=== PATIENT | male | born 1940 | race Caucasian/White ===

== ENCOUNTER 2018-02-21 15:05 | Inpatient (IN) | payer MEDICARE ==
[~2018-02-21] VITALS: Ht 167.6 cm; Wt 81.6 kg
--- NOTE | ~2018-02-21 | HP ---
PATIENT: DANIEL ADAME MEDICAL RECORD: [id number] ACCOUNT: [id number] LOCATION:[facility] : 40 ADMISSION DATE: 02/21/18 PCP: AGGIE PANIAGUA MD HISTORY AND PHYSICAL EXAMINATION HISTORY: Mr. Adame is a 77-year-old white male that is brought in by EMS, found in his home sitting in his own feces and urine. Apparently, he has been there since Thursday. He is confused. He is very hard of hearing. He is not wearing his hearing aids. Workup in the Emergency Room is significant for small PE, bowel obstruction, and an incarcerated umbilical hernia. 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 Ramos, who has been treating him for some heart issues. He has been noncompliant with medications. He is supposed to be on Coreg, which he got filled in January. He has been on spironolactone in the past, but has not filled for several months nor has he filled his Entresto in several months. No other meds listed. He is in atrial fib here in the Emergency Room, but he has been on no anticoagulation. He is going to be admitted for further evaluation. PAST MEDICAL HISTORY: Uncertain. He is unable to give much history himself. PAST SURGICAL HISTORY: Previous surgeries are unknown. ALLERGIES: Unknown. HOME MEDICATIONS: Coreg 6.25 b.i.d. Other meds; he has not been compliant with spironolactone and Entresto. FAMILY HISTORY: Unknown. SOCIAL HISTORY: According to his co-worker, he does not smoke and does not drink. He is . REVIEW OF SYSTEMS: Significant for some abdominal pain. PHYSICAL EXAMINATION: GENERAL: Very hard of hearing. He is awake. He seems somewhat confused. HEART: Irregularly irregular with rapid rate. LUNGS: Diminished breath sounds. ABDOMEN: Soft. He has got incarcerated umbilical hernia, which appears chronic. EXTREMITIES: Lower extremities reveal some stasis dermatitis with some swelling which is greater in the left leg than the right. NEUROLOGIC: Incomplete. IMPRESSIONS: 1. Bowel obstruction. 2. Pulmonary embolism on CTA. 3. Apparent cardiac history. PLAN: Admit. Surgical consultation. Dig. See orders for rest of plan. TRANSINT:[id number] Voice Confirmation ID: [id number] DOCUMENT ID: [id number] HISTORY AND PHYSICAL [id number] DANIEL ADAME MATTHEW DO at 2034 CC: [id number] DICTATION DATE: 02/21/18 185 SOCIAL MEDIA DIRECTOR: 02/21/18 193 ADM IN [address] [id number]
--- NOTE | ~2018-02-21 | EC ---
PATIENT:DANIEL ADAME DATE OF SERVICE: 02/21/18 SEX: M MEDICAL RECORD: [id number] DATE OF : 40 LOCATION:[facility] AGE OF PATIENT: 77 ADMISSION DATE: 02/21/18 REFERRING PHYSICIAN: INTERPRETING PHYSICIAN: MIKI BOLES MD ECHOCARDIOGRAM REPORT ECHO CHARGES 4 ECHO COMPLETE Date: 02/22/18 CLINICAL DIAGNOSIS: A-FIB ECHOCARDIOGRAPHIC MEASUREMENTS (adult normal given) AC root (d.<3.7cm) 3.3 cm LV Septum d (<1.2 cm> 1.4 cm Valve Excursion 1.4 cm LV Septum (systole) 1.7 cm Left Atria (s.<4.0cm> 4.5 cm LVPW d(<1.2cm) 1.3 cm RV (d.<2.3cm) 3.1 cm LVPW (sytole) 1.9 cm LV diastole(<5.6CM) 5.0 cm MV E-F(>70mm/sec) cm LV systole 3.4 cm LVOT Diameter 2.0 cm MV exc.(>10mm) cm Est.ejection fraction (50-75%) % DOPPLER: LVIT cm/sec A cm/sec E 83.0 cm/sec LA cm/sec RVSP 24.3 mmHg LVOT 120 cm/sec AOP1/2T m/s Asc. Ao 140 cm/sec RVOT 65.0 cm/sec RA cm/sec PA 77.0 cm/sec AV Gradient Peak 7.8 mmHg AV Mean 3.9 mmHg AV Area 2.7 cm MV Gradient Peak 3.8 mmHg MV Mean 1.5 mmHg MV Area cm COMMENTS: Air Plant Engineer: Dima [employer] District Traffic Chief: 1 Dr. Boles TAPE# PACS Pericardial Effusion N DATE OF SERVICE: 02/22/2018 FINDINGS: 1. Left ventricular chamber size is within normal limits. Left ventricular systolic function is mild to moderately depressed. Overall ejection fraction 35%. There is global hypokinesis throughout all segments with no discrete wall motion abnormalities present. 2. Left atrium is enlarged at 4.5 cm. Right atrium and right ventricular chamber sizes are as well moderately dilated. 3. Valvular structures have normal structure and motion. ECHOCARDIOGRAM REPORT [id number] DANIEL ADAME 4. Doppler interrogation reveals mild mitral regurgitation. No other valvular insufficiency or stenosis. Pulmonary systolic pressure is estimated at 24 mmHg. 5. No evidence of pericardial effusion or left ventricular thrombus. TRANSINT:[id number] Voice Confirmation ID: [id number] DOCUMENT ID: [id number] MIKI BOLES MD at 1823 CC: [id number] DICTATION DATE: 02/22/18 1249 SOCIAL SCIENCE PROFESSOR: 02/22/[address] [facility] [address] [place] [address]
--- NOTE | ~2018-02-21 | OP ---
PATIENT NAME: DANIEL ADAME MEDICAL RECORD: [id number] :40 LOCATION:[facility] ADMISSION DATE:02/21/18 SURGEON: AVIS CANALES MD DATE OF OPERATION: 02/24/2018 SURGEON: Avis Canales MD (JJ) PREOPERATIVE DIAGNOSES: 1. Bowel obstruction. 2. Abdominal aortic aneurysm. 3. Pulmonary embolism. POSTOPERATIVE DIAGNOSES: 1. Bowel obstruction. 2. Abdominal aortic aneurysm. 3. Pulmonary embolism. PROCEDURES PERFORMED: Exploratory laparotomy, small bowel resection, abdominal washout, and lysis of adhesions. ANESTHESIA: General. COMPLICATIONS: None. SPECIMEN: Small bowel resection. Case was contaminated. OPERATIVE COURSE: After consent was obtained, the patient was taken to the operating room and placed in the supine position on the operating table. Next, general anesthesia was given via endotracheal intubation after time-out was performed to confirm correct patient and procedure. The abdomen was prepped and draped in typical sterile fashion. Ioban dressing was placed. Lower midline abdominal incision was made with #10 blade scalpel just above the umbilicus to the pubic tubercle with a #10 blade scalpel. Dissection was continued to the level of the external oblique fascia using electrocautery. The fascia was incised with electrocautery. The peritoneum was incised using Metzenbaum scissors. At this time, the remaining portion of the incision was opened under direct vision using electrocautery. An Rakesh retractor was placed. One liter of purulent peritoneal fluid was encountered. The peritoneal fluid was suctioned and sent for Gram stain culture and sensitivity. The abdominal cavity was copiously irrigated and suctioned. The small bowel was extracorporealized and placed into the right upper quadrant. There was a single site of knuckled small bowel in the mid jejunum with immediate decompressed distal small bowel. An enterotomy was made and the proximal small bowel was decompressed using retrograde intraluminal suction. At this time, a segment of bowel, approximately 5 cm, was bypassed. A second enterotomy was made. A ixdy-ak-pdnx anastomosis was made with a linear AARON stapler with 75-mm green load staple. The common enterotomy was then closed using a second firing of the stapler and the remaining portion of mesentery was taken with a third firing of the stapler. The small bowel segment and mesentery were sent for permanent pathology. The lumen was grossly patent. The staple line was imbricated using 3-0 silk suture. The abdominal cavity was then irrigated with 3 liters of warm normal saline. An NG tube was placed and confirmed in position within the stomach with manual palpation. The abdominal cavity was grossly inspected. The small bowel was run OPERATIVE REPORT [id number] WELLS,DANIEL from the ligament of Treitz to the terminal ileum. There were no other defects noted. There was adequate passage of intraluminal fluid through the anastomosis. At this time, the fascia was reapproximated using #1 looped PDS. Skin was closed with brian. At the end of the case, all needle and instrument counts were correct. No complications occurred. The patient was extubated and transferred to the PACU in stable condition. TRANSINT:[id number] Voice Confirmation ID: [id number] DOCUMENT ID: [id number] AVIS CANALES MD at 1814 CC: [id number] DICTATION DATE: 02/24/18 1515 ENTRY LEVEL PROJECT COORDINATOR: 02/24/18 1535 ADM IN [facility] [address] [id number]
[2018-02-21 15:47] LABS: BASOPHILS 0 % (0-2); EOSINOPHILS 0.6 % (0-7); HEMATOCRIT 50.2 % (42.0-54.0); HEMOGLOBIN 17.2 g/dL (13.5-17.5); IMMATURE GRANULOCYTES 0.2 % (0-5); LYMPHOCYTES 15.6 % (15-50); MCH 30.8 pg (26.0-34.0); MCHC 34.3 g/dL (31.0-37.0); MEAN PLATELET VOLUME 11.7 fL (7.4-10.4); MONOCYTES 16.6 % (2-11); PLATELET COUNT 169 10x3/uL (130-400); RBC 5.58 10x6/uL (4.20-6.10); RDW 13.9 % (11.5-14.5); WBC 5.3 10x3/uL (4.8-10.8)
[2018-02-21 15:56] LABS: INR 1.23 (0.85-1.17); PROTIME 15.1 SECONDS (11.6-15.0)
[2018-02-21 15:58] LABS: D-DIMER-QUANTITATIVE 3.32 ug/mLFEU (0.20-0.54)
[2018-02-21 16:08] LABS: ALBUMIN 3.1 g/dL (3.4-5.0); ALKALINE PHOSPHATASE 100 U/L (46-116); ALT (SGPT) 13 U/L (10-68); BILIRUBIN - TOTAL 1.66 mg/dL (0.2-1.3); CALC OSMOLALITY 302 mosm/kg (275-300); CALCIUM 8.8 mg/dL (8.5-10.1); CARBON DIOXIDE 25.1 mmol/L (21.0-32.0); CHLORIDE - SERUM 104 mmol/L (98-107); CREATININE - SERUM 1.4 mg/dL (0.6-1.3); GLUCOSE 194 mg/dL (74-106); POTASSIUM - SERUM 3.6 mmol/L (3.5-5.1); SODIUM 143 mmol/L (136-145); UREA NITROGEN 49 mg/dL (7-18); eGFR NON AFRICAN AMERICAN 52 mL/min (90-120)
[2018-02-21 16:21] LABS: C-REACTIVE PROTEIN 2.6 mg/dL (0.0-0.9); CKMB 3.1 U/L (0.0-3.6); CREATINE KINASE 39 UL (21-232); PRO BNP 1636 pg/mL (0-450); THYROID STIMULATING HORMONE 0.63 uIU/mL (0.36-3.74)
[2018-02-21 16:25] LABS: TROPONIN-I 0.113 ng/mL (0.000-0.060)
[2018-02-21 16:49] LABS: UDS - AMPHET NEGATIVE QUAL (NEGATIVE); UDS - BARB NEGATIVE QUAL (NEGATIVE); UDS - BENZO NEGATIVE QUAL (NEGATIVE); UDS - COCAINE NEGATIVE QUAL (NEGATIVE); UDS - OPIATE NEGATIVE QUAL (NEGATIVE); UDS - PCP NEGATIVE QUAL (NEGATIVE); UDS - THC NEGATIVE QUAL (NEGATIVE)
[2018-02-21 16:55] LABS: APPEARANCE CLEAR (CLEAR); BILIRUBIN 1+ (NEGATIVE); COLOR DK YELLOW (YELLOW); GLUCOSE NEGATIVE (NEGATIVE); KETONE MODERATE mg/dL (NEGATIVE); NITRITE NEGATIVE (NEGATIVE); PROTEIN 1+ mg/dL (NEGATIVE); SPECIFIC GRAVITY 1.025 (1.005-1.020)
[2018-02-21 16:58] LABS: BACTERIA FEW /hpf (NONE SEEN); EPITHELIAL CELLS 0-5 /hpf (0-5); WHITE CELLS - URINE 0-5 /hpf (0-5)
[2018-02-21 20:00] LABS: HEMATOCRIT 44.3 % (42.0-54.0); MCH 30.3 pg (26.0-34.0); MCHC 33.9 g/dL (31.0-37.0); MCV 89.5 fL (80.0-100.0); MEAN PLATELET VOLUME 11.7 fL (7.4-10.4); RBC 4.95 10x6/uL (4.20-6.10); RDW 13.8 % (11.5-14.5); WBC 4.8 10x3/uL (4.8-10.8)
[2018-02-21 20:14] LABS: APTT 26.3 SECONDS (22.8-39.4); INR 1.25 (0.85-1.17); PROTIME 15.2 SECONDS (11.6-15.0)
[2018-02-21 21:58] VITALS: BP 133/73; BMI 29.2
[2018-02-21] MEDS ORDERED: COREG6.25 MG PO (23:21)
[2018-02-22 04:00] VITALS: BP 129/71
[2018-02-22 04:12] LABS: HEMOGLOBIN 14.8 g/dL (13.5-17.5); MCH 30.3 pg (26.0-34.0); MCHC 33.6 g/dL (31.0-37.0); MCV 90.2 fL (80.0-100.0); MEAN PLATELET VOLUME 11.9 fL (7.4-10.4); RBC 4.88 10x6/uL (4.20-6.10); RDW 13.9 % (11.5-14.5)
[2018-02-22 04:17] LABS: WBC 3.2 10x3/uL (4.8-10.8)
[2018-02-22 08:05] VITALS: BP 88/58
[2018-02-22 08:32] LABS: ANION GAP 7.6 mmol/L (8-16); BILIRUBIN - TOTAL 0.9 mg/dL (0.2-1.3); CREATININE - SERUM 1.1 mg/dL (0.6-1.3); POTASSIUM - SERUM 3.6 mmol/L (3.5-5.1); PROTEIN - SERUM 5.6 g/dL (6.4-8.2)
[2018-02-22 08:33] LABS: ALBUMIN 2.3 g/dL (3.4-5.0)
[2018-02-22 12:01] VITALS: BP 134/73
[2018-02-22 12:36] VITALS: BMI 29.2
[2018-02-22 13:02] VITALS: Ht 167.6 cm; Wt 81.6 kg
[2018-02-22 15:42] VITALS: BP 152/80
[2018-02-22 21:04] VITALS: BP 152/80
[2018-02-23 01:28] LABS: HEMATOCRIT 42.3 % (42.0-54.0); HEMOGLOBIN 14.2 g/dL (13.5-17.5); MCH 30.3 pg (26.0-34.0); MCHC 33.6 g/dL (31.0-37.0); MCV 90.4 fL (80.0-100.0); MEAN PLATELET VOLUME 11.2 fL (7.4-10.4); RBC 4.68 10x6/uL (4.20-6.10); RDW 13.9 % (11.5-14.5); WBC 3.7 10x3/uL (4.8-10.8)
[2018-02-23 04:25] VITALS: BP 148/86
[2018-02-23 05:59] LABS: BASOPHILS 0 % (0-2); EOSINOPHILS 1.6 % (0-7); HEMATOCRIT 42.1 % (42.0-54.0); HEMOGLOBIN 13.7 g/dL (13.5-17.5); IMMATURE GRANULOCYTES 0.5 % (0-5); LYMPHOCYTES 16.4 % (15-50); MCH 29.5 pg (26.0-34.0); MCHC 32.5 g/dL (31.0-37.0); MCV 90.5 fL (80.0-100.0); MEAN PLATELET VOLUME 11.4 fL (7.4-10.4); MONOCYTES 14.1 % (2-11); NEUTROPHILS 67.4 % (40-80); PLATELET COUNT 132 10x3/uL (130-400); RBC 4.65 10x6/uL (4.20-6.10); RDW 13.9 % (11.5-14.5); WBC 3.8 10x3/uL (4.8-10.8)
[2018-02-23 06:24] LABS: CALC OSMOLALITY 298 mosm/kg (275-300); CALCIUM 8.1 mg/dL (8.5-10.1); CARBON DIOXIDE 29.2 mmol/L (21.0-32.0); CHLORIDE - SERUM 111 mmol/L (98-107); GLUCOSE 221 mg/dL (74-106); MAGNESIUM - SERUM 1.9 mg/dL (1.8-2.4); POTASSIUM - SERUM 3.9 mmol/L (3.5-5.1); SODIUM 145 mmol/L (136-145); eGFR NON AFRICAN AMERICAN 77 mL/min (90-120)
[2018-02-23 06:26] LABS: UREA NITROGEN 20 mg/dL (7-18)
[2018-02-23 08:08] VITALS: BP 161/93
[2018-02-23 11:45] VITALS: BP 147/85
[2018-02-23 16:18] VITALS: BP 162/140
[2018-02-23 19:27] VITALS: BP 146/81
[2018-02-24 04:00] VITALS: BP 179/102
[2018-02-24 05:18] LABS: BASOPHILS 0.2 % (0-2); EOSINOPHILS 1.6 % (0-7); HEMATOCRIT 40.4 % (42.0-54.0); HEMOGLOBIN 13.5 g/dL (13.5-17.5); IMMATURE GRANULOCYTES 0.7 % (0-5); LYMPHOCYTES 18.5 % (15-50); MCH 30.1 pg (26.0-34.0); MCHC 33.4 g/dL (31.0-37.0); MEAN PLATELET VOLUME 11.4 fL (7.4-10.4); MONOCYTES 12.2 % (2-11); NEUTROPHILS 66.8 % (40-80); PLATELET COUNT 139 10x3/uL (130-400); RBC 4.49 10x6/uL (4.20-6.10); RDW 13.7 % (11.5-14.5); WBC 4.5 10x3/uL (4.8-10.8)
[2018-02-24 05:34] LABS: CALC OSMOLALITY 293 mosm/kg (275-300); CALCIUM 8.2 mg/dL (8.5-10.1); CARBON DIOXIDE 28.3 mmol/L (21.0-32.0); CHLORIDE - SERUM 109 mmol/L (98-107); GLUCOSE 194 mg/dL (74-106); MAGNESIUM - SERUM 1.8 mg/dL (1.8-2.4); POTASSIUM - SERUM 3.4 mmol/L (3.5-5.1); SODIUM 145 mmol/L (136-145); eGFR NON AFRICAN AMERICAN 77 mL/min (90-120)
[2018-02-24 05:37] LABS: PHOSPHOROUS 2.6 mg/dL (2.5-4.9); UREA NITROGEN 13 mg/dL (7-18)
[2018-02-24 08:51] VITALS: BP 171/91
[2018-02-24 12:45] VITALS: BP 172/84; BP 98/66
[2018-02-24 16:40] VITALS: BP 132/892
[2018-02-24 20:00] VITALS: BP 142/70
[2018-02-25 04:00] VITALS: BP 155/70
[2018-02-25 05:34] LABS: BASOPHILS 0.1 % (0-2); EOSINOPHILS 0 % (0-7); HEMATOCRIT 45.8 % (42.0-54.0); HEMOGLOBIN 15.7 g/dL (13.5-17.5); IMMATURE GRANULOCYTES 0.3 % (0-5); LYMPHOCYTES 6.3 % (15-50); MCH 30.5 pg (26.0-34.0); MCHC 34.3 g/dL (31.0-37.0); MCV 89.1 fL (80.0-100.0); MEAN PLATELET VOLUME 11.6 fL (7.4-10.4); MONOCYTES 5.6 % (2-11); NEUTROPHILS 87.7 % (40-80); PLATELET COUNT 150 10x3/uL (130-400); RBC 5.14 10x6/uL (4.20-6.10); RDW 13.9 % (11.5-14.5)
[2018-02-25 05:47] LABS: WBC 8.9 10x3/uL (4.8-10.8)
[2018-02-25 06:12] LABS: ANION GAP 13.2 mmol/L (8-16); CALCIUM 7.7 mg/dL (8.5-10.1); CARBON DIOXIDE 26.5 mmol/L (21.0-32.0); CREATININE - SERUM 1.2 mg/dL (0.6-1.3); MAGNESIUM - SERUM 1.7 mg/dL (1.8-2.4); POTASSIUM - SERUM 3.7 mmol/L (3.5-5.1)
[2018-02-25 06:13] LABS: PHOSPHOROUS 3.5 mg/dL (2.5-4.9)
[2018-02-25 10:55] VITALS: BP 190/115
[2018-02-25 13:31] VITALS: BP 178/98
[2018-02-25 16:48] VITALS: BP 142/69
[2018-02-25 20:00] VITALS: BP 155/83
[2018-02-26 04:00] VITALS: BP 131/83
[2018-02-26 05:07] LABS: BASOPHILS 0.1 % (0-2); EOSINOPHILS 0.3 % (0-7); HEMATOCRIT 41.9 % (42.0-54.0); HEMOGLOBIN 14.4 g/dL (13.5-17.5); IMMATURE GRANULOCYTES 0.6 % (0-5); LYMPHOCYTES 5.5 % (15-50); MCH 30.5 pg (26.0-34.0); MCHC 34.4 g/dL (31.0-37.0); MCV 88.8 fL (80.0-100.0); MEAN PLATELET VOLUME 11.4 fL (7.4-10.4); MONOCYTES 6.6 % (2-11); NEUTROPHILS 86.9 % (40-80); PLATELET COUNT 148 10x3/uL (130-400); RBC 4.72 10x6/uL (4.20-6.10); RDW 13.9 % (11.5-14.5); WBC 10.5 10x3/uL (4.8-10.8)
[2018-02-26 05:57] LABS: ANION GAP 8.4 mmol/L (8-16); CALCIUM 8.2 mg/dL (8.5-10.1); CARBON DIOXIDE 31.5 mmol/L (21.0-32.0); CREATININE - SERUM 1.1 mg/dL (0.6-1.3); MAGNESIUM - SERUM 1.8 mg/dL (1.8-2.4); PHOSPHOROUS 2.7 mg/dL (2.5-4.9)
[2018-02-26 06:20] LABS: POTASSIUM - SERUM 2.9 mmol/L (3.5-5.1)
[2018-02-26 08:48] VITALS: BP 156/91
[2018-02-26 12:46] VITALS: BP 164/94
[2018-02-26 16:49] VITALS: BP 140/65
[2018-02-26 23:06] VITALS: BP 111/84
[2018-02-27 04:54] VITALS: BP 180/92
[2018-02-27 08:44] LABS: CALCIUM 8.7 mg/dL (8.5-10.1); CARBON DIOXIDE 29.5 mmol/L (21.0-32.0); CREATININE - SERUM 1.1 mg/dL (0.6-1.3); MAGNESIUM - SERUM 2.1 mg/dL (1.8-2.4); PHOSPHOROUS 2.7 mg/dL (2.5-4.9); POTASSIUM - SERUM 4.5 mmol/L (3.5-5.1)
[2018-02-27 09:11] VITALS: BP 131/85
[2018-02-27 15:35] VITALS: BP 179/93
[2018-02-27 20:30] VITALS: BP 124/73
[2018-02-28 00:30] VITALS: BP 172/91
[2018-02-28 05:41] LABS: BASOPHILS 0.1 % (0-2); EOSINOPHILS 2.1 % (0-7); HEMATOCRIT 40.4 % (42.0-54.0); HEMOGLOBIN 13.4 g/dL (13.5-17.5); IMMATURE GRANULOCYTES 0.8 % (0-5); LYMPHOCYTES 6.2 % (15-50); MCH 29.6 pg (26.0-34.0); MCHC 33.2 g/dL (31.0-37.0); MCV 89.4 fL (80.0-100.0); MEAN PLATELET VOLUME 11.5 fL (7.4-10.4); MONOCYTES 7.2 % (2-11); NEUTROPHILS 83.6 % (40-80); PLATELET COUNT 175 10x3/uL (130-400); RBC 4.52 10x6/uL (4.20-6.10); RDW 14.4 % (11.5-14.5); WBC 8.9 10x3/uL (4.8-10.8)
[2018-02-28 06:13] VITALS: BP 184/102
[2018-02-28 06:20] LABS: CALC OSMOLALITY 292 mosm/kg (275-300); CALCIUM 8.3 mg/dL (8.5-10.1); CARBON DIOXIDE 28.4 mmol/L (21.0-32.0); CHLORIDE - SERUM 108 mmol/L (98-107); GLUCOSE 206 mg/dL (74-106); PHOSPHOROUS 2.6 mg/dL (2.5-4.9); SODIUM 143 mmol/L (136-145); UREA NITROGEN 18 mg/dL (7-18); eGFR NON AFRICAN AMERICAN 77 mL/min (90-120)
[2018-02-28 08:48] VITALS: BP 147/82
[2018-02-28 15:26] VITALS: BP 162/97
[2018-02-28 16:00] VITALS: BP 155/86
[2018-03-01 05:51] LABS: CALC OSMOLALITY 292 mosm/kg (275-300); CALCIUM 8.1 mg/dL (8.5-10.1); CARBON DIOXIDE 29.4 mmol/L (21.0-32.0); CHLORIDE - SERUM 107 mmol/L (98-107); CREATININE - SERUM 0.9 mg/dL (0.6-1.3); GLUCOSE 197 mg/dL (74-106); MAGNESIUM - SERUM 1.9 mg/dL (1.8-2.4); POTASSIUM - SERUM 3.7 mmol/L (3.5-5.1); SODIUM 144 mmol/L (136-145); UREA NITROGEN 16 mg/dL (7-18); eGFR NON AFRICAN AMERICAN 87 mL/min (90-120)
[2018-03-01 08:17] VITALS: BP 96/72
[2018-03-01 09:13] LABS: BASOPHILS 0.1 % (0-2); EOSINOPHILS 2.1 % (0-7); HEMATOCRIT 40.1 % (42.0-54.0); HEMOGLOBIN 13.2 g/dL (13.5-17.5); IMMATURE GRANULOCYTES 0.5 % (0-5); LYMPHOCYTES 7.9 % (15-50); MCH 29.9 pg (26.0-34.0); MCHC 32.9 g/dL (31.0-37.0); MCV 90.7 fL (80.0-100.0); MEAN PLATELET VOLUME 11.9 fL (7.4-10.4); NEUTROPHILS 82.4 % (40-80); RBC 4.42 10x6/uL (4.20-6.10); RDW 14.6 % (11.5-14.5); WBC 9.2 10x3/uL (4.8-10.8)
[2018-03-01 09:14] LABS: PLATELET COUNT 213 10x3/uL (130-400)
[2018-03-01 13:33] VITALS: BP 161/99
[2018-03-01 16:37] VITALS: BP 128/92
[2018-03-01 20:00] VITALS: BP 131/89
[2018-03-02 04:00] VITALS: BP 174/107
[2018-03-02 05:19] LABS: BASOPHILS 0.1 % (0-2); HEMATOCRIT 39.5 % (42.0-54.0); HEMOGLOBIN 13.1 g/dL (13.5-17.5); IMMATURE GRANULOCYTES 0.5 % (0-5); LYMPHOCYTES 6.8 % (15-50); MCHC 33.2 g/dL (31.0-37.0); MCV 90.4 fL (80.0-100.0); MEAN PLATELET VOLUME 11.3 fL (7.4-10.4); MONOCYTES 4.6 % (2-11); PLATELET COUNT 221 10x3/uL (130-400); RBC 4.37 10x6/uL (4.20-6.10); RDW 14.3 % (11.5-14.5)
[2018-03-02 05:36] LABS: ALBUMIN 2.1 g/dL (3.4-5.0); ALKALINE PHOSPHATASE 117 U/L (46-116); ALT (SGPT) 51 U/L (10-68); BILIRUBIN - TOTAL 0.69 mg/dL (0.2-1.3); CALC OSMOLALITY 288 mosm/kg (275-300); CALCIUM 8.3 mg/dL (8.5-10.1); CARBON DIOXIDE 29.5 mmol/L (21.0-32.0); CHLORIDE - SERUM 107 mmol/L (98-107); GLUCOSE 173 mg/dL (74-106); POTASSIUM - SERUM 3.7 mmol/L (3.5-5.1); PROTEIN - SERUM 5.6 g/dL (6.4-8.2); SODIUM 142 mmol/L (136-145); UREA NITROGEN 17 mg/dL (7-18); eGFR NON AFRICAN AMERICAN 77 mL/min (90-120)
[2018-03-02 08:28] VITALS: BP 188/100
[2018-03-02 11:30] VITALS: BP 127/80
[2018-03-02] MEDS ORDERED: ZOSYN 3.3753.375 G1 IV (11:32)
[2018-03-02] MEDS ORDERED: ELIQUIS5 MG PO (11:32)
[2018-03-02] MEDS ORDERED: HYDRALAZINE20 MG/ML IV (11:32)
[2018-03-02] MEDS ORDERED: PROTONIX VL + NS SYR IV (11:32)
[2018-03-02] MEDS ORDERED: MIRALAX17 GM PO (11:32)
[2018-03-02] MEDS ORDERED: FLORAJEN3 CAPS460 MG PO (11:32)
[2018-03-02] MEDS ORDERED: HUMULIN R100 U/ML SC (11:33)
[2018-03-02] MEDS ORDERED: CALMOSEPTINE OI71 GM TOPICAL (11:33)
== END 2018-03-02 16:03 | DRG 329 ==
LOC: D.ER 15:05 → D.EDHOLD 18:03 → D.MS 18:03 → D.EDHOLD 18:25 → D.ER 18:25 → D.MS 18:25 → D.EDHOLD 19:48 → D.MS 02-26 21:15
PROVIDERS: Emergency Medicine; Family Medicine; Internal Medicine Nephrology; Surgery
PROC: 0D9670Z Drainage of Stomach with Drainage Device, Via Natural or Artificial Opening (ICD-10-PCS; principal; 2018-02-21)
PROC: 0DB80ZZ Excision of Small Intestine, Open Approach (ICD-10-PCS; 2018-02-24 13:15)
DX: K42.0 Umbilical hernia with obstruction, without gangrene (principal); I26.99 Other pulmonary embolism without acute cor pulmonale; J18.9 Pneumonia, unspecified organism; I50.23 Acute on chronic systolic (congestive) heart failure; E43 Unspecified severe protein-calorie malnutrition; G93.41 Metabolic encephalopathy; J98.11 Atelectasis; E86.0 Dehydration; I48.91 Unspecified atrial fibrillation; H91.90 Unspecified hearing loss, unspecified ear; I71.4 Abdominal aortic aneurysm, without rupture; I11.0 Hypertensive heart disease with heart failure; I34.0 Nonrheumatic mitral (valve) insufficiency; Z68.29 Body mass index [BMI] 29.0-29.9, adult; I87.2 Venous insufficiency (chronic) (peripheral); Z91.19 Patient's noncompliance with other medical treatment and regimen

== ENCOUNTER 2018-03-02 16:46 | Inpatient (IN) | payer MEDICARE ==
[~2018-03-02] VITALS: Ht 167.6 cm; Wt 82.3 kg
--- NOTE | ~2018-03-02 | RHP ---
PATIENT: DANIEL ADAME MEDICAL RECORD: [id number] ACCOUNT: [id number] LOCATION:[id number] : 40 ADMISSION DATE: 03/02/18 REHABILITATION HISTORY AND PHYSICAL EXAMINATION POST ADMISSION PHYSICIAN EXAMINATION POST-ADMISSION PHYSICAL EXAMINATION AND HISTORY AND PHYSICAL DATE OF ADMISSION: 03/02/2018 ADMITTING DIAGNOSIS: Acute encephalopathy. HISTORY OF PRESENT ILLNESS: The patient is admitted to the inpatient rehab with a nontraumatic brain injury, acute encephalopathy. He is a 77-year-old gentleman, who was brought in via EMS on 02/21 after being found at home, sitting on his own feces and urine in his recliner. He was confused. Workup in the Emergency Room was significant for a small PE in the right upper lobe, bowel obstruction, abdominal aortic aneurysm, and incarcerated umbilical hernia. He was also in atrial fib. In the ER, was noted with no anticoagulation therapy. He has got a cardiac history including atrial fib, systolic congestive heart failure with an EF of 35%, mild mitral regurg. He has got hypertension. He underwent a small bowel resection on 02/24. He has been seen by the cardiovascular surgeon for AAA, but workup further after his acute illness resolved. He has been followed by pulmonary. He is currently on 4 liters of O2 with telemetry. He is bridged with Lovenox every 12 hours, that was recently discontinued until he could be therapeutic on Eliquis for anticoagulant therapy. Currently, he is incontinent of bowel and bladder at this time. He is receiving IV antibiotic therapy. He has been discontinued off his albumin, his TPN and lipids. He needs monitoring for close p.o. intake. He is debilitated, impaired mobility, confusion, self-care deficit. These are all barriers to him going home. He has been living alone, was independent with ADLs, moderately independent with his mobility with a single-point cane and was still working. He is currently set up for max assist with ADLs, moderate to max to total assist with his mobility. His daughter plans for him to discharge home with her to [place] after his acute inpatient stay. Comorbidities in this patient include bowel obstruction, pulmonary embolus, status post small bowel resection, right upper lobe pulmonary embolus, [id number] congestive heart failure, rule out pneumonia, on IV antibiotics at this time, peripheral arterial disease, umbilical hernia, nutritional problems, hypertension, atrial fib, lower extremity stasis, dementia, acute mental status changes, hyperglycemia, dehydration, and status post exploratory laparotomy. PAST MEDICAL HISTORY: Significant for atrial fib, systolic congestive heart failure, AAA, hypertension. PAST SURGICAL HISTORY: None other than above. ALLERGIES: No known drug allergies. CURRENT MEDICATIONS: Include Protonix 40 mg daily. He is on Floranex 160 mg daily, Coreg 6.25 mg b.i.d. with meals, polyethylene glycol 17 grams in 8 ounces of water daily. He is on Zosyn 3.375 g every 6 hours. He is on Calmoseptine. He is on a low-resistant sliding scale. Apresoline 20 mg every 4 hours for elevated blood pressures and Eliquis 5 mg b.i.d. HISTORY AND PHYSICAL [id number] DANIEL ADAME HABITS: No alcohol or tobacco use. FAMILY HISTORY: Noncontributory. SOCIAL HISTORY: The patient once again is going to be returning back to [place] actually hopefully with his daughter. REVIEW OF SYSTEMS: GENERAL: Does complain of weakness and fatigue. HEENT: Denies cold, cough, or congestion. CARDIOVASCULAR: Denies chest pain. PHYSICAL EXAMINATION: VITAL SIGNS: Stable, afebrile. GENERAL: Elderly gentleman, in no acute distress upon exam. HEENT: Normocephalic and atraumatic. Mucosa moist. NECK: Supple at this time. LUNGS: Clear, although he does have decreased breath sounds. CARDIOVASCULAR: Irregular rate and rhythm. ABDOMEN: Benign. EXTREMITIES: No clubbing, cyanosis, or edema. NEUROLOGIC: He is slow to mentate. LABORATORY DATA: His white count is 7.9, H&H of 13 and 39, and platelet count was noted to be 229. His sodium is 141, potassium 3.9, BUN and creatinine of 20 and 1.0, and blood sugar is noted to be 166. ASSESSMENT: This is a 77-year-old gentleman, who presents secondary to acute metabolic encephalopathy. The patient has potential to make improvement. We will institute the following multidisciplinary therapies including, but not limited to physical, occupational, and other services that cannot be offered at a lower level of care such as a nursing home facility. PLAN: 1. Admit to [facility] for intensive inpatient therapy to include the following disciplines: A. Physical therapy to improve gait, all transfer skills and bed mobility to a modified independent level. B. Occupational therapy to improve activities of daily living to a modified independent level. C. Case management to assist with discharge planning and placement options. D. Nutrition to assist with nutritional needs. E. Rehabilitation nursing to assist in monitoring the patient's underlying medical conditions and to assist with any type of bowel or bladder management. 2. The patient's current medications and medical care will be continued. 3. The patient will be placed on standard fall precautions. 4. The patient's estimated length of stay is approximately 7-10 days. 5. We will discuss this patient during care team staff meeting this week. I will follow up blood work again on Thursday and hopefully discuss with his daughter during the meantime. TRANSINT:[id number] Voice Confirmation ID: [id number] DOCUMENT ID: [id number] ADELSO notes whether there has been none or any medical/functional HISTORY AND PHYSICAL [id number] DANIEL ADAME change since admission: - No change since prescreen. ADELSO attests patient continues to be appropriate for IRF: - Continues to be appropriate. CASI DAY MD at 1244 CC: [id number] DICTATION DATE: 03/03/18 0909 MEDICAL STAFF DIRECTOR: 03/03/18 1131 DIS IN 03/03/[id number] [place] [address]
[~2018-03-02 16:46] MED LIST: CALMOSEPTINE OI71 GM TOPICAL; COREG6.25 MG PO; ELIQUIS5 MG PO; FLORAJEN3 CAPS460 MG PO; HUMULIN R100 U/ML SC; HYDRALAZINE20 MG/ML IV; MIRALAX17 GM PO; PROTONIX VL + NS SYR IV; ZOSYN 3.3753.375 G1 IV
[2018-03-02 19:00] VITALS: BP 120/59
[2018-03-03 02:18] VITALS: BP 120/59; Ht 167.6 cm; Wt 82.3 kg
[2018-03-03 06:40] LABS: BASOPHILS 0.1 % (0-2); EOSINOPHILS 0.4 % (0-7); HEMATOCRIT 38.9 % (42.0-54.0); HEMOGLOBIN 12.9 g/dL (13.5-17.5); IMMATURE GRANULOCYTES 0.5 % (0-5); LYMPHOCYTES 4.4 % (15-50); MCH 29.9 pg (26.0-34.0); MCHC 33.2 g/dL (31.0-37.0); MCV 90.3 fL (80.0-100.0); MEAN PLATELET VOLUME 11.3 fL (7.4-10.4); MONOCYTES 3.8 % (2-11); NEUTROPHILS 90.8 % (40-80); PLATELET COUNT 229 10x3/uL (130-400); RBC 4.31 10x6/uL (4.20-6.10); RDW 14.4 % (11.5-14.5); WBC 7.9 10x3/uL (4.8-10.8)
[2018-03-03 06:55] LABS: CALC OSMOLALITY 287 mosm/kg (275-300); CALCIUM 8.1 mg/dL (8.5-10.1); CARBON DIOXIDE 27.9 mmol/L (21.0-32.0); CHLORIDE - SERUM 107 mmol/L (98-107); GLUCOSE 166 mg/dL (74-106); POTASSIUM - SERUM 3.9 mmol/L (3.5-5.1); SODIUM 141 mmol/L (136-145); UREA NITROGEN 20 mg/dL (7-18); eGFR NON AFRICAN AMERICAN 77 mL/min (90-120)
[2018-03-03 08:00] VITALS: BP 175/90
[2018-03-03 11:30] VITALS: BP 141/74
== END 2018-03-03 11:10 | disposition short-term general hospital (02) | DRG 70 ==
LOC: D.REHAB 16:46
PROVIDERS: Emergency Medicine
DX: G93.40 Encephalopathy, unspecified (principal); I50.23 Acute on chronic systolic (congestive) heart failure; I48.91 Unspecified atrial fibrillation; I11.0 Hypertensive heart disease with heart failure; I34.0 Nonrheumatic mitral (valve) insufficiency; I71.4 Abdominal aortic aneurysm, without rupture

== ENCOUNTER 2018-03-03 11:00 | Inpatient (IN) | payer MEDICARE ==
[2018-03-03] VITALS (13 sets, daily range): BP systolic 129–179; BP diastolic 75–127
[~2018-03-03] VITALS: Ht 167.6 cm; Wt 91.2 kg
--- NOTE | ~2018-03-03 | MORECARE ---
CASE MANAGEMENT DISCHARGE SUMMARY PATIENT: DANIEL ADAME UNIT: [id number] ADM DATE: 03/03/18 AGE: 78 : 40 SEX: M ROOM/BED: D.2104 AUTHOR: SAMULE,DOC PHYSICIAN: REFERRING PHYSICIAN: AGGIE PANIAGUA MD DATE OF SERVICE: 03/24/18 Discharge Plan Patient Name: DANIEL ADAME Facility: [facility]:[place] : 1940 Planned Disposition: Long Term Facility Anticipated Discharge Date: 03/24/18 Discharge Date: Expected LOS: 21 Initial Reviewer: [id number] Initial Review Date: 03/03/2018 Generated: 03/24/18 5:32 pm Comments DCP- Discharge Planning Updated by [id number]: Alli Khan on 03/24/18 3:[address] Patient Name: DANIEL ADAME Encounter No: [id number] : 1940 Primary Insurance: HUMANA CHOICE PPO MCR ADVANT Anticipated DC Date: 03-24-2018 Planned Disposition: Long Term Facility External Planned Provider: [facility] MEDIC[facility] REHAB B[facility] DCP follow-up note: CM RECEIVED CALL FROM SHAYLA AT THE [facility], THEY WILL ACCEPT PT TODAY FOR REHAB, ARE CALLING PT'S DAUGHTER TO COMPLETE ADMISSION PAPERWORK NOW. BEDSIDE NURSE NOTFIED. CM FA[facility]ED UPDATE TO [facility] VIA ADRIANO, . FOR DISCHARGE, FAX DISCHARGE INFORMATION TO THE [facility], , NURSE REPORT TO BE CALLED TO THE [facility] AT [phone]. PT TO TRANSPORT VIA AMBULANCE. Alli Khan, CASE MANAGEMENT Appended by Alli Khan on 03/24/2018 14:53 CDT: CM RECEIVED CALL FROM JOHANNA AT [facility] [place] WHO REPORTS THEY CANNOT MEET PT'S NEEDS AND WILL NOT ACCEPT PT. JOHANNA HAS NOTIFIED PT'S DAUGHTER OF THIS TODAY AND INFORMED HER THAT EVEN IF MEDICARE WAS CHANGED TO STANDARD MEDICARE, IT WOULD NOT TAKE AFFECT UNTIL THE OF WHATEVER MONTH AFTER PT ARRIVES IN [place]. CM RECEIVED MESSAGE FROM PT'S DAUGHTER, JAIRO, WHO IS STILL IN AGREEMENT WITH DISCHARGE TO THE [facility] FOR REHAB AND WOULD LIKE CM TO FAX REFERRAL TO ANOTHER CARE HOME IN [place] TO CONTINUE SEEKING REHAB PLACEMENT CLOSER TO HER HOME; FAX [phone]. CM FAXED REFERRAL REQUESTED. ALLI KHAN, CASE MANAGEMENT Appended by Alli Khan on 03/24/2018 16:23 CDT: CM RECEIVED DISCHARGE ORDER, FAXED DISCHARGE INFORMATION TO THE [facility], , PT'S DAUGHTER ARRIVES AT HOSPITAL, HAS SIGNED ADMISSION PAPERS FOR REHAB AT THE [facility]. MANAGER MEDICAL AFFAIRS NURSE NOTIFIED. NURSE REPORT TO BE CALLED TO THE [facility] AT [phone]. PT TO TRANSPORT VIA AMBULANCE. SRI QUEEN DCP- Discharge Planning Updated by [id number]: Alli Khan on 03/24/18 11:[address] Patient Name: DANIEL ADAME Encounter No: [id number] : 1940 Primary Insurance: HUMANA CHOICE PPO MCR ADVANT Anticipated DC Date: 03-09-2018 Planned Disposition: Long Term Facility External Planned Provider: [facility], MEDICARE REHAB BED DCP follow-up note: CM RECEIVED CALL FROM PT'S DAUGHTER, JAIRO IBARRA [phone], WHO INFORMED CM THAT SHE HAS TO MAIL A COPY OF HER POWER OF AGRICULTURE CONSULTANT TO MEDICARE THEY WILL NOT ACCEPT EMAIL OR FAX, PT IS NOT ABLE TO ANSWER QUESTIONS FOR HIMSELF TO CHANGE MEDICARE COVERAGES AT THIS TIME. JAIRO REPORTS THIS PROCESS MAY TAKE OVER ONE WEEK. JAIRO NOW WANTS TO PLACE PT AT THE [facility] TO BEGIN REHAB THROUGH HIS MANAGED MEDICARE APPROVED AND SHE WILL WORK ON CHANGING TO STANDARD MEDICARE AND SECURING REHAB PLACEMENT IN [place] AT [facility]. JAIRO IS HER IN [place] AND IS AVAILABLE TO SIGN ADMISSION PAPERWORK TODAY AT THE [facility]. CM NOTIFIED SABA BRUNER. CM CALLED THE [facility], , NOTIFIED SHAYLA OF THE PLAN, SHAYLA REPORTS THEY WILL ACCEPT PT TODAY FOR REHAB, SHAYLA TO CALL CM SHORTLY WITH WHICH BUILDING PT WILL BE COMING TO. CM WAITING ON DISCHARGE ORDERS AND BUILDING ASSIGNMENT FOR THE [facility] ([facility]) FOR REHAB SERVICES APPROVED BY PT'S INSURANCE. SRI Queen DCP- Discharge Planning Updated by [id number]: Alli Khan on 03/24/18 10:[address] Patient Name: DANIEL ADAME Encounter No: [id number] : 1940 Primary Insurance: HUMANA CHOICE PPO MCR ADVANT Anticipated DC Date: 03-09-2018 Planned Disposition: Long Term Facility External Planned Provider: [facility] [place], MEDICARE REHAB BED DCP follow-up note: CM RECEIVED CALL FROM FOZIA OF THE [facility], , WHO ADVISED THAT PT'S MANAGED MEDICARE INSURANCE HAS AUTHORIZED REHAB SERVICES AT THE [facility] FOR 7 DAYS. CM CALLED AND SPOKE TO PT'S DAUGHTER, JAIRO IBARRA [phone], NOTIFIED OF ABOVE. JAIRO DOES NOT WANT PT PLACED AT THE [facility] IN [place]; JAIRO NOW REPORTS SHE HAS CONTACTED MEDICARE TO CHANGE PT FROM MANAGED MEDICARE POLICY TO STANDARD MEDICARE; JAIRO HAS CALLED JOHANNA AT [facility] AND WANTS PT DISCHARGE TO [facility], JAIRO AND AGUSTO IBARRA PLAN TO TRACKMOBILE OPERATOR PT TOMORROW FOR TRANSPORT TO [place] AND WILL PLACE PT AT [facility] FOR REHAB. ALISE CALLED [facility], , SPOKE TO JOHANNA. JOHANNA HAS TALKED TO PT'S DAUGHTER REGARDING REHAB, THEY DON'T KNOW HOW LONG IT WILL TAKE PT TO BE CHANGED FROM MANAGED MEDICARE TO TRADITIONAL MEDICARE AND WILL NOT ACCEPT PT UNTIL THAT TIME AND ALSO NEED TO REVIEW PAPERWORK TO ENSURE THAT THERE IS "SOMETHING" THEY CAN PROVIDE CUSTODIAL FOR AT THIS TIME. ALISE FAXED REFERRAL UPDATE TO [facility] AT [phone]. F[address]ILTY ADDRESS IS [address] [place] [address]. [id number]. PT'S DAUGHTER NOW DOES NOT WANT HOSPICE, STILL REFUSES PEG TUBE; WANTS PT ADMITTED TO REHAB AT [facility] [place]; SHE REFUSED PLACEMENT AT THE [facility] THAT INSURANCE HAS AUTHORIZED. CM WAITING ADMISSION DETERMINATION FROM [facility] IN [place]. CM WAITING PT'S DAUGHTER TO CHANGE PT BACK TO TRADITIONAL MEDICARE. DAUGHTER PLANS TO TRANSPORT PT TO [place] FOR REHAB AT [facility] 03-25-18. Alli Khan, CASE MANAGEMENT DCP- Discharge Planning Updated by [id number]: Alli Khan on 03/24/18 8:[address] Patient Name: DANIEL ADAME Encounter No: [id number] : 1940 Primary Insurance: HUMANA CHOICE PPO MCR ADVANT Anticipated DC Date: 03-09-2018 Planned Disposition: Long Term Facility External Planned Provider: [facility], LONG TERM CARE MEDICAID BED DCP follow-up note: CM SPOKE TO CEM OF [facility]; SHE HAS TALKED TO JAIRO IBARRA, INFORMED HER THAT PT IS NOT MEETING CRITERIA FOR INPATIENT HOSPICE, THEY HAVE OFFERED RESPITE HOSPICE CARE AT [facility] FOR 5 DAYS; JAIRO DID NOT ACCEPT. CM CALLED AND SPOKE TO SHAYLA AT THE [facility], THEY HAVE CONTACTED PT'S INSURANCE TO INQUIRE ABOUT REHAB SERVICES INSTEAD OF HOSPICE, INSURANCE DOES NOT WANT TO PAY FOR REHAB SERVICES PT IS NOT EATING OR DRINKING, PT / FAMILY DOES NOT WANT PEG TUBE AND HOSICE IS INDICATED IN CHART. SHAYLA DOES NOT THINK THAT FINANCIAL WILL BE WORKED OUT IN 5 DAYS, BUT RECOMMENDED THAT FAMILY ACCEPTED DIEKS[facility] OFFER OF RESPITE CARE AT [facility] AND TRY TO WORK SOMETHING OUT WITH HOSPICE. CM MET WITH JAIRO IBARRA IN ROOM. JAIRO REPORTS SHE WAS TIRED AND CONFUSED LAST NIGHT. CM EXPLAINED HOSPICE RESPITE OFFER FROM [facility] FOR 5 DAYS AT [facility]. JAIRO ASKED ABOUT REHAB FOR PT AT THE [facility]. CM INFORMED JAIRO THAT INSURANCE WILL NOT PAY FOR REHAB SERVICES AT THIS TIME. JAIRO WAS AWARE THAT THE CARE HOME SHE WANTED IN [facility] WILL NOT ACCEPT PT. JAIRO WANTS TO DISCUSS OPTIONS WITH HER SPOUSE AND IS CONSIDERING TAKING PT HOME. PT WAS DRINKING THICKENED WATER FOR NURSE THIS MORNING BUT REFUSED FURTHER INTAKE WHEN OFFERED BY DAUGHTER. JAIRO REPORTS SHE NEEDS TO CHECK ON GETTING PT ON "STANDARD MEDICARE" INSTEAD OF REPLACEMENT POLICY AND IS THINKING SHE WILL HAVE HER SPOUSE COME TO [place] AND THEY MAY TAKE PT TO HER HOME IN [place] TOMORROW. IMPORTANT MESSAGE FROM MEDICARE PROVIDED AND DISCUSSED. CM CONTINUES TO WAIT FAMILY DECISION REGARDING HOSPICE, DAUGHTER NOW REPORTING PLAN TO TAKE PT TO HER HOME IN [place] 03-25-18. Alli Khan, CASE MANAGEMENT DCP- Discharge Planning Updated by [id number]: Alli Khan on 03/23/18 2:[address] Patient Name: DANIEL ADAME Encounter No: [id number] : 1940 Primary Insurance: HUMANA CHOICE PPO MCR ADVANT Anticipated DC Date: 03-09-2018 Planned Disposition: Long Term Facility External Planned Provider: [facility], CAPACITY ANALYST CARE MEDICAID BED DCP follow-up note: CM RECEIVED CALL FROM SHAYLA OF [facility], PT WILL NOT QUALIFY FOR CAPACITY ANALYST CARE MEDICAID DUE TO TRANSFER OF PROPERTY; THEY MAY BE ABLE TO TAKE TO TRY REHAB AND WILL CHECK ON SKILLED DAYS AND MAY ALSO TAKE ON PRIVATE PAY BASIS AND WILL DISCUSS THIS WITH DAUGHTER. PT'S DAUGHTER HAS INDICATED TO THE [facility] SHE FEELS PT ONLY HAS TWO OR THREE DAYS LEFT AND ASKED IF PT WILL QUALIFY FOR INPATIENT HOSPICE. CM ADVISED SHAYLA THAT CM DID NOT SEE ANY IMMEDIATE CRITERIA FOR INPATIENT HOSPICE QUALIFICATION AND WILL ASK FOR INPATIENT SCREENING FROM [facility]. CM CALLED [facility], , LEFT MESSAGE WITH ANSWERING SERVICE REQUESTING INPATIENT HOSPICE EVALUATION AT DAUGHTER'S REQUEST. CM NOTIFIED THAT [facility] NURSE WILL CONTACT CM SHORTLY. CM WAITING INPATIENT HOSPICE EVALUATION FROM [facility]. [facility] WILL TAKE PT FOR REHAB OR ON PRIVATE PAY FDC CARE BASIS AND WILL DISCUSS THIS WITH PT'S DAUGHTER. Alli Khan, CASE MANAGEMENT Appended by Alli Khan on 03/23/2018 12:58 CDT: CM RECEIVED CALL FROM [facility], SHE IS IN ROUTE TO HOSPITAL TO EVALUATE PT FOR INPATIENT HOSPICE. CM WAITING INPATIENT HOSPICE EVALUATION FROM [facility]. [facility] WILL TAKE PT FOR REHAB OR ON PRIVATE PAY CAPACITY ANALYST CARE BASIS AND WILL DISCUSS THIS WITH PT'S DAUGHTER. Alli Khan, CASE MANAGEMENT Appended by Alli Khan on 03/23/2018 13:52 CDT: CM SPOKE TO [facility], PT DOES NOT MEET CRITERIA FOR INPATIENT HOSPICE, SHE HAS CALLED AND LEFT MESSAGE FOR PT'S DAUGHTER CAROL. PRIEST REPORTS OPTIONS REMAIN FOR PRIVATE PAY FOR CARE HOME OR FOR FAMILY MEMBER TO TAKE PT HOME FOR HOSPICE CARE. CM CALLED PT'S DAUGHTER, JAIRO IBARRA, , LEFT DETAILED MESSAGE REGARDING ABOVE INFORMATION, REQUESTING CALL BACK SOON POSSIBLE TO DISCUSS DISCHARGE PLANNING OPTIONS. CM WAITING ON JAIRO IBARRA, DAUGHTER, TO CALL CM TO DISCUSS OPTIONS OF PRIVATE PAY FOR CARE HOME VS FAMILY TAKING PT HOME FOR HOSPICE. ALLI KHAN, CASE MANAGEMENT Appended by Alli Khan on 03/23/2018 14:23 CDT: AT DAUGHTERS REQUEST TO CALL JAIR AND NOTIFY COURT OF PT'S INABILITY TO GET TO COURT HEARING THIS WEEK, CM CONTACTED PT'S What's in My Handbag, DARIEL SENECA [email or web address], , SPOKE TO MARIE WHO INFORMED CM THAT PT HAS COURT HEARING ON 03-25-[address] IN [facility] COURT ON 03-25-18 ON CHARGE OF TERRORISTIC THREATENING. CM CALLED DISTRICT COURT, , NOTIFIED HENNA WHO ASKED FOR LETTER TO BE FAXED TO THE COURT AT [phone]. CM OBTAIN[address] DR AVILA SIGNATURE ON LETTER TO INFORM COURT OF PT'S LOCATION AND CONDITION. CM FAXED TO [facility] COURT AT [phone], EMAILED TO [place] JENNY AT . CM WAITING ON AJIRO IBARRA, DAUGHTER, TO CALL CM TO DISCUSS OPTIONS OF PRIVATE PAY FOR CARE HOME VS FAMILY TAKING PT HOME FOR HOSPICE. ALLI KHAN, CASE MANAGEMENT Appended by Alli Khan on 03/23/2018 15:08 CDT: CM RECEIVED CALL FROM SHAYLA OF THE [facility] WHO REPORTS THEY ARE STILL GATHERING FINANCIAL INFORMATION WITH ASSISTANCE OF FAMILY IN HOPES OF ASSISTING WITH PLACEMENT. CM WAITING ON JAIRO IBARRA, DAUGHTER, TO CALL CM TO DISCUSS OPTIONS OF PRIVATE PAY FOR CARE HOME VS FAMILY TAKING PT HOME FOR HOSPICE. ALLI KHAN CASE MANAGEMENT DCP- Discharge Planning Updated by [id number]: Alli Khan on 03/23/18 6:[address] Patient Name: DANIEL ADAME Encounter No: [id number] : 1940 Primary Insurance: HUMANA CHOICE PPO MCR ADVANT Anticipated DC Date: 03-09-2018 Planned Disposition: Long Term Facility External Planned Provider: [facility], FDC CARE MEDICAID BED DCP follow-up note: ZELALEM OF [facility] HOSPICE HAS MET WITH PT'S DAUGHTER AND EVALUATED PT, THEY WILL ACCEPT FOR HOSPICE AND WILL ENROLL PT AFTER HIS ARRIVAL AT THE CARE HOME. [facility]. NOTIFY [facility] HOSPICE WHEN CARE HOME PLACEMENT IS SECURED, , FAXE DISCHARGE INFORMATION TO [facility] AT [phone]. Alli Khan CASE MANAGEMENT DCP- Discharge Planning Updated by [id number]: Alli Khan on 03/22/18 3:[address] Patient Name: DANIEL ADAME Encounter No: [id number] : 1940 Primary Insurance: [employer] PPO MCR ADVANT Anticipated DC Date: 03-09-2018 Planned Disposition: Long Term Facility External Planned Provider: [facility], FDC CARE MEDICAID BED DCP follow-up note: CM RECEIVED CALL FROM JOHANNA OF [facility], PT IS NOT IN THEIR INSURANCE NETWORK AND THEY ARE NOT GOING TO BE ABLE TO HELP WITH FDC CARE FOR THIS PATIENT. CM RECEIVED CALL FROM JAIRO IBARRA, , WHO REPORTS THAT SHE HAS POWER OF AGRICULTURE CONSULTANT AND WILL BRING A COPY TO PLACE ON CHART, SHE HAD PREVIOUSLY PROVIDED IT TO MED [facility]G [facility]UISE GUIDE BUT WILL BE HAPPY TO GIVE ANOTHER COPY REQUESTED. JAIRO INFORMED OF DECLINATION BY [facility]. JAIRO REPORTS THAT SHE HAS TALKED TO FAMILY AND THEY DECIDED TO LEAVE PT IN [place], JAIRO WOULD LIKE CM TO PLACE PT IN A GOOD CARE HOME WITH NO PREFERNCE, CHOICE COMPLETED, AND NO PREFERENCE FOR HOSPICE COMPANY. CM NOTIFIED ADRIANO, , OF REFERRAL FOR CAPACITY ANALYST CARE TO THE [facility]. CM FAXED REFERRAL TO THE [facility] VIA [employer] AT [phone]. CM CALLED [facility], , SPOKE TO [facility] AND PROVIDED HOSPICE REFERRAL INFORMATION, THEY DO CONTRACT WITH THE [facility]. CM FAXED REFERRAL TO [facility] AT [phone]. CM WAITING ADMISSION DETERMINATION FROM [facility] AND [facility] FOR FDC CARE. Alli Khan, CASE MANAGEMENT DCP- Discharge Planning Updated by [id number]: Alli Khan on 03/19/18 2:[address] Patient Name: DANIEL ADAME Encounter No: [id number] : 1940 Primary Insurance: HUMANA CHOICE PPO MCR ADVANT Anticipated DC Date: 03-09-2018 Planned Disposition: Long Term Facility External Planned Provider: [facility] MEDICARE SKILLED BED DCP follow-up note: CM SPOKE TO PT'S DAUGHTER, JAIRO IBARRA ALONG WITH DR. LOVETT AND ALANA BAUMAN. DISUSSED WAS PT'S CONDITION, CUSTODIAL REHAB VS HOSPICE CARE. PT'S DAUGHTER IS STILL WANTING PT IN [place] AND ASKED FOR PT TO BE [facility]ERRED TO [facility] [place], [place]. JAIRO HAS DISCUSSED PLACEMENT WITH JOHANNA AT FACILITY. TRANSPORTATION DISCUSSED; JAIRO DECIDED SHE WOULD LIKE CM TO OBTAIN TRANSPORT ESTIMATE FROM [facility] IF PLACEMENT CAN BE SECURED AT FACILITY. CHOICE SIGNED FOR [facility], IMPORTANT MESSAGE FROM MEDICARE PROVIDED AND EXPLAINED. CM CALLED [facility], , JOHANNA WAS NOT IN. CM SPOKE TO AILEEN WHO REPORTED THAT JOHANNA WOULD BE BACK IN THURSDAY AND WILL REVIEW REFERRAL THEN. CM FAXED REFERRAL TO [facility] AT [phone]. FACILTY ADDRESS IS [address] [place] [address]. [id number]. CM WAITING ADMISSION DETERMINATION FROM [facility] IN [place]. Alli Khan, CASE MANAGEMENT DCP- Discharge Planning Updated by [id number]: Alli Khan on 03/17/18 2:[address] Patient Name: DANIEL ADAME Encounter No: [id number] : 1940 Primary Insurance: HUMANA CHOICE PPO MCR ADVANT Anticipated DC Date: 03-09-2018 Planned Disposition: Long Term Facility External Planned Provider: TO BE DETERMINED DCP follow-up note: CM REVIEWED CHART, DR. BEARDEN'S NOTE INDICATES NEED TO SPEAK TO FAMILY REGARDING COMFORT CARE OR HOSPICE CARE FOR PT. CM RECEIVED CALL FROM DAUGHTER, JAIRO IBARRA, , WHO REQUESTED UPDATE. CM DISCUSSED DR. BEARDEN'S OPTION REGARDING HOSPICE OR COMFORT CARE. JAIRO REPORTS NO INTEREST AT THIS TIME FOR COMFORT CARE OR HOSPICE. JAIRO IS CONSIDERING PICKING UP PT IN CAR AND TAKING PT BACK TO [place] WHERE THEY LIVE, IT IS AN [address] ALISE EXPLAINED PT IS VERY WEAK AND WOULD NOT BE ABLE TO GET OUT OF THE CAR DURING PROLONGED TRANSPORTATION. JAIRO ONLY WANTED ASSURANCES THAT PT WOULD NOT DURING THE RIDE TO [place]. CM INFORMED JAIRO THAT CM COULD NOT PROVIDE THAT ASSURANCE, RECOMMENDED CUSTODIAL REHAB FOR PT. JAIRO REPORTS SHE WILL BE IN [place] AND AT THE HOSPITAL TOMORROW, 03-18-18 AT ABOUT 8:30 IN THE MORNING. SHE WOULD LIKE TO MEET WITH ALL DOCTORS IN THE MORNING IN A "BIG MEETING". ALISE EXPLAINED THAT THIS WOULD NOT BE POSSIBLE, OFFERED TO ASK DR. LOVETT, PRIMARY DOCTOR, TO MEET WITH HER IN THE MORNING, JAIRO ACCEPTED. JAIRO IBARRA, DAUGHTER, , WILL MEET WITH DR. LOVETT AND CM IN THE [facility], 03-18-18, TO DISCUSS PT'S CARE, PROGNOSIS AND DISCHARGE PLAN. Alli Khan CASE MANAGEMENT DCP- Discharge Planning Updated by [id number]: Alli Khan on 03/11/18 7:[address] Patient Name: DANIEL ADAME Encounter No: [id number] : 1940 Primary Insurance: HUMANA CHOICE PPO MCR ADVANT Anticipated DC Date: 03-09-2018 Planned Disposition: Inpatient Rehab Facility External Planned Provider: [facility] DCP follow-up note: CM INFORMED PT THAT INSURANCE STILL HAS NOT PROVIDED AUTHORIZATION OR DENIAL FOR REHAB. PT STILL WILLING FOR REHAB AT [place]. IMPORTANT MESSAGE FROM MEDICARE PROVIDED AND EXPLAINED. CM WAITING FOR INSURANCE AUTHORIZATION OR DENIAL FOR INPATIENT REHAB SERVICES AT [place]. Alli Khan CASE MANAGEMENT DCP- Discharge Planning Updated by [id number]: Alli Khan on 03/08/18 3:[address] Patient Name: DANIEL ADAME Encounter No: [id number] : 1940 Primary Insurance: HUMANA CHOICE PPO MCR ADVANT Anticipated DC Date: 03-09-2018 Planned Disposition: Inpatient Rehab Facility External Planned Provider: [facility] INPATIENT REHAB DCP follow-up note: * Is the patient Alert and Oriented? Yes 0 * How many steps to enter\\exit or inside your home? 4-5 0 * PCP DR. VELÁZQUEZ 0 * Pharmacy [facility] 0 * Preadmission Environment Acute Inpatient Rehab 0 * Facility Name [facility] INPATIENT REHAB 0 * ADLs Partial Dependent 0 * Partial ADLs (Assistance needed) Ambulation Bathing Medication Management Toileting Transfers 0 * Equipment None 0 * Other Equipment NO MEDICAL EQUIPMENT PROVIDER PREFERENCE 0 * List name and contact numbers for known caregivers / representatives who currently or will assist patient after discharge: JAIRO IBARRA, DAUGHTER, 0 * Verbal permission to speak to the caregivers and representatives has been obtained from the patient. Yes 0 * Community resources currently utilized None 0 * Please name any agencies selected above. NONE 0 * Additional services required to return to the preadmission environment? No 0 * Can the patient safely return to the preadmission environment? Yes 0 * Has this patient been hospitalized within the prior 30 days at any hospital? Yes 0 CM RECEIVED ORDER FOR INPATIENT REHAB PRESCREENING. CM SPOKE TO PT IN ROOM WHO IS VERY HARD OF HEARING. PT REPORTS HIS DAUGHTER, JAIRO, IS HERE AND FOR CM TO SPEAK TO HER REGARDING DISCHARGE PLAN. PT IS AGREEABLE TO INPATIENT REHAB AND STATES HE WAS LIVING AT HOME ALONE PRIOR TO HOSPITALIZATION. IMPORTANT MESSAGE FROM MEDICARE PROVIDED AND EXPLAINED. CM CALLED AND SPOKE TO JAIRO IBARRA, DAUGHTER, ; JAIRO REPORTS LIVING IN [place] AND IT IS A [address] TO GET PT THERE WHEN THEY LEAVE [place]. JAIRO WAS HOPING THAT PT WOULD BE STONG ENOUGH FOR THE RIDE AT DISCHARGE FROM HOSPITAL. CM REVIEWED THERAPY EVALUATION AND NOTES WITH JAIRO. JAIRO WOULD LIKE TO TRY TO GET PT BACK INTO INPATIENT REHAB AT [place] STATING HE WAS ONLY IN THERE FOR ONE NIGHT BEFORE HAVING TO BE READMITTED; SHE HOPES FOR PT TO BE STONG ENOUGH FOR HER TO TRANSPORT PT TO [place] AT DISCHARGE AND SHE HAS A CARE HOME IN MIND THAT WILL ACCEPT PT AT DISCHARGE IF NEEDED. CM WAITING FOR INPATIENT REHAB PRESCREENING AND INSURANCE AUTHORIZATION OR DENIAL FOR INPATIENT REHAB SERVICES. Alli Khan, CASE MANAGEMENT DCP- Discharge Planning Updated by [id number]: Jerica Tejeda on 03/07/18 7:[address] PATIENT WITH VARYING DEGREES OF ORIENTATION. HE IS ALSO HARD OF HEARING. WAS TRANSFERED TO ICU AFTER ONE DAY IN [facility]. MD PLAN IS FOR POSSIBLE TRANSFER TO ACUTE REHAB THURSDAY. PATIENT WILL NEED TO BE EVALUATED AND LIKELY WILL REQUIRE A NEW PRECERT HE HAS HU[employer]NA CHOICE PPO MEDICARE ADVANTAGE AN INSURER. \\NO PHYSICAL THERAPY NOTES AT THIS TIME. WILL NEED PT/OT EVAL FOR PRECERT. REPORTEDLY LIVED ALONE PRIOR TO ADMISSION. HAD DAUGHTER,JAIRO IBARRA. CONTACT PHONE NUMBER CELL [phone] HOME [phone]. PATIENT ALSO HAS SONS :SERENA POMPA- [phone] AND MARJORIE SLAUGHTER- [phone]. CM WILL NEED TO MEET WITH PATIENT'S FAMILY REGARDING DISCHARGE PLAN. DCPIA - Discharge Planning Initial Assessment Updated by [id number]: Alli Khan on 03/08/18 4:26 pm * Is the patient Alert and Oriented? Yes * How many steps to enter\\exit or inside your home? 4-5 * PCP DR. VELÁZQUEZ * Pharmacy [facility] * Preadmission Environment Acute Inpatient Rehab * Facility Name [facility] INPATIENT REHAB * ADLs Partial Dependent * Partial ADLs (Assistance needed) Ambulation Bathing Medication Management Toileting Transfers * Equipment None * Other Equipment NO MEDICAL EQUIPMENT PROVIDER PREFERENCE * List name and contact numbers for known caregivers / representatives who currently or will assist patient after discharge: JAIRO IBARRA, DAUGHTER, * Verbal permission to speak to the caregivers and representatives has been obtained from the patient. Yes * Community resources currently utilized None * Please name any agencies selected above. NONE * Additional services required to return to the preadmission environment? No * Can the patient safely return to the preadmission environment? Yes * Has this patient been hospitalized within the prior 30 days at any hospital? Yes Coverage Notice Reviewer: ROSMERY Khan Notice Issued Date-Time: 03/08/2018 16:05 Notice Type: IM Discharge Notice Notice Delivered To: Patient Relationship to Patient: Laboratory Scientist Name: Delivery Method: HAND - Hand Delivered Sho Days: Prior Verbal Notification: Recipient Understood Notice: Yes Recipient Signature: Yes Med Rec Note Co-signed by Attending: Coverage Notice Comment: Reviewer: ROSMERY Khan Notice Issued Date-Time: 03/11/2018 8:10 Notice Type: IM Discharge Notice Notice Delivered To: Patient Relationship to Patient: Laboratory Scientist Name: Delivery Method: HAND - Hand Delivered Sho Days: Prior Verbal Notification: Recipient Understood Notice: Yes Recipient Signature: Yes Med Rec Note Co-signed by Attending: Coverage Notice Comment: Reviewer: ROSMERY Khan Notice Issued Date-Time: 03/19/2018 14:50 Notice Type: Patient Choice Letter Notice Delivered To: Family Member Relationship to Patient: Daughter Laboratory Scientist Name: JAIRO [facility] Delivery Method: HAND - Hand Delivered Sho Days: Prior Verbal Notification: Recipient Understood Notice: Yes Recipient Signature: Yes Med Rec Note Co-signed by Attending: Coverage Notice Comment: Reviewer: ROSMERY Khan Notice Issued Date-Time: 03/19/2018 14:50 Notice Type: IM Discharge Notice Notice Delivered To: Family Member Relationship to Patient: Daughter Laboratory Scientist Name: JAIRO IBARRA Delivery Method: HAND - Hand Delivered Sho Days: Prior Verbal Notification: Recipient Understood Notice: Yes Recipient Signature: Yes Med Rec Note Co-signed by Attending: Coverage Notice Comment: Reviewer: ROSMERY Khan Notice Issued Date-Time: 03/22/2018 11:00 Notice Type: Patient Choice Letter Notice Delivered To: Family Member Relationship to Patient: Daughter Laboratory Scientist Name: JAIRO IBARRA Delivery Method: PHONE - Phone Sho Days: Prior Verbal Notification: Recipient Understood Notice: Yes Recipient Signature: Yes Med Rec Note Co-signed by Attending: Coverage Notice Comment: [facility] WITH HOSPICE CARE. Reviewer: [id number] - Alli Khan Notice Issued Date-Time: 03/24/2018 8:40 Notice Type: IM Discharge Notice Notice Delivered To: Family Member Relationship to Patient: Daughter Laboratory Scientist Name: JAIRO IBARRA Delivery Method: HAND - Hand Delivered Sho Days: Prior Verbal Notification: Recipient Understood Notice: Yes Recipient Signature: Yes Med Rec Note Co-signed by Attending: Coverage Notice Comment: Last DP export: 03/24/18 1:55 Patient Name: DANIEL ADAME Page [phone] at 1632 All edits/amendments must be made on the electronic document DICTATION DATE: 03/24/18 163 PATHOLOGY TEACHER: RUBÉN 03/24/18 1631 RPT#: [id number] DC DATE: STATUS: ADM IN [facility] [address] [place] [address] END OF REPORT
--- NOTE | ~2018-03-03 | MORECARE ---
CASE MANAGEMENT DISCHARGE SUMMARY PATIENT: DANIEL ADAME UNIT: [id number] ADM DATE: 03/03/18 AGE: 78 : 40 SEX: M ROOM/BED: D.2104 AUTHOR: SAMUEL,DOC PHYSICIAN: REFERRING PHYSICIAN: AGGIE PANIAGUA MD DATE OF SERVICE: 03/24/18 Discharge Plan Patient Name: DANIEL ADAME Facility: [facility]:[place] : 1940 Planned Disposition: Senior Living Facility Anticipated Discharge Date: 03/09/18 Discharge Date: Expected LOS: 6 Initial Reviewer: [id number] Initial Review Date: 03/03/2018 Generated: 03/24/18 12:39 pm Comments DCP- Discharge Planning Updated by [id number]: Alli Albarran on 03/24/18 10:[address] Patient Name: DANIEL ADAME Encounter No: [id number] : 1940 Primary Insurance: HUMANA CHOICE PPO MCR ADVANT Anticipated DC Date: 03-09-2018 Planned Disposition: Senior Living Facility External Planned Provider: [facility] IN [place], MEDICARE REHAB BED DCP follow-up note: CM RECEIVED CALL FROM FOZIA OF [facility], , WHO ADVISED THAT PT'S MANAGED MEDICARE INSURANCE HAS AUTHORIZED REHAB SERVICES AT [facility] FOR 7 DAYS. ALISE CALLED AND SPOKE TO PT'S DAUGHTER, JAIRO IBARRA [phone], NOTIFIED OF ABOVE. JAIRO DOES NOT WANT PT PLACED AT [facility] IN [place]; JAIRO NOW REPORTS SHE HAS CONTACTED MEDICARE TO CHANGE PT FROM MANAGED MEDICARE POLICY TO STANDARD MEDICARE; JAIRO HAS CALLED JOHANNA AT [facility] AND WANTS PT DISCHARGE TO [facility], JAIRO AND AGUSTO IBARRA PLAN TO AUTOMOBILE OR TRUCK RENTAL DISPATCHER PT TOMORROW FOR TRANSPORT TO [place] AND WILL PLACE PT AT [facility] FOR REHAB. ALISE CALLED [facility], , SPOKE TO JOHANNA. JOHANNA HAS TALKED TO PT'S DAUGHTER REGARDING REHAB, THEY DON'T KNOW HOW LONG IT WILL TAKE PT TO BE CHANGED FROM MANAGED MEDICARE TO TRADITIONAL MEDICARE AND WILL NOT ACCEPT PT UNTIL THAT TIME AND ALSO NEED TO REVIEW PAPERWORK TO ENSURE THAT THERE IS "SOMETHING" THEY CAN PROVIDE NURSING HOME FOR AT THIS TIME. CM FAXED REFERRAL UPDATE TO [facility] AT [phone]. [place]ILTY AD[address]ESS IS [address] [place] [address]. PT'S DAUGHTER NOW DOES NOT WANT HOSPICE, STILL REFUSES PEG TUBE; WANTS PT ADMITTED TO REHAB AT [facility] IN [place]; SHE REFUSED PLACEMENT AT [facility] THAT INSURANCE HAS AUTHORIZED. CM WAITING ADMISSION DETERMINATION FROM [facility] NURSING HOME FACILITY IN [place], [place]. CM WAITING PT'S DAUGHTER TO CHANGE PT BACK TO TRADITIONAL MEDICARE. DAUGHTER PLANS TO TRANSPORT PT TO [place] FOR REHAB AT [facility] 03-25-18. Alli Albarran, CASE MANAGEMENT DCP- Discharge Planning Updated by [id number]: Alli Albarran on 03/24/18 8:[address] Patient Name: DANIEL ADAME Encounter No: [id number] : 1940 Primary Insurance: HUMANA CHOICE PPO MCR ADVANT Anticipated DC Date: 03-09-2018 Planned Disposition: Senior Living Facility External Planned Provider: [facility] TERM CARE MEDICAID BED DCP follow-up note: CM SPOKE TO CEM OF [facility]; SHE HAS TALKED TO JAIRO IBARRA, INFORMED HER THAT PT IS NOT MEETING CRITERIA FOR INPATIENT HOSPICE, THEY HAVE OFFERED RESPITE HOSPICE CARE AT [facility] FOR 5 DAYS; JAIRO DID NOT ACCEPT. CM CALLED AND SPOKE TO SHAYLA AT [facility], THEY HAVE CONTACTED PT'S INSURANCE TO INQUIRE ABOUT REHAB SERVICES INSTEAD OF HOSPICE, INSURANCE DOES NOT WANT TO PAY FOR REHAB SERVICES PT IS NOT EATING OR DRINKING, PT / FAMILY DOES NOT WANT PEG TUBE AND HOSICE IS INDICATED IN CHART. SHAYAL DOES NOT THINK THAT FINANCIAL WILL BE WORKED OUT IN 5 DAYS, BUT RECOMMENDED THAT FAMILY ACCEPTED [facility] OFFER OF RESPITE CARE AT [facility] AND TRY TO WORK SOMETHING OUT WITH HOSPICE. CM MET WITH JAIRO IBARRA IN ROOM. JAIRO REPORTS SHE WAS TIRED AND CONFUSED LAST NIGHT. ALISE EXPLAINED HOSP[facility] 5 [facility] AT [facility]. JAIRO ASKED ABOUT REHAB FOR PT AT [facility]. CM INFORMED JAIRO THAT INSURANCE WILL NOT PAY FOR REHAB SERVICES AT THIS TIME. JAIRO WAS AWARE THAT THE RETIREMENT SHE WANTED IN [facility] WILL NOT ACCEPT PT. JAIRO WANTS TO DISCUSS OPTIONS WITH HER SPOUSE AND IS CONSIDERING TAKING PT HOME. PT WAS DRINKING THICKENED WATER FOR NURSE THIS MORNING BUT REFUSED FURTHER INTAKE WHEN OFFERED BY DAUGHTER. JAIRO REPORTS SHE NEEDS TO CHECK ON GETTING PT ON "STANDARD MEDICARE" INSTEAD OF REPLACEMENT POLICY AND IS THINKING SHE WILL HAVE HER SPOUSE COME TO [place] AND THEY MAY TAKE PT TO HER HOME IN [place] TOMORROW. IMPORTANT MESSAGE FROM MEDICARE PROVIDED AND DISCUSSED. CM CONTINUES TO WAIT FAMILY DECISION REGARDING HOSPICE, DAUGHTER NOW REPORTING PLAN TO TAKE PT TO HER HOME IN [place] 03-25-18. SRI Clemons MANAGEMENT DCP- Discharge Planning Updated by [id number]: Alli Albarran on 03/23/18 2:[address] Patient Name: DANIEL ADAME Encounter No: [id number] : 1940 Primary Insurance: HUMANA CHOICE PPO MCR ADVANT Anticipated DC Date: 03-09-2018 Planned Disposition: Senior Living Facility External Planned Provider: [facility], SHELTER CARE MEDICAID BED DCP follow-up note: CM RECEIVED CALL FROM SHAYLA OF [facility], PT WILL NOT QUALIFY FOR WELLNESS NURSE CARE MEDICAID DUE TO TRANSFER OF PROPERTY; THEY MAY BE ABLE TO TAKE TO TRY REHAB AND WILL CHECK ON SKILLED DAYS AND MAY ALSO TAKE ON PRIVATE PAY BASIS AND WILL DISCUSS THIS WITH DAUGHTER. PT'S DAUGHTER HAS INDICATED TO [facility] SHE FEELS PT ONLY HAS TWO OR THREE DAYS LEFT AND ASKED IF PT WILL QUALIFY FOR INPATIENT HOSPICE. CM ADVISED SHAYLA THAT CM DID NOT SEE ANY IMMEDIATE CRITERIA FOR INPATIENT HOSPICE QUALIFICATION AND WILL ASK FOR INPATIENT SCREENING FROM [facility]. CM CALLED [facility], , LEFT MESSAGE WITH ANSWERING SERVICE REQUESTING INPATIENT HOSPICE EVALUATION AT DAUGHTER'S REQUEST. ALISE NOTIFIED THAT [facility] NURSE WILL CONTACT CM SHORTLY. CM WAITING INPATIENT HOSPICE EVALUATION FROM [facility]. THE [facility] WILL TAKE PT FOR REHAB OR ON PRIVATE PAY WELLNESS NURSE CARE BASIS AND WILL DISCUSS THIS WITH PT'S DAUGHTER. Alli Albarran, CASE MANAGEMENT Appended by Alli Albarran on 03/23/2018 12:58 CDT: CM RECEIVED CALL FROM CEM OF [facility], SHE IS IN ROUTE TO HOSPITAL TO EVALUATE PT FOR INPATIENT HOSPICE. CM WAITING INPATIENT HOSPICE EVALUATION FROM [facility]. THE [facility] WILL TAKE PT FOR REHAB OR ON PRIVATE PAY WELLNESS NURSE CARE BASIS AND WILL DISCUSS THIS WITH PT'S DAUGHTER. Alli Albarran, CASE MANAGEMENT Appended by Alli Albarran on 03/23/2018 13:52 CDT: ALISE SPOKE TO CEM OF [facility], PT DOES NOT MEET CRITERIA FOR INPATIENT HOSPICE, SHE HAS CALLED AND LEFT MESSAGE FOR PT'S DAUGHTER CAROL. PRIEST REPORTS OPTIONS REMAIN FOR PRIVATE PAY FOR RETIREMENT OR FOR FAMILY MEMBER TO TAKE PT HOME FOR HOSPICE CARE. CM CALLED PT'S DAUGHTER, JAIRO IBARRA, , LEFT DETAILED MESSAGE REGARDING ABOVE INFORMATION, REQUESTING CALL BACK SOON POSSIBLE TO DISCUSS DISCHARGE PLANNING OPTIONS. CM WAITING ON JAIRO IBARRA, DAUGHTER, TO CALL CM TO DISCUSS OPTIONS OF PRIVATE PAY FOR RETIREMENT VS FAMILY TAKING PT HOME FOR HOSPICE. ALLI ALBARRAN CASE MANAGEMENT Appended by Alli Albarran on 03/23/2018 14:23 CDT: AT DAUGHTERS REQUEST TO CALL JAIR AND NOTIFY COURT OF PT'S INABILITY TO GET TO COURT HEARING THIS WEEK, CM CONTACTED PT'S [employer], [employer], , SPOKE TO MARIE WHO INFORMED CM THAT PT HAS COURT HEARING ON 03-25-18 IN [facility] COURT ON 03-25-18 ON CHARGE OF TERRORISTIC THREATENING. CM CALLED DISTRICT COURT, , NOTIFIED HENNA WHO ASKED FOR LETTER TO BE FAXED TO THE COURT AT [phone]. CM OBTAIN[address] DR AVILA SIGNATURE ON LETTER TO INFORM COURT OF PT'S LOCATION AND CONDITION. CM FAXED TO [facility] COURT AT [phone], E[facility]ED TO [facility] AT [email or web address]. CM WAITING ON JAIRO IBARRA, DAUGHTER, TO CALL CM TO DISCUSS OPTIONS OF PRIVATE PAY FOR RETIREMENT VS FAMILY TAKING PT HOME FOR HOSPICE. ALLI ALBARRAN, CASE MANAGEMENT Appended by Alli Albarran on 03/23/2018 15:08 CDT: CM RECEIVED CALL FROM SHAYLA OF [facility] WHO REPORTS THEY ARE STILL GATHERING FINANCIAL INFORMATION WITH ASSISTANCE OF FAMILY IN HOPES OF ASSISTING WITH PLACEMENT. CM WAITING ON JAIRO IBARRA, DAUGHTER, TO CALL CM TO DISCUSS OPTIONS OF PRIVATE PAY FOR RETIREMENT VS FAMILY TAKING PT HOME FOR HOSPICE. ALLI ALBARRAN CASE MANAGEMENT DCP- Discharge Planning Updated by [id number]: Alli Albarran on 03/23/18 6:[address] Patient Name: DANIEL ADAME Encounter No: [id number] : 1940 Primary Insurance: HUMANA CHOICE PPO MCR ADVANT Anticipated DC Date: 03-09-2018 Planned Disposition: Senior Living Facility External Planned Provider: [facility] TERM CARE MEDICAID BED DCP follow-up note: ZELALEM OF [facility] HAS MET WITH PT'S DAUGHTER AND EVALUATED PT, THEY WILL ACCEPT FOR HOSPICE AND WILL ENROLL PT AFTER HIS ARRIVAL AT THE RETIREMENT. CM [facility]. NOTIFY [facility] WHEN RETIREMENT PLACEMENT IS SECURED, , FAXE DISCHARGE INFORMATION TO [facility] AT [phone]. Alli Albarran, CASE MANAGEMENT DCP- Discharge Planning Updated by [id number]: Alli Albarran on 03/22/18 3:[address] Patient Name: DANIEL ADAME Encounter No: [id number] : 1940 Primary Insurance: HUMANA CHOICE PPO MCR ADVANT Anticipated DC Date: 03-09-2018 Planned Disposition: Senior Living Facility External Planned Provider: [facility] TERM CARE MEDICAID BED DCP follow-up note: CM RECEIVED CALL FROM JOHANNA OF [facility], PT IS NOT IN THEIR INSURANCE NETWORK AND THEY ARE NOT GOING TO BE ABLE TO HELP WITH WELLNESS NURSE CARE FOR THIS PATIENT. CM RECEIVED CALL FROM JAIRO IBARRA, , WHO REPORTS THAT SHE HAS POWER OF PROCUREMENT ENGINEER AND WILL BRING A COPY TO PLACE ON CHART, SHE HAD PREVIOUSLY PROVIDED IT TO [facility] PUBLIC HEALTH DOCTOR BUT WILL BE HAPPY TO GIVE ANOTHER COPY REQUESTED. JAIRO INFORMED OF DECLINATION BY [facility]. JAIRO REPORTS THAT SHE HAS TALKED TO FAMILY AND THEY DECIDED TO LEAVE PT IN [place], JAIRO WOULD LIKE TO PLACE PT IN A GOOD RETIREMENT WITH NO PREFERNCE, CHOICE COMPLETED, AND NO PREFERENCE FOR HOSPICE COMPANY. ALISE NOTIFIED ADRIANO, , OF REFERRAL FOR WELLNESS NURSE CARE TO [facility]. CM FAXED REFERRAL TO [facility] VIA ADRIANO AT [phone]. CM CALLED [facility], , SPOKE TO ZELALEM AND PROVIDED HOSPICE REFERRAL INFORMATION, THEY DO CONTRACT WITH [facility]. CM FAXED REFERRAL TO [facility] AT [phone]. CM WAITING ADMISSION DETERMINATION FROM [facility] AND [facility] WELLNESS NURSE CARE. Alli Albarran CASE MANAGEMENT DCP- Discharge Planning Updated by [id number]: Alli Albarran on 03/19/18 2:[address] Patient Name: DANIEL ADAME Encounter No: [id number] : 1940 Primary Insurance: HUMANA CHOICE PPO MCR ADVANT Anticipated DC Date: 03-09-2018 Planned Disposition: Senior Living Facility External Planned Provider: [facility] MEDICARE SKILLED BED DCP follow-up note: CM SPOKE TO PT'S DAUGHTER, JAIRO IBARRA ALONG WITH DR. LOVETT AND ALANA BAUMAN. DISUSSED WAS PT'S CONDITION, NURSING HOME REHAB VS HOSPICE CARE. PT'S DAUGHTER IS STILL WANTING PT IN [place] AND ASKED FOR PT TO BE REFERRED TO [facility] IN [place], [place]. JAIRO HAS DISCUSSED PLACEMENT WITH JOHANNA AT FACILITY. TRANSPORTATION DISCUSSED; JAIRO DECIDED SHE WOULD LIKE CM TO OBTAIN TRANSPORT ESTIMATE FROM [employer] IF PLACEMENT CAN BE SECURED AT FACILITY. CHOICE SIGNED FOR [facility], IMPORTANT MESSAGE FROM MEDICARE PROVIDED AND EXPLAINED. CM CALLED [facility], , JOHANNA WAS NOT IN. CM SPOKE TO AILEEN WHO REPORTED THAT JOHANNA WOULD BE BACK IN THURSDAY AND WILL REVIEW REFERRAL THEN. CM FAXED REFERRAL TO [facility] AT [phone]. FACILTY ADDRESS IS [address] [place] [address]. [id number]. CM WAITING ADMISSION DETERMINATION FROM [facility] IN [place], [place]. SRI Clemons DCP- Discharge Planning Updated by [id number]: Alli Albarran on 03/17/18 2:[address] Patient Name: DANIEL ADAME Encounter No: [id number] : 1940 Primary Insurance: HUMANA CHOICE PPO MCR ADVANT Anticipated DC Date: 03-09-2018 Planned Disposition: Senior Living Facility External Planned Provider: TO BE DETERMINED DCP follow-up note: CM REVIEWED CHART, DR. BEARDEN'S NOTE INDICATES NEED TO SPEAK TO FAMILY REGARDING COMFORT CARE OR HOSPICE CARE FOR PT. CM RECEIVED CALL FROM DAUGHTER, JAIRO IBARRA, , WHO REQUESTED UPDATE. CM DISCUSSED DR. BEARDEN'S OPTION REGARDING HOSPICE OR COMFORT CARE. JAIRO REPORTS NO INTEREST AT THIS TIME FOR COMFORT CARE OR HOSPICE. JAIRO IS CONSIDERING PICKING UP PT IN CAR AND TAKING PT BACK TO [place] WHERE THEY LIVE, IT IS AN [address] CM EXPLAINED PT IS VERY WEAK AND WOULD NOT BE ABLE TO GET OUT OF THE CAR DURING PROLONGED TRANSPORTATION. JAIRO ONLY WANTED ASSURANCES THAT PT WOULD NOT DURING THE RIDE TO [place]. CM INFORMED JAIRO THAT CM COULD NOT PROVIDE THAT ASSURANCE, RECOMMENDED NURSING HOME REHAB FOR PT. JAIRO REPORTS SHE WILL BE IN [place] AND AT THE HOSPITAL TOMORROW, 03-18-18 AT ABOUT 8:30 IN THE MORNING. SHE WOULD LIKE TO MEET WITH ALL DOCTORS IN THE MORNING IN A "BIG MEETING". CM EXPLAINED THAT THIS WOULD NOT BE POSSIBLE, OFFERED TO ASK DR. LOVETT, PRIMARY DOCTOR, TO MEET WITH HER IN THE MORNING, JAIRO ACCEPTED. JAIRO IBARRA, DAUGHTER, , WILL MEET WITH DR. LOVETT AND CM IN THE [facility], 03-18-18, TO DISCUSS PT'S CARE, PROGNOSIS AND DISCHARGE PLAN. Alli Albarran, CASE MANAGEMENT DCP- Discharge Planning Updated by [id number]: Alli Albarran on 03/11/18 7:[address] Patient Name: DANIEL ADAME Encounter No: [id number] : 1940 Primary Insurance: HUMANA CHOICE PPO MCR ADVANT Anticipated DC Date: 03-09-2018 Planned Disposition: Inpatient Rehab Facility External Planned Provider: [facility] DCP follow-up note: CM INFORMED PT THAT INSURANCE STILL HAS NOT PROVIDED AUTHORIZATION OR DENIAL FOR REHAB. PT STILL WILLING FOR REHAB AT [facility]. IMPORTANT MESSAGE FROM MEDICARE PROVIDED AND EXPLAINED. CM WAITING FOR INSURANCE AUTHORIZATION OR DENIAL FOR INPATIENT REHAB SERVICES AT [facility]. Alil Albarran, CASE MANAGEMENT DCP- Discharge Planning Updated by [id number]: Alli Albarran on 03/08/18 3:[address] Patient Name: DANIEL ADAME Encounter No: [id number] : 1940 Primary Insurance: HUMANA CHOICE PPO MCR ADVANT Anticipated DC Date: 03-09-2018 Planned Disposition: Inpatient Rehab Facility External Planned Provider: [facility]IENT [facility]AB DCP follow-up note: * Is the patient Alert and Oriented? Yes 0 * How many steps to enter\\exit or inside your home? 4-5 0 * PCP DR. VELÁZQUEZ 0 * [facility] * Preadmission Environment Acute Inpatient Rehab 0 * Facility Name [facility] IN[facility]IENT [facility] 0 * ADLs Partial Dependent 0 * Partial ADLs (Assistance needed) Ambulation Bathing Medication Management Toileting Transfers 0 * Equipment None 0 * Other Equipment NO MEDICAL EQUIPMENT PROVIDER PREFERENCE 0 * List name and contact numbers for known caregivers / representatives who currently or will assist patient after discharge: JAIRO IBARRA, DAUGHTER, 0 * Verbal permission to speak to the caregivers and representatives has been obtained from the patient. Yes 0 * Community resources currently utilized None 0 * Please name any agencies selected above. NONE 0 * Additional services required to return to the preadmission environment? No 0 * Can the patient safely return to the preadmission environment? Yes 0 * Has this patient been hospitalized within the prior 30 days at any hospital? Yes 0 CM RECEIVED ORDER FOR INPATIENT REHAB PRESCREENING. CM SPOKE TO PT IN ROOM WHO IS VERY HARD OF HEARING. PT REPORTS HIS DAUGHTER, JAIRO, IS HERE AND FOR CM TO SPEAK TO HER REGARDING DISCHARGE PLAN. PT IS AGREEABLE TO INPATIENT REHAB AND STATES HE WAS LIVING AT HOME ALONE PRIOR TO HOSPITALIZATION. IMPORTANT MESSAGE FROM MEDICARE PROVIDED AND EXPLAINED. CM CALLED AND SPOKE TO JAIRO IBARRA, DAUGHTER, ; JAIRO REPORTS LIVING IN [place] AND IT IS A [address] TO GET PT THERE WHEN THEY LEAVE [place]. JAIRO WAS HOPING THAT PT WOULD BE STONG ENOUGH FOR THE RIDE AT DISCHARGE FROM HOSPITAL. CM REVIEWED THERAPY EVALUATION AND NOTES WITH JAIRO. JAIRO WOULD LIKE TO TRY TO GET PT BACK INTO INPATIENT REHAB AT [facility] STATING HE WAS ONLY IN THERE FOR ONE NIGHT BEFORE HAVING TO BE READMITTED; SHE HOPES FOR PT TO BE STONG ENOUGH FOR HER TO TRANSPORT PT TO [place] AT DISCHARGE AND SHE HAS A RETIREMENT IN MIND THAT WILL ACCEPT PT AT DISCHARGE IF NEEDED. CM WAITING FOR INPATIENT REHAB PRESCREENING AND INSURANCE AUTHORIZATION OR DENIAL FOR INPATIENT REHAB SERVICES. Alli Albarran, CASE MANAGEMENT DCP- Discharge Planning Updated by [id number]: Jerica Tejeda on 03/07/18 7:[address] PATIENT WITH VARYING DEGREES OF ORIENTATION. HE IS ALSO HARD OF HEARING. WAS TRANSFERED TO ICU AFTER ONE DAY IN [facility]. PLAN IS FOR POSSIBLE TRANSFER TO ACUTE REHAB THURSDAY. PATIENT WILL NEED TO BE EVALUATED AND LIKELY WILL REQUIRE A NEW PRECERT HE HAS HUMANA CHOICE PPO MEDICARE ADVANTAGE AN INSURER. \\NO PHYSICAL THERAPY NOTES AT THIS TIME. WILL NEED PT/OT EVAL FOR PRECERT. REPORTEDLY LIVED ALONE PRIOR TO ADMISSION. HAD DAUGHTER,JAIRO IBARRA. CONTACT PHONE NUMBER CELL [phone] HOME [phone]. PATIENT ALSO HAS SONS :SERENA POMPA- [phone] AND MARJORIE SLAUGHTER- [phone]. CM WILL NEED TO MEET WITH PATIENT'S FAMILY REGARDING DISCHARGE PLAN. DCPIA - Discharge Planning Initial Assessment Updated by ROSMERY: Alli Albarran on 03/08/18 4:26 pm * Is the patient Alert and Oriented? Yes * How many steps to enter\\exit or inside your home? 4-5 * PCP DR. VELÁZQUEZ * [facility] * Preadmission Environment Acute Inpatient Rehab * Facility Name [facility] * ADLs Partial Dependent * Partial ADLs (Assistance needed) Ambulation Bathing Medication Management Toileting Transfers * Equipment None * Other Equipment NO MEDICAL EQUIPMENT PROVIDER PREFERENCE * List name and contact numbers for known caregivers / representatives who currently or will assist patient after discharge: JAIRO IBARRA, DAUGHTER, * Verbal permission to speak to the caregivers and representatives has been obtained from the patient. Yes * Community resources currently utilized None * Please name any agencies selected above. NONE * Additional services required to return to the preadmission environment? No * Can the patient safely return to the preadmission environment? Yes * Has this patient been hospitalized within the prior 30 days at any hospital? Yes Coverage Notice Reviewer: [id number] Marty Albarran Notice Issued Date-Time: 03/08/2018 16:05 Notice Type: IM Discharge Notice Notice Delivered To: Patient Relationship to Patient: Oncology Admin Name: Delivery Method: HAND - Hand Delivered Sho Days: Prior Verbal Notification: Recipient Understood Notice: Yes Recipient Signature: Yes Med Rec Note Co-signed by Attending: Coverage Notice Comment: Reviewer: ROSMERY Albarran Notice Issued Date-Time: 03/11/2018 8:10 Notice Type: IM Discharge Notice Notice Delivered To: Patient Relationship to Patient: Oncology Admin Name: Delivery Method: HAND - Hand Delivered Sho Days: Prior Verbal Notification: Recipient Understood Notice: Yes Recipient Signature: Yes Med Rec Note Co-signed by Attending: Coverage Notice Comment: Reviewer: ROSMERY Albarran Notice Issued Date-Time: 03/19/2018 14:50 Notice Type: Patient Choice Letter Notice Delivered To: Family Member Relationship to Patient: Daughter Oncology Admin Name: JAIRO IBARRA Delivery Method: HAND - Hand Delivered Sho Days: Prior Verbal Notification: Recipient Understood Notice: Yes Recipient Signature: Yes Med Rec Note Co-signed by Attending: Coverage Notice Comment: Reviewer: ROSMERY Albarran Notice Issued Date-Time: 03/19/2018 14:50 Notice Type: IM Discharge Notice Notice Delivered To: Family Member Relationship to Patient: Daughter Oncology Admin Name: JAIRO IBARRA Delivery Method: HAND - Hand Delivered Sho Days: Prior Verbal Notification: Recipient Understood Notice: Yes Recipient Signature: Yes Med Rec Note Co-signed by Attending: Coverage Notice Comment: Reviewer: ROSMERY Albarran Notice Issued Date-Time: 03/22/2018 11:00 Notice Type: Patient Choice Letter Notice Delivered To: Family Member Relationship to Patient: Daughter Oncology Admin Name: JAIRO IBARRA Delivery Method: PHONE - Phone Sho Days: Prior Verbal Notification: Recipient Understood Notice: Yes Recipient Signature: Yes Med Rec Note Co-signed by Attending: Coverage Notice Comment: ANY [facility] WITH HOSPICE CARE. Reviewer: ROSMERY Albarran Notice Issued Date-Time: 03/24/2018 8:40 Notice Type: IM Discharge Notice Notice Delivered To: Family Member Relationship to Patient: Daughter Oncology Admin Name: JAIRO IBARRA Delivery Method: HAND - Hand Delivered Sho Days: Prior Verbal Notification: Recipient Understood Notice: Yes Recipient Signature: Yes Med Rec Note Co-signed by Attending: Coverage Notice Comment: Last DP export: 03/24/18 8:55 Patient Name: DANIEL ADAME Page 16417 at 1139 All edits/amendments must be made on the electronic document DICTATION DATE: 03/24/18 1139 METEOROLOGICAL EQUIPMENT REPAIRER: RUBÉN 03/24/18 1139 RPT#: [id number] DC DATE: STATUS: ADM IN [facility] [address] [place] [address] END OF REPORT
--- NOTE | ~2018-03-03 | MORECARE ---
CASE MANAGEMENT DISCHARGE SUMMARY PATIENT: DANIEL ADAME UNIT: [id number] ADM DATE: 03/03/18 AGE: 78 : 40 SEX: M ROOM/BED: D.2104 AUTHOR: SAMUEL,DOC PHYSICIAN: REFERRING PHYSICIAN: AGGIE PANIAGUA MD DATE OF SERVICE: 03/22/18 Discharge Plan Patient Name: DANIEL ADAME Facility: [facility]:[place] : 1940 Planned Disposition: Long-Term Facility Anticipated Discharge Date: 03/09/18 Discharge Date: Expected LOS: 6 Initial Reviewer: [id number] Initial Review Date: 03/03/2018 Generated: 03/22/18 5:19 pm Comments DCP- Discharge Planning Updated by [id number]: Camron Khan on 03/22/18 3:[address] Patient Name: DANIEL ADAME Encounter No: [id number] : 1940 Primary Insurance: [employer] CHOICE PPO MCR ADVANT Anticipated DC Date: 03-09-2018 Planned Disposition: Long-Term Facility External Planned Provider: [facility], DURABILITY TECHNICIAN CARE MEDICAID BED DCP follow-up note: ALISE RECEIVED CALL FROM JOHANNA OF [facility], PT IS NOT IN THEIR INSURANCE NETWORK AND THEY ARE NOT GOING TO BE ABLE TO HELP WITH DURABILITY TECHNICIAN CARE FOR THIS PATIENT. ALISE RECEIVED CALL FROM JAIRO IBARRA, , WHO REPORTS THAT SHE HAS POWER OF DIRECTOR OF COMMUNITY LIFE AND WILL BRING A COPY TO PLACE ON CHART, SHE HAD PREVIOUSLY PROVIDED IT TO MED SURG HEART COORDINATOR BUT WILL BE HAPPY TO GIVE ANOTHER COPY REQUESTED. JAIRO INFORMED OF DECLINATION BY [facility]. JAIRO REPORTS THAT SHE HAS TALKED TO FAMILY AND THEY DECIDED TO LEAVE PT IN [place], JAIRO WOULD LIKE TO PLACE PT IN A GOOD RETIREMENT WITH NO PREFERNCE, CHOICE COMPLETED, AND NO PREFERENCE FOR HOSPICE COMPANY. ALISE NOTIFIED ADRIANO, , OF REFERRAL FOR SKILLED NURSING CARE TO [facility]. CM FAXED REFERRAL TO [facility] VIA ADRIANO AT [phone]. CM CALLED [facility], , SPOKE TO [facility] AND PROVIDED HOSPICE REFERRAL INFORMATION, THEY DO CONTRACT WITH [facility]. CM FAXED REFERRAL TO [facility] AT [phone]. CM WAITING ADMISSION DETERMINATION FROM [facility] AND [facility] SKILLED NURSING CARE. Camron Khan CASE MANAGEMENT DCP- Discharge Planning Updated by [id number]: Camron Khan on 03/19/18 2:[address] Patient Name: DANIEL ADAME Encounter No: [id number] : 1940 Primary Insurance: HUMANA CHOICE PPO [facility] ADVANT Anticipated DC Date: 03-09-2018 Planned Disposition: Long-Term Facility External Planned Provider: [facility] DCP follow-up note: CM SPOKE TO PT'S DAUGHTER, JAIRO IBARRA ALONG WITH DR. LOVETT AND ALANA BAUMAN. DISUSSED WAS PT'S CONDITION, [facility] REHAB VS HOSPICE CARE. PT'S DAUGHTER IS STILL WANTING PT IN [place] AND ASKED FOR PT TO BE REFERRED TO [facility] IN [place], [place]. JAIRO HAS DISCUSSED PLACEMENT WITH JOHANNA AT FACILITY. TRANSPORTATION DISCUSSED; JAIRO DECIDED SHE WOULD LIKE CM TO OBTAIN TRANSPORT ESTIMATE FROM [facility] IF PLACEMENT CAN BE SECURED AT FACILITY. CHOICE SIGNED FOR [facility], IMPORTANT MESSAGE FROM MEDICARE PROVIDED AND EXPLAINED. CM CALLED [facility], , JOHANNA WAS NOT IN. CM SPOKE TO AILEEN WHO REPORTED THAT JOHANNA WOULD BE BACK IN THURSDAY AND WILL REVIEW REFERRAL THEN. CM FAXED REFERRAL TO [facility] AT [phone]. FACILTY ADDRESS IS [address] [place] [address]. [id number]. CM WAITING ADMISSION DETERMINATION FROM [facility] IN [place], [place]. SRI Clemons MANAGEMENT DCP- Discharge Planning Updated by [id number]: Camron Khan on 03/17/18 2:[address] Patient Name: DANIEL ADAME Encounter No: [id number] : 1940 Primary Insurance: [employer] CHOICE PPO MCR ADVANT Anticipated DC Date: 03-09-2018 Planned Disposition: Long-Term Facility External Planned Provider: TO BE DETERMINED DCP follow-up note: CM REVIEWED CHART, DR. BEARDEN'S NOTE INDICATES NEED TO SPEAK TO FAMILY REGARDING COMFORT CARE OR HOSPICE CARE FOR PT. CM RECEIVED CALL FROM DAUGHTER, JAIRO IBARRA, , WHO REQUESTED UPDATE. CM DISCUSSED DR. BEARDEN'S OPTION REGARDING HOSPICE OR COMFORT CARE. JAIRO REPORTS NO INTEREST AT THIS TIME FOR COMFORT CARE OR HOSPICE. JAIRO IS CONSIDERING PICKING UP PT IN CAR AND TAKING PT BACK TO [place] WHERE THEY LIVE, IT IS AN [address] CM EXPLAINED PT IS VERY WEAK AND WOULD NOT BE ABLE TO GET OUT OF THE CAR DURING PROLONGED TRANSPORTATION. JAIRO ONLY WANTED ASSURANCES THAT PT WOULD NOT DURING THE RIDE TO [place]. CM INFORMED JAIRO THAT CM COULD NOT PROVIDE THAT ASSURANCE, RECOMMENDED [facility] RE[facility]AB FOR PT. JAIRO REPORTS SHE WILL BE IN [place] AND AT THE [facility] TOMORROW, 03-18-18 AT ABOUT 8:30 IN THE MORNING. SHE WOULD LIKE TO MEET WITH ALL DOCTORS IN THE MORNING IN A "BIG MEETING". CM EXPLAINED THAT THIS WOULD NOT BE POSSIBLE, OFFERED TO ASK DR. LOVETT, PRIMARY DOCTOR, TO MEET WITH HER IN THE MORNING, JAIRO ACCEPTED. JAIRO IBARRA, DAUGHTER, , WILL MEET WITH DR. LOVETT AND CM IN THE [facility], 03-18-18, TO DISCUSS PT'S CARE, PROGNOSIS AND DISCHARGE PLAN. Camron Khan, CASE MANAGEMENT DCP- Discharge Planning Updated by [id number]: Camron Khan on 03/11/18 7:[address] Patient Name: DANIEL ADAME Encounter No: [id number] : 1940 Primary Insurance: HUMANA CHOICE PPO MCR ADVANT Anticipated DC Date: 03-09-2018 Planned Disposition: Inpatient Rehab Facility External Planned Provider: [facility] DCP follow-up note: CM INFORMED PT THAT INSURANCE STILL HAS NOT PROVIDED AUTHORIZATION OR DENIAL FOR REHAB. PT STILL WILLING FOR REHAB AT [place]. IMPORTANT MESSAGE FROM MEDICARE PROVIDED AND EXPLAINED. CM WAITING FOR INSURANCE AUTHORIZATION OR DENIAL FOR INPATIENT REHAB SERVICES AT [place]. Camron Khan CASE MANAGEMENT DCP- Discharge Planning Updated by [id number]: Camron Khan on 03/08/18 3:[address] Patient Name: DANIEL ADAME Encounter No: [id number] : 1940 Primary Insurance: HUMANA CHOICE PPO MCR ADVANT Anticipated DC Date: 03-09-2018 Planned Disposition: Inpatient Rehab Facility External Planned Provider: [facility] DCP follow-up note: * Is the patient Alert and Oriented? Yes 0 * How many steps to enter\\exit or inside your home? 4-5 0 * PCP DR. VELÁZQUEZ 0 * Pharmacy [facility] 0 * Preadmission Environment Acute Inpatient Rehab 0 * Facility Name [facility] IN[facility]IENT [facility] 0 * ADLs Partial Dependent 0 * Partial ADLs (Assistance needed) Ambulation Bathing Medication Management Toileting Transfers 0 * Equipment None 0 * Other Equipment NO MEDICAL EQUIPMENT PROVIDER PREFERENCE 0 * List name and contact numbers for known caregivers / representatives who currently or will assist patient after discharge: JAIRO IBARRA, DAUGHTER, 0 * Verbal permission to speak to the caregivers and representatives has been obtained from the patient. Yes 0 * Community resources currently utilized None 0 * Please name any agencies selected above. NONE 0 * Additional services required to return to the preadmission environment? No 0 * Can the patient safely return to the preadmission environment? Yes 0 * Has this patient been hospitalized within the prior 30 days at any hospital? Yes 0 CM RECEIVED ORDER FOR INPATIENT REHAB PRESCREENING. CM SPOKE TO PT IN ROOM WHO IS VERY HARD OF HEARING. PT REPORTS HIS DAUGHTER, JAIRO, IS HERE AND FOR CM TO SPEAK TO HER REGARDING DISCHARGE PLAN. PT IS AGREEABLE TO INPATIENT REHAB AND STATES HE WAS LIVING AT HOME ALONE PRIOR TO HOSPITALIZATION. IMPORTANT MESSAGE FROM MEDICARE PROVIDED AND EXPLAINED. CM CALLED AND SPOKE TO JAIRO IBARRA, DAUGHTER, ; JAIRO REPORTS LIVING IN [place] AND IT IS A [address] TO GET PT THERE WHEN THEY LEAVE [place]. JAIRO WAS HOPING THAT PT WOULD BE STONG ENOUGH FOR THE RIDE AT DISCHARGE FROM HOSPITAL. CM REVIEWED THERAPY EVALUATION AND NOTES WITH JAIRO. JAIRO WOULD LIKE TO TRY TO GET PT BACK INTO INPATIENT REHAB AT [place] STATING HE WAS ONLY IN THERE FOR ONE NIGHT BEFORE HAVING TO BE READMITTED; SHE HOPES FOR PT TO BE STONG ENOUGH FOR HER TO TRANSPORT PT TO [place] AT DISCHARGE AND SHE HAS A RETIREMENT IN MIND THAT WILL ACCEPT PT AT DISCHARGE IF NEEDED. CM WAITING FOR INPATIENT REHAB PRESCREENING AND INSURANCE AUTHORIZATION OR DENIAL FOR INPATIENT REHAB SERVICES. Camron Khan, CASE MANAGEMENT DCP- Discharge Planning Updated by [id number]: Jerica Tejeda on 03/07/18 7:[address] PATIENT WITH VARYING DEGREES OF ORIENTATION. HE IS ALSO HARD OF HEARING. WAS TRANSFERED TO ICU AFTER ONE DAY IN [facility]. MD PLAN IS FOR POSSIBLE TRANSFER TO ACUTE REHAB THURSDAY. PATIENT WILL NEED TO BE EVALUATED AND LIKELY WILL REQUIRE A NEW PRECERT HE HAS HU[employer]NA CHOICE PPO MEDICARE ADVANTAGE AN INSURER. \\NO PHYSICAL THERAPY NOTES AT THIS TIME. WILL NEED PT/OT EVAL FOR PRECERT. REPORTEDLY LIVED ALONE PRIOR TO ADMISSION. HAD DAUGHTER,JAIRO IBARRA. CONTACT PHONE NUMBER CELL [phone] HOME [phone]. PATIENT ALSO HAS SONS :SERENA POMPA- [phone] AND MARJORIE SLAUGHTER- [phone]. CM WILL NEED TO MEET WITH PATIENT'S FAMILY REGARDING DISCHARGE PLAN. DCPIA - Discharge Planning Initial Assessment Updated by ROSMERY: Camron Khan on 03/08/18 4:26 pm * Is the patient Alert and Oriented? Yes * How many steps to enter\\exit or inside your home? 4-5 * PCP DR. VELÁZQUEZ * Pharmacy [facility] * Preadmission Environment Acute Inpatient Rehab * Facility Name [facility] IN[facility]IENT RE[facility]AB * ADLs Partial Dependent * Partial ADLs (Assistance needed) Ambulation Bathing Medication Management Toileting Transfers * Equipment None * Other Equipment NO MEDICAL EQUIPMENT PROVIDER PREFERENCE * List name and contact numbers for known caregivers / representatives who currently or will assist patient after discharge: JAIRO IBARRA, DAUGHTER, * Verbal permission to speak to the caregivers and representatives has been obtained from the patient. Yes * Community resources currently utilized None * Please name any agencies selected above. NONE * Additional services required to return to the preadmission environment? No * Can the patient safely return to the preadmission environment? Yes * Has this patient been hospitalized within the prior 30 days at any hospital? Yes Coverage Notice Reviewer: [id number] Khan Notice Issued Date-Time: 03/08/2018 16:05 Notice Type: IM Discharge Notice Notice Delivered To: Patient Relationship to Patient: Weapons Mechanic Name: Delivery Method: HAND - Hand Delivered Sho Days: Prior Verbal Notification: Recipient Understood Notice: Yes Recipient Signature: Yes Med Rec Note Co-signed by Attending: Coverage Notice Comment: Reviewer: ROSMERY Khan Notice Issued Date-Time: 03/11/2018 8:10 Notice Type: IM Discharge Notice Notice Delivered To: Patient Relationship to Patient: Weapons Mechanic Name: Delivery Method: HAND - Hand Delivered Sho Days: Prior Verbal Notification: Recipient Understood Notice: Yes Recipient Signature: Yes Med Rec Note Co-signed by Attending: Coverage Notice Comment: Reviewer: ROSMERY Khan Notice Issued Date-Time: 03/19/2018 14:50 Notice Type: Patient Choice Letter Notice Delivered To: Family Member Relationship to Patient: Daughter Weapons Mechanic Name: JAIRO IBARRA Delivery Method: HAND - Hand Delivered Sho Days: Prior Verbal Notification: Recipient Understood Notice: Yes Recipient Signature: Yes Med Rec Note Co-signed by Attending: Coverage Notice Comment: Reviewer: ROSMERY Khan Notice Issued Date-Time: 03/19/2018 14:50 Notice Type: IM Discharge Notice Notice Delivered To: Family Member Relationship to Patient: Daughter Weapons Mechanic Name: JAIRO IBARRA Delivery Method: HAND - Hand Delivered Sho Days: Prior Verbal Notification: Recipient Understood Notice: Yes Recipient Signature: Yes Med Rec Note Co-signed by Attending: Coverage Notice Comment: Reviewer: ROSMERY Khan Notice Issued Date-Time: 03/22/2018 11:00 Notice Type: Patient Choice Letter Notice Delivered To: Family Member Relationship to Patient: Daughter Weapons Mechanic Name: JAIRO IBARRA Delivery Method: PHONE - Phone Sho Days: Prior Verbal Notification: Recipient Understood Notice: Yes Recipient Signature: Yes Med Rec Note Co-signed by Attending: Coverage Notice Comment: ANY [facility] WITH HOSPICE CARE. Last DP export: 03/22/18 3:09 Patient Name: DANIEL ADAME Page [id number] at 1619 All edits/amendments must be made on the electronic document DICTATION DATE: 03/22/181618 VALET SERVICE ATTENDANT: RUBÉN 03/22/181618 RPT#: [id number] DC DATE: STATUS: ADM IN [facility] [address] [place] [address] END OF REPORT
--- NOTE | ~2018-03-03 | MORECARE ---
CASE MANAGEMENT DISCHARGE SUMMARY PATIENT: DANIEL ADAME UNIT: [id number] ADM DATE: 03/03/18 AGE: 78 : 40 SEX: M ROOM/BED: D.2104 AUTHOR: SAMUEL,DOC PHYSICIAN: REFERRING PHYSICIAN: AGGIE PANIAGUA MD DATE OF SERVICE: 03/19/18 Discharge Plan Patient Name: DANIEL ADAME Facility: [facility]:[place] : 1940 Planned Disposition: Snf Facility Anticipated Discharge Date: 03/09/18 Discharge Date: Expected LOS: 6 Initial Reviewer: [id number] Initial Review Date: 03/03/2018 Generated: 03/19/18 4:58 pm Comments DCP- Discharge Planning Updated by [id number]: Camron Khan on 03/19/18 2:[address] Patient Name: DANIEL ADAME Encounter No: [id number] : 1940 Primary Insurance: [employer] PPO MCR ADVANT Anticipated DC Date: 03-09-2018 Planned Disposition: Snf Facility External Planned Provider: [facility] SKILLED BED DCP follow-up note: ALISE SPOKE TO PT'S DAUGHTER, JAIRO IBARRA ALONG WITH DR. LOVETT AND ALANA BAUMAN. DISUSSED WAS PT'S CONDITION, DETENTION REHAB VS HOSPICE CARE. PT'S DAUGHTER IS STILL WANTING PT IN [place] AND ASKED FOR PT TO BE REFERRED TO [facility] IN [place], [place]. JAIRO HAS DISCUSSED PLACEMENT WITH JOHANNA AT FACILITY. TRANSPORTATION DISCUSSED; JAIRO DECIDED SHE WOULD LIKE CM TO OBTAIN TRANSPORT ESTIMATE FROM [facility] IF PLACEMENT CAN BE SECURED AT FACILITY. CHOICE SIGNED FOR [facility], IMPORTANT MESSAGE FROM MEDICARE PROVIDED AND EXPLAINED. CM CALLED [facility], , JOHANNA WAS NOT IN. ALISE SPOKE TO AILEEN WHO REPORTED THAT JOHANNA WOULD BE BACK IN THURSDAY AND WILL REVIEW REFERRAL THEN. CM FAXED REFERRAL TO [facility] AT [phone]. FACILTY ADDRESS IS [address] [place] [address]. [address]. CM WAITING ADMISSION DETERMINATION FROM [facility] IN [place]. Camron Khan, CASE MANAGEMENT DCP- Discharge Planning Updated by [id number]: Camron Khan on 03/17/18 2:[address] Patient Name: DANIEL ADAME Encounter No: [id number] : 1940 Primary Insurance: [employer] CHOICE PPO MCR ADVANT Anticipated DC Date: 03-09-2018 Planned Disposition: Snf Facility External Planned Provider: TO BE DETERMINED DCP follow-up note: CM REVIEWED CHART, DR. BEARDEN'S NOTE INDICATES NEED TO SPEAK TO FAMILY REGARDING COMFORT CARE OR HOSPICE CARE FOR PT. CM RECEIVED CALL FROM DAUGHTER, JAIRO IBARRA, , WHO REQUESTED UPDATE. CM DISCUSSED DR. BEARDEN'S OPTION REGARDING HOSPICE OR COMFORT CARE. JAIRO REPORTS NO INTEREST AT THIS TIME FOR COMFORT CARE OR HOSPICE. JAIRO IS CONSIDERING PICKING UP PT IN CAR AND TAKING PT BACK TO [place] WHERE THEY LIVE, IT IS AN [address] CM EXPLAINED PT IS VERY WEAK AND WOULD NOT BE ABLE TO GET OUT OF THE CAR DURING PROLONGED TRANSPORTATION. JAIRO ONLY WANTED ASSURANCES THAT PT WOULD NOT DURING THE RIDE TO [place]. CM INFORMED JAIRO THAT CM COULD NOT PROVIDE THAT ASSURANCE, RECOMMENDED DETENTION REHAB FOR PT. JAIRO REPORTS SHE WILL BE IN [place] AND AT THE [facility] TOMORROW, 03-18-18 AT ABOUT 8:30 IN THE MORNING. SHE WOULD LIKE TO MEET WITH ALL DOCTORS IN THE MORNING IN A "BIG MEETING". CM EXPLAINED THAT THIS WOULD NOT BE POSSIBLE, OFFERED TO ASK DR. LOVETT, PRIMARY DOCTOR, TO MEET WITH HER IN THE MORNING, JAIRO ACCEPTED. JAIRO IBARRA, DAUGHTER, , WILL MEET WITH DR. LOVETT AND CM IN THE [facility], 03-18-18, TO DISCUSS PT'S CARE, PROGNOSIS AND DISCHARGE PLAN. Camron Khan, CASE MANAGEMENT DCP- Discharge Planning Updated by [id number]: Camron Khan on 03/11/18 7:[address] Patient Name: DANIEL ADAME Encounter No: [id number] : 1940 Primary Insurance: [employer] CHOICE PPO MCR ADVANT Anticipated DC Date: 03-09-2018 Planned Disposition: Inpatient Rehab Facility External Planned Provider: [facility] DCP follow-up note: CM INFORMED PT THAT INSURANCE STILL HAS NOT PROVIDED AUTHORIZATION OR DENIAL FOR REHAB. PT STILL WILLING FOR REHAB AT [facility]. IMPORTANT MESSAGE FROM MEDICARE PROVIDED AND EXPLAINED. CM WAITING FOR INSURANCE AUTHORIZATION OR DENIAL FOR INPATIENT REHAB SERVICES AT [facility]. Camron Khan, CASE MANAGEMENT DCP- Discharge Planning Updated by [id number]: Camron Khan on 03/08/18 3:[address] Patient Name: DANIEL ADAME Encounter No: [id number] : 1940 Primary Insurance: HUMANA CHOICE PPO MCR ADVANT Anticipated DC Date: 03-09-2018 Planned Disposition: Inpatient Rehab Facility External Planned Provider: [facility] INPATIENT REHAB DCP follow-up note: * Is the patient Alert and Oriented? Yes 0 * How many steps to enter\\exit or inside your home? 4-5 0 * PCP DR. VELÁZQUEZ 0 * Pharmacy [facility] 0 * Preadmission Environment Acute Inpatient Rehab 0 * Facility Name [facility] INPATIENT REHAB 0 * ADLs Partial Dependent 0 * Partial ADLs (Assistance needed) Ambulation Bathing Medication Management Toileting Transfers 0 * Equipment None 0 * Other Equipment NO MEDICAL EQUIPMENT PROVIDER PREFERENCE 0 * List name and contact numbers for known caregivers / representatives who currently or will assist patient after discharge: JAIRO IBARRA, DAUGHTER, 0 * Verbal permission to speak to the caregivers and representatives has been obtained from the patient. Yes 0 * Community resources currently utilized None 0 * Please name any agencies selected above. NONE 0 * Additional services required to return to the preadmission environment? No 0 * Can the patient safely return to the preadmission environment? Yes 0 * Has this patient been hospitalized within the prior 30 days at any hospital? Yes 0 CM RECEIVED ORDER FOR INPATIENT REHAB PRESCREENING. CM SPOKE TO PT IN ROOM WHO IS VERY HARD OF HEARING. PT REPORTS HIS DAUGHTER, JAIRO, IS HERE AND FOR CM TO SPEAK TO HER REGARDING DISCHARGE PLAN. PT IS AGREEABLE TO INPATIENT REHAB AND STATES HE WAS LIVING AT HOME ALONE PRIOR TO HOSPITALIZATION. IMPORTANT MESSAGE FROM MEDICARE PROVIDED AND EXPLAINED. CM CALLED AND SPOKE TO JAIRO IBARRA, DAUGHTER, ; JAIRO REPORTS LIVING IN [place] AND IT IS A [address] TO GET PT [address] WHEN THEY LEAVE [employer]. JAIRO WAS HOPING THAT PT WOULD BE STONG ENOUGH FOR THE RIDE AT DISCHARGE FROM HOSPITAL. CM REVIEWED THERAPY EVALUATION AND NOTES WITH JAIRO. JAIRO WOULD LIKE TO TRY TO GET PT BACK INTO INPATIENT REHAB AT [facility] STATING HE WAS ONLY IN THERE FOR ONE NIGHT BEFORE HAVING TO BE READMITTED; SHE HOPES FOR PT TO BE STONG ENOUGH FOR HER TO TRANSPORT PT TO [place] AT DISCHARGE AND SHE HAS A FDC IN MIND THAT WILL ACCEPT PT AT DISCHARGE IF NEEDED. CM WAITING FOR INPATIENT REHAB PRESCREENING AND INSURANCE AUTHORIZATION OR DENIAL FOR INPATIENT REHAB SERVICES. Camron Khan, CASE MANAGEMENT DCP- Discharge Planning Updated by [id number]: Jerica Tejeda on 03/07/18 7:[address] PATIENT WITH VARYING DEGREES OF ORIENTATION. HE IS ALSO HARD OF HEARING. WAS TRANSFERED TO ICU AFTER ONE DAY IN [facility]. MD PLAN IS FOR POSSIBLE TRANSFER TO ACUTE REHAB THURSDAY. PATIENT WILL NEED TO BE EVALUATED AND LIKELY WILL REQUIRE A NEW PRECERT HE HAS [employer] CHOICE PPO MEDICARE ADVANTAGE AN INSURER. \\NO PHYSICAL THERAPY NOTES AT THIS TIME. WILL NEED PT/OT EVAL FOR PRECERT. REPORTEDLY LIVED ALONE PRIOR TO ADMISSION. HAD DAUGHTER,JAIRO IBARRA. CONTACT PHONE NUMBER CELL [phone] HOME [phone]. PATIENT ALSO HAS SONS :SERENA POMPA- [phone] AND MARJORIE SLAUGHTER- [phone]. CM WILL NEED TO MEET WITH PATIENT'S FAMILY REGARDING DISCHARGE PLAN. DCPIA - Discharge Planning Initial Assessment Updated by [id number]: Camron Khan on 03/08/18 4:26 pm * Is the patient Alert and Oriented? Yes * How many steps to enter\\exit or inside your home? 4-5 * PCP DR. VELÁZQUEZ * Pharmacy [facility] * Preadmission Environment Acute Inpatient Rehab * Facility Name [facility] INPATIENT REHAB * ADLs Partial Dependent * Partial ADLs (Assistance needed) Ambulation Bathing Medication Management Toileting Transfers * Equipment None * Other Equipment NO MEDICAL EQUIPMENT PROVIDER PREFERENCE * List name and contact numbers for known caregivers / representatives who currently or will assist patient after discharge: JAIRO IBARRA, DAUGHTER, * Verbal permission to speak to the caregivers and representatives has been obtained from the patient. Yes * Community resources currently utilized None * Please name any agencies selected above. NONE * Additional services required to return to the preadmission environment? No * Can the patient safely return to the preadmission environment? Yes * Has this patient been hospitalized within the prior 30 days at any hospital? Yes External Providers External Provider: OTHER-OTHER Next Contact Date: 03/22/2018 Service Request Date: Service Type: Resolution: Reviewer: Comments: Coverage Notice Reviewer: ROSMERY Khan Notice Issued Date-Time: 03/08/2018 16:05 Notice Type: IM Discharge Notice Notice Delivered To: Patient Relationship to Patient: Dye Machine Tender Name: Delivery Method: HAND - Hand Delivered Sho Days: Prior Verbal Notification: Recipient Understood Notice: Yes Recipient Signature: Yes Med Rec Note Co-signed by Attending: Coverage Notice Comment: Reviewer: ROSMERY Khan Notice Issued Date-Time: 03/11/2018 8:10 Notice Type: IM Discharge Notice Notice Delivered To: Patient Relationship to Patient: Dye Machine Tender Name: Delivery Method: HAND - Hand Delivered Sho Days: Prior Verbal Notification: Recipient Understood Notice: Yes Recipient Signature: Yes Med Rec Note Co-signed by Attending: Coverage Notice Comment: Reviewer: ROSMERY Khan Notice Issued Date-Time: 03/19/2018 14:50 Notice Type: Patient Choice Letter Notice Delivered To: Family Member Relationship to Patient: Daughter Dye Machine Tender Name: JAIRO IBARRA Delivery Method: HAND - Hand Delivered Sho Days: Prior Verbal Notification: Recipient Understood Notice: Yes Recipient Signature: Yes Med Rec Note Co-signed by Attending: Coverage Notice Comment: Reviewer: ROSMERY Khan Notice Issued Date-Time: 03/19/2018 14:50 Notice Type: IM Discharge Notice Notice Delivered To: Family Member Relationship to Patient: Daughter Dye Machine Tender Name: JAIRO IBARRA Delivery Method: HAND - Hand Delivered Sho Days: Prior Verbal Notification: Recipient Understood Notice: Yes Recipient Signature: Yes Med Rec Note Co-signed by Attending: Coverage Notice Comment: Last DP export: 03/19/18 2:48 Patient Name: DANIEL ADAME Page [id number] at 1558 All edits/amendments must be made on the electronic document DICTATION DATE: 03/19/181557 FREIGHT TEAM ASSOCIATE: RUBÉN 03/19/181557 RPT#: [id number] DC DATE: STATUS: ADM IN [facility] [address] [place] [address] END OF REPORT
--- NOTE | ~2018-03-03 | MORECARE ---
CASE MANAGEMENT DISCHARGE SUMMARY PATIENT: DANIEL ADAME UNIT: [id number] ADM DATE: 03/03/18 AGE: 78 : 40 SEX: M ROOM/BED: D.2104 AUTHOR: SAMUEL,DOC PHYSICIAN: REFERRING PHYSICIAN: AGGIE PANIAGUA MD DATE OF SERVICE: 03/23/18 Discharge Plan Patient Name: DANIEL ADAME Facility: [facility]:[place] : 1940 Planned Disposition: Nursing Home Facility Anticipated Discharge Date: 03/09/18 Discharge Date: Expected LOS: 6 Initial Reviewer: [id number] Initial Review Date: 03/03/2018 Generated: 03/23/18 1:32 pm Comments DCP- Discharge Planning Updated by [id number]: Camron Khan on 03/23/18 11:[address] Patient Name: DANIEL ADAME Encounter No: [id number] : 1940 Primary Insurance: [employer] CHOICE PPO MCR ADVANT Anticipated DC Date: 03-09-2018 Planned Disposition: Nursing Home Facility External Planned Provider: [facility], JAIL CARE MEDICAID BED DCP follow-up note: CM RECEIVED CALL FROM SHAYLA OF [facility], PT WILL NOT QUALIFY FOR HUMAN RESOURCES GENERALIST CARE MEDICAID DUE TO TRANSFER OF PROPERTY; THEY MAY BE ABLE TO TAKE TO TRY REHAB AND WILL CHECK ON SKILLED DAYS AND MAY ALSO TAKE ON PRIVATE PAY BASIS AND WILL DISCUSS THIS WITH DAUGHTER. PT'S DAUGHTER HAS INDICATED TO [facility] SHE FEELS PT ONLY HAS TWO OR THREE DAYS LEFT AND ASKED IF PT WILL QUALIFY FOR INPATIENT HOSPICE. CM ADVISED SHAYLA THAT CM DID NOT SEE ANY IMMEDIATE CRITERIA FOR INPATIENT HOSPICE QUALIFICATION AND WILL ASK FOR INPATIENT SCREENING FROM [facility]. CM CALLED [facility], , LEFT MESSAGE WITH ANSWERING SERVICE REQUESTING INPATIENT HOSPICE EVALUATION AT DAUGHTER'S REQUEST. CM NOTIFIED THAT [facility] NURSE WILL CONTACT CM SHORTLY. CM WAITING INPATIENT HOSPICE EVALUATION FROM [facility]. [facility] WILL TAKE PT FOR REHAB OR ON PRIVATE PAY JAIL CARE BASIS AND WILL DISCUSS THIS WITH PT'S DAUGHTER. Camron Khan, CASE MANAGEMENT DCP- Discharge Planning Updated by [id number]: Camron Khan on 03/23/18 6:[address] Patient Name: DANIEL ADAME Encounter No: [id number] : 1940 Primary Insurance: [employer] CHOICE PPO MCR ADVANT Anticipated DC Date: 03-09-2018 Planned Disposition: Nursing Home Facility External Planned Provider: [facility] TERM CARE MEDICAID BED DCP follow-up note: ZELALEM OF [facility] HAS MET WITH PT'S DAUGHTER AND EVALUATED PT, THEY WILL ACCEPT FOR HOSPICE AND WILL ENROLL PT AFTER HIS ARRIVAL AT THE SENIOR CARE. CM [facility]. NOTIFY [facility] WHEN SENIOR CARE PLACEMENT IS SECURED, , FAXE DISCHARGE INFORMATION TO [facility] AT [phone]. Camron Khan, CASE MANAGEMENT DCP- Discharge Planning Updated by [id number]: Camron Khan on 03/22/18 3:[address] Patient Name: DANIEL ADAME Encounter No: [id number] : 1940 Primary Insurance: [employer] CHOICE PPO MCR ADVANT Anticipated DC Date: 03-09-2018 Planned Disposition: Nursing Home Facility External Planned Provider: [facility] TERM CARE MEDICAID BED DCP follow-up note: CM RECEIVED CALL FROM JOHANNA OF [facility], PT IS NOT IN THEIR INSURANCE NETWORK AND THEY ARE NOT GOING TO BE ABLE TO HELP WITH JAIL CARE FOR THIS PATIENT. CM RECEIVED CALL FROM JAIRO IBARRA, , WHO REPORTS THAT SHE HAS POWER OF DOCTOR OF MEDICINE AND WILL BRING A COPY TO PLACE ON CHART, SHE HAD PREVIOUSLY PROVIDED IT TO [facility] [employer] BUT WILL BE HAPPY TO GIVE ANOTHER COPY REQUESTED. JAIRO INFORMED OF DECLINATION BY [facility]. JAIRO REPORTS THAT SHE HAS TALKED TO FAMILY AND THEY DECIDED TO LEAVE PT IN [place], JAIRO WOULD LIKE TO PLACE PT IN A GOOD SENIOR CARE WITH NO PREFERNCE, CHOICE COMPLETED, AND NO PREFERENCE FOR HOSPICE COMPANY. ALISE NOTIFIED ADRIANO, , OF REFERRAL FOR JAIL CARE TO [facility]. CM FAXED REFERRAL TO [facility] VIA ADRIANO AT [phone]. CM CALLED [facility], , SPOKE TO ZELALEM AND PROVIDED HOSPICE REFERRAL INFORMATION, THEY DO CONTRACT WITH [facility]. CM FAXED REFERRAL TO [facility] AT [phone]. CM WAITING ADMISSION DETERMINATION FROM [facility] AND [facility] JAIL CARE. SRI Clemons MANAGEMENT DCP- Discharge Planning Updated by [id number]: Camron Khan on 03/19/18 2:[address] Patient Name: DANIEL ADAME Encounter No: [id number] : 1940 Primary Insurance: [employer]NA CHOICE PPO MCR ADVANT Anticipated DC Date: 03-09-2018 Planned Disposition: Nursing Home Facility External Planned Provider: [facility] SKILLED BED DCP follow-up note: CM SPOKE TO PT'S DAUGHTER, JAIRO IBARRA ALONG WITH DR. LOVETT AND ALANA BAUMAN. DISUSSED WAS PT'S CONDITION, ALF REHAB VS HOSPICE CARE. PT'S DAUGHTER IS STILL WANTING PT IN [place] AND ASKED FOR PT TO BE REFERRED TO [facility] IN [place], [place]. JAIRO HAS DISCUSSED PLACEMENT WITH JOHANNA AT FACILITY. TRANSPORTATION DISCUSSED; JAIRO DECIDED SHE WOULD LIKE CM TO OBTAIN TRANSPORT ESTIMATE FROM [employer] [employer] IF PLACEMENT CAN BE SECURED AT FACILITY. CHOICE SIGNED FOR [facility], IMPORTANT MESSAGE FROM MEDICARE PROVIDED AND EXPLAINED. CM CALLED [facility], , JOHANNA WAS NOT IN. CM SPOKE TO AILEEN WHO REPORTED THAT JOHANNA WOULD BE BACK IN THURSDAY AND WILL REVIEW REFERRAL THEN. CM FAXED REFERRAL TO [facility] AT [phone]. F[address]ILTY ADDRESS IS [address] [place] [address]. [phone]. CM WAITING ADMISSION DETERMINATION FROM [facility] IN [place], [place]. SRI Clemons DCP- Discharge Planning Updated by [id number]: Camron Khan on 03/17/18 2:[address] Patient Name: DANIEL ADAME Encounter No: [id number] : 1940 Primary Insurance: [employer] CHOICE PPO MCR ADVANT Anticipated DC Date: 03-09-2018 Planned Disposition: Nursing Home Facility External Planned Provider: TO BE DETERMINED DCP follow-up note: CM REVIEWED CHART, DR. BEARDEN'S NOTE INDICATES NEED TO SPEAK TO FAMILY REGARDING COMFORT CARE OR HOSPICE CARE FOR PT. CM RECEIVED CALL FROM DAUGHTER, JAIRO IBARRA, , WHO REQUESTED UPDATE. CM DISCUSSED DR. BEARDEN'S OPTION REGARDING HOSPICE OR COMFORT CARE. JAIRO REPORTS NO INTEREST AT THIS TIME FOR COMFORT CARE OR HOSPICE. JAIRO IS CONSIDERING PICKING UP PT IN CAR AND TAKING PT BACK TO [place] WHERE THEY LIVE, IT IS AN [address] CM EXPLAINED PT IS VERY WEAK AND WOULD NOT BE ABLE TO GET OUT OF THE CAR DURING PROLONGED TRANSPORTATION. JAIRO ONLY WANTED ASSURANCES THAT PT WOULD NOT DURING THE RIDE TO [place]. CM INFORMED JAIRO THAT CM COULD NOT PROVIDE THAT ASSURANCE, RECOMMENDED ALF REHAB FOR PT. JAIRO REPORTS SHE WILL BE IN [place] AND AT THE [facility] TOMORROW, 03-18-18 AT ABOUT 8:30 IN THE MORNING. SHE WOULD LIKE TO MEET WITH ALL DOCTORS IN THE MORNING IN A "BIG MEETING". CM EXPLAINED THAT THIS WOULD NOT BE POSSIBLE, OFFERED TO ASK DR. LOVETT, PRIMARY DOCTOR, TO MEET WITH HER IN THE MORNING, JAIRO ACCEPTED. JAIRO IBARRA, DAUGHTER, , WILL MEET WITH DR. LOVETT AND CM IN THE [facility], 03-18-18, TO DISCUSS PT'S CARE, PROGNOSIS AND DISCHARGE PLAN. Camron Khan, CASE MANAGEMENT DCP- Discharge Planning Updated by [id number]: Camron Khan on 03/11/18 7:[address] Patient Name: DANIEL ADAME Encounter No: [id number] : 1940 Primary Insurance: [employer] CHOICE PPO MCR ADVANT Anticipated DC Date: 03-09-2018 Planned Disposition: Inpatient Rehab Facility External Planned Provider: [facility] DCP follow-up note: CM INFORMED PT THAT INSURANCE STILL HAS NOT PROVIDED AUTHORIZATION OR DENIAL FOR REHAB. PT STILL WILLING FOR REHAB AT [facility]. IMPORTANT MESSAGE FROM MEDICARE PROVIDED AND EXPLAINED. CM WAITING FOR INSURANCE AUTHORIZATION OR DENIAL FOR INPATIENT REHAB SERVICES AT [facility]. Camron Khan CASE MANAGEMENT DCP- Discharge Planning Updated by [id number]: Camron Khan on 03/08/18 3:[address] Patient Name: DANIEL ADAME Encounter No: [id number] : 1940 Primary Insurance: [employer] CHOICE PPO MCR ADVANT Anticipated DC Date: 03-09-2018 Planned Disposition: Inpatient Rehab Facility External Planned Provider: [facility] DCP follow-up note: * Is the patient Alert and Oriented? Yes 0 * How many steps to enter\\exit or inside your home? 4-5 0 * PCP DR. VELÁZQUEZ 0 * Pharmacy [facility] 0 * Preadmission Environment Acute Inpatient Rehab 0 * Facility Name [facility] INPATIENT REHAB 0 * ADLs Partial Dependent 0 * Partial ADLs (Assistance needed) Ambulation Bathing Medication Management Toileting Transfers 0 * Equipment None 0 * Other Equipment NO MEDICAL EQUIPMENT PROVIDER PREFERENCE 0 * List name and contact numbers for known caregivers / representatives who currently or will assist patient after discharge: JAIRO IBARRA, DAUGHTER, 0 * Verbal permission to speak to the caregivers and representatives has been obtained from the patient. Yes 0 * Community resources currently utilized None 0 * Please name any agencies selected above. NONE 0 * Additional services required to return to the preadmission environment? No 0 * Can the patient safely return to the preadmission environment? Yes 0 * Has this patient been hospitalized within the prior 30 days at any hospital? Yes 0 CM RECEIVED ORDER FOR INPATIENT REHAB PRESCREENING. CM SPOKE TO PT IN ROOM WHO IS VERY HARD OF HEARING. PT REPORTS HIS DAUGHTER, JAIRO, IS HERE AND FOR CM TO SPEAK TO HER REGARDING DISCHARGE PLAN. PT IS AGREEABLE TO INPATIENT REHAB AND STATES HE WAS LIVING AT HOME ALONE PRIOR TO HOSPITALIZATION. IMPORTANT MESSAGE FROM MEDICARE PROVIDED AND EXPLAINED. CM CALLED AND SPOKE TO JAIRO IBARRA, DAUGHTER, ; JAIRO REPORTS LIVING IN [place] AND IT IS A [address] TO GET PT THERE WHEN THEY LEAVE [place]. JAIRO WAS HOPING THAT PT WOULD BE STONG ENOUGH FOR THE RIDE AT DISCHARGE FROM HOSPITAL. CM REVIEWED THERAPY EVALUATION AND NOTES WITH JAIRO. JAIRO WOULD LIKE TO TRY TO GET PT BACK INTO INPATIENT REHAB AT [facility] STATING HE WAS ONLY IN THERE FOR ONE NIGHT BEFORE HAVING TO BE READMITTED; SHE HOPES FOR PT TO BE STONG ENOUGH FOR HER TO TRANSPORT PT TO [place] AT DISCHARGE AND SHE HAS A SENIOR CARE IN MIND THAT WILL ACCEPT PT AT DISCHARGE IF NEEDED. CM WAITING FOR INPATIENT REHAB PRESCREENING AND INSURANCE AUTHORIZATION OR DENIAL FOR INPATIENT REHAB SERVICES. Camron Khan, CASE MANAGEMENT DCP- Discharge Planning Updated by [id number]: Jerica Tejeda on 03/07/18 7:[address] PATIENT WITH VARYING DEGREES OF ORIENTATION. HE IS ALSO HARD OF HEARING. WAS TRANSFERED TO ICU AFTER ONE DAY IN [facility]UTE [facility]. PLAN IS FOR POSSIBLE TRANSFER TO ACUTE REHAB THURSDAY. PATIENT WILL NEED TO BE EVALUATED AND LIKELY WILL REQUIRE A NEW PRECERT HE HAS [employer] CHOICE PPO MEDICARE ADVANTAGE AN INSURER. \\NO PHYSICAL THERAPY NOTES AT THIS TIME. WILL NEED PT/OT EVAL FOR PRECERT. REPORTEDLY LIVED ALONE PRIOR TO ADMISSION. HAD DAUGHTER,JAIRO IBARRA. CONTACT PHONE NUMBER CELL [phone] HOME [phone]. PATIENT ALSO HAS SONS :SERENA POMPA- [phone] AND MARJORIE SLAUGHTER- [phone]. CM WILL NEED TO MEET WITH PATIENT'S FAMILY REGARDING DISCHARGE PLAN. DCPIA - Discharge Planning Initial Assessment Updated by ROSMERY: Camron Khan on 03/08/18 4:26 pm * Is the patient Alert and Oriented? Yes * How many steps to enter\\exit or inside your home? 4-5 * PCP DR. VELÁZQUEZ * Pharmacy [facility] * Preadmission Environment Acute Inpatient Rehab * Facility Name [facility] INPATIENT REHAB * ADLs Partial Dependent * Partial ADLs (Assistance needed) Ambulation Bathing Medication Management Toileting Transfers * Equipment None * Other Equipment NO MEDICAL EQUIPMENT PROVIDER PREFERENCE * List name and contact numbers for known caregivers / representatives who currently or will assist patient after discharge: JAIRO IBARRA, DAUGHTER, * Verbal permission to speak to the caregivers and representatives has been obtained from the patient. Yes * Community resources currently utilized None * Please name any agencies selected above. NONE * Additional services required to return to the preadmission environment? No * Can the patient safely return to the preadmission environment? Yes * Has this patient been hospitalized within the prior 30 days at any hospital? Yes Coverage Notice Reviewer: [id number] Marty Khan Notice Issued Date-Time: 03/08/2018 16:05 Notice Type: IM Discharge Notice Notice Delivered To: Patient Relationship to Patient: Stretching Press Operator Name: Delivery Method: HAND - Hand Delivered Sho Days: Prior Verbal Notification: Recipient Understood Notice: Yes Recipient Signature: Yes Med Rec Note Co-signed by Attending: Coverage Notice Comment: Reviewer: ROSMERY Khan Notice Issued Date-Time: 03/11/2018 8:10 Notice Type: IM Discharge Notice Notice Delivered To: Patient Relationship to Patient: Stretching Press Operator Name: Delivery Method: HAND - Hand Delivered Sho Days: Prior Verbal Notification: Recipient Understood Notice: Yes Recipient Signature: Yes Med Rec Note Co-signed by Attending: Coverage Notice Comment: Reviewer: ROSMERY Khan Notice Issued Date-Time: 03/19/2018 14:50 Notice Type: Patient Choice Letter Notice Delivered To: Family Member Relationship to Patient: Daughter Stretching Press Operator Name: JAIRO IBARRA Delivery Method: HAND - Hand Delivered Sho Days: Prior Verbal Notification: Recipient Understood Notice: Yes Recipient Signature: Yes Med Rec Note Co-signed by Attending: Coverage Notice Comment: Reviewer: ROSMERY Khan Notice Issued Date-Time: 03/19/2018 14:50 Notice Type: IM Discharge Notice Notice Delivered To: Family Member Relationship to Patient: Daughter Stretching Press Operator Name: JAIRO IBARRA Delivery Method: HAND - Hand Delivered Sho Days: Prior Verbal Notification: Recipient Understood Notice: Yes Recipient Signature: Yes Med Rec Note Co-signed by Attending: Coverage Notice Comment: Reviewer: ROSMERY Khan Notice Issued Date-Time: 03/22/2018 11:00 Notice Type: Patient Choice Letter Notice Delivered To: Family Member Relationship to Patient: Daughter Stretching Press Operator Name: JAIRO IBARRA Delivery Method: PHONE - Phone Sho Days: Prior Verbal Notification: Recipient Understood Notice: Yes Recipient Signature: Yes Med Rec Note Co-signed by Attending: Coverage Notice Comment: ANY [facility] WITH HOSPICE CARE. Last DP export: 03/23/18 6:59 Patient Name: DANIEL ADAME Page [id number] at 1232 All edits/amendments must be made on the electronic document DICTATION DATE: 03/23/18 1231 WORKERS' COMPENSATION MEDIATOR: RUBÉN 03/23/18 1231 RPT#: [id number] DC DATE: STATUS: ADM IN [facility] [address] [place] [address] END OF REPORT
--- NOTE | ~2018-03-03 | MORECARE ---
CASE MANAGEMENT DISCHARGE SUMMARY PATIENT: DANIEL ADAME UNIT: [id number] ADM DATE: 03/03/18 AGE: 78 : 40 SEX: M ROOM/BED: D.2101 AUTHOR: SAMUEL,DOC PHYSICIAN: REFERRING PHYSICIAN: AGGIE PANIAGUA MD DATE OF SERVICE: 03/24/18 Discharge Plan Patient Name: DANIEL ADAME Facility: [facility]:[place] : 1940 Planned Disposition: Senior Care Facility Anticipated Discharge Date: 03/09/18 Discharge Date: Expected LOS: 6 Initial Reviewer: [id number] Initial Review Date: 03/03/2018 Generated: 03/24/18 10:55 am Comments DCP- Discharge Planning Updated by [id number]: Alli Albarran on 03/24/18 8:[address] Patient Name: DANIEL ADAME Encounter No: [id number] : 1940 Primary Insurance: HUMANA CHOICE PPO MCR ADVANT Anticipated DC Date: 03-09-2018 Planned Disposition: Senior Care Facility External Planned Provider: [facility], LONG TERM CARE MEDICAID BED DCP follow-up note: ALISE SPOKE TO CEM OF [facility]; SHE HAS TALKED TO JAIRO IBARRA, INFORMED HER THAT PT IS NOT MEETING CRITERIA FOR INPATIENT HOSPICE, THEY HAVE OFFERED RESPITE HOSPICE CARE AT [facility] FOR 5 DAYS; JAIRO DID NOT ACCEPT. ALISE CALLED AND SPOKE TO [facility], THEY HAVE CONTACTED PT'S INSURANCE TO INQUIRE ABOUT REHAB SERVICES INSTEAD OF HOSPICE, INSURANCE DOES NOT WANT TO PAY FOR REHAB SERVICES PT IS NOT EATING OR DRINKING, PT / FAMILY DOES NOT WANT PEG TUBE AND HOSICE IS INDICATED IN CHART. SHAYLA DOES NOT THINK THAT FINANCIAL WILL BE WORKED OUT IN 5 DAYS, BUT RECOMMENDED THAT FAMILY ACCEPTED DIEKSENS OFFER OF RESPITE CARE AT [facility] AND TRY TO WORK SOMETHING OUT WITH HOSPICE. ALISE MET WITH JAIRO IBARRA IN ROOM. JAIRO REPORTS SHE WAS TIRED AND CONFUSED LAST NIGHT. ALISE EXPLAINED HOSPICE RESPITE OFFER FROM [facility] FOR 5 DAYS AT [facility]. JAIRO ASKED ABOUT REHAB FOR PT AT THE [facility]. ALISE INFORMED JAIRO THAT INSURANCE WILL NOT PAY FOR REHAB SERVICES AT THIS TIME. JAIRO WAS AWARE THAT THE SKILLED NURSING SHE WANTED IN [facility] WILL NOT ACCEPT PT. JAIRO WANTS TO DISCUSS OPTIONS WITH HER SPOUSE AND IS CONSIDERING TAKING PT HOME. PT WAS DRINKING THICKENED WATER FOR NURSE THIS MORNING BUT REFUSED FURTHER INTAKE WHEN OFFERED BY DAUGHTER. JAIRO REPORTS SHE NEEDS TO CHECK ON GETTING PT ON "STANDARD MEDICARE" INSTEAD OF REPLACEMENT POLICY AND IS THINKING SHE WILL HAVE HER SPOUSE COME TO [place] AND THEY MAY TAKE PT TO HER HOME IN [place] TOMORROW. IMPORTANT MESSAGE FROM MEDICARE PROVIDED AND DISCUSSED. CM CONTINUES TO WAIT FAMILY DECISION REGARDING HOSPICE, DAUGHTER NOW REPORTING PLAN TO TAKE PT TO HER HOME IN [place] 03-25-18. Alli Albarran, CASE MANAGEMENT DCP- Discharge Planning Updated by [id number]: Alli Albarran on 03/23/18 2:[address] Patient Name: DANIEL ADAME Encounter No: [id number] : 1940 Primary Insurance: HUMANA CHOICE PPO MCR ADVANT Anticipated DC Date: 03-09-2018 Planned Disposition: Senior Care Facility External Planned Provider: [facility], SNF CARE MEDICAID BED DCP follow-up note: CM RECEIVED CALL FROM SHAYLA OF THE [facility], PT WILL NOT QUALIFY FOR OVEN TENDER CARE MEDICAID DUE TO TRANSFER OF PROPERTY; THEY MAY BE ABLE TO TAKE TO [facility] AND WILL CHECK ON SKILLED DAYS AND MAY ALSO TAKE ON PRIVATE PAY BASIS AND WILL DISCUSS THIS WITH DAUGHTER. PT'S DAUGHTER HAS INDICATED TO THE [facility] SHE FEELS PT ONLY HAS TWO OR THREE DAYS LEFT AND ASKED IF PT WILL QUALIFY FOR INPATIENT HOSPICE. CM ADVISED SHAYLA THAT CM DID NOT SEE ANY IMMEDIATE CRITERIA FOR INPATIENT HOSPICE QUALIFICATION AND WILL ASK FOR INPATIENT SCREENING FROM [facility]. CM CALLED [facility], , LEFT MESSAGE WITH ANSWERING SERVICE REQUESTING INPATIENT HOSPICE EVALUATION AT DAUGHTER'S REQUEST. CM NOTIFIED THAT [facility] NURSE WILL CONTACT CM SHORTLY. CM WAITING INPATIENT HOSPICE EVALUATION FROM [facility]. THE [facility] WILL TAKE PT FOR REHAB OR ON PRIVATE PAY SNF CARE BASIS AND WILL DISCUSS THIS WITH PT'S DAUGHTER. Alli Albarran, CASE MANAGEMENT Appended by Alli Albarran on 03/23/2018 12:58 CDT: CM RECEIVED CALL FROM CEM OF [facility], SHE IS IN ROUTE TO HOSPITAL TO EVALUATE PT FOR INPATIENT HOSPICE. CM WAITING INPATIENT HOSPICE EVALUATION FROM [facility]. THE [facility] WILL TAKE PT FOR REHAB OR ON PRIVATE PAY OVEN TENDER CARE BASIS AND WILL DISCUSS THIS WITH PT'S DAUGHTER. Alli Albarran CASE MANAGEMENT Appended by Alli Albarran on 03/23/2018 13:52 CDT: ALISE SPOKE TO CEM OF [facility], PT DOES NOT MEET CRITERIA FOR INPATIENT HOSPICE, SHE HAS CALLED AND LEFT MESSAGE FOR PT'S DAUGHTER JAIRO. CEM REPORTS OPTIONS REMAIN FOR PRIVATE PAY FOR SKILLED NURSING OR FOR FAMILY MEMBER TO TAKE PT HOME FOR HOSPICE CARE. CM CALLED PT'S DAUGHTER, JAIRO IBARRA, , LEFT DETAILED MESSAGE REGARDING ABOVE INFORMATION, REQUESTING CALL BACK SOON POSSIBLE TO DISCUSS DISCHARGE PLANNING OPTIONS. CM WAITING ON JAIRO IBARRA, DAUGHTER, TO CALL CM TO DISCUSS OPTIONS OF PRIVATE PAY FOR SKILLED NURSING VS FAMILY TAKING PT HOME FOR HOSPICE. ALLI ALBARRAN CASE MANAGEMENT Appended by Alli Albarran on 03/23/2018 14:23 CDT: AT DAUGHTERS REQUEST TO CALL JAIR AND NOTIFY COURT OF PT'S INABILITY TO GET TO COURT HEARING THIS WEEK, CM CONTACTED PT'S [employer], [place], , SPOKE TO MARIE WHO INFORMED CM THAT PT HAS COURT HEARING ON 03-25-18 IN [facility] DISTRICT COURT ON 03-25-18 ON CHARGE OF TERRORISTIC THREATENING. CM CALLED DISTRICT COURT, , NOTIFIED HENNA WHO ASKED FOR LETTER TO BE FAXED TO THE COURT AT [phone]. ALISE OBTAINED DR AVILA SIGNATURE ON LETTER TO INFORM COURT OF PT'S LOCATION AND CONDITION. ALISE FAXED TO [facility] COURT AT [phone], EMAILED TO [place] JENNY AT [email or web address]. CM WAITING ON JAIRO IBARRA, DAUGHTER, TO CALL CM TO DISCUSS OPTIONS OF PRIVATE PAY FOR SKILLED NURSING VS FAMILY TAKING PT HOME FOR HOSPICE. ALLI ALBARRAN CASE MANAGEMENT Appended by Alli Albarran on 03/23/2018 15:08 CDT: CM RECEIVED CALL FROM SHAYLA OF [facility] WHO REPORTS THEY ARE STILL GATHERING FINANCIAL INFORMATION WITH ASSISTANCE OF FAMILY IN HOPES OF ASSISTING WITH PLACEMENT. CM WAITING ON JAIRO IBARRA, DAUGHTER, TO CALL CM TO DISCUSS OPTIONS OF PRIVATE PAY FOR SKILLED NURSING VS FAMILY TAKING PT HOME FOR HOSPICE. SRI QUEEN MANAGEMENT DCP- Discharge Planning Updated by [id number]: Alli Albarran on 03/23/18 6:[address] Patient Name: DANIEL ADAME Encounter No: [id number] : 1940 Primary Insurance: HUMANA CHOICE PPO MCR ADVANT Anticipated DC Date: 03-09-2018 Planned Disposition: Senior Care Facility External Planned Provider: [facility] SNF CARE MEDICAID BED DCP follow-up note: ZELALEM OF [facility] HAS MET WITH PT'S DAUGHTER AND EVALUATED PT, THEY WILL ACCEPT FOR HOSPICE AND WILL ENROLL PT AFTER HIS ARRIVAL AT THE SKILLED NURSING. CM [facility]. NOTIFY [facility] WHEN SKILLED NURSING PLACEMENT IS SECURED, , FAXE DISCHARGE INFORMATION TO [facility] AT [phone]. Alli Albarran, CASE MANAGEMENT DCP- Discharge Planning Updated by [id number]: Alli Albarran on 03/22/18 3:[address] Patient Name: DANIEL ADAME Encounter No: [id number] : 1940 Primary Insurance: HUMANA CHOICE PPO MCR ADVANT Anticipated DC Date: 03-09-2018 Planned Disposition: Senior Care Facility External Planned Provider: [facility] TERM CARE MEDICAID BED DCP follow-up note: CM RECEIVED CALL FROM JOHANNA OF [facility], PT IS NOT IN THEIR INSURANCE NETWORK AND THEY ARE NOT GOING TO BE ABLE TO HELP WITH OVEN TENDER CARE FOR THIS PATIENT. CM RECEIVED CALL FROM JAIRO IBARRA, , WHO REPORTS THAT SHE HAS POWER OF WELDER PLASTIC AND WILL BRING A COPY TO PLACE ON CHART, SHE HAD PREVIOUSLY PROVIDED IT TO MED SURG HEAD LOFT WORKER BUT WILL BE HAPPY TO GIVE ANOTHER COPY REQUESTED. JAIRO INFORMED OF DECLINATION BY HERTELMaira PONCE DE LEON. JAIRO REPORTS THAT SHE HAS TALKED TO FAMILY AND THEY DECIDED TO LEAVE PT IN [place], JAIRO WOULD LIKE TO PLACE PT IN A GOOD SKILLED NURSING WITH NO PREFERNCE, CHOICE COMPLETED, AND NO PREFERENCE FOR HOSPICE COMPANY. ALISE NOTIFIED ADRIANO, , OF REFERRAL FOR OVEN TENDER CARE TO THE [facility]. CM FAXED REFERRAL TO THE [facility] VIA ADRIANO AT [phone]. CM CALLED [facility], , SPOKE TO ZELALEM AND PROVIDED HOSPICE REFERRAL INFORMATION, THEY DO CONTRACT WITH THE [facility]. CM FAXED REFERRAL TO [facility] AT [phone]. CM WAITING ADMISSION DETERMINATION FROM [facility] AND [facility] FOR OVEN TENDER CARE. Alli Albarran CASE MANAGEMENT DCP- Discharge Planning Updated by [id number]: Alli Albarran on 03/19/18 2:[address] Patient Name: DANIEL ADAME Encounter No: [id number] : 1940 Primary Insurance: HUMANA CHOICE PPO [facility] ADVANT Anticipated DC Date: 03-09-2018 Planned Disposition: Senior Care Facility External Planned Provider: [facility], MEDICARE SKILLED BED DCP follow-up note: CM SPOKE TO PT'S DAUGHTER, JAIRO IBARRA ALONG WITH DR. LOVETT AND ALANA BAUMAN. DISUSSED WAS PT'S CONDITION, [facility] VS HOSPICE CARE. PT'S DAUGHTER IS STILL WANTING PT IN [place] AND ASKED FOR PT TO BE REFERRED TO [facility] IN [place], [place]. JAIRO HAS DISCUSSED PLACEMENT WITH JOHANNA AT FACILITY. TRANSPORTATION DISCUSSED; JAIRO DECIDED SHE WOULD LIKE CM TO OBTAIN TRANSPORT ESTIMATE FROM [facility] IF PLACEMENT CAN BE SECURED AT FACILITY. CHOICE SIGNED FOR [facility], IMPORTANT MESSAGE FROM MEDICARE PROVIDED AND EXPLAINED. CM CALLED [facility], , JOHANNA WAS NOT IN. CM SPOKE TO AILEEN WHO REPORTED THAT JOHANNA WOULD BE BACK IN THURSDAY AND WILL REVIEW REFERRAL THEN. CM FAXED REFERRAL TO [facility] AT [phone]. FACILTY ADDRESS IS [address] [place] [address]. [id number]. CM WAITING ADMISSION DETERMINATION FROM [facility] [place]. Alli Albarran CASE MANAGEMENT DCP- Discharge Planning Updated by [id number]: Alli Albarran on 03/17/18 2:[address] Patient Name: DANIEL ADAME Encounter No: [id number] : 1940 Primary Insurance: HUMANA CHOICE PPO MCR ADVANT Anticipated DC Date: 03-09-2018 Planned Disposition: Senior Care Facility External Planned Provider: TO BE DETERMINED DCP follow-up note: CM REVIEWED CHART, DR. BEARDEN'S NOTE INDICATES NEED TO SPEAK TO FAMILY REGARDING COMFORT CARE OR HOSPICE CARE FOR PT. CM RECEIVED CALL FROM DAUGHTER, JAIRO IBARRA, , WHO REQUESTED UPDATE. CM DISCUSSED DR. BEARDEN'S OPTION REGARDING HOSPICE OR COMFORT CARE. JAIRO REPORTS NO INTEREST AT THIS TIME FOR COMFORT CARE OR HOSPICE. JAIRO IS CONSIDERING PICKING UP PT IN CAR AND TAKING PT BACK TO [place] WHERE THEY LIVE, IT IS AN [address] CM EXPLAINED PT IS VERY WEAK AND WOULD NOT BE ABLE TO GET OUT OF THE CAR DURING PROLONGED TRANSPORTATION. JAIRO ONLY WANTED ASSURANCES THAT PT WOULD NOT DURING THE RIDE TO [place]. CM INFORMED JAIRO THAT CM COULD NOT PROVIDE THAT ASSURANCE, RECOMMENDED [facility] FOR PT. JAIRO REPORTS SHE WILL BE IN [place] AND AT THE [facility] TOMORROW, 03-18-18 AT ABOUT 8:30 IN THE MORNING. SHE WOULD LIKE TO MEET WITH ALL DOCTORS IN THE MORNING IN A "BIG MEETING". CM EXPLAINED THAT THIS WOULD NOT BE POSSIBLE, OFFERED TO ASK DR. LOVETT, PRIMARY DOCTOR, TO MEET WITH HER IN THE MORNING, JAIRO ACCEPTED. JAIRO IBARRA, DAUGHTER, , WILL MEET WITH DR. LOVETT AND CM IN THE [facility], 03-18-18, TO DISCUSS PT'S CARE, PROGNOSIS AND DISCHARGE PLAN. Alli Albarran, CASE MANAGEMENT DCP- Discharge Planning Updated by [id number]: Alli Albarran on 03/11/18 7:[address] Patient Name: DANIEL ADAME Encounter No: [id number] : 1940 Primary Insurance: HUMANA CHOICE PPO MCR ADVANT Anticipated DC Date: 03-09-2018 Planned Disposition: Inpatient Rehab Facility External Planned Provider: [facility] DCP follow-up note: CM INFORMED PT THAT INSURANCE STILL HAS NOT PROVIDED AUTHORIZATION OR DENIAL FOR REHAB. PT STILL WILLING FOR REHAB AT [facility]. IMPORTANT MESSAGE FROM MEDICARE PROVIDED AND EXPLAINED. CM WAITING FOR INSURANCE AUTHORIZATION OR DENIAL FOR INPATIENT REHAB SERVICES AT [facility]. Alli Albarran, CASE MANAGEMENT DCP- Discharge Planning Updated by [id number]: Alli Albarran on 03/08/18 3:[address] Patient Name: DANIEL ADAME Encounter No: [id number] : 1940 Primary Insurance: HUMANA CHOICE PPO MCR ADVANT Anticipated DC Date: 03-09-2018 Planned Disposition: Inpatient Rehab Facility External Planned Provider: [facility] INPATIENT REHAB DCP follow-up note: * Is the patient Alert and Oriented? Yes 0 * How many steps to enter\\exit or inside your home? 4-5 0 * PCP DR. VELÁZQUEZ 0 * Pharmacy [facility] 0 * Preadmission Environment Acute Inpatient Rehab 0 * Facility Name [facility] INPATIENT REHAB 0 * ADLs Partial Dependent 0 * Partial ADLs (Assistance needed) Ambulation Bathing Medication Management Toileting Transfers 0 * Equipment None 0 * Other Equipment NO MEDICAL EQUIPMENT PROVIDER PREFERENCE 0 * List name and contact numbers for known caregivers / representatives who currently or will assist patient after discharge: JAIRO IBARRA, DAUGHTER, 0 * Verbal permission to speak to the caregivers and representatives has been obtained from the patient. Yes 0 * Community resources currently utilized None 0 * Please name any agencies selected above. NONE 0 * Additional services required to return to the preadmission environment? No 0 * Can the patient safely return to the preadmission environment? Yes 0 * Has this patient been hospitalized within the prior 30 days at any hospital? Yes 0 CM RECEIVED ORDER FOR INPATIENT REHAB PRESCREENING. CM SPOKE TO PT IN ROOM WHO IS VERY HARD OF HEARING. PT REPORTS HIS DAUGHTER, JAIRO, IS HERE AND FOR CM TO SPEAK TO HER REGARDING DISCHARGE PLAN. PT IS AGREEABLE TO INPATIENT REHAB AND STATES HE WAS LIVING AT HOME ALONE PRIOR TO HOSPITALIZATION. IMPORTANT MESSAGE FROM MEDICARE PROVIDED AND EXPLAINED. CM CALLED AND SPOKE TO JAIRO IBARRA, DAUGHTER, ; JAIRO REPORTS LIVING IN [place] AND IT IS A [address] TO GET PT THERE WHEN THEY LEAVE [place]. JAIRO WAS HOPING THAT PT WOULD BE STONG ENOUGH FOR THE RIDE AT DISCHARGE FROM HOSPITAL. CM REVIEWED THERAPY EVALUATION AND NOTES WITH JAIRO. JAIRO WOULD LIKE TO TRY TO GET PT BACK INTO INPATIENT REHAB AT [facility] STATING HE WAS ONLY IN THERE FOR ONE NIGHT BEFORE HAVING TO BE READMITTED; SHE HOPES FOR PT TO BE STONG ENOUGH FOR HER TO TRANSPORT PT TO [place] AT DISCHARGE AND SHE HAS A SKILLED NURSING IN [place] THAT WILL ACCEPT PT AT DISCHARGE IF NEEDED. CM WAITING FOR INPATIENT REHAB PRESCREENING AND INSURANCE AUTHORIZATION OR DENIAL FOR INPATIENT REHAB SERVICES. Alli Albarran, CASE MANAGEMENT DCP- Discharge Planning Updated by [id number]: Jericaambreen Tejeda on 03/07/18 7:[address] PATIENT WITH VARYING DEGREES OF ORIENTATION. HE IS ALSO HARD OF HEARING. WAS TRANSFERED TO ICU AFTER ONE DAY IN [facility] ACUTE REHAB. MD PLAN IS FOR POSSIBLE TRANSFER TO ACUTE REHAB THURSDAY. PATIENT WILL NEED TO BE EVALUATED AND LIKELY WILL REQUIRE A NEW PRECERT HE HAS HUMANA CHOICE PPO MEDICARE ADVANTAGE AN INSURER. \\NO PHYSICAL THERAPY NOTES AT THIS TIME. WILL NEED PT/OT EVAL FOR PRECERT. REPORTEDLY LIVED ALONE PRIOR TO ADMISSION. HAD DAUGHTER,JAIRO IBARRA. CONTACT PHONE NUMBER CELL [phone] HOME [phone]. PATIENT ALSO HAS SONS :SERENA POMPA- [phone] AND MARJORIE SLAUGHTER- [phone]. CM WILL NEED TO MEET WITH PATIENT'S FAMILY REGARDING DISCHARGE PLAN. DCPIA - Discharge Planning Initial Assessment Updated by ROSMERY: Alli Albarran on 03/08/18 4:26 pm * Is the patient Alert and Oriented? Yes * How many steps to enter\\exit or inside your home? 4-5 * PCP DR. VELÁZQUEZ * Pharmacy [facility] * Preadmission Environment Acute Inpatient Rehab * Facility Name [facility] INPATIENT REHAB * ADLs Partial Dependent * Partial ADLs (Assistance needed) Ambulation Bathing Medication Management Toileting Transfers * Equipment None * Other Equipment NO MEDICAL EQUIPMENT PROVIDER PREFERENCE * List name and contact numbers for known caregivers / representatives who currently or will assist patient after discharge: JAIRO IBARRA, DAUGHTER, * Verbal permission to speak to the caregivers and representatives has been obtained from the patient. Yes * Community resources currently utilized None * Please name any agencies selected above. NONE * Additional services required to return to the preadmission environment? No * Can the patient safely return to the preadmission environment? Yes * Has this patient been hospitalized within the prior 30 days at any hospital? Yes Coverage Notice Reviewer: [id number] Marty Albarran Notice Issued Date-Time: 03/08/2018 16:05 Notice Type: IM Discharge Notice Notice Delivered To: Patient Relationship to Patient: Top Tile Decorator Name: Delivery Method: HAND - Hand Delivered Sho Days: Prior Verbal Notification: Recipient Understood Notice: Yes Recipient Signature: Yes Med Rec Note Co-signed by Attending: Coverage Notice Comment: Reviewer: [id number] Albarran Notice Issued Date-Time: 03/11/2018 8:10 Notice Type: IM Discharge Notice Notice Delivered To: Patient Relationship to Patient: Top Tile Decorator Name: Delivery Method: HAND - Hand Delivered Sho Days: Prior Verbal Notification: Recipient Understood Notice: Yes Recipient Signature: Yes Med Rec Note Co-signed by Attending: Coverage Notice Comment: Reviewer: ROSMERY Albarran Notice Issued Date-Time: 03/19/2018 14:50 Notice Type: Patient Choice Letter Notice Delivered To: Family Member Relationship to Patient: Daughter Top Tile Decorator Name: JAIRO IBARRA Delivery Method: HAND - Hand Delivered Sho Days: Prior Verbal Notification: Recipient Understood Notice: Yes Recipient Signature: Yes Med Rec Note Co-signed by Attending: Coverage Notice Comment: Reviewer: ROSMERY Albarran Notice Issued Date-Time: 03/19/2018 14:50 Notice Type: IM Discharge Notice Notice Delivered To: Family Member Relationship to Patient: Daughter Top Tile Decorator Name: JAIRO IBARRA Delivery Method: HAND - Hand Delivered Sho Days: Prior Verbal Notification: Recipient Understood Notice: Yes Recipient Signature: Yes Med Rec Note Co-signed by Attending: Coverage Notice Comment: Reviewer: ROSMERY Albarran Notice Issued Date-Time: 03/22/2018 11:00 Notice Type: Patient Choice Letter Notice Delivered To: Family Member Relationship to Patient: Daughter Top Tile Decorator Name: JAIRO IBARRA Delivery Method: PHONE - Phone Sho Days: Prior Verbal Notification: Recipient Understood Notice: Yes Recipient Signature: Yes Med Rec Note Co-signed by Attending: Coverage Notice Comment: [facility] WITH HOSPICE CARE. Reviewer: ROSMERY Albarran Notice Issued Date-Time: 03/24/2018 8:40 Notice Type: IM Discharge Notice Notice Delivered To: Family Member Relationship to Patient: Daughter Top Tile Decorator Name: JAIRO IBARRA Delivery Method: HAND - Hand Delivered Sho Days: Prior Verbal Notification: Recipient Understood Notice: Yes Recipient Signature: Yes Med Rec Note Co-signed by Attending: Coverage Notice Comment: Last DP export: 03/23/18 2:14 Patient Name: DANIEL ADAME Page [id number] at 0955 All edits/amendments must be made on the electronic document DICTATION DATE: 03/24/18953 SERVICE MEMBER: RUBÉN 03/24/18953 RPT#: [id number] DC DATE: STATUS: ADM IN [facility] [address] [place] [address] END OF REPORT
--- NOTE | ~2018-03-03 | MORECARE ---
CASE MANAGEMENT DISCHARGE SUMMARY PATIENT: DANIEL ADAME UNIT: [id number] ADM DATE: 03/03/18 AGE: 78 : 40 SEX: M ROOM/BED: D.2104 AUTHOR: SAMUEL,DOC PHYSICIAN: REFERRING PHYSICIAN: AGGIE APNIAGUA MD DATE OF SERVICE: 03/19/18 Discharge Plan Patient Name: DANIEL ADAME Facility: [facility]:[place] : 1940 Planned Disposition: Prison Facility Anticipated Discharge Date: 03/09/18 Discharge Date: Expected LOS: 6 Initial Reviewer: [id number] Initial Review Date: 03/03/2018 Generated: 03/19/18 9:30 am Comments DCP- Discharge Planning Updated by [id number]: Camron Khan on 03/17/18 2:[address] Patient Name: DANIEL ADAME Encounter No: [id number] : 1940 Primary Insurance: HU[employer] CHOICE PPO MCR ADVANT Anticipated DC Date: 03-09-2018 Planned Disposition: Prison Facility External Planned Provider: TO BE DETERMINED DCP follow-up note: ALISE REVIEWED CHART, DR. BEARDEN'S NOTE INDICATES NEED TO SPEAK TO FAMILY REGARDING COMFORT CARE OR HOSPICE CARE FOR PT. CM RECEIVED CALL FROM DAUGHTER, JAIRO IBARRA, , WHO REQUESTED UPDATE. CM DISCUSSED DR. BEARDEN'S OPTION REGARDING HOSPICE OR COMFORT CARE. JAIRO REPORTS NO INTEREST AT THIS TIME FOR COMFORT CARE OR HOSPICE. JAIRO IS CONSIDERING PICKING UP PT IN CAR AND TAKING PT BACK TO [place] WHERE THEY LIVE, IT IS AN [address] ALISE EXPLAINED PT IS VERY WEAK AND WOULD NOT BE ABLE TO GET OUT OF THE CAR DURING PROLONGED TRANSPORTATION. JAIRO ONLY WANTED ASSURANCES THAT PT WOULD NOT DURING THE RIDE TO [place]. CM INFORMED JAIRO THAT CM COULD NOT PROVIDE THAT ASSURANCE, RECOMMENDED [facility] FOR PT. JAIRO REPORTS SHE WILL BE IN [place] AND [place] THE HOSPITAL TOMORROW, 03-18-18 AT ABOUT 8:30 IN THE MORNING. SHE WOULD LIKE TO MEET WITH ALL DOCTORS IN THE MORNING IN A "BIG MEETING". CM EXPLAINED THAT THIS WOULD NOT BE POSSIBLE, OFFERED TO ASK DR. LOVETT, PRIMARY DOCTOR, TO MEET WITH HER IN THE MORNING, JAIRO ACCEPTED. JAIRO IBARRA, DAUGHTER, , WILL MEET WITH DR. LOVETT AND CM IN THE [facility], 03-18-18, TO DISCUSS PT'S CARE, PROGNOSIS AND DISCHARGE PLAN. Camron Khan CASE MANAGEMENT DCP- Discharge Planning Updated by [id number]: Camron Khan on 03/11/18 7:[address] Patient Name: DANIEL ADAME Encounter No: [id number] : 1940 Primary Insurance: HUMANA CHOICE PPO MCR ADVANT Anticipated DC Date: 03-09-2018 Planned Disposition: Inpatient Rehab Facility External Planned Provider: [facility] DCP follow-up note: CM INFORMED PT THAT INSURANCE STILL HAS NOT PROVIDED AUTHORIZATION OR DENIAL FOR REHAB. PT STILL WILLING FOR REHAB AT [place]. IMPORTANT MESSAGE FROM MEDICARE PROVIDED AND EXPLAINED. CM WAITING FOR INSURANCE AUTHORIZATION OR DENIAL FOR INPATIENT REHAB SERVICES AT [place]. Camron Khan CASE MANAGEMENT DCP- Discharge Planning Updated by [id number]: Camron Khan on 03/08/18 3:[address] Patient Name: DANIEL ADAME Encounter No: [id number] : 1940 Primary Insurance: HUMANA CHOICE PPO MCR ADVANT Anticipated DC Date: 03-09-2018 Planned Disposition: Inpatient Rehab Facility External Planned Provider: [facility] INPATIENT REHAB DCP follow-up note: * Is the patient Alert and Oriented? Yes 0 * How many steps to enter\\exit or inside your home? 4-5 0 * PCP DR. VELÁZQUEZ 0 * Pharmacy [facility] 0 * Preadmission Environment Acute Inpatient Rehab 0 * Facility Name [facility] INPATIENT REHAB 0 * ADLs Partial Dependent 0 * Partial ADLs (Assistance needed) Ambulation Bathing Medication Management Toileting Transfers 0 * Equipment None 0 * Other Equipment NO MEDICAL EQUIPMENT PROVIDER PREFERENCE 0 * List name and contact numbers for known caregivers / representatives who currently or will assist patient after discharge: JAIRO BIARRA, DAUGHTER, 0 * Verbal permission to speak to the caregivers and representatives has been obtained from the patient. Yes 0 * Community resources currently utilized None 0 * Please name any agencies selected above. NONE 0 * Additional services required to return to the preadmission environment? No 0 * Can the patient safely return to the preadmission environment? Yes 0 * Has this patient been hospitalized within the prior 30 days at any hospital? Yes 0 CM RECEIVED ORDER FOR INPATIENT REHAB PRESCREENING. CM SPOKE TO PT IN ROOM WHO IS VERY HARD OF HEARING. PT REPORTS HIS DAUGHTER, JAIRO, IS HERE AND FOR CM TO SPEAK TO HER REGARDING DISCHARGE PLAN. PT IS AGREEABLE TO INPATIENT REHAB AND STATES HE WAS LIVING AT HOME ALONE PRIOR TO HOSPITALIZATION. IMPORTANT MESSAGE FROM MEDICARE PROVIDED AND EXPLAINED. CM CALLED AND SPOKE TO JAIRO IBARRA, DAUGHTER, ; JAIRO REPORTS LIVING IN [place] AND IT IS A [address] TO GET PT THERE WHEN THEY LEAVE [place]. JAIRO WAS HOPING THAT PT WOULD BE STONG ENOUGH FOR THE RIDE AT DISCHARGE FROM HOSPITAL. CM REVIEWED THERAPY EVALUATION AND NOTES WITH JAIRO. JAIRO WOULD LIKE TO TRY TO GET PT BACK INTO INPATIENT REHAB AT [place] STATING HE WAS ONLY IN THERE FOR ONE NIGHT BEFORE HAVING TO BE READMITTED; SHE HOPES FOR PT TO BE STONG ENOUGH FOR HER TO TRANSPORT PT TO [place] AT DISCHARGE AND SHE HAS A [facility] IN MIND THAT WILL ACCEPT PT AT DISCHARGE IF NEEDED. CM WAITING FOR INPATIENT REHAB PRESCREENING AND INSURANCE AUTHORIZATION OR DENIAL FOR INPATIENT REHAB SERVICES. Camron Khan, CASE MANAGEMENT DCP- Discharge Planning Updated by [id number]: Jerica Tejeda on 03/07/18 7:[address] PATIENT WITH VARYING DEGREES OF ORIENTATION. HE IS ALSO HARD OF HEARING. WAS TRANSFERED TO ICU AFTER ONE DAY IN [facility]. MD PLAN IS FOR POSSIBLE TRANSFER TO ACUTE REHAB THURSDAY. PATIENT WILL NEED TO BE EVALUATED AND LIKELY WILL REQUIRE A NEW PRECERT HE HAS [employer] CHOICE PPO MEDICARE ADVANTAGE AN INSURER. \\NO PHYSICAL THERAPY NOTES AT THIS TIME. WILL NEED PT/OT EVAL FOR PRECERT. REPORTEDLY LIVED ALONE PRIOR TO ADMISSION. HAD DAUGHTER,JAIRO IBARRA. CONTACT PHONE NUMBER CELL [phone] HOME [phone]. PATIENT ALSO HAS SONS :SERENA POMPA- [phone] AND MARJORIE SLAUGHTER- [phone]. CM WILL NEED TO MEET WITH PATIENT'S FAMILY REGARDING DISCHARGE PLAN. DCPIA - Discharge Planning Initial Assessment Updated by [id number]: Camron Khan on 03/08/18 4:26 pm * Is the patient Alert and Oriented? Yes * How many steps to enter\\exit or inside your home? 4-5 * PCP DR. VELÁZQUEZ * Pharmacy [facility] * Preadmission Environment Acute Inpatient Rehab * Facility Name [facility] INPATIENT REHAB * ADLs Partial Dependent * Partial ADLs (Assistance needed) Ambulation Bathing Medication Management Toileting Transfers * Equipment None * Other Equipment NO MEDICAL EQUIPMENT PROVIDER PREFERENCE * List name and contact numbers for known caregivers / representatives who currently or will assist patient after discharge: JAIRO IBARRA, DAUGHTER, * Verbal permission to speak to the caregivers and representatives has been obtained from the patient. Yes * Community resources currently utilized None * Please name any agencies selected above. NONE * Additional services required to return to the preadmission environment? No * Can the patient safely return to the preadmission environment? Yes * Has this patient been hospitalized within the prior 30 days at any hospital? Yes Coverage Notice Reviewer: [id number] Marty Khan Notice Issued Date-Time: 03/08/2018 16:05 Notice Type: IM Discharge Notice Notice Delivered To: Patient Relationship to Patient: Rivet Thrower Name: Delivery Method: HAND - Hand Delivered Sho Days: Prior Verbal Notification: Recipient Understood Notice: Yes Recipient Signature: Yes Med Rec Note Co-signed by Attending: Coverage Notice Comment: Reviewer: [id number] Khan Notice Issued Date-Time: 03/11/2018 8:10 Notice Type: IM Discharge Notice Notice Delivered To: Patient Relationship to Patient: Rivet Thrower Name: Delivery Method: HAND - Hand Delivered Sho Days: Prior Verbal Notification: Recipient Understood Notice: Yes Recipient Signature: Yes Med Rec Note Co-signed by Attending: Coverage Notice Comment: Last DP export: 03/17/18 2:45 Patient Name: DANIEL ADAME Page [id number] at 0830 All edits/amendments must be made on the electronic document DICTATION DATE: 03/19/18829 WASHTUB WORKER: RUBÉN 03/19/18829 RPT#: [id number] DC DATE: STATUS: ADM IN [facility] [address] [place] [address] END OF REPORT
--- NOTE | ~2018-03-03 | MORECARE ---
CASE MANAGEMENT DISCHARGE SUMMARY PATIENT: DANIEL ADAME UNIT: [id number] ADM DATE: 03/03/18 AGE: 78 : 40 SEX: M ROOM/BED: D.2104 AUTHOR: SAMUEL,DOC PHYSICIAN: REFERRING PHYSICIAN: AGGIE PANIAGUA MD DATE OF SERVICE: 03/23/18 Discharge Plan Patient Name: DANIEL ADAME Facility: [facility]:[place] : 1940 Planned Disposition: Shelter Facility Anticipated Discharge Date: 03/09/18 Discharge Date: Expected LOS: 6 Initial Reviewer: [id number] Initial Review Date: 03/03/2018 Generated: 03/23/18 8:58 am Comments DCP- Discharge Planning Updated by [id number]: Camron Khan on 03/23/18 6:[address] Patient Name: DANIEL ADAME Encounter No: [id number] : 1940 Primary Insurance: [employer]NA CHOICE PPO MCR ADVANT Anticipated DC Date: 03-09-2018 Planned Disposition: Shelter Facility External Planned Provider: [facility] TERM CARE MEDICAID BED DCP follow-up note: ZELALEM [facility] HAS MET WITH PT'S DAUGHTER AND EVALUATED PT, THEY WILL ACCEPT FOR HOSPICE AND WILL ENROLL PT AFTER HIS ARRIVAL AT THE [facility]. [facility] [employer]PER[facility] CARE. NOTIFY [facility] WHEN [facility] PLACEMENT IS SECURED, , FAXE DISCHARGE INFORMATION TO [facility] AT [phone]. Camron Khan, CASE MANAGEMENT DCP- Discharge Planning Updated by [id number]: Camron Khan on 03/22/18 3:[address] Patient Name: DANIEL ADAME Encounter No: [id number] : 1940 Primary Insurance: HUMANA CHOICE PPO MCR ADVANT Anticipated DC Date: 03-09-2018 Planned Disposition: Shelter Facility External Planned Provider: [facility] TERM CARE MEDICAID BED DCP follow-up note: CM RECEIVED CALL FROM JOHANNA ZAPIEN [facility], PT IS NOT IN THEIR INSURANCE NETWORK AND THEY ARE NOT GOING TO BE ABLE TO HELP WITH [employer] SE[employer] OPERATOR CARE FOR THIS PATIENT. CM RECEIVED CALL FROM JAIRO IBARRA, , WHO REPORTS THAT SHE HAS POWER OF PERSONNEL TECHNICIAN AND WILL BRING A COPY TO PLACE ON CHART, SHE HAD PREVIOUSLY PROVIDED IT TO MED SURG HOOKER OFF BUT WILL BE HAPPY TO GIVE ANOTHER COPY REQUESTED. JAIRO INFORMED OF DECLINATION BY [facility]. JAIRO REPORTS THAT SHE HAS TALKED TO FAMILY AND THEY DECIDED TO LEAVE PT IN [place], JAIRO WOULD LIKE TO PLACE PT IN A GOOD [facility] WITH NO PREFERNCE, CHOICE COMPLETED, AND NO PREFERENCE FOR HOSPICE COMPANY. ALISE NOTIFIED ADRIANO, , OF REFERRAL FOR [employer] OPERATOR CARE TO [facility]. CM FAXED REFERRAL TO [facility] VIA ADRIANO AT [phone]. CM CALLED [facility], , SPOKE TO ZELALEM AND PROVIDED HOSPICE REFERRAL INFORMATION, THEY DO CONTRACT WITH [facility]. CM FAXED REFERRAL TO [facility] AT [phone]. CM WAITING ADMISSION DETERMINATION FROM [facility] AND [facility] FOR [employer] SE[employer]ANT OPERATOR CARE. Camron Khan, CASE MANAGEMENT DCP- Discharge Planning Updated by [id number]: Camron Khan on 03/19/18 2:[address] Patient Name: DANIEL ADAME Encounter No: [id number] : 1940 Primary Insurance: [employer] PPO MCR ADVANT Anticipated DC Date: 03-09-2018 Planned Disposition: Shelter Facility External Planned Provider: [facility], MEDICARE SKILLED BED DCP follow-up note: ALISE SPOKE TO PT'S DAUGHTER, JAIRO IBARRA ALONG WITH DR. LOVETT AND ALANA BAUMAN. DISUSSED WAS PT'S CONDITION, SHELTER REHAB VS HOSPICE CARE. PT'S DAUGHTER IS STILL WANTING PT IN [place] AND ASKED FOR PT TO BE REFERRED TO [facility] IN [place], [place]. JAIRO HAS DISCUSSED PLACEMENT WITH JOHANNA AT FACILITY. TRANSPORTATION DISCUSSED; JAIRO DECIDED SHE WOULD LIKE TO OBTAIN TRANSPORT ESTIMATE FROM [facility] IF PLACEMENT CAN BE SECURED AT FACILITY. CHOICE SIGNED FOR [facility], IMPORTANT MESSAGE FROM MEDICARE PROVIDED AND EXPLAINED. ALISE CALLED [facility], , JOHANNA WAS NOT IN. ALISE SPOKE TO AILEEN WHO REPORTED THAT JOHANNA WOULD BE BACK IN THURSDAY AND WILL REVIEW REFERRAL THEN. CM FAXED REFERRAL TO [facility] AT [phone]. FACILTY ADDRESS IS [address] [place] [address]. [id number]. CM WAITING ADMISSION DETERMINATION FROM [facility] IN [place]. SRI Clemons MANAGEMENT DCP- Discharge Planning Updated by [id number]: Camron Khan on 03/17/18 2:[address] Patient Name: DANIEL ADAME Encounter No: [id number] : 1940 Primary Insurance: HU[employer]NA CHOICE PPO MCR ADVANT Anticipated DC Date: 03-09-2018 Planned Disposition: Shelter Facility External Planned Provider: TO BE DETERMINED DCP follow-up note: CM REVIEWED CHART, DR. BEARDEN'S NOTE INDICATES NEED TO SPEAK TO FAMILY REGARDING COMFORT CARE OR HOSPICE CARE FOR PT. CM RECEIVED CALL FROM DAUGHTER, JAIRO IBARRA, , WHO REQUESTED UPDATE. CM DISCUSSED DR. BEARDEN'S OPTION REGARDING HOSPICE OR COMFORT CARE. JAIRO REPORTS NO INTEREST AT THIS TIME FOR COMFORT CARE OR HOSPICE. JAIRO IS CONSIDERING PICKING UP PT IN CAR AND TAKING PT BACK TO [place] WHERE THEY LIVE, IT IS AN [address] CM EXPLAINED PT IS VERY WEAK AND WOULD NOT BE ABLE TO GET OUT OF THE CAR DURING PROLONGED TRANSPORTATION. JAIRO ONLY WANTED ASSURANCES THAT PT WOULD NOT DURING THE RIDE TO [place]. CM INFORMED JAIRO THAT CM COULD NOT PROVIDE THAT ASSURANCE, RECOMMENDED SHELTER REHAB FOR PT. JAIRO REPORTS SHE WILL BE IN [place] AND AT THE HOSPITAL TOMORROW, 03-18-18 AT ABOUT 8:30 IN THE MORNING. SHE WOULD LIKE TO MEET WITH ALL DOCTORS IN THE MORNING IN A "BIG MEETING". CM EXPLAINED THAT THIS WOULD NOT BE POSSIBLE, OFFERED TO ASK DR. LOVETT, PRIMARY DOCTOR, TO MEET WITH HER IN THE MORNING, JAIRO ACCEPTED. JAIRO IBARRA, DAUGHTER, , WILL MEET WITH DR. LOVETT AND CM IN THE [facility], 03-18-18, TO DISCUSS PT'S CARE, PROGNOSIS AND DISCHARGE PLAN. SRI Clemons DCP- Discharge Planning Updated by [id number]: Camron Khan on 03/11/18 7:[address] Patient Name: DANIEL ADAME Encounter No: [id number] : 1940 Primary Insurance: HU[employer]NA CHOICE PPO MCR ADVANT Anticipated DC Date: 03-09-2018 Planned Disposition: Inpatient Rehab Facility External Planned Provider: [facility] DCP follow-up note: CM INFORMED PT THAT INSURANCE STILL HAS NOT PROVIDED AUTHORIZATION OR DENIAL FOR REHAB. PT STILL WILLING FOR REHAB AT [place]. IMPORTANT MESSAGE FROM MEDICARE PROVIDED AND EXPLAINED. CM WAITING FOR INSURANCE AUTHORIZATION OR DENIAL FOR INPATIENT REHAB SERVICES AT [place]. Camron Khan, CASE MANAGEMENT DCP- Discharge Planning Updated by [email or web address]: Camron Khan on 03/08/18 3:[address] Patient Name: DANIEL ADAME Encounter No: [id number] : 1940 Primary Insurance: [employer] CHOICE PPO MCR ADVANT Anticipated DC Date: 03-09-2018 Planned Disposition: Inpatient Rehab Facility External Planned Provider: [facility] INPATIENT REHAB DCP follow-up note: * Is the patient Alert and Oriented? Yes 0 * How many steps to enter\\exit or inside your home? 4-5 0 * PCP DR. VELÁZQUEZ 0 * Pharmacy [facility] 0 * Preadmission Environment Acute Inpatient Rehab 0 * Facility Name [facility] INPATIENT REHAB 0 * ADLs Partial Dependent 0 * Partial ADLs (Assistance needed) Ambulation Bathing Medication Management Toileting Transfers 0 * Equipment None 0 * Other Equipment NO MEDICAL EQUIPMENT PROVIDER PREFERENCE 0 * List name and contact numbers for known caregivers / representatives who currently or will assist patient after discharge: JAIRO IBARRA, DAUGHTER, 0 * Verbal permission to speak to the caregivers and representatives has been obtained from the patient. Yes 0 * Community resources currently utilized None 0 * Please name any agencies selected above. NONE 0 * Additional services required to return to the preadmission environment? No 0 * Can the patient safely return to the preadmission environment? Yes 0 * Has this patient been hospitalized within the prior 30 days at any hospital? Yes 0 CM RECEIVED ORDER FOR INPATIENT REHAB PRESCREENING. CM SPOKE TO PT IN ROOM WHO IS VERY HARD OF HEARING. PT REPORTS HIS DAUGHTER, JAIRO, IS HERE AND FOR CM TO SPEAK TO HER REGARDING DISCHARGE PLAN. PT IS AGREEABLE TO INPATIENT REHAB AND STATES HE WAS LIVING AT HOME ALONE PRIOR TO HOSPITALIZATION. IMPORTANT MESSAGE FROM MEDICARE PROVIDED AND EXPLAINED. CM CALLED AND SPOKE TO JAIRO IBARRA, DAUGHTER, ; JAIRO REPORTS LIVING IN [place] AND IT IS A [address] TO GET PT THERE WHEN THEY LEAVE [place]. JAIRO WAS HOPING THAT PT WOULD BE STONG ENOUGH FOR THE RIDE AT DISCHARGE FROM HOSPITAL. CM REVIEWED THERAPY EVALUATION AND NOTES WITH JAIRO. JAIRO WOULD LIKE TO TRY TO GET PT BACK INTO INPATIENT REHAB AT [place] STATING HE WAS ONLY IN THERE FOR ONE NIGHT BEFORE HAVING TO BE READMITTED; SHE HOPES FOR PT TO BE STONG ENOUGH FOR HER TO TRANSPORT PT TO [place] AT DISCHARGE AND SHE HAS A [facility] IN M[facility] THAT WILL ACCEPT PT AT DISCHARGE IF NEEDED. CM WAITING FOR INPATIENT REHAB PRESCREENING AND INSURANCE AUTHORIZATION OR DENIAL FOR INPATIENT REHAB SERVICES. Camron Khan, CASE MANAGEMENT DCP- Discharge Planning Updated by [id number]: Jerica Tejeda on 03/07/18 7:[address] PATIENT WITH VARYING DEGREES OF ORIENTATION. HE IS ALSO HARD OF HEARING. WAS TRANSFERED TO ICU AFTER ONE DAY IN [facility]. MD PLAN IS FOR POSSIBLE TRANSFER TO ACUTE REHAB THURSDAY. PATIENT WILL NEED TO BE EVALUATED AND LIKELY WILL REQUIRE A NEW PRECERT HE HAS [employer] CHOICE PPO MEDICARE ADVANTAGE AN INSURER. \\NO PHYSICAL THERAPY NOTES AT THIS TIME. WILL NEED PT/OT EVAL FOR PRECERT. REPORTEDLY LIVED ALONE PRIOR TO ADMISSION. HAD DAUGHTER,JAIRO IBARRA. CONTACT PHONE NUMBER CELL [phone] HOME [phone]. PATIENT ALSO HAS SONS :SERENA POMPA- [phone] AND MARJORIE SLAUGHTER- [phone]. CM WILL NEED TO MEET WITH PATIENT'S FAMILY REGARDING DISCHARGE PLAN. DCPIA - Discharge Planning Initial Assessment Updated by [id number]: Camron Khan on 03/08/18 4:26 pm * Is the patient Alert and Oriented? Yes * How many steps to enter\\exit or inside your home? 4-5 * PCP DR. VELÁZQUEZ * Pharmacy [facility] * Preadmission Environment Acute Inpatient Rehab * Facility Name [facility] INPATIENT REHAB * ADLs Partial Dependent * Partial ADLs (Assistance needed) Ambulation Bathing Medication Management Toileting Transfers * Equipment None * Other Equipment NO MEDICAL EQUIPMENT PROVIDER PREFERENCE * List name and contact numbers for known caregivers / representatives who currently or will assist patient after discharge: JAIRO IBARRA, DAUGHTER, * Verbal permission to speak to the caregivers and representatives has been obtained from the patient. Yes * Community resources currently utilized None * Please name any agencies selected above. NONE * Additional services required to return to the preadmission environment? No * Can the patient safely return to the preadmission environment? Yes * Has this patient been hospitalized within the prior 30 days at any hospital? Yes Coverage Notice Reviewer: ROSMERY Khan Notice Issued Date-Time: 03/08/2018 16:05 Notice Type: IM Discharge Notice Notice Delivered To: Patient Relationship to Patient: Cant Hooker Name: Delivery Method: HAND - Hand Delivered Sho Days: Prior Verbal Notification: Recipient Understood Notice: Yes Recipient Signature: Yes Med Rec Note Co-signed by Attending: Coverage Notice Comment: Reviewer: ROSMERY Khan Notice Issued Date-Time: 03/11/2018 8:10 Notice Type: IM Discharge Notice Notice Delivered To: Patient Relationship to Patient: Cant Hooker Name: Delivery Method: HAND - Hand Delivered Sho Days: Prior Verbal Notification: Recipient Understood Notice: Yes Recipient Signature: Yes Med Rec Note Co-signed by Attending: Coverage Notice Comment: Reviewer: ROSMERY Khan Notice Issued Date-Time: 03/19/2018 14:50 Notice Type: Patient Choice Letter Notice Delivered To: Family Member Relationship to Patient: Daughter Cant Hooker Name: JAIRO IBARRA Delivery Method: HAND - Hand Delivered Sho Days: Prior Verbal Notification: Recipient Understood Notice: Yes Recipient Signature: Yes Med Rec Note Co-signed by Attending: Coverage Notice Comment: Reviewer: ROSMERY Khan Notice Issued Date-Time: 03/19/2018 14:50 Notice Type: IM Discharge Notice Notice Delivered To: Family Member Relationship to Patient: Daughter Cant Hooker Name: JAIRO IBARRA Delivery Method: HAND - Hand Delivered Sho Days: Prior Verbal Notification: Recipient Understood Notice: Yes Recipient Signature: Yes Med Rec Note Co-signed by Attending: Coverage Notice Comment: Reviewer: ROSMERY Khan Notice Issued Date-Time: 03/22/2018 11:00 Notice Type: Patient Choice Letter Notice Delivered To: Family Member Relationship to Patient: Daughter Cant Hooker Name: JAIRO IBARRA Delivery Method: PHONE - Phone Sho Days: Prior Verbal Notification: Recipient Understood Notice: Yes Recipient Signature: Yes Med Rec Note Co-signed by Attending: Coverage Notice Comment: ANY [facility] WITH HOSPICE CARE. Last DP export: 03/22/18 3:19 Patient Name: DANIEL ADAME Page [id number] at 0759 All edits/amendments must be made on the electronic document DICTATION DATE: 03/23/18757 GARBAGE TRUCK HELPER: RUBÉN 03/23/18757 RPT#: [id number] DC DATE: STATUS: ADM IN [facility] [address] [place] [address] END OF REPORT
--- NOTE | ~2018-03-03 | MORECARE ---
CASE MANAGEMENT DISCHARGE SUMMARY PATIENT: DANIEL ADAME UNIT: [id number] ADM DATE: 03/03/18 AGE: 78 : 40 SEX: M ROOM/BED: D.2104 AUTHOR: SAMUEL,DOC PHYSICIAN: REFERRING PHYSICIAN: AGGIE PANIAGUA MD DATE OF SERVICE: 03/17/18 Discharge Plan Patient Name: DANIEL ADAME Facility: [facility]:[place] : 1940 Planned Disposition: Halfway Facility Anticipated Discharge Date: 03/09/18 Discharge Date: Expected LOS: 6 Initial Reviewer: [id number] Initial Review Date: 03/03/2018 Generated: 03/17/18 4:45 pm Comments DCP- Discharge Planning Updated by [id number]: Camron Khan on 03/17/18 2:[address] Patient Name: DANIEL ADAME Encounter No: [id number] : 1940 Primary Insurance: [employer] CHOICE PPO MCR ADVANT Anticipated DC Date: 03-09-2018 Planned Disposition: Halfway Facility External Planned Provider: TO BE DETERMINED DCP follow-up note: ALISE REVIEWED CHART, DR. BEARDEN'S NOTE INDICATES NEED TO SPEAK TO FAMILY REGARDING COMFORT CARE OR HOSPICE CARE FOR PT. CM RECEIVED CALL FROM DAUGHTER, JAIRO IBARRA, , WHO REQUESTED UPDATE. CM DISCUSSED DR. BEARDEN'S OPTION REGARDING HOSPICE OR COMFORT CARE. JAIRO REPORTS NO INTEREST AT THIS TIME FOR COMFORT CARE OR HOSPICE. JAIRO IS CONSIDERING PICKING UP PT IN CAR AND TAKING PT BACK TO [place] WHERE THEY LIVE, IT IS AN [address] ALISE EXPLAINED PT IS VERY WEAK AND WOULD NOT BE ABLE TO GET OUT OF THE CAR DURING PROLONGED TRANSPORTATION. JAIRO ONLY WANTED ASSURANCES THAT PT WOULD NOT DURING THE RIDE TO [place]. CM INFORMED JAIRO THAT CM COULD NOT PROVIDE THAT ASSURANCE, RECOMMENDED LONGTERM REHAB FOR PT. JAIRO REPORTS SHE WILL BE IN [place] AND AT THE HOSPITAL TOMORROW, 03-18-18 AT ABOUT 8:30 IN THE MORNING. SHE WOULD LIKE TO MEET WITH ALL DOCTORS IN THE MORNING IN A "BIG MEETING". CM EXPLAINED THAT THIS WOULD NOT BE POSSIBLE, OFFERED TO ASK DR. LOVETT, PRIMARY DOCTOR, TO MEET WITH HER IN THE MORNING, JAIRO ACCEPTED. JAIRO IBARRA, DAUGHTER, , WILL MEET WITH DR. LOVETT AND CM IN THE [facility], 03-18-18, TO DISCUSS PT'S CARE, PROGNOSIS AND DISCHARGE PLAN. Camron Khan CASE MANAGEMENT DCP- Discharge Planning Updated by [id number]: Camron Khan on 03/11/18 7:[address] Patient Name: DANIEL ADAME Encounter No: [id number] : 1940 Primary Insurance: [employer] CHOICE PPO MCR ADVANT Anticipated DC Date: 03-09-2018 Planned Disposition: Inpatient Rehab Facility External Planned Provider: [facility] DCP follow-up note: CM INFORMED PT THAT INSURANCE STILL HAS NOT PROVIDED AUTHORIZATION OR DENIAL FOR REHAB. PT STILL WILLING FOR REHAB AT [place]. IMPORTANT MESSAGE FROM MEDICARE PROVIDED AND EXPLAINED. CM WAITING FOR INSURANCE AUTHORIZATION OR DENIAL FOR INPATIENT REHAB SERVICES AT [place]. Camron Khan CASE MANAGEMENT DCP- Discharge Planning Updated by [id number]: Camron Khan on 03/08/18 3:[address] Patient Name: DANIEL ADAME Encounter No: [id number] : 1940 Primary Insurance: [employer] CHOICE PPO MCR ADVANT Anticipated DC Date: 03-09-2018 Planned Disposition: Inpatient Rehab Facility External Planned Provider: [facility] INPATIENT REHAB DCP follow-up note: * Is the patient Alert and Oriented? Yes 0 * How many steps to enter\\exit or inside your home? 4-5 0 * PCP DR. VELÁZQUEZ 0 * Pharmacy [facility] 0 * Preadmission Environment Acute Inpatient Rehab 0 * Facility Name [facility] INPATIENT REHAB 0 * ADLs Partial Dependent 0 * Partial ADLs (Assistance needed) Ambulation Bathing Medication Management Toileting Transfers 0 * Equipment None 0 * Other Equipment NO MEDICAL EQUIPMENT PROVIDER PREFERENCE 0 * List name and contact numbers for known caregivers / representatives who currently or will assist patient after discharge: JAIRO IBARRA, DAUGHTER, 0 * Verbal permission to speak to the caregivers and representatives has been obtained from the patient. Yes 0 * Community resources currently utilized None 0 * Please name any agencies selected above. NONE 0 * Additional services required to return to the preadmission environment? No 0 * Can the patient safely return to the preadmission environment? Yes 0 * Has this patient been hospitalized within the prior 30 days at any hospital? Yes 0 CM RECEIVED ORDER FOR INPATIENT REHAB PRESCREENING. CM SPOKE TO PT IN ROOM WHO IS VERY HARD OF HEARING. PT REPORTS HIS DAUGHTER, JAIRO, IS HERE AND FOR CM TO SPEAK TO HER REGARDING DISCHARGE PLAN. PT IS AGREEABLE TO INPATIENT REHAB AND STATES HE WAS LIVING AT HOME ALONE PRIOR TO HOSPITALIZATION. IMPORTANT MESSAGE FROM MEDICARE PROVIDED AND EXPLAINED. CM CALLED AND SPOKE TO JAIRO IBARRA, DAUGHTER, ; JAIRO REPORTS LIVING IN [place] AND IT IS A [address] TO GET PT THERE WHEN THEY LEAVE [place]. JAIOR WAS HOPING THAT PT WOULD BE STONG ENOUGH FOR THE RIDE AT DISCHARGE FROM HOSPITAL. CM REVIEWED THERAPY EVALUATION AND NOTES WITH JAIRO. JAIRO WOULD LIKE TO TRY TO GET PT BACK INTO INPATIENT REHAB AT [place] STATING HE WAS ONLY IN THERE FOR ONE NIGHT BEFORE HAVING TO BE READMITTED; SHE HOPES FOR PT TO BE STONG ENOUGH FOR HER TO TRANSPORT PT TO [place] AT DISCHARGE AND SHE HAS A LONGTERM IN MIND THAT WILL ACCEPT PT AT DISCHARGE IF NEEDED. CM WAITING FOR INPATIENT REHAB PRESCREENING AND INSURANCE AUTHORIZATION OR DENIAL FOR INPATIENT REHAB SERVICES. Camron Khan, CASE MANAGEMENT DCP- Discharge Planning Updated by [id number]: Jerica Tejeda on 03/07/18 7:[address] PATIENT WITH VARYING DEGREES OF ORIENTATION. HE IS ALSO HARD OF HEARING. WAS TRANSFERED TO ICU AFTER ONE DAY IN [facility]. MD PLAN IS FOR POSSIBLE TRANSFER TO ACUTE REHAB THURSDAY. PATIENT WILL NEED TO BE EVALUATED AND LIKELY WILL REQUIRE A NEW PRECERT HE HAS [employer] CHOICE PPO MEDICARE ADVANTAGE AN INSURER. \\NO PHYSICAL THERAPY NOTES AT THIS TIME. WILL NEED PT/OT EVAL FOR PRECERT. REPORTEDLY LIVED ALONE PRIOR TO ADMISSION. HAD DAUGHTER,JAIRO IBARRA. CONTACT PHONE NUMBER CELL [phone] HOME [phone]. PATIENT ALSO HAS SONS :SERENA POMPA- [phone] AND MARJORIE SLAUGHTER- [phone]. CM WILL NEED TO MEET WITH PATIENT'S FAMILY REGARDING DISCHARGE PLAN. DCPIA - Discharge Planning Initial Assessment Updated by [id number]: Camron Khan on 03/08/18 4:26 pm * Is the patient Alert and Oriented? Yes * How many steps to enter\\exit or inside your home? 4-5 * PCP DR. VELÁZQUEZ * Pharmacy [facility] * Preadmission Environment Acute Inpatient Rehab * Facility Name [facility] INPATIENT REHAB * ADLs Partial Dependent * Partial ADLs (Assistance needed) Ambulation Bathing Medication Management Toileting Transfers * Equipment None * Other Equipment NO MEDICAL EQUIPMENT PROVIDER PREFERENCE * List name and contact numbers for known caregivers / representatives who currently or will assist patient after discharge: JAIRO IBARRA, DAUGHTER, * Verbal permission to speak to the caregivers and representatives has been obtained from the patient. Yes * Community resources currently utilized None * Please name any agencies selected above. NONE * Additional services required to return to the preadmission environment? No * Can the patient safely return to the preadmission environment? Yes * Has this patient been hospitalized within the prior 30 days at any hospital? Yes Coverage Notice Reviewer: [id number] Marty Khan Notice Issued Date-Time: 03/08/2018 16:05 Notice Type: IM Discharge Notice Notice Delivered To: Patient Relationship to Patient: Assembler Musical Equipment Name: Delivery Method: HAND - Hand Delivered Sho Days: Prior Verbal Notification: Recipient Understood Notice: Yes Recipient Signature: Yes Med Rec Note Co-signed by Attending: Coverage Notice Comment: Reviewer: [id number] Khan Notice Issued Date-Time: 03/11/2018 8:10 Notice Type: IM Discharge Notice Notice Delivered To: Patient Relationship to Patient: Assembler Musical Equipment Name: Delivery Method: HAND - Hand Delivered Sho Days: Prior Verbal Notification: Recipient Understood Notice: Yes Recipient Signature: Yes Med Rec Note Co-signed by Attending: Coverage Notice Comment: Last DP export: 03/17/18 2:18 Patient Name: DANIEL ADAME Page [id number] at 1546 All edits/amendments must be made on the electronic document DICTATION DATE: 03/17/181544 MECHANICAL ENGINEERING COOP: RUBÉN 03/17/181544 RPT#: [id number] [place] DATE: STATUS: ADM IN [facility] [address] [place] [address] END OF REPORT
--- NOTE | ~2018-03-03 | MORECARE ---
CASE MANAGEMENT DISCHARGE SUMMARY PATIENT: DANIEL ADAME UNIT: [id number] ADM DATE: 03/03/18 AGE: 78 : 40 SEX: M ROOM/BED: D.2104 AUTHOR: SAMUEL,DOC PHYSICIAN: REFERRING PHYSICIAN: AGGIE PANIAGUA MD DATE OF SERVICE: 03/22/18 Discharge Plan Patient Name: DANIEL ADAME Facility: [facility]:[place] : 1940 Planned Disposition: Shelter Facility Anticipated Discharge Date: 03/09/18 Discharge Date: Expected LOS: 6 Initial Reviewer: [id number] Initial Review Date: 03/03/2018 Generated: 03/22/18 5:01 pm DCP- Discharge Planning Updated by [id number]: Camron Khan on 03/19/18 2:[address] Patient Name: DANIEL ADAME Encounter No: [id number] : 1940 Primary Insurance: [employer] PPO MCR ADVANT Anticipated DC Date: 03-09-2018 Planned Disposition: Shelter Facility External Planned Provider: [facility], MEDICARE SKILLED BED DCP follow-up note: ALISE SPOKE TO PT'S DAUGHTER, JAIRO IBARRA ALONG WITH DR. LOVETT AND ALANA BAUMAN. DISUSSED WAS PT'S CONDITION, HALF-WAY REHAB VS HOSPICE CARE. PT'S DAUGHTER IS STILL WANTING PT IN [place] AND ASKED FOR PT TO BE REFERRED TO [facility] IN [place], [place]. JAIRO HAS DISCUSSED PLACEMENT WITH JOHANNA AT FACILITY. TRANSPORTATION DISCUSSED; JAIRO DECIDED SHE WOULD LIKE TO OBTAIN TRANSPORT ESTIMATE FROM [facility] IF PLACEMENT CAN BE SECURED AT FACILITY. CHOICE SIGNED FOR [facility], IMPORTANT MESSAGE FROM MEDICARE PROVIDED AND EXPLAINED. CM CALLED [facility], , JOHANNA WAS NOT IN. ALISE SPOKE TO AILEEN WHO REPORTED THAT JOHANNA WOULD BE BACK IN THURSDAY AND WILL REVIEW REFERRAL THEN. CM FAXED REFERRAL TO [facility] AT [phone]. F[address]TY ADDRESS IS [address] [place] [address]. [id number]. CM WAITING ADMISSION DETERMINATION FROM [facility] IN [place], [place]. Camron Khan, CASE MANAGEMENT DCP- Discharge Planning Updated by [id number]: Camrno Khan on 03/17/18 2:[address] Patient Name: DANIEL ADAME Encounter No: [id number] : 1940 Primary Insurance: [employer] CHOICE PPO MCR ADVANT Anticipated DC Date: 03-09-2018 Planned Disposition: Shelter Facility External Planned Provider: TO BE DETERMINED DCP follow-up note: CM REVIEWED CHART, DR. BEARDEN'S NOTE INDICATES NEED TO SPEAK TO FAMILY REGARDING COMFORT CARE OR HOSPICE CARE FOR PT. CM RECEIVED CALL FROM DAUGHTER, JAIRO IBARRA, , WHO REQUESTED UPDATE. CM DISCUSSED DR. BEARDEN'S OPTION REGARDING HOSPICE OR COMFORT CARE. JAIRO REPORTS NO INTEREST AT THIS TIME FOR COMFORT CARE OR HOSPICE. JAIRO IS CONSIDERING PICKING UP PT IN CAR AND TAKING PT BACK TO [place] WHERE THEY LIVE, IT IS AN [address] CM EXPLAINED PT IS VERY WEAK AND WOULD NOT BE ABLE TO GET OUT OF THE CAR DURING PROLONGED TRANSPORTATION. JAIRO ONLY WANTED ASSURANCES THAT PT WOULD NOT DURING THE RIDE TO [place]. CM INFORMED JAIRO THAT CM COULD NOT PROVIDE THAT ASSURANCE, RECOMMENDED HALF-WAY REHAB FOR PT. JAIRO REPORTS SHE WILL BE IN [place] AND AT THE [facility] TOMORROW, 03-18-18 AT ABOUT 8:30 IN THE MORNING. SHE WOULD LIKE TO MEET WITH ALL DOCTORS IN THE MORNING IN A "BIG MEETING". CM EXPLAINED THAT THIS WOULD NOT BE POSSIBLE, OFFERED TO ASK DR. LOVETT, PRIMARY DOCTOR, TO MEET WITH HER IN THE MORNING, JAIRO ACCEPTED. JAIRO IBARRA, DAUGHTER, , WILL MEET WITH DR. LOVETT AND CM IN THE [facility], 03-18-18, TO DISCUSS PT'S CARE, PROGNOSIS AND DISCHARGE PLAN. Camron Khan, CASE MANAGEMENT DCP- Discharge Planning Updated by [id number]: Camron Khan on 03/11/18 7:[address] Patient Name: DANIEL ADAME Encounter No: [id number] : 1940 Primary Insurance: [employer] CHOICE PPO MCR ADVANT Anticipated DC Date: 03-09-2018 Planned Disposition: Inpatient Rehab Facility External Planned Provider: [facility] DCP follow-up note: CM INFORMED PT THAT INSURANCE STILL HAS NOT PROVIDED AUTHORIZATION OR DENIAL FOR REHAB. PT STILL WILLING FOR REHAB AT [place]. IMPORTANT MESSAGE FROM MEDICARE PROVIDED AND EXPLAINED. CM WAITING FOR INSURANCE AUTHORIZATION OR DENIAL FOR INPATIENT REHAB SERVICES AT [place]. Camron Khan, CASE MANAGEMENT DCP- Discharge Planning Updated by [id number]: Camron Khan on 03/08/18 3:[address] Patient Name: DANIEL ADAME Encounter No: [id number] : 1940 Primary Insurance: [employer] CHOICE PPO MCR ADVANT Anticipated DC Date: 03-09-2018 Planned Disposition: Inpatient Rehab Facility External Planned Provider: [facility] INPATIENT REHAB DCP follow-up note: * Is the patient Alert and Oriented? Yes 0 * How many steps to enter\\exit or inside your home? 4-5 0 * PCP DR. VELÁZQUEZ 0 * Pharmacy REPLACED BY [facility] 0 * Preadmission Environment Acute Inpatient Rehab 0 * Facility Name [facility] INPATIENT REHAB 0 * ADLs Partial Dependent 0 * Partial ADLs (Assistance needed) Ambulation Bathing Medication Management Toileting Transfers 0 * Equipment None 0 * Other Equipment NO MEDICAL EQUIPMENT PROVIDER PREFERENCE 0 * List name and contact numbers for known caregivers / representatives who currently or will assist patient after discharge: JAIRO IBARRA, DAUGHTER, 0 * Verbal permission to speak to the caregivers and representatives has been obtained from the patient. Yes 0 * Community resources currently utilized None 0 * Please name any agencies selected above. NONE 0 * Additional services required to return to the preadmission environment? No 0 * Can the patient safely return to the preadmission environment? Yes 0 * Has this patient been hospitalized within the prior 30 days at any hospital? Yes 0 CM RECEIVED ORDER FOR INPATIENT REHAB PRESCREENING. CM SPOKE TO PT IN ROOM WHO IS VERY HARD OF HEARING. PT REPORTS HIS DAUGHTER, JAIRO, IS HERE AND FOR CM TO SPEAK TO HER REGARDING DISCHARGE PLAN. PT IS AGREEABLE TO INPATIENT REHAB AND STATES HE WAS LIVING AT HOME ALONE PRIOR TO HOSPITALIZATION. IMPORTANT MESSAGE FROM MEDICARE PROVIDED AND EXPLAINED. CM CALLED AND SPOKE TO JAIRO IBARRA, DAUGHTER, ; JAIRO REPORTS LIVING IN [place] AND IT IS A [address] TO GET PT THERE WHEN THEY LEAVE [place]. JAIRO WAS HOPING THAT PT WOULD BE STONG ENOUGH FOR THE RIDE AT DISCHARGE FROM HOSPITAL. CM REVIEWED THERAPY EVALUATION AND NOTES WITH JAIRO. JAIRO WOULD LIKE TO TRY TO GET PT BACK INTO INPATIENT REHAB AT [place] STATING HE WAS ONLY IN THERE FOR ONE NIGHT BEFORE HAVING TO BE READMITTED; SHE HOPES FOR PT TO BE STONG ENOUGH FOR HER TO TRANSPORT PT TO [place] AT DISCHARGE AND SHE HAS A [facility] IN MIND THAT WILL ACCEPT PT AT DISCHARGE IF NEEDED. CM WAITING FOR INPATIENT REHAB PRESCREENING AND INSURANCE AUTHORIZATION OR DENIAL FOR INPATIENT REHAB SERVICES. Camron Khan, CASE MANAGEMENT DCP- Discharge Planning Updated by [id number]: Jerica Tejeda on 03/07/18 7:[address] PATIENT WITH VARYING DEGREES OF ORIENTATION. HE IS ALSO HARD OF HEARING. WAS TRANSFERED TO ICU AFTER ONE DAY IN [facility]. MD PLAN IS FOR POSSIBLE TRANSFER TO ACUTE REHAB THURSDAY. PATIENT WILL NEED TO BE EVALUATED AND LIKELY WILL REQUIRE A NEW PRECERT HE HAS [employer] CHOICE PPO MEDICARE ADVANTAGE AN INSURER. \\NO PHYSICAL THERAPY NOTES AT THIS TIME. WILL NEED PT/OT EVAL FOR PRECERT. REPORTEDLY LIVED ALONE PRIOR TO ADMISSION. HAD DAUGHTER,JAIRO IBARRA. CONTACT PHONE NUMBER CELL [phone] HOME [phone]. PATIENT ALSO HAS SONS :SERENA POMPA- [phone] AND MARJORIE SLAUGHTER- [phone]. CM WILL NEED TO MEET WITH PATIENT'S FAMILY REGARDING DISCHARGE PLAN. DCPIA - Discharge Planning Initial Assessment Updated by [id number]: Camron Khan on 03/08/18 4:26 pm * Is the patient Alert and Oriented? Yes * How many steps to enter\\exit or inside your home? 4-5 * PCP DR. VELÁZQUEZ * Pharmacy REPLACED BY [facility] * Preadmission Environment Acute Inpatient Rehab * Facility Name [facility] INPATIENT REHAB * ADLs Partial Dependent * Partial ADLs (Assistance needed) Ambulation Bathing Medication Management Toileting Transfers * Equipment None * Other Equipment NO MEDICAL EQUIPMENT PROVIDER PREFERENCE * List name and contact numbers for known caregivers / representatives who currently or will assist patient after discharge: JAIRO IBARRA, DAUGHTER, * Verbal permission to speak to the caregivers and representatives has been obtained from the patient. Yes * Community resources currently utilized None * Please name any agencies selected above. NONE * Additional services required to return to the preadmission environment? No * Can the patient safely return to the preadmission environment? Yes * Has this patient been hospitalized within the prior 30 days at any hospital? Yes External [facility]iders [facility] Contact Date: 03/22/2018 Service Request Date: Service Type: Resolution: Reviewer: Comments: Coverage Notice Reviewer: ROSMERY Khan Notice Issued Date-Time: 03/08/2018 16:05 Notice Type: IM Discharge Notice Notice Delivered To: Patient Relationship to Patient: Plate Preparer Name: Delivery Method: HAND - Hand Delivered Sho Days: Prior Verbal Notification: Recipient Understood Notice: Yes Recipient Signature: Yes Med Rec Note Co-signed by Attending: Coverage Notice Comment: Reviewer: ROSMERY Khan Notice Issued Date-Time: 03/11/2018 8:10 Notice Type: IM Discharge Notice Notice Delivered To: Patient Relationship to Patient: Plate Preparer Name: Delivery Method: HAND - Hand Delivered Sho Days: Prior Verbal Notification: Recipient Understood Notice: Yes Recipient Signature: Yes Med Rec Note Co-signed by Attending: Coverage Notice Comment: Reviewer: ROSMERY Khan Notice Issued Date-Time: 03/19/2018 14:50 Notice Type: Patient Choice Letter Notice Delivered To: Family Member Relationship to Patient: Daughter Plate Preparer Name: JAIRO IBARRA Delivery Method: HAND - Hand Delivered Sho Days: Prior Verbal Notification: Recipient Understood Notice: Yes Recipient Signature: Yes Med Rec Note Co-signed by Attending: Coverage Notice Comment: Reviewer: ROSMERY Khan Notice Issued Date-Time: 03/19/2018 14:50 Notice Type: IM Discharge Notice Notice Delivered To: Family Member Relationship to Patient: Daughter Plate Preparer Name: JAIRO IBARRA Delivery Method: HAND - Hand Delivered Sho Days: Prior Verbal Notification: Recipient Understood Notice: Yes Recipient Signature: Yes Med Rec Note Co-signed by Attending: Coverage Notice Comment: Last DP export: 03/19/18 2:58 Patient Name: DANIEL ADAME Page [id number] at 1601 All edits/amendments must be made on the electronic document DICTATION DATE: 03/22/181600 FUEL MANAGEMENT HANDLER: RUBÉN 03/22/181600 RPT#: [id number] DC DATE: STATUS: ADM IN [facility] [address] [place] [address] END OF REPORT
--- NOTE | ~2018-03-03 | MORECARE ---
CASE MANAGEMENT DISCHARGE SUMMARY PATIENT: DANIEL ADAME UNIT: [id number] ADM DATE: 03/03/18 AGE: 78 : 40 SEX: M ROOM/BED: D.2104 AUTHOR: SAMUEL,DOC PHYSICIAN: REFERRING PHYSICIAN: AGGIE PANIAGUA MD DATE OF SERVICE: 03/22/18 Discharge Plan Patient Name: DANIEL ADAME Facility: [facility]:[place] : 1940 Planned Disposition: [facility] Facility Anticipated Discharge Date: 03/09/18 Discharge Date: Expected LOS: 6 Initial Reviewer: [id number] Initial Review Date: 03/03/2018 Generated: 03/22/18 5:09 pm DCP- Discharge Planning Updated by [id number]: Camron Khan on 03/19/18 2:[address] Patient Name: DANIEL ADAME Encounter No: [id number] : 1940 Primary Insurance: [employer] PPO MCR ADVANT Anticipated DC Date: 03-09-2018 Planned Disposition: [facility] Facility External Planned Provider: [facility], MEDICARE SKILLED BED DCP follow-up note: ALISE SPOKE TO PT'S DAUGHTER, JAIRO IBARRA ALONG WITH DR. LOVETT AND ALANA BAUMAN. DISUSSED WAS PT'S CONDITION, INTERMEDIATE REHAB VS HOSPICE CARE. PT'S DAUGHTER IS STILL WANTING PT IN [place] AND ASKED FOR PT TO BE REFERRED TO [facility] IN [place], [place]. JAIRO HAS DISCUSSED PLACEMENT WITH JOHANNA AT FACILITY. TRANSPORTATION DISCUSSED; JAIRO DECIDED SHE WOULD LIKE TO OBTAIN TRANSPORT ESTIMATE FROM [facility] IF PLACEMENT CAN BE SECURED AT FACILITY. CHOICE SIGNED FOR [facility], IMPORTANT MESSAGE FROM MEDICARE PROVIDED AND EXPLAINED. CM CALLED [facility], , JOHANNA WAS NOT IN. ALISE SPOKE TO AILEEN WHO REPORTED THAT JOHANNA WOULD BE BACK IN THURSDAY AND WILL REVIEW REFERRAL THEN. CM FAXED REFERRAL TO [facility] AT [phone]. F[address]ILTY ADDRESS IS [address] [place] [address]. [id number]. CM WAITING ADMISSION DETERMINATION FROM [facility] IN [place], [place]. Camron Khan, CASE MANAGEMENT DCP- Discharge Planning Updated by [id number]: Camron Khan on 03/17/18 2:[address] Patient Name: DANIEL ADAME Encounter No: [id number] : 1940 Primary Insurance: [employer] CHOICE PPO MCR ADVANT Anticipated DC Date: 03-09-2018 Planned Disposition: [facility] Facility External Planned Provider: TO BE DETERMINED DCP follow-up note: CM REVIEWED CHART, DR. BEARDEN'S NOTE INDICATES NEED TO SPEAK TO FAMILY REGARDING COMFORT CARE OR HOSPICE CARE FOR PT. CM RECEIVED CALL FROM DAUGHTER, JAIRO IBARRA, , WHO REQUESTED UPDATE. CM DISCUSSED DR. BEARDEN'S OPTION REGARDING HOSPICE OR COMFORT CARE. JAIRO REPORTS NO INTEREST AT THIS TIME FOR COMFORT CARE OR HOSPICE. JAIRO IS CONSIDERING PICKING UP PT IN CAR AND TAKING PT BACK TO [place] WHERE THEY LIVE, IT IS AN [address] CM EXPLAINED PT IS VERY WEAK AND WOULD NOT BE ABLE TO GET OUT OF THE CAR DURING PROLONGED TRANSPORTATION. JAIRO ONLY WANTED ASSURANCES THAT PT WOULD NOT DURING THE RIDE TO [place]. CM INFORMED JAIRO THAT CM COULD NOT PROVIDE THAT ASSURANCE, RECOMMENDED INTERMEDIATE REHAB FOR PT. JAIRO REPORTS SHE WILL BE IN [place] AND AT THE [facility] TOMORROW, 03-18-18 AT ABOUT 8:30 IN THE MORNING. SHE WOULD LIKE TO MEET WITH ALL DOCTORS IN THE MORNING IN A "BIG MEETING". CM EXPLAINED THAT THIS WOULD NOT BE POSSIBLE, OFFERED TO ASK DR. LOVETT, PRIMARY DOCTOR, TO MEET WITH HER IN THE MORNING, JAIRO ACCEPTED. JAIRO IBARRA, DAUGHTER, , WILL MEET WITH DR. LOVETT AND CM IN THE [facility], 03-18-18, TO DISCUSS PT'S CARE, PROGNOSIS AND DISCHARGE PLAN. Camron Khan, CASE MANAGEMENT DCP- Discharge Planning Updated by [id number]: Camron Khan on 03/11/18 7:[address] Patient Name: DANIEL ADAME Encounter No: [id number] : 1940 Primary Insurance: [employer] CHOICE PPO MCR ADVANT Anticipated DC Date: 03-09-2018 Planned Disposition: Inpatient Rehab Facility External Planned Provider: [facility] DCP follow-up note: CM INFORMED PT THAT INSURANCE STILL HAS NOT PROVIDED AUTHORIZATION OR DENIAL FOR REHAB. PT STILL WILLING FOR REHAB AT [facility]. IMPORTANT MESSAGE FROM MEDICARE PROVIDED AND EXPLAINED. CM WAITING FOR INSURANCE AUTHORIZATION OR DENIAL FOR INPATIENT REHAB SERVICES AT [facility]. Camron Khan, CASE MANAGEMENT DCP- Discharge Planning Updated by [id number]: Camron Khan on 03/08/18 3:[address] Patient Name: DANIEL ADAME Encounter No: [id number] : 1940 Primary Insurance: [employer] CHOICE PPO MCR ADVANT Anticipated DC Date: 03-09-2018 Planned Disposition: Inpatient Rehab Facility External Planned Provider: [facility] DCP follow-up note: * Is the patient Alert and Oriented? Yes 0 * How many steps to enter\\exit or inside your home? 4-5 0 * PCP DR. VELÁZQUEZ 0 * Pharmacy [facility] 0 * Preadmission Environment Acute Inpatient Rehab 0 * Facility Name [facility] 0 * ADLs Partial Dependent 0 * Partial ADLs (Assistance needed) Ambulation Bathing Medication Management Toileting Transfers 0 * Equipment None 0 * Other Equipment NO MEDICAL EQUIPMENT PROVIDER PREFERENCE 0 * List name and contact numbers for known caregivers / representatives who currently or will assist patient after discharge: JAIRO IBARRA, DAUGHTER, 0 * Verbal permission to speak to the caregivers and representatives has been obtained from the patient. Yes 0 * Community resources currently utilized None 0 * Please name any agencies selected above. NONE 0 * Additional services required to return to the preadmission environment? No 0 * Can the patient safely return to the preadmission environment? Yes 0 * Has this patient been hospitalized within the prior 30 days at any hospital? Yes 0 CM RECEIVED ORDER FOR INPATIENT REHAB PRESCREENING. CM SPOKE TO PT IN ROOM WHO IS VERY HARD OF HEARING. PT REPORTS HIS DAUGHTER, JAIRO, IS HERE AND FOR CM TO SPEAK TO HER REGARDING DISCHARGE PLAN. PT IS AGREEABLE TO INPATIENT REHAB AND STATES HE WAS LIVING AT HOME ALONE PRIOR TO HOSPITALIZATION. IMPORTANT MESSAGE FROM MEDICARE PROVIDED AND EXPLAINED. CM CALLED AND SPOKE TO JAIRO IBARRA, DAUGHTER, ; JAIRO REPORTS LIVING IN [place] AND IT IS A [address] TO GET PT THERE WHEN THEY LEAVE [facility]. JAIRO WAS HOPING THAT PT WOULD BE STONG ENOUGH FOR THE RIDE AT DISCHARGE FROM HOSPITAL. CM REVIEWED THERAPY EVALUATION AND NOTES WITH JAIRO. JAIRO WOULD LIKE TO TRY TO GET PT BACK INTO INPATIENT REHAB AT [facility] STATING HE WAS ONLY IN THERE FOR ONE NIGHT BEFORE HAVING TO BE READMITTED; SHE HOPES FOR PT TO BE STONG ENOUGH FOR HER TO TRANSPORT PT TO [place] AT DISCHARGE AND SHE HAS A RESIDENTIAL IN MIND THAT WILL ACCEPT PT AT DISCHARGE IF NEEDED. CM WAITING FOR INPATIENT REHAB PRESCREENING AND INSURANCE AUTHORIZATION OR DENIAL FOR INPATIENT REHAB SERVICES. Camron Khan, CASE MANAGEMENT DCP- Discharge Planning Updated by [id number]: Jerica Tejeda on 03/07/18 7:[address] PATIENT WITH VARYING DEGREES OF ORIENTATION. HE IS ALSO HARD OF HEARING. WAS TRANSFERED TO ICU AFTER ONE DAY IN [facility]. MD PLAN IS FOR POSSIBLE TRANSFER TO ACUTE REHAB THURSDAY. PATIENT WILL NEED TO BE EVALUATED AND LIKELY WILL REQUIRE A NEW PRECERT HE HAS [employer] CHOICE PPO MEDICARE ADVANTAGE AN INSURER. \\NO PHYSICAL THERAPY NOTES AT THIS TIME. WILL NEED PT/OT EVAL FOR PRECERT. REPORTEDLY LIVED ALONE PRIOR TO ADMISSION. HAD DAUGHTER,JAIRO IBARRA. CONTACT PHONE NUMBER CELL [phone] HOME [phone]. PATIENT ALSO HAS SONS :SERENA POMPA- [phone] AND MARJORIE SLAUGHTER- [phone]. CM WILL NEED TO MEET WITH PATIENT'S FAMILY REGARDING DISCHARGE PLAN. DCPIA - Discharge Planning Initial Assessment Updated by [id number]: Camron Khan on 03/08/18 4:26 pm * Is the patient Alert and Oriented? Yes * How many steps to enter\\exit or inside your home? 4-5 * PCP DR. VELÁZQUEZ * Pharmacy [facility] * Preadmission Environment Acute Inpatient Rehab * Facility Name [facility] * ADLs Partial Dependent * Partial ADLs (Assistance needed) Ambulation Bathing Medication Management Toileting Transfers * Equipment None * Other Equipment NO MEDICAL EQUIPMENT PROVIDER PREFERENCE * List name and contact numbers for known caregivers / representatives who currently or will assist patient after discharge: JAIRO IBARRA, DAUGHTER, * Verbal permission to speak to the caregivers and representatives has been obtained from the patient. Yes * Community resources currently utilized None * Please name any agencies selected above. NONE * Additional services required to return to the preadmission environment? No * Can the patient safely return to the preadmission environment? Yes * Has this patient been hospitalized within the prior 30 days at any hospital? Yes External Providers External Provider: [facility] Next Contact Date: 03/22/2018 Service Request Date: Service Type: Resolution: Reviewer: Comments: Coverage Notice Reviewer: ROSMERY Khan Notice Issued Date-Time: 03/08/2018 16:05 Notice Type: IM Discharge Notice Notice Delivered To: Patient Relationship to Patient: Stitchdowns Toe Former Name: Delivery Method: HAND - Hand Delivered Sho Days: Prior Verbal Notification: Recipient Understood Notice: Yes Recipient Signature: Yes Med Rec Note Co-signed by Attending: Coverage Notice Comment: Reviewer: ROSMERY Khan Notice Issued Date-Time: 03/11/2018 8:10 Notice Type: IM Discharge Notice Notice Delivered To: Patient Relationship to Patient: Stitchdowns Toe Former Name: Delivery Method: HAND - Hand Delivered Sho Days: Prior Verbal Notification: Recipient Understood Notice: Yes Recipient Signature: Yes Med Rec Note Co-signed by Attending: Coverage Notice Comment: Reviewer: ROSMERY Khan Notice Issued Date-Time: 03/19/2018 14:50 Notice Type: Patient Choice Letter Notice Delivered To: Family Member Relationship to Patient: Daughter Stitchdowns Toe Former Name: JAIRO IBARRA Delivery Method: HAND - Hand Delivered Sho Days: Prior Verbal Notification: Recipient Understood Notice: Yes Recipient Signature: Yes Med Rec Note Co-signed by Attending: Coverage Notice Comment: Reviewer: ROSMERY Khan Notice Issued Date-Time: 03/19/2018 14:50 Notice Type: IM Discharge Notice Notice Delivered To: Family Member Relationship to Patient: Daughter Stitchdowns Toe Former Name: JAIRO IBARRA Delivery Method: HAND - Hand Delivered Sho Days: Prior Verbal Notification: Recipient Understood Notice: Yes Recipient Signature: Yes Med Rec Note Co-signed by Attending: Coverage Notice Comment: Last DP export: 03/22/18 3:01 Patient Name: DANIEL ADAME Page [id number] Electronically Signed by [facility] on 03/22/18 at 1609 All edits/amendments must be made on the electronic document DICTATION DATE: 03/22/181608 SOLUTION ENGINEER: RUBÉN 03/22/181608 RPT#: [id number] DC DATE: STATUS: ADM IN [facility] [address] [facility] [address] END OF REPORT
--- NOTE | ~2018-03-03 | MORECARE ---
CASE MANAGEMENT DISCHARGE SUMMARY PATIENT: DANIEL ADAME UNIT: [id number] ADM DATE: 03/03/18 AGE: 78 : 40 SEX: M ROOM/BED: D.2104 AUTHOR: SAMUEL,DOC PHYSICIAN: REFERRING PHYSICIAN: AGGIE PANIAGUA MD DATE OF SERVICE: 03/24/18 Discharge Plan Patient Name: DANIEL ADAME Facility: [facility]:[place] : 1940 Planned Disposition: Senior Care Facility Anticipated Discharge Date: 03/09/18 Discharge Date: Expected LOS: 6 Initial Reviewer: [id number] Initial Review Date: 03/03/2018 Generated: 03/24/18 1:09 pm Comments DCP- Discharge Planning Updated by [id number]: Alli Khan on 03/24/18 11:[address] Patient Name: DANIEL ADAME Encounter No: [id number] : 1940 Primary Insurance: HUMANA CHOICE PPO MCR ADVANT Anticipated DC Date: 03-09-2018 Planned Disposition: Senior Care Facility External Planned Provider: [facility], MEDICARE REHAB BED DCP follow-up note: CM RECEIVED CALL FROM PT'S DAUGHTER, JAIRO IBARRA [phone], WHO INFORMED CM THAT SHE HAS TO MAIL A COPY OF HER POWER OF INTERNET MARKETING ANALYST TO MEDICARE THEY WILL NOT ACCEPT EMAIL OR FAX, PT IS NOT ABLE TO ANSWER QUESTIONS FOR HIMSELF TO CHANGE MEDICARE COVERAGES AT THIS TIME. JAIRO REPORTS THIS PROCESS MAY TAKE OVER ONE WEEK. JAIRO NOW WANTS TO PLACE PT AT [facility] TO BEGIN REHAB THROUGH HIS MANAGED MEDICARE APPROVED AND SHE WILL WORK ON CHANGING TO STANDARD MEDICARE AND SECURING REHAB PLACEMENT IN [place] AT [facility]. JAIRO IS HER IN [place] AND IS AVAILABLE TO SIGN ADMISSION PAPERWORK TODAY AT [facility]. CM NOTIFIED SABA BRUNER. CM CALLED [facility], , NOTIFIED SHAYLA OF THE PLAN, SHAYLA REPORTS THEY WILL ACCEPT PT TODAY FOR REHAB, SHAYLA TO CALL CM SHORTLY WITH WHICH BUILDING PT WILL BE COMING TO. CM WAITING ON DISCHARGE ORDERS AND BUILDING ASSIGNMENT FOR THE [facility] ([facility]) FOR REHAB SERVICES APPROVED BY PT'S INSURANCE. Alli Khan, CASE MANAGEMENT DCP- Discharge Planning Updated by [id number]: Alli Khan on 03/24/18 10:[address] Patient Name: DANIEL ADAME Encounter No: [id number] : 1940 Primary Insurance: HUMANA CHOICE PPO MCR ADVANT Anticipated DC Date: 03-09-2018 Planned Disposition: Senior Care Facility External Planned Provider: [facility] IN [place], MEDICARE REHAB BED DCP follow-up note: CM RECEIVED CALL FROM FOZIA OF THE [facility], , WHO ADVISED THAT PT'S MANAGED MEDICARE INSURANCE HAS AUTHORIZED REHAB SERVICES AT [facility] FOR 7 DAYS. CM CALLED AND SPOKE TO PT'S DAUGHTER, JAIRO IBARRA [phone], NOTIFIED OF ABOVE. JAIRO DOES NOT WANT PT PLACED AT THE [facility] IN [place]; JAIRO NOW REPORTS SHE HAS CONTACTED MEDICARE TO CHANGE PT FROM MANAGED MEDICARE POLICY TO STANDARD MEDICARE; JAIRO HAS CALLED JOHANNA AT [facility] AND WANTS PT DISCHARGE TO [facility], JAIRO AND AGUSTO FRED PLAN TO TRANSFORMATION LEAD PT TOMORROW FOR TRANSPORT TO [place] AND WILL PLACE PT AT [facility] FOR REHAB. ALISE CALLED [facility], , SPOKE TO JOHANNA. JOHANNA HAS TALKED TO PT'S DAUGHTER REGARDING REHAB, THEY DON'T KNOW HOW LONG IT WILL TAKE PT TO BE CHANGED FROM MANAGED MEDICARE TO TRADITIONAL MEDICARE AND WILL NOT ACCEPT PT UNTIL THAT TIME AND ALSO NEED TO REVIEW PAPERWORK TO ENSURE THAT THERE IS "SOMETHING" THEY CAN PROVIDE CARE HOME FOR AT THIS TIME. ALISE FAXED REFERRAL UPDATE TO [facility] AT [phone]. FACILTY ADDRESS IS [address] [place] [address]. [id number]. PT'S DAUGHTER NOW DOES NOT WANT HOSPICE, STILL REFUSES PEG TUBE; WANTS PT ADMITTED TO REHAB AT [facility] IN [place]; SHE REFUSED PLACEMENT AT THE [facility] THAT INSURANCE HAS AUTHORIZED. CM WAITING ADMISSION DETERMINATION FROM [facility] C[facility] HOME FACILITY IN [place], [place]. CM WAITING PT'S DAUGHTER TO CHANGE PT BACK TO TRADITIONAL MEDICARE. DAUGHTER PLANS TO TRANSPORT PT TO [place] FOR REHAB AT [facility] 03-25-18. Alli Khan, CASE MANAGEMENT DCP- Discharge Planning Updated by [id number]: Alli Khan on 03/24/18 8:[address] Patient Name: DANIEL ADAME Encounter No: [id number] : 1940 Primary Insurance: HUMANA CHOICE PPO MCR ADVANT Anticipated DC Date: 03-09-2018 Planned Disposition: Senior Care Facility External Planned Provider: [facility], CERTIFIED CODER CARE MEDICAID BED DCP follow-up note: CM SPOKE TO CEM OF [facility]; SHE HAS TALKED TO JAIRO IBARRA, INFORMED HER THAT PT IS NOT MEETING CRITERIA FOR INPATIENT HOSPICE, THEY HAVE OFFERED RESPITE HOSPICE CARE AT [facility] FOR 5 DAYS; JAIRO DID NOT ACCEPT. CM CALLED AND SPOKE TO SHAYLA AT THE [facility], THEY HAVE CONTACTED PT'S INSURANCE TO INQUIRE ABOUT REHAB SERVICES INSTEAD OF HOSPICE, INSURANCE DOES NOT WANT TO PAY FOR REHAB SERVICES PT IS NOT EATING OR DRINKING, PT / FAMILY DOES NOT WANT PEG TUBE AND HOSICE IS INDICATED IN CHART. SHAYLA DOES NOT THINK THAT FINANCIAL WILL BE WORKED OUT IN 5 DAYS, BUT RECOMMENDED THAT FAMILY ACCEPTED DIEKSENS OFFER OF RESPITE CARE AT [facility] AND TRY TO WORK SOMETHING OUT WITH HOSPICE. CM MET WITH JAIRO IBARRA IN ROOM. JAIRO REPORTS SHE WAS TIRED AND CONFUSED LAST NIGHT. CM EXPLAINED HOSPICE RESPITE OFFER FROM [facility] FOR 5 DAYS AT [facility]. JAIRO ASKED ABOUT REHAB FOR PT AT [facility]. CM INFORMED JAIRO THAT INSURANCE WILL NOT PAY FOR REHAB SERVICES AT THIS TIME. JAIRO WAS AWARE THAT THE ALF SHE WANTED IN [facility] WILL NOT ACCEPT PT. JAIRO WANTS TO DISCUSS OPTIONS WITH HER SPOUSE AND IS CONSIDERING TAKING PT HOME. PT WAS DRINKING THICKENED WATER FOR NURSE THIS MORNING BUT REFUSED FURTHER INTAKE WHEN OFFERED BY DAUGHTER. JAIRO REPORTS SHE NEEDS TO CHECK ON GETTING PT ON "STANDARD MEDICARE" INSTEAD OF REPLACEMENT POLICY AND IS THINKING SHE WILL HAVE HER SPOUSE COME TO [place] AND THEY MAY TAKE PT TO HER HOME IN [place] TOMORROW. IMPORTANT MESSAGE FROM MEDICARE PROVIDED AND DISCUSSED. CM CONTINUES TO WAIT FAMILY DECISION REGARDING HOSPICE, DAUGHTER NOW REPORTING PLAN TO TAKE PT TO HER HOME IN [place] 03-25-18. Alli Khan, CASE MANAGEMENT DCP- Discharge Planning Updated by [id number]: Alli Khan on 03/23/18 2:[address] Patient Name: DANIEL ADAME Encounter No: [id number] : 1940 Primary Insurance: HUMANA CHOICE PPO MCR ADVANT Anticipated DC Date: 03-09-2018 Planned Disposition: Senior Care Facility External Planned Provider: [facility], GROUP HOME CARE MEDICAID BED DCP follow-up note: CM RECEIVED CALL FROM SHAYLA OF [facility], PT WILL NOT QUALIFY FOR GROUP HOME CARE MEDICAID DUE TO TRANSFER OF PROPERTY; THEY MAY BE ABLE TO TAKE TO TRY REHAB AND WILL CHECK ON SKILLED DAYS AND MAY ALSO TAKE ON PRIVATE PAY BASIS AND WILL DISCUSS THIS WITH DAUGHTER. PT'S DAUGHTER HAS INDICATED TO [facility] SHE FEELS PT ONLY HAS TWO OR THREE DAYS LEFT AND ASKED IF PT WILL QUALIFY FOR INPATIENT HOSPICE. CM ADVISED SHAYLA THAT CM DID NOT SEE ANY IMMEDIATE CRITERIA FOR INPATIENT HOSPICE QUALIFICATION AND WILL ASK FOR INPATIENT SCREENING FROM [facility]. CM CALLED [facility], , LEFT MESSAGE WITH ANSWERING SERVICE REQUESTING INPATIENT HOSPICE EVALUATION AT DAUGHTER'S REQUEST. CM NOTIFIED THAT [facility] NURSE WILL CONTACT CM SHORTLY. CM WAITING INPATIENT HOSPICE EVALUATION FROM [facility]. [facility] WILL TAKE PT FOR REHAB OR ON PRIVATE PAY CERTIFIED CODER CARE BASIS AND WILL DISCUSS THIS WITH PT'S DAUGHTER. Alli Khan, CASE MANAGEMENT Appended by Alli Khan on 03/23/2018 12:58 CDT: CM RECEIVED CALL FROM CEM OF [facility], SHE IS IN ROUTE TO HOSPITAL TO EVALUATE PT FOR INPATIENT HOSPICE. CM WAITING INPATIENT HOSPICE EVALUATION FROM [facility]. [facility] WILL TAKE PT FOR REHAB OR ON PRIVATE PAY GROUP HOME CARE BASIS AND WILL DISCUSS THIS WITH PT'S DAUGHTER. Alli Khan, CASE MANAGEMENT Appended by Alli Khan on 03/23/2018 13:52 CDT: CM SPOKE TO [facility], PT DOES NOT MEET CRITERIA FOR INPATIENT HOSPICE, SHE HAS CALLED AND LEFT MESSAGE FOR PT'S DAUGHTER CAROL. PRIEST REPORTS OPTIONS REMAIN FOR PRIVATE PAY FOR ALF OR FOR FAMILY MEMBER TO TAKE PT HOME FOR HOSPICE CARE. CM CALLED PT'S DAUGHTER, JAIRO IBARRA, , LEFT DETAILED MESSAGE REGARDING ABOVE INFORMATION, REQUESTING CALL BACK SOON POSSIBLE TO DISCUSS DISCHARGE PLANNING OPTIONS. CM WAITING ON JAIRO IBARRA, DAUGHTER, TO CALL CM TO DISCUSS OPTIONS OF PRIVATE PAY FOR ALF VS FAMILY TAKING PT HOME FOR HOSPICE. ALLI KHAN CASE MANAGEMENT Appended by Alli Khan on 03/23/2018 14:23 CDT: AT DAUGHTERS REQUEST TO CALL [employer] AND NOTIFY COURT OF PT'S INABILITY TO GET TO COURT HEARING THIS WEEK, CM CONTACTED PT'S [employer], DARIEL RIVERTONMaira [employer], , SPOKE TO MARIE WHO INFORMED CM THAT PT HAS COURT HEARING ON 03-25-[address] [facility] COURT ON 03-25-18 ON CHARGE OF TERRORISTIC THREATENING. CM CALLED DISTRICT COURT, , NOTIFIED HENNA WHO ASKED FOR LETTER TO BE FAXED TO THE COURT AT [phone]. CM OBTAINED DR AVILA SIGNATURE ON LETTER TO INFORM COURT OF PT'S LOCATION AND CONDITION. CM FAXED TO [facility] COURT AT [phone], EMAILED TO [facility] ALVARAD[facility] AT [email or web address]. CM WAITING ON JAIRO IBARRA, DAUGHTER, TO CALL CM TO DISCUSS OPTIONS OF PRIVATE PAY FOR ALF VS FAMILY TAKING PT HOME FOR HOSPICE. ALLI KHAN, CASE MANAGEMENT Appended by Alli Khan on 03/23/2018 15:08 CDT: CM RECEIVED CALL FROM SHAYLA OF THE [facility] WHO REPORTS THEY ARE STILL GATHERING FINANCIAL INFORMATION WITH ASSISTANCE OF FAMILY IN HOPES OF ASSISTING WITH PLACEMENT. CM WAITING ON JAIRO IBARRA, DAUGHTER, TO CALL CM TO DISCUSS OPTIONS OF PRIVATE PAY FOR ALF VS FAMILY TAKING PT HOME FOR HOSPICE. SRI QUEEN DCP- Discharge Planning Updated by [id number]: Alli Khan on 03/23/18 6:[address] Patient Name: DANIEL ADAME Encounter No: [id number] : 1940 Primary Insurance: HUMANA CHOICE PPO MCR ADVANT Anticipated DC Date: 03-09-2018 Planned Disposition: Senior Care Facility External Planned Provider: [facility], CERTIFIED CODER CARE MEDICAID BED DCP follow-up note: ZELALEM OF [facility] HAS MET WITH PT'S DAUGHTER AND EVALUATED PT, THEY WILL ACCEPT FOR HOSPICE AND WILL ENROLL PT AFTER HIS ARRIVAL AT THE ALF. ALISE [facility]. NOTIFY [facility] WHEN ALF PLACEMENT IS SECURED, , FAXE DISCHARGE INFORMATION TO [facility] AT [phone]. SRI Queen DCP- Discharge Planning Updated by [id number]: Alli Khan on 03/22/18 3:[address] Patient Name: DANIEL ADAME Encounter No: [id number] : 1940 Primary Insurance: HUMANA CHOICE PPO MCR ADVANT Anticipated DC Date: 03-09-2018 Planned Disposition: Senior Care Facility External Planned Provider: [facility], GROUP HOME CARE MEDICAID BED DCP follow-up note: CM RECEIVED CALL FROM JOHANNA OF [facility], PT IS NOT IN THEIR INSURANCE NETWORK AND THEY ARE NOT GOING TO BE ABLE TO HELP WITH GROUP HOME CARE FOR THIS PATIENT. CM RECEIVED CALL FROM JAIRO IBARRA, , WHO REPORTS THAT SHE HAS POWER OF INTERNET MARKETING ANALYST AND WILL BRING A COPY TO PLACE ON CHART, SHE HAD PREVIOUSLY PROVIDED IT TO MED SURG GLASS TECHNICIAN/INSTALLER BUT WILL BE HAPPY TO GIVE ANOTHER COPY REQUESTED. JAIRO INFORMED OF DECLINATION BY [facility]. JAIRO REPORTS THAT SHE HAS TALKED TO FAMILY AND THEY DECIDED TO LEAVE PT IN [place], JAIRO WOULD LIKE CM TO PLACE PT IN A GOOD ALF WITH NO PREFERNCE, CHOICE COMPLETED, AND NO PREFERENCE FOR HOSPICE COMPANY. ALISE NOTIFIED ADRIANO, , OF REFERRAL FOR CERTIFIED CODER CARE TO [facility]. CM FAXED REFERRAL TO THE [facility] VIA ADRIANO AT [phone]. CM CALLED [facility], , SPOKE TO ZELALEM AND PROVIDED HOSPICE REFERRAL INFORMATION, THEY DO CONTRACT WITH [facility]. CM FAXED REFERRAL TO [facility] AT [phone]. CM WAITING ADMISSION DETERMINATION FROM [facility] AND [facility] FOR GROUP HOME CARE. Alli Khan, CASE MANAGEMENT DCP- Discharge Planning Updated by [id number]: Alli Khan on 03/19/18 2:[address] Patient Name: DANIEL ADAME Encounter No: [id number] : 1940 Primary Insurance: HUMANA CHOICE PPO MCR ADVANT Anticipated DC Date: 03-09-2018 Planned Disposition: Senior Care Facility External Planned Provider: [facility] MEDICARE SKILLED BED DCP follow-up note: CM SPOKE TO PT'S DAUGHTER, JAIRO IBARRA ALONG WITH DR. LOVETT AND ALANA BAUMAN. DISUSSED WAS PT'S CONDITION, CARE HOME REHAB VS HOSPICE CARE. PT'S DAUGHTER IS STILL WANTING PT IN [place] AND ASKED FOR PT TO BE REFERRED TO [facility] CARE HOME [facility] IN [place], [place]. JAIRO HAS DISCUSSED PLACEMENT WITH JOHANNA AT FACILITY. TRANSPORTATION DISCUSSED; JAIRO DECIDED SHE WOULD LIKE CM TO OBTAIN TRANSPORT ESTIMATE FROM [facility] IF PLACEMENT CAN BE SECURED AT FACILITY. CHOICE SIGNED FOR [facility], IMPORTANT MESSAGE FROM MEDICARE PROVIDED AND EXPLAINED. CM CALLED [facility], , JOHANNA WAS NOT IN. CM SPOKE TO AILEEN WHO REPORTED THAT JOHANNA WOULD BE BACK IN THURSDAY AND WILL REVIEW REFERRAL THEN. CM FAXED REFERRAL TO [facility] AT [phone]. FACILTY ADDRESS IS [address] [place] [address]. [id number]. CM WAITING ADMISSION DETERMINATION FROM [facility] CARE HOME [facility] IN [place], [place]. Alli Khan, CASE MANAGEMENT DCP- Discharge Planning Updated by [id number]: Alli Khan on 03/17/18 2:[address] Patient Name: DANIEL ADAME Encounter No: [id number] : 1940 Primary Insurance: [employer] PPO MCR ADVANT Anticipated DC Date: 03-09-2018 Planned Disposition: Senior Care Facility External Planned Provider: TO BE DETERMINED DCP follow-up note: ALISE REVIEWED CHART, DR. BEARDEN'S NOTE INDICATES NEED TO SPEAK TO FAMILY REGARDING COMFORT CARE OR HOSPICE CARE FOR PT. ALISE RECEIVED CALL FROM DAUGHTER, JAIRO IBARRA, , WHO REQUESTED UPDATE. CM DISCUSSED DR. BEARDEN'S OPTION REGARDING HOSPICE OR COMFORT CARE. JAIRO REPORTS NO INTEREST AT THIS TIME FOR COMFORT CARE OR HOSPICE. JAIRO IS CONSIDERING PICKING UP PT IN CAR AND TAKING PT BACK TO [place] WHERE THEY LIVE, IT IS AN [address] ALISE EXPLAINED PT IS VERY WEAK AND WOULD NOT BE ABLE TO GET OUT OF THE CAR DURING PROLONGED TRANSPORTATION. JAIRO ONLY WANTED ASSURANCES THAT PT WOULD NOT DURING THE RIDE TO [place]. ALISE INFORMED JAIRO THAT CM COULD NOT PROVIDE THAT ASSURANCE, RECOMMENDED CARE HOME REHAB FOR PT. JAIRO REPORTS SHE WILL BE IN [place] AND AT THE HOSPITAL TOMORROW, 03-18-18 AT ABOUT 8:30 IN THE MORNING. SHE WOULD LIKE TO MEET WITH ALL DOCTORS IN THE MORNING IN A "BIG MEETING". ALISE EXPLAINED THAT THIS WOULD NOT BE POSSIBLE, OFFERED TO ASK DR. LOVETT, PRIMARY DOCTOR, TO MEET WITH HER IN THE MORNING, JAIRO ACCEPTED. JAIRO IBARRA, DAUGHTER, , WILL MEET WITH DR. LOVETT AND CM IN [facility], 03-18-18, TO DISCUSS PT'S CARE, PROGNOSIS AND DISCHARGE PLAN. Alli Khan, CASE MANAGEMENT DCP- Discharge Planning Updated by [id number]: Alli Khan on 03/11/18 7:[address] Patient Name: DANIEL ADAME Encounter No: [id number] : 1940 Primary Insurance: HUMANA CHOICE PPO MCR ADVANT Anticipated DC Date: 03-09-2018 Planned Disposition: Inpatient Rehab Facility External Planned Provider: [facility] DCP follow-up note: CM INFORMED PT THAT INSURANCE STILL HAS NOT PROVIDED AUTHORIZATION OR DENIAL FOR REHAB. PT STILL WILLING FOR REHAB AT [facility]. IMPORTANT MESSAGE FROM MEDICARE PROVIDED AND EXPLAINED. CM WAITING FOR INSURANCE AUTHORIZATION OR DENIAL FOR INPATIENT REHAB SERVICES AT [facility]. Alli Khan CASE MANAGEMENT DCP- Discharge Planning Updated by [id number]: Alli Khan on 03/08/18 3:[address] Patient Name: DANIEL ADAME Encounter No: [id number] : 1940 Primary Insurance: HUMANA CHOICE PPO MCR ADVANT Anticipated DC Date: 03-09-2018 Planned Disposition: Inpatient Rehab Facility External Planned Provider: [facility] DCP follow-up note: * Is the patient Alert and Oriented? Yes 0 * How many steps to enter\\exit or inside your home? 4-5 0 * PCP DR. VELÁZQUEZ 0 * Pharmacy [facility] * Preadmission Environment Acute Inpatient Rehab 0 * Facility Name [facility] INPATIENT REHAB 0 * ADLs Partial Dependent 0 * Partial ADLs (Assistance needed) Ambulation Bathing Medication Management Toileting Transfers 0 * Equipment None 0 * Other Equipment NO MEDICAL EQUIPMENT PROVIDER PREFERENCE 0 * List name and contact numbers for known caregivers / representatives who currently or will assist patient after discharge: JAIRO IBARRA, DAUGHTER, 0 * Verbal permission to speak to the caregivers and representatives has been obtained from the patient. Yes 0 * Community resources currently utilized None 0 * Please name any agencies selected above. NONE 0 * Additional services required to return to the preadmission environment? No 0 * Can the patient safely return to the preadmission environment? Yes 0 * Has this patient been hospitalized within the prior 30 days at any hospital? Yes 0 CM RECEIVED ORDER FOR INPATIENT REHAB PRESCREENING. CM SPOKE TO PT IN ROOM WHO IS VERY HARD OF HEARING. PT REPORTS HIS DAUGHTER, JAIRO, IS HERE AND FOR CM TO SPEAK TO HER REGARDING DISCHARGE PLAN. PT IS AGREEABLE TO INPATIENT REHAB AND STATES HE WAS LIVING AT HOME ALONE PRIOR TO HOSPITALIZATION. IMPORTANT MESSAGE FROM MEDICARE PROVIDED AND EXPLAINED. CM CALLED AND SPOKE TO JAIRO IBARRA, DAUGHTER, ; JAIRO REPORTS LIVING IN [place] AND IT IS A [address] TO GET PT THERE WHEN THEY LEAVE [place]. JAIRO WAS HOPING THAT PT WOULD BE STONG ENOUGH FOR THE RIDE AT DISCHARGE FROM HOSPITAL. CM REVIEWED THERAPY EVALUATION AND NOTES WITH JAIRO. JAIRO WOULD LIKE TO TRY TO GET PT BACK INTO INPATIENT REHAB AT [facility] STATING HE WAS ONLY IN THERE FOR ONE NIGHT BEFORE HAVING TO BE READMITTED; SHE HOPES FOR PT TO BE STONG ENOUGH FOR HER TO TRANSPORT PT TO [place] AT DISCHARGE AND SHE HAS A ALF IN MIND THAT WILL ACCEPT PT AT DISCHARGE IF NEEDED. CM WAITING FOR INPATIENT REHAB PRESCREENING AND INSURANCE AUTHORIZATION OR DENIAL FOR INPATIENT REHAB SERVICES. Alli Khan, CASE MANAGEMENT DCP- Discharge Planning Updated by [id number]: Jerica Tejeda on 03/07/18 7:[address] PATIENT WITH VARYING DEGREES OF ORIENTATION. HE IS ALSO HARD OF HEARING. WAS TRANSFERED TO ICU AFTER ONE DAY IN [facility] ACUTE REHAB. MD PLAN IS FOR POSSIBLE TRANSFER TO ACUTE REHAB THURSDAY. PATIENT WILL NEED TO BE EVALUATED AND LIKELY WILL REQUIRE A NEW PRECERT HE HAS [employer] CHOICE PPO MEDICARE ADVANTAGE AN INSURER. \\NO PHYSICAL THERAPY NOTES AT THIS TIME. WILL NEED PT/OT EVAL FOR PRECERT. REPORTEDLY LIVED ALONE PRIOR TO ADMISSION. HAD DAUGHTER,JAIRO IBARRA. CONTACT PHONE NUMBER CELL [phone] HOME [phone]. PATIENT ALSO HAS SONS :SERENA POMPA- [phone] AND MARJORIE SLAUGHTER- [phone]. CM WILL NEED TO MEET WITH PATIENT'S FAMILY REGARDING DISCHARGE PLAN. DCPIA - Discharge Planning Initial Assessment Updated by [id number]: Alli Khan on 03/08/18 4:26 pm * Is the patient Alert and Oriented? Yes * How many steps to enter\\exit or inside your home? 4-5 * PCP DR. VELÁZQUEZ * Pharmacy [facility] * Preadmission Environment Acute Inpatient Rehab * Facility Name [facility] INPATIENT REHAB * ADLs Partial Dependent * Partial ADLs (Assistance needed) Ambulation Bathing Medication Management Toileting Transfers * Equipment None * Other Equipment NO MEDICAL EQUIPMENT PROVIDER PREFERENCE * List name and contact numbers for known caregivers / representatives who currently or will assist patient after discharge: JAIRO IBARRA, DAUGHTER, * Verbal permission to speak to the caregivers and representatives has been obtained from the patient. Yes * Community resources currently utilized None * Please name any agencies selected above. NONE * Additional services required to return to the preadmission environment? No * Can the patient safely return to the preadmission environment? Yes * Has this patient been hospitalized within the prior 30 days at any hospital? Yes External Providers External Provider: [facility] Next Contact Date: 03/22/2018 Service Request Date: Service Type: Resolution: Reviewer: Comments: Coverage Notice Reviewer: ROSMERY Khan Notice Issued Date-Time: 03/08/2018 16:05 Notice Type: IM Discharge Notice Notice Delivered To: Patient Relationship to Patient: Numerical Control Nesting Operator Name: Delivery Method: HAND - Hand Delivered Sho Days: Prior Verbal Notification: Recipient Understood Notice: Yes Recipient Signature: Yes Med Rec Note Co-signed by Attending: Coverage Notice Comment: Reviewer: ROSMERY Khan Notice Issued Date-Time: 03/11/2018 8:10 Notice Type: IM Discharge Notice Notice Delivered To: Patient Relationship to Patient: Numerical Control Nesting Operator Name: Delivery Method: HAND - Hand Delivered Sho Days: Prior Verbal Notification: Recipient Understood Notice: Yes Recipient Signature: Yes Med Rec Note Co-signed by Attending: Coverage Notice Comment: Reviewer: ROSMERY Khan Notice Issued Date-Time: 03/19/2018 14:50 Notice Type: Patient Choice Letter Notice Delivered To: Family Member Relationship to Patient: Daughter Numerical Control Nesting Operator Name: JAIRO IBARRA Delivery Method: HAND - Hand Delivered Sho Days: Prior Verbal Notification: Recipient Understood Notice: Yes Recipient Signature: Yes Med Rec Note Co-signed by Attending: Coverage Notice Comment: Reviewer: ROSMERY Khan Notice Issued Date-Time: 03/19/2018 14:50 Notice Type: IM Discharge Notice Notice Delivered To: Family Member Relationship to Patient: Daughter Numerical Control Nesting Operator Name: JAIRO IBARRA Delivery Method: HAND - Hand Delivered Sho Days: Prior Verbal Notification: Recipient Understood Notice: Yes Recipient Signature: Yes Med Rec Note Co-signed by Attending: Coverage Notice Comment: Reviewer: [id number] Khan Notice Issued Date-Time: 03/22/2018 11:00 Notice Type: Patient Choice Letter Notice Delivered To: Family Member Relationship to Patient: Daughter Numerical Control Nesting Operator Name: JAIRO IBARRA Delivery Method: PHONE - Phone Sho Days: Prior Verbal Notification: Recipient Understood Notice: Yes Recipient Signature: Yes Med Rec Note Co-signed by Attending: Coverage Notice Comment: ANY [facility] WITH HOSPICE CARE. Reviewer: [id number] Marty Khan Notice Issued Date-Time: 03/24/2018 8:40 Notice Type: IM Discharge Notice Notice Delivered To: Family Member Relationship to Patient: Daughter Numerical Control Nesting Operator Name: JAIRO IBARRA Delivery Method: HAND - Hand Delivered Sho Days: Prior Verbal Notification: Recipient Understood Notice: Yes Recipient Signature: Yes Med Rec Note Co-signed by Attending: Coverage Notice Comment: Last DP export: 03/24/18 10:39 Patient Name: DANIEL ADAME Page [id number] at 1209 All edits/amendments must be made on the electronic document DICTATION DATE: 03/24/181208 TITLE SPECIALIST: RUBÉN 03/24/181208 RPT#: [id number] DC DATE: STATUS: ADM IN [facility] [address] [place] [address] END OF REPORT
--- NOTE | ~2018-03-03 | MORECARE ---
CASE MANAGEMENT DISCHARGE SUMMARY PATIENT: DANIEL ADAME UNIT: [id number] ADM DATE: 03/03/18 AGE: 78 : 40 SEX: M ROOM/BED: D.2104 AUTHOR: SAMUEL,DOC PHYSICIAN: REFERRING PHYSICIAN: AGGIE PANIAGUA MD DATE OF SERVICE: 03/23/18 Discharge Plan Patient Name: DANIEL ADAME Facility: [facility]:[place] : 1940 Planned Disposition: Retirement Facility Anticipated Discharge Date: 03/09/18 Discharge Date: Expected LOS: 6 Initial Reviewer: [id number] Initial Review Date: 03/03/2018 Generated: 03/23/18 4:14 pm Comments DCP- Discharge Planning Updated by [id number]: Alli Albarran on 03/23/18 2:[address] Patient Name: DANIEL ADAME Encounter No: [id number] : 1940 Primary Insurance: [employer] CHOICE PPO MCR ADVANT Anticipated DC Date: 03-09-2018 Planned Disposition: Retirement Facility External Planned Provider: [facility], [place] [facility] MEDICAID BED DCP follow-up note: CM RECEIVED CALL FROM SHAYLA OF [facility], PT WILL NOT QUALIFY FOR CORRECTION CARE MEDICAID DUE TO TRANSFER OF PROPERTY; THEY MAY BE ABLE TO TAKE TO TRY REHAB AND WILL CHECK ON SKILLED DAYS AND MAY ALSO TAKE ON PRIVATE PAY BASIS AND WILL DISCUSS THIS WITH DAUGHTER. PT'S DAUGHTER HAS INDICATED TO [facility] SHE FEELS PT ONLY HAS TWO OR THREE DAYS LEFT AND ASKED IF PT WILL QUALIFY FOR INPATIENT HOSPICE. CM ADVISED SHAYLA THAT CM DID NOT SEE ANY IMMEDIATE CRITERIA FOR INPATIENT HOSPICE QUALIFICATION AND WILL ASK FOR INPATIENT SCREENING FROM [facility]. ALISE CALLED [facility], , LEFT MESSAGE WITH ANSWERING SERVICE REQUESTING INPATIENT HOSPICE EVALUATION AT DAUGHTER'S REQUEST. ALISE NOTIFIED THAT [facility] NURSE WILL CONTACT CM SHORTLY. CM WAITING INPATIENT HOSPICE EVALUATION FROM [facility]. [facility] WILL TAKE PT FOR REHAB OR ON PRIVATE PAY CORRECTION CARE BASIS AND WILL DISCUSS THIS WITH PT'S DAUGHTER. Alli Albarran, CASE MANAGEMENT Appended by Alli Albarran on 03/23/2018 12:58 CDT: CM RECEIVED CALL FROM CEM OF [facility], SHE IS IN ROUTE TO HOSPITAL TO EVALUATE PT FOR INPATIENT HOSPICE. CM WAITING INPATIENT HOSPICE EVALUATION FROM [facility]. [facility] TAKE PT FOR REHAB OR ON PRIVATE PAY CORRECTION CARE BASIS AND WILL DISCUSS THIS WITH PT'S DAUGHTER. Alli Albarran, CASE MANAGEMENT Appended by Alli Albarran on 03/23/2018 13:52 CDT: CM SPOKE TO CEM OF [facility], PT DOES NOT MEET CRITERIA FOR INPATIENT HOSPICE, SHE HAS CALLED AND LEFT MESSAGE FOR PT'S DAUGHTER CAROL. PRIEST REPORTS OPTIONS REMAIN FOR PRIVATE PAY FOR ALF OR FOR FAMILY MEMBER TO TAKE PT HOME FOR HOSPICE CARE. CM CALLED PT'S DAUGHTER, JAIRO IBARRA, , LEFT DETAILED MESSAGE REGARDING ABOVE INFORMATION, REQUESTING CALL BACK SOON POSSIBLE TO DISCUSS DISCHARGE PLANNING OPTIONS. CM WAITING ON JAIRO IBARRA, DAUGHTER, TO CALL CM TO DISCUSS OPTIONS OF PRIVATE PAY FOR ALF VS FAMILY TAKING PT HOME FOR HOSPICE. ALLI ALBARRAN, CASE MANAGEMENT Appended by Alli Albarran on 03/23/2018 14:23 CDT: AT DAUGHTERS REQUEST TO CALL JAIR AND NOTIFY COURT OF PT'S INABILITY TO GET TO COURT HEARING THIS WEEK, CM CONTACTED PT'S Next Performance, LULU Balluun, , SPOKE TO MARIE WHO INFORMED CM THAT PT HAS COURT HEARING ON 03-25-18 IN [facility] DISTRICT COURT ON 03-25-18 ON CHARGE OF TERRORISTIC THREATENING. CM CALLED DISTRICT COURT, , NOTIFIED HENNA WHO ASKED FOR LETTER TO BE FAXED TO THE COURT AT [phone]. ALISE OBTAINED DR AVILA SIGNATURE ON LETTER TO INFORM COURT OF PT'S LOCATION AND CONDITION. CM FAXED TO [facility] AT [phone], [facility] AT . CM WAITING ON JAIRO IBARRA, DAUGHTER, TO CALL CM TO DISCUSS OPTIONS OF PRIVATE PAY FOR ALF VS FAMILY TAKING PT HOME FOR HOSPICE. ALLI ALBARRAN, CASE MANAGEMENT Appended by Alli Albarran on 03/23/2018 15:08 CDT: CM RECEIVED CALL FROM SHAYLA OF [facility] WHO REPORTS THEY ARE STILL GATHERING FINANCIAL INFORMATION WITH ASSISTANCE OF FAMILY IN HOPES OF ASSISTING WITH PLACEMENT. CM WAITING ON JAIRO IBARRA, DAUGHTER, TO CALL CM TO DISCUSS OPTIONS OF PRIVATE PAY FOR ALF VS FAMILY TAKING PT HOME FOR HOSPICE. ALLI ALBARRAN CASE MANAGEMENT DCP- Discharge Planning Updated by [id number]: Alli Albarran on 03/23/18 6:[address] Patient Name: DANIEL ADAME Encounter No: [id number] : 1940 Primary Insurance: [employer] CHOICE PPO MCR ADVANT Anticipated DC Date: 03-09-2018 Planned Disposition: Retirement Facility External Planned Provider: [facility] TERM CARE MEDICAID BED DCP follow-up note: ZELALEM OF [facility] HAS MET WITH PT'S DAUGHTER AND EVALUATED PT, THEY WILL ACCEPT FOR HOSPICE AND WILL ENROLL PT AFTER HIS ARRIVAL AT THE ALF. CM [facility]. NOTIFY [facility] WHEN ALF PLACEMENT IS SECURED, , FAXE DISCHARGE INFORMATION TO [facility] AT [phone]. Alli Albarran CASE MANAGEMENT DCP- Discharge Planning Updated by [id number]: Alli Albarran on 03/22/18 3:[address] Patient Name: DANIEL ADAME Encounter No: [id number] : 1940 Primary Insurance: [employer] CHOICE PPO MCR ADVANT Anticipated DC Date: 03-09-2018 Planned Disposition: Retirement Facility External Planned Provider: [facility], LONG TERM CARE MEDICAID BED DCP follow-up note: CM RECEIVED CALL FROM JOHANNA OF [facility], PT IS NOT IN THEIR INSURANCE NETWORK AND THEY ARE NOT GOING TO BE ABLE TO HELP WITH CORRECTION CARE FOR THIS PATIENT. CM RECEIVED CALL FROM JAIRO IBARRA, , WHO REPORTS THAT SHE HAS POWER OF CENTRAL SUPPLY TECH AND WILL BRING A COPY TO PLACE ON CHART, SHE HAD PREVIOUSLY PROVIDED IT TO MED SURG EQUIP TECH BUT WILL BE HAPPY TO GIVE ANOTHER COPY REQUESTED. JAIRO INFORMED OF DECLINATION BY [facility]. JAIRO REPORTS THAT SHE HAS TALKED TO FAMILY AND THEY DECIDED TO LEAVE PT IN [place], JAIRO WOULD LIKE CM TO PLACE PT IN A GOOD ALF WITH NO PREFERNCE, CHOICE COMPLETED, AND NO PREFERENCE FOR HOSPICE COMPANY. ALISE NOTIFIED ADRIANO, , OF REFERRAL FOR CORRECTION CARE TO [facility]. CM FAXED REFERRAL TO [facility] VIA ADRIANO AT [phone]. CM CALLED [facility], , SPOKE TO [facility] AND PROVIDED HOSPICE REFERRAL INFORMATION, THEY DO CONTRACT WITH [facility]. CM FAXED REFERRAL TO [facility] AT [phone]. CM WAITING ADMISSION DETERMINATION FROM [facility] AND [facility] FOR CORRECTION CARE. Alli Albarran CASE MANAGEMENT DCP- Discharge Planning Updated by [id number]: Alli Albarran on 03/19/18 2:[address] Patient Name: DANIEL ADAME Encounter No: [id number] : 1940 Primary Insurance: HUMANA CHOICE PPO MCR ADVANT Anticipated DC Date: 03-09-2018 Planned Disposition: Retirement Facility External Planned Provider: [facility] MEDICARE SKILLED BED DCP follow-up note: CM SPOKE TO PT'S DAUGHTER, JAIRO IBARRA ALONG WITH DR. LOVETT AND ALANA BAUAMN. DISUSSED WAS PT'S CONDITION, [facility] VS HOSPICE CARE. PT'S DAUGHTER IS STILL WANTING PT IN [place] AND ASKED FOR PT TO BE REFERRED TO [facility] IN [place], [place]. JAIRO HAS DISCUSSED PLACEMENT WITH JOHANNA AT FACILITY. TRANSPORTATION DISCUSSED; JAIRO DECIDED SHE WOULD LIKE CM TO OBTAIN TRANSPORT ESTIMATE FROM [facility] IF PLACEMENT CAN BE SECURED AT FACILITY. CHOICE SIGNED FOR [facility], IMPORTANT MESSAGE FROM MEDICARE PROVIDED AND EXPLAINED. CM CALLED [facility], , JOHANNA WAS NOT IN. CM SPOKE TO AILEEN WHO REPORTED THAT JOHANNA WOULD BE BACK IN THURSDAY AND WILL REVIEW REFERRAL THEN. CM FAXED REFERRAL TO [facility] AT [phone]. FACILTY ADDRESS IS [address] [place] [address]. [id number]. CM WAITING ADMISSION DETERMINATION FROM [facility] IN [place]. Alli Albarran, CASE MANAGEMENT DCP- Discharge Planning Updated by [id number]: Alli Albarran on 03/17/18 2:[address] Patient Name: DANIEL ADAME Encounter No: [id number] : 1940 Primary Insurance: [employer] CHOICE PPO MCR ADVANT Anticipated DC Date: 03-09-2018 Planned Disposition: Retirement Facility External Planned Provider: TO BE DETERMINED DCP follow-up note: CM REVIEWED CHART, DR. BEARDEN'S NOTE INDICATES NEED TO SPEAK TO FAMILY REGARDING COMFORT CARE OR HOSPICE CARE FOR PT. CM RECEIVED CALL FROM DAUGHTER, JAIRO IBARRA, , WHO REQUESTED UPDATE. CM DISCUSSED DR. BEARDEN'S OPTION REGARDING HOSPICE OR COMFORT CARE. JAIRO REPORTS NO INTEREST AT THIS TIME FOR COMFORT CARE OR HOSPICE. JAIRO IS CONSIDERING PICKING UP PT IN CAR AND TAKING PT BACK TO [place] WHERE THEY LIVE, IT IS AN [address] CM EXPLAINED PT IS VERY WEAK AND WOULD NOT BE ABLE TO GET OUT OF THE CAR DURING PROLONGED TRANSPORTATION. JAIRO ONLY WANTED ASSURANCES THAT PT WOULD NOT DURING THE RIDE TO [place]. CM INFORMED JAIRO THAT CM COULD NOT PROVIDE THAT ASSURANCE, RECOMMENDED [facility] FOR PT. JAIRO REPORTS SHE WILL BE IN [place] AND AT THE [facility] TOMORROW, 03-18-18 AT ABOUT 8:30 IN THE MORNING. SHE WOULD LIKE TO MEET WITH ALL DOCTORS IN THE MORNING IN A "BIG MEETING". CM EXPLAINED THAT THIS WOULD NOT BE POSSIBLE, OFFERED TO ASK DR. LOVETT, PRIMARY DOCTOR, TO MEET WITH HER IN THE MORNING, JAIRO ACCEPTED. JAIRO IBARRA, DAUGHTER, , WILL MEET WITH DR. LOVETT AND CM IN THE [facility], 03-18-18, TO DISCUSS PT'S CARE, PROGNOSIS AND DISCHARGE PLAN. SRI Clemons MANAGEMENT DCP- Discharge Planning Updated by [id number]: Alli Albarran on 03/11/18 7:[address] Patient Name: DANIEL ADAME Encounter No: [id number] : 1940 Primary Insurance: HU[employer]NA CHOICE PPO MCR ADVANT Anticipated DC Date: 03-09-2018 Planned Disposition: Inpatient Rehab Facility External Planned Provider: [facility] DCP follow-up note: CM INFORMED PT THAT INSURANCE STILL HAS NOT PROVIDED AUTHORIZATION OR DENIAL FOR REHAB. PT STILL WILLING FOR REHAB AT [place]. IMPORTANT MESSAGE FROM MEDICARE PROVIDED AND EXPLAINED. CM WAITING FOR INSURANCE AUTHORIZATION OR DENIAL FOR INPATIENT REHAB SERVICES AT [place]. Alli Albarran CASE MANAGEMENT DCP- Discharge Planning Updated by [id number]: Alli Albarran on 03/08/18 3:[address] Patient Name: DANIEL ADAME Encounter No: [id number] : 1940 Primary Insurance: HU[employer]NA CHOICE PPO MCR ADVANT Anticipated DC Date: 03-09-2018 Planned Disposition: Inpatient Rehab Facility External Planned Provider: [facility] DCP follow-up note: * Is the patient Alert and Oriented? Yes 0 * How many steps to enter\\exit or inside your home? 4-5 0 * PCP DR. VELÁZQUEZ 0 * Pharmacy [facility] 0 * Preadmission Environment Acute Inpatient Rehab 0 * Facility Name [facility] INPATIENT REHAB 0 * ADLs Partial Dependent 0 * Partial ADLs (Assistance needed) Ambulation Bathing Medication Management Toileting Transfers 0 * Equipment None 0 * Other Equipment NO MEDICAL EQUIPMENT PROVIDER PREFERENCE 0 * List name and contact numbers for known caregivers / representatives who currently or will assist patient after discharge: JAIRO IBARRA, DAUGHTER, 0 * Verbal permission to speak to the caregivers and representatives has been obtained from the patient. Yes 0 * Community resources currently utilized None 0 * Please name any agencies selected above. NONE 0 * Additional services required to return to the preadmission environment? No 0 * Can the patient safely return to the preadmission environment? Yes 0 * Has this patient been hospitalized within the prior 30 days at any hospital? Yes 0 CM RECEIVED ORDER FOR INPATIENT REHAB PRESCREENING. CM SPOKE TO PT IN ROOM WHO IS VERY HARD OF HEARING. PT REPORTS HIS DAUGHTER, JAIRO, IS HERE AND FOR CM TO SPEAK TO HER REGARDING DISCHARGE PLAN. PT IS AGREEABLE TO INPATIENT REHAB AND STATES HE WAS LIVING AT HOME ALONE PRIOR TO HOSPITALIZATION. IMPORTANT MESSAGE FROM MEDICARE PROVIDED AND EXPLAINED. CM CALLED AND SPOKE TO JAIRO IBARRA, DAUGHTER, ; JAIRO REPORTS LIVING IN [place] AND IT IS A [address] TO GET PT THERE WHEN THEY LEAVE [place]. JAIRO WAS HOPING THAT PT WOULD BE STONG ENOUGH FOR THE RIDE AT DISCHARGE FROM HOSPITAL. CM REVIEWED THERAPY EVALUATION AND NOTES WITH JAIRO. JAIRO WOULD LIKE TO TRY TO GET PT BACK INTO INPATIENT REHAB AT [place] STATING HE WAS ONLY IN THERE FOR ONE NIGHT BEFORE HAVING TO BE READMITTED; SHE HOPES FOR PT TO BE STONG ENOUGH FOR HER TO TRANSPORT PT TO [place] AT DISCHARGE AND SHE HAS A ALF IN MIND THAT WILL ACCEPT PT AT DISCHARGE IF NEEDED. CM WAITING FOR INPATIENT REHAB PRESCREENING AND INSURANCE AUTHORIZATION OR DENIAL FOR INPATIENT REHAB SERVICES. Alli Albarran, CASE MANAGEMENT DCP- Discharge Planning Updated by [id number]: Jerica Tejeda on 03/07/18 7:[address] PATIENT WITH VARYING DEGREES OF ORIENTATION. HE IS ALSO HARD OF HEARING. WAS TRANSFERED TO ICU AFTER ONE DAY IN [facility]UTE RE[facility]. MD PLAN IS FOR POSSIBLE TRANSFER TO ACUTE REHAB THURSDAY. PATIENT WILL NEED TO BE EVALUATED AND LIKELY WILL REQUIRE A NEW PRECERT HE HAS [employer] CHOICE PPO MEDICARE ADVANTAGE AN INSURER. \\NO PHYSICAL THERAPY NOTES AT THIS TIME. WILL NEED PT/OT EVAL FOR PRECERT. REPORTEDLY LIVED ALONE PRIOR TO ADMISSION. HAD DAUGHTER,JAIRO IBARRA. CONTACT PHONE NUMBER CELL [phone] HOME [phone]. PATIENT ALSO HAS SONS :SERENA POMPA- [phone] AND MARJORIE SLAUGHTER- [phone]. CM WILL NEED TO MEET WITH PATIENT'S FAMILY REGARDING DISCHARGE PLAN. DCPIA - Discharge Planning Initial Assessment Updated by [id number]: Alli Albarran on 03/08/18 4:26 pm * Is the patient Alert and Oriented? Yes * How many steps to enter\\exit or inside your home? 4-5 * PCP DR. VELÁZQUEZ * Pharmacy [facility] * Preadmission Environment Acute Inpatient Rehab * Facility Name [facility] INPATIENT REHAB * ADLs Partial Dependent * Partial ADLs (Assistance needed) Ambulation Bathing Medication Management Toileting Transfers * Equipment None * Other Equipment NO MEDICAL EQUIPMENT PROVIDER PREFERENCE * List name and contact numbers for known caregivers / representatives who currently or will assist patient after discharge: JAIRO IBARRA, DAUGHTER, * Verbal permission to speak to the caregivers and representatives has been obtained from the patient. Yes * Community resources currently utilized None * Please name any agencies selected above. NONE * Additional services required to return to the preadmission environment? No * Can the patient safely return to the preadmission environment? Yes * Has this patient been hospitalized within the prior 30 days at any hospital? Yes Coverage Notice Reviewer: [id number] Albarran Notice Issued Date-Time: 03/08/2018 16:05 Notice Type: IM Discharge Notice Notice Delivered To: Patient Relationship to Patient: Health Sciences Program Coordinator Name: Delivery Method: HAND - Hand Delivered Sho Days: Prior Verbal Notification: Recipient Understood Notice: Yes Recipient Signature: Yes Med Rec Note Co-signed by Attending: Coverage Notice Comment: Reviewer: ROSMERY Albarran Notice Issued Date-Time: 03/11/2018 8:10 Notice Type: IM Discharge Notice Notice Delivered To: Patient Relationship to Patient: Health Sciences Program Coordinator Name: Delivery Method: HAND - Hand Delivered Sho Days: Prior Verbal Notification: Recipient Understood Notice: Yes Recipient Signature: Yes Med Rec Note Co-signed by Attending: Coverage Notice Comment: Reviewer: ROSMERY Albarran Notice Issued Date-Time: 03/19/2018 14:50 Notice Type: Patient Choice Letter Notice Delivered To: Family Member Relationship to Patient: Daughter Health Sciences Program Coordinator Name: JAIRO IBARRA Delivery Method: HAND - Hand Delivered Sho Days: Prior Verbal Notification: Recipient Understood Notice: Yes Recipient Signature: Yes Med Rec Note Co-signed by Attending: Coverage Notice Comment: Reviewer: ROSMERY Albarran Notice Issued Date-Time: 03/19/2018 14:50 Notice Type: IM Discharge Notice Notice Delivered To: Family Member Relationship to Patient: Daughter Health Sciences Program Coordinator Name: JAIRO IBARRA Delivery Method: HAND - Hand Delivered Sho Days: Prior Verbal Notification: Recipient Understood Notice: Yes Recipient Signature: Yes Med Rec Note Co-signed by Attending: Coverage Notice Comment: Reviewer: ROSMERY Albarran Notice Issued Date-Time: 03/22/2018 11:00 Notice Type: Patient Choice Letter Notice Delivered To: Family Member Relationship to Patient: Daughter Health Sciences Program Coordinator Name: JAIRO IBARRA Delivery Method: PHONE - Phone Sho Days: Prior Verbal Notification: Recipient Understood Notice: Yes Recipient Signature: Yes Med Rec Note Co-signed by Attending: Coverage Notice Comment: [facility] WITH HOSPICE CARE. Last DP export: 03/23/18 1:23 Patient Name: DANIEL ADAME Page [id number] at 1514 All edits/amendments must be made on the electronic document DICTATION DATE: 03/23/18 151 DISTRICT OR DISTRICT OFFICE DIRECTOR: RUBÉN 03/23/18 1514 RPT#: [id number] DC DATE: STATUS: ADM IN [facility] [address] [place] [address] END OF REPORT
--- NOTE | ~2018-03-03 | MORECARE ---
CASE MANAGEMENT DISCHARGE SUMMARY PATIENT: DANIEL ADAME UNIT: [id number] ADM DATE: 03/03/18 AGE: 78 : 40 SEX: M ROOM/BED: D.2104 AUTHOR: SAMUEL,DOC PHYSICIAN: REFERRING PHYSICIAN: AGGIE PANIAGUA MD DATE OF SERVICE: 03/24/18 Discharge Plan Patient Name: DANIEL ADAME Facility: [facility]:[place] : 1940 Planned Disposition: [facility] Facility Anticipated Discharge Date: 03/24/18 Discharge Date: Expected LOS: 21 Initial Reviewer: [id number] Initial Review Date: 03/03/2018 Generated: 03/24/18 3:55 pm Comments DCP- Discharge Planning Updated by [id number]: Alli Khan on 03/24/18 1:[address] Patient Name: DANIEL ADAME Encounter No: [id number] : 1940 Primary Insurance: HUMANA CHOICE PPO MCR ADVANT Anticipated DC Date: 03-24-2018 Planned Disposition: [facility] Facility External Planned Provider: [facility]AB B[facility] DCP follow-up note: CM RECEIVED CALL FROM SHAYLA AT THE [facility], THEY WILL ACCEPT PT TODAY FOR REHAB, ARE CALLING PT'S DAUGHTER TO COMPLETE ADMISSION PAPERWORK NOW. BEDSIDE NURSE NOTFIED. CM FAXED UPDATE TO THE [facility] AND [facility] VIA ADRIANO, . FOR DISCHARGE, FAX DISCHARGE INFORMATION TO THE [facility], , NURSE REPORT TO BE CALLED TO THE [facility] AT [phone]. PT TO TRANSPORT VIA AMBULANCE. Alli Khan, CASE MANAGEMENT Appended by Alli Khan on 03/24/2018 14:53 CDT: CM RECEIVED CALL FROM JOHANNA AT [facility] IN [place] WHO REPORTS THEY CANNOT MEET PT'S NEEDS AND WILL NOT ACCEPT PT. JOHANNA HAS NOTIFIED PT'S DAUGHTER OF THIS TODAY AND INFORMED HER THAT EVEN IF MEDICARE WAS CHANGED TO STANDARD MEDICARE, IT WOULD NOT TAKE AFFECT UNTIL THE 1ST OF WHATEVER MONTH AFTER PT ARRIVES IN [place]. CM RECEIVED MESSAGE FROM PT'S DAUGHTER, JAIRO, WHO IS STILL IN AGREEMENT WITH DISCHARGE TO THE [facility] FOR REHAB AND WOULD LIKE CM TO FAX REFERRAL TO ANOTHER USP IN [place] TO CONTINUE SEEKING REHAB PLACEMENT CLOSER TO HER HOME; FAX [phone]. CM FAXED REFERRAL REQUESTED. SRI QUEEN MANAGEMENT DCP- Discharge Planning Updated by [id number]: Alli Khan on 03/24/18 11:[address] Patient Name: DANIEL ADAME Encounter No: [id number] : 1940 Primary Insurance: HUMANA CHOICE PPO MCR ADVANT Anticipated DC Date: 03-09-2018 Planned Disposition: [facility] Facility External Planned Provider: [facility], MEDICARE REHAB BED DCP follow-up note: CM RECEIVED CALL FROM PT'S DAUGHTER, JAIRO IBARRA [phone], WHO INFORMED CM THAT SHE HAS TO MAIL A COPY OF HER POWER OF ECONOMIC SPECIALIST TO MEDICARE THEY WILL NOT ACCEPT EMAIL OR FAX, PT IS NOT ABLE TO ANSWER QUESTIONS FOR HIMSELF TO CHANGE MEDICARE COVERAGES AT THIS TIME. JAIRO REPORTS THIS PROCESS MAY TAKE OVER ONE WEEK. JAIRO NOW WANTS TO PLACE PT AT THE [facility] TO BEGIN REHAB THROUGH HIS MANAGED MEDICARE APPROVED AND SHE WILL WORK ON CHANGING TO STANDARD MEDICARE AND SECURING REHAB PLACEMENT IN [place] AT [facility]. JAIRO IS HER IN [place] AND IS AVAILABLE TO SIGN ADMISSION PAPERWORK TODAY AT THE [facility]. CM NOTIFIED SABA BRUNER. CM CALLED THE [facility], , NOTIFIED SHAYLA OF THE PLAN, SHAYLA REPORTS THEY WILL ACCEPT PT TODAY FOR REHAB, SHAYLA TO CALL CM SHORTLY WITH WHICH BUILDING PT WILL BE COMING TO. CM WAITING ON DISCHARGE ORDERS AND BUILDING ASSIGNMENT FOR THE [facility] ([facility]) FOR REHAB SERVICES APPROVED BY PT'S INSURANCE. SRI Queen MANAGEMENT DCP- Discharge Planning Updated by [id number]: Alli Khan on 03/24/18 10:[address] Patient Name: DANIEL ADAME Encounter No: [id number] : 1940 Primary Insurance: HUMANA CHOICE PPO MCR ADVANT Anticipated DC Date: 03-09-2018 Planned Disposition: [facility] Facility External Planned Provider: [facility] IN [place], MEDICARE REHAB BED DCP follow-up note: CM RECEIVED CALL FROM FOZIA OF THE [facility], , WHO ADVISED THAT PT'S MANAGED MEDICARE INSURANCE HAS AUTHORIZED REHAB SERVICES AT THE [facility] FOR 7 DAYS. CM CALLED AND SPOKE TO PT'S DAUGHTER, JAIRO IBARRA [phone], NOTIFIED OF ABOVE. JAIRO DOES NOT WANT PT PLACED AT THE [facility] IN [place]; JAIRO NOW REPORTS SHE HAS CONTACTED MEDICARE TO CHANGE PT FROM MANAGED MEDICARE POLICY TO STANDARD MEDICARE; JAIRO HAS CALLED JOHANNA AT [facility] AND WANTS PT DISCHARGE TO [facility], JAIRO AND AGUSTO IBARRA PLAN TO STAFF ANESTHESIOLOGIST PT TOMORROW FOR TRANSPORT TO [place] AND WILL PLACE PT AT [facility] FOR REHAB. CM CALLED [facility], , SPOKE TO JOHANNA. JOHANNA HAS TALKED TO PT'S DAUGHTER REGARDING REHAB, THEY DON'T KNOW HOW LONG IT WILL TAKE PT TO BE CHANGED FROM MANAGED MEDICARE TO TRADITIONAL MEDICARE AND WILL NOT ACCEPT PT UNTIL THAT TIME AND ALSO NEED TO REVIEW PAPERWORK TO ENSURE THAT THERE IS "SOMETHING" THEY CAN PROVIDE LONG-TERM FOR AT THIS TIME. CM FAXED REFERRAL UPDATE TO [facility] AT [phone]. FACILTY ADDRESS IS [address] [place] [address]. [id number]. PT'S DAUGHTER NOW DOES NOT WANT HOSPICE, STILL REFUSES PEG TUBE; WANTS PT ADMITTED TO REHAB AT [facility] IN [place]; SHE REFUSED PLACEMENT AT THE [facility] THAT INSURANCE HAS AUTHORIZED. CM WAITING ADMISSION DETERMINATION FROM [facility] LONG-TERM FACILITY IN [place]. CM WAITING PT'S DAUGHTER TO CHANGE PT BACK TO TRADITIONAL MEDICARE. DAUGHTER PLANS TO TRANSPORT PT TO [place] FOR REHAB AT [facility] 03-25-18. Alli Khan, CASE MANAGEMENT DCP- Discharge Planning Updated by [id number]: Alli Khan on 03/24/18 8:[address] Patient Name: DANIEL ADAME Encounter No: [id number] : 1940 Primary Insurance: HUMANA CHOICE PPO MCR ADVANT Anticipated DC Date: 03-09-2018 Planned Disposition: [facility] Facility External Planned [facility] DCP follow-up note: CM SPOKE TO [facility]EM OF [facility]; SHE HAS TALKED TO JAIOR IBARRA, INFORMED HER THAT PT IS NOT MEETING CRITERIA FOR INPATIENT HOSPICE, THEY HAVE OFFERED RESPITE HOSPICE CARE AT [facility] FOR 5 DAYS; JAIRO DID NOT ACCEPT. CM CALLED AND SPOKE TO SHAYLA AT THE [facility], THEY HAVE CONTACTED PT'S INSURANCE TO INQUIRE ABOUT REHAB SERVICES INSTEAD OF HOSPICE, INSURANCE DOES NOT WANT TO PAY FOR REHAB SERVICES PT IS NOT EATING OR DRINKING, PT / FAMILY DOES NOT WANT PEG TUBE AND HOSICE IS INDICATED IN CHART. SHAYLA DOES NOT THINK THAT FINANCIAL WILL BE WORKED OUT IN 5 DAYS, BUT RECOMMENDED THAT FAMILY ACCEPTED DIEKS[facility] OFFER OF RESPITE CARE AT [facility] AND TRY TO WORK SOMETHING OUT WITH HOSPICE. CM MET WITH JAIRO IBARRA IN ROOM. JAIRO REPORTS SHE WAS TIRED AND CONFUSED LAST NIGHT. CM EXPLAINED HOSPICE RESPITE OFFER FROM [facility] FOR 5 DAYS AT [facility]. JAIRO ASKED ABOUT REHAB FOR PT AT THE [facility]. CM INFORMED JAIRO THAT INSURANCE WILL NOT PAY FOR REHAB SERVICES AT THIS TIME. JAIRO WAS AWARE THAT THE [facility] SHE [facility] WILL NOT ACCEPT PT. JAIRO WANTS TO DISCUSS OPTIONS WITH HER SPOUSE AND IS CONSIDERING TAKING PT HOME. PT WAS DRINKING THICKENED WATER FOR NURSE THIS MORNING BUT REFUSED FURTHER INTAKE WHEN OFFERED BY DAUGHTER. JAIRO REPORTS SHE NEEDS TO CHECK ON GETTING PT ON "STANDARD MEDICARE" INSTEAD OF REPLACEMENT POLICY AND IS THINKING SHE WILL HAVE HER SPOUSE COME TO [place] AND THEY MAY TAKE PT TO HER HOME IN [place] TOMORROW. IMPORTANT MESSAGE FROM MEDICARE PROVIDED AND DISCUSSED. CM CONTINUES TO WAIT FAMILY DECISION REGARDING HOSPICE, DAUGHTER NOW REPORTING PLAN TO TAKE PT TO HER HOME IN [place] 03-25-18. Alli Khan, CASE MANAGEMENT DCP- Discharge Planning Updated by [id number]: Alli Khan on 03/23/18 2:[address] Patient Name: DANIEL ADAME Encounter No: [id number] : 1940 Primary Insurance: HUMANA CHOICE PPO MCR ADVANT Anticipated DC Date: 03-09-2018 Planned Disposition: [facility] Facility External Planned Provider: [facility], MACHINE PRESERVATIVE FILLER CARE MEDICAID BED DCP follow-up note: CM RECEIVED CALL FROM SHAYLA OF THE [facility], PT WILL NOT QUALIFY FOR MACHINE PRESERVATIVE FILLER CARE MEDICAID DUE TO TRANSFER OF PROPERTY; THEY MAY BE ABLE TO TAKE TO TRY REHAB AND WILL CHECK ON SKILLED DAYS AND MAY ALSO TAKE ON PRIVATE PAY BASIS AND WILL DISCUSS THIS WITH DAUGHTER. PT'S DAUGHTER HAS INDICATED TO THE [facility] SHE FEELS PT ONLY HAS TWO OR THREE DAYS LEFT AND ASKED IF PT WILL QUALIFY FOR INPATIENT HOSPICE. CM ADVISED SHAYLA THAT CM DID NOT SEE ANY IMMEDIATE CRITERIA FOR INPATIENT HOSPICE QUALIFICATION AND WILL ASK FOR INPATIENT SCREENING FROM [facility]. CM CALLED [facility], , LEFT MESSAGE WITH ANSWERING SERVICE REQUESTING INPATIENT HOSPICE EVALUATION AT DAUGHTER'S REQUEST. CM NOTIFIED THAT [facility] NURSE WILL CONTACT CM SHORTLY. CM WAITING INPATIENT HOSPICE EVALUATION FROM [facility]. [facility] WILL TAKE PT FOR REHAB OR ON PRIVATE PAY DETENTION CARE BASIS AND WILL DISCUSS THIS WITH PT'S DAUGHTER. Alli Khan, CASE MANAGEMENT Appended by Alli Khan on 03/23/2018 12:58 CDT: CM RECEIVED CALL FROM [facility], SHE IS IN ROUTE TO HOSPITAL TO EVALUATE PT FOR INPATIENT HOSPICE. CM WAITING INPATIENT HOSPICE EVALUATION FROM [facility]. [facility] WILL TAKE PT FOR REHAB OR ON PRIVATE PAY DETENTION CARE BASIS AND WILL DISCUSS THIS WITH PT'S DAUGHTER. Alli Khan, CASE MANAGEMENT Appended by Alli Khan on 03/23/2018 13:52 CDT: CM SPOKE TO [facility], PT DOES NOT MEET CRITERIA FOR INPATIENT HOSPICE, SHE HAS CALLED AND LEFT MESSAGE FOR PT'S DAUGHTER CAROL. PRIEST REPORTS OPTIONS REMAIN FOR PRIVATE PAY FOR [facility] OR FOR FAMILY MEMBER TO TAKE PT HOME FOR HOSPICE CARE. CM CALLED PT'S DAUGHTER, JAIRO IBARRA, , LEFT DETAILED MESSAGE REGARDING ABOVE INFORMATION, REQUESTING CALL BACK SOON POSSIBLE TO DISCUSS DISCHARGE PLANNING OPTIONS. CM WAITING ON JAIRO IBARRA, DAUGHTER, TO CALL CM TO DISCUSS OPTIONS OF PRIVATE PAY FOR [facility] VS FAMILY TAKING PT HOME FOR HOSPICE. ALLI KHAN, CASE MANAGEMENT Appended by Alli Khan on 03/23/2018 14:23 CDT: AT DAUGHTERS REQUEST TO CALL JAIR AND NOTIFY COURT OF PT'S INABILITY TO GET TO COURT HEARING THIS WEEK, CM CONTACTED PT'S [employer], [place] [employer], , SPOKE TO MARIE WHO INFORMED CM THAT PT HAS COURT HEARING ON 03-25-[address] [facility] COURT ON 03-25-18 ON CHARGE OF TERRORISTIC THREATENING. CM CALLED DISTRICT COURT, , NOTIFIED HENNA WHO ASKED FOR LETTER TO BE FAXED TO THE COURT AT [phone]. CM OBTAINED DR AVILA SIGNATURE ON LETTER TO INFORM COURT OF PT'S LOCATION AND CONDITION. CM FAXED TO [facility] COURT AT [phone], EMAILED TO DARIEL ALVARADO AT [email or web address]. CM WAITING ON JAIRO IBARRA, DAUGHTER, TO CALL CM TO DISCUSS OPTIONS OF PRIVATE PAY FOR [facility] VS FAMILY TAKING PT HOME FOR HOSPICE. ALLI KHAN, CASE MANAGEMENT Appended by Alli Khan on 03/23/2018 15:08 CDT: CM RECEIVED CALL FROM SHAYLA OF THE [facility] WHO REPORTS THEY ARE STILL GATHERING FINANCIAL INFORMATION WITH ASSISTANCE OF FAMILY IN HOPES OF ASSISTING WITH PLACEMENT. CM WAITING ON JAIRO IBARRA, DAUGHTER, TO CALL CM TO DISCUSS OPTIONS OF PRIVATE PAY FOR [facility] VS FAMILY TAKING PT HOME FOR HOSPICE. ALLI KHAN CASE MANAGEMENT DCP- Discharge Planning Updated by [id number]: Alli Khan on 03/23/18 6:[address] Patient Name: DANIEL ADAME Encounter No: [id number] : 1940 Primary Insurance: HUMANA CHOICE PPO [facility] ADVANT Anticipated DC Date: 03-09-2018 Planned Disposition: [facility] Facility External Planned Provider: [facility] TERM CARE MEDICAID BED DCP follow-up note: [facility] HAS MET WITH PT'S DAUGHTER AND EVALUATED PT, THEY WILL ACCEPT FOR HOSPICE AND WILL ENROLL PT AFTER HIS ARRIVAL AT THE USP. CM [facility]ACH[facility] PRESERVATIVE FILLER CARE. NOTIFY [facility] WHEN USP PLACEMENT IS SECURED, , FAXE DISCHARGE INFORMATION TO [facility] AT [phone]. Alli Khan CASE MANAGEMENT DCP- Discharge Planning Updated by [id number]: Alli Khan on 03/22/18 3:[address] Patient Name: DANIEL ADAME Encounter No: [id number] : 1940 Primary Insurance: HUMANA CHOICE PPO MCR ADVANT Anticipated DC Date: 03-09-2018 Planned Disposition: [facility]ci Facility External Planned Provider: [facility] TERM CARE MEDICAID BED DCP follow-up note: CM RECEIVED CALL FROM JOHANNA OF [facility], PT IS NOT IN THEIR INSURANCE NETWORK AND THEY ARE NOT GOING TO BE ABLE TO HELP WITH MACHINE PRESERVATIVE FILLER CARE FOR THIS PATIENT. CM RECEIVED CALL FROM JAIRO IBARRA, , WHO REPORTS THAT SHE HAS POWER OF ECONOMIC SPECIALIST AND WILL BRING A COPY TO PLACE ON CHART, SHE HAD PREVIOUSLY PROVIDED IT TO MED SURG TREATING AND PUMPING SUPERVISOR BUT WILL BE HAPPY TO GIVE ANOTHER COPY REQUESTED. JAIRO INFORMED OF DECLINATION BY [facility]. JAIRO REPORTS THAT SHE HAS TALKED TO FAMILY AND THEY DECIDED TO LEAVE PT IN [place], JAIRO WOULD LIKE CM TO PLACE PT IN A GOOD [facility] WITH NO PREFERNCE, CHOICE COMPLETED, AND NO PREFERENCE FOR HOSPICE COMPANY. ALISE NOTIFIED ADRIANO, , OF REFERRAL FOR DETENTION CARE TO THE [facility]. CM FAXED REFERRAL TO THE [facility] VIA ADRIANO AT [phone]. CM CALLED [facility]OS[facility], , SPOKE TO [facility] AND PROVIDED HOSPICE REFERRAL INFORMATION, THEY DO CONTRACT WITH THE [facility]. CM FAXED REFERRAL TO [facility] AT [phone]. CM WAITING ADMISSION DETERMINATION FROM [facility] AND THE [facility] FOR DETENTION CARE. Alli Khan, CASE MANAGEMENT DCP- Discharge Planning Updated by [id number]: Alli Khan on 03/19/18 2:[address] Patient Name: DANIEL ADAME Encounter No: [id number] : 1940 Primary Insurance: [employer] PPO MCR ADVANT Anticipated DC Date: 03-09-2018 Planned Disposition: [facility]ci Facility External Planned Provider: [facility], MEDICARE SKILLED BED DCP follow-up note: ALISE SPOKE TO PT'S DAUGHTER, JAIRO IBARRA ALONG WITH DR. LOVETT AND ALANA BAUMAN. DISUSSED WAS PT'S CONDITION, LONG-TERM REHAB VS HOSPICE CARE. PT'S DAUGHTER IS STILL WANTING PT IN [place] AND ASKED FOR PT TO BE REFERRED TO [facility] IN [place], [place]. JAIRO HAS DISCUSSED PLACEMENT WITH JOHANNA AT FACILITY. TRANSPORTATION DISCUSSED; JAIRO DECIDED SHE WOULD LIKE CM TO OBTAIN TRANSPORT ESTIMATE FROM [employer] IF PLACEMENT CAN BE SECURED AT FACILITY. CHOICE SIGNED FOR [facility], IMPORTANT MESSAGE FROM MEDICARE PROVIDED AND EXPLAINED. ALISE CALLED [facility], , JOHANNA WAS NOT IN. CM SPOKE TO AILEEN WHO REPORTED THAT JOHANNA WOULD BE BACK IN THURSDAY AND WILL REVIEW REFERRAL THEN. CM FAXED REFERRAL TO [facility] AT [phone]. FACILTY ADDRESS IS [address] [place] [address]. [id number]. CM WAITING ADMISSION DETERMINATION FROM [facility] IN [place], [place]. SRI Queen MANAGEMENT DCP- Discharge Planning Updated by [id number]: Alli Khan on 03/17/18 2:[address] Patient Name: DANIEL ADAME Encounter No: [id number] : 1940 Primary Insurance: HUMANA CHOICE PPO MCR ADVANT Anticipated DC Date: 03-09-2018 Planned Disposition: [facility]ci Facility External Planned Provider: TO BE DETERMINED DCP follow-up note: CM REVIEWED CHART, DR. BEARDEN'S NOTE INDICATES NEED TO SPEAK TO FAMILY REGARDING COMFORT CARE OR HOSPICE CARE FOR PT. CM RECEIVED CALL FROM DAUGHTER, JAIRO IBARRA, , WHO REQUESTED UPDATE. CM DISCUSSED DR. BEARDEN'S OPTION REGARDING HOSPICE OR COMFORT CARE. JAIRO REPORTS NO INTEREST AT THIS TIME FOR COMFORT CARE OR HOSPICE. JAIRO IS CONSIDERING PICKING UP PT IN CAR AND TAKING PT BACK TO [place] WHERE THEY LIVE, IT IS AN [address] CM EXPLAINED PT IS VERY WEAK AND WOULD NOT BE ABLE TO GET OUT OF THE CAR DURING PROLONGED TRANSPORTATION. JAIRO ONLY WANTED ASSURANCES THAT PT WOULD NOT DURING THE RIDE TO [place]. CM INFORMED JAIRO THAT CM COULD NOT PROVIDE THAT ASSURANCE, RECOMMENDED LONG-TERM REHAB FOR PT. JAIRO REPORTS SHE WILL BE IN [place] AND AT THE HOSPITAL TOMORROW, 03-18-18 AT ABOUT 8:30 IN THE MORNING. SHE WOULD LIKE TO MEET WITH ALL DOCTORS IN THE MORNING IN A "BIG MEETING". CM EXPLAINED THAT THIS WOULD NOT BE POSSIBLE, OFFERED TO ASK DR. LOVETT, PRIMARY DOCTOR, TO MEET WITH HER IN THE MORNING, JAIRO ACCEPTED. JAIRO IBARRA, DAUGHTER, , WILL MEET WITH DR. LOVETT AND CM IN THE [facility], 03-18-18, TO DISCUSS PT'S CARE, PROGNOSIS AND DISCHARGE PLAN. SRI Queen DCP- Discharge Planning Updated by [id number]: Alli Khan on 03/11/18 7:[address] Patient Name: DANIEL ADAME Encounter No: [id number] : 1940 Primary Insurance: HUMANA CHOICE PPO MCR ADVANT Anticipated DC Date: 03-09-2018 Planned Disposition: Inpatient Rehab Facility External Planned Provider: [facility] DCP follow-up note: CM INFORMED PT THAT INSURANCE STILL HAS NOT PROVIDED AUTHORIZATION OR DENIAL FOR REHAB. PT STILL WILLING FOR REHAB AT [facility]. IMPORTANT MESSAGE FROM MEDICARE PROVIDED AND EXPLAINED. CM WAITING FOR INSURANCE AUTHORIZATION OR DENIAL FOR INPATIENT REHAB SERVICES AT [facility]. Alli Khan, CASE MANAGEMENT DCP- Discharge Planning Updated by [id number]: Alli Khan on 03/08/18 3:[address] Patient Name: DANIEL ADAME Encounter No: [id number] : 1940 Primary Insurance: HUMANA CHOICE PPO MCR ADVANT Anticipated DC Date: 03-09-2018 Planned Disposition: Inpatient Rehab Facility External Planned Provider: [facility] INPATIENT REHAB DCP follow-up note: * Is the patient Alert and Oriented? Yes 0 * How many steps to enter\\exit or inside your home? 4-5 0 * PCP DR. VELÁZQUEZ 0 * Pharmacy [facility] 0 * Preadmission Environment Acute Inpatient Rehab 0 * Facility Name [facility] INPATIENT REHAB 0 * ADLs Partial Dependent 0 * Partial ADLs (Assistance needed) Ambulation Bathing Medication Management Toileting Transfers 0 * Equipment None 0 * Other Equipment NO MEDICAL EQUIPMENT PROVIDER PREFERENCE 0 * List name and contact numbers for known caregivers / representatives who currently or will assist patient after discharge: JAIRO IBARRA, DAUGHTER, 0 * Verbal permission to speak to the caregivers and representatives has been obtained from the patient. Yes 0 * Community resources currently utilized None 0 * Please name any agencies selected above. NONE 0 * Additional services required to return to the preadmission environment? No 0 * Can the patient safely return to the preadmission environment? Yes 0 * Has this patient been hospitalized within the prior 30 days at any hospital? Yes 0 CM RECEIVED ORDER FOR INPATIENT REHAB PRESCREENING. CM SPOKE TO PT IN ROOM WHO IS VERY HARD OF HEARING. PT REPORTS HIS DAUGHTER, JAIRO, IS HERE AND FOR CM TO SPEAK TO HER REGARDING DISCHARGE PLAN. PT IS AGREEABLE TO INPATIENT REHAB AND STATES HE WAS LIVING AT HOME ALONE PRIOR TO HOSPITALIZATION. IMPORTANT MESSAGE FROM MEDICARE PROVIDED AND EXPLAINED. CM CALLED AND SPOKE TO JAIRO IBARRA, DAUGHTER, ; JAIRO REPORTS LIVING IN [place] AND IT IS A [address] TO GET PT THERE WHEN THEY LEAVE [place]. JAIRO WAS HOPING THAT PT WOULD BE STONG ENOUGH FOR THE RIDE AT DISCHARGE FROM HOSPITAL. CM REVIEWED THERAPY EVALUATION AND NOTES WITH JAIRO. JAIRO WOULD LIKE TO TRY TO GET PT BACK INTO INPATIENT REHAB AT [facility] STATING HE WAS ONLY IN THERE FOR ONE NIGHT BEFORE HAVING TO BE READMITTED; SHE HOPES FOR PT TO BE STONG ENOUGH FOR HER TO TRANSPORT PT TO [place] AT DISCHARGE AND SHE HAS A USP IN MIND THAT WILL ACCEPT PT AT DISCHARGE IF NEEDED. CM WAITING FOR INPATIENT REHAB PRESCREENING AND INSURANCE AUTHORIZATION OR DENIAL FOR INPATIENT REHAB SERVICES. Alli Khan, CASE MANAGEMENT DCP- Discharge Planning Updated by [id number]: Jerica Oconnells on 03/07/18 7:[address] PATIENT WITH VARYING DEGREES OF ORIENTATION. HE IS ALSO HARD OF HEARING. WAS TRANSFERED TO ICU AFTER ONE DAY IN [facility]. MD PLAN IS FOR POSSIBLE TRANSFER TO ACUTE REHAB THURSDAY. PATIENT WILL NEED TO BE EVALUATED AND LIKELY WILL REQUIRE A NEW PRECERT HE HAS HUMANA CHOICE PPO MEDICARE ADVANTAGE AN INSURER. \\NO PHYSICAL THERAPY NOTES AT THIS TIME. WILL NEED PT/OT EVAL FOR PRECERT. REPORTEDLY LIVED ALONE PRIOR TO ADMISSION. HAD DAUGHTER,JAIRO IBARRA. CONTACT PHONE NUMBER CELL [phone] HOME [phone]. PATIENT ALSO HAS SONS :SERENA POMPA- [phone] AND MARJORIE SLAUGHTER- [phone]. CM WILL NEED TO MEET WITH PATIENT'S FAMILY REGARDING DISCHARGE PLAN. DCPIA - Discharge Planning Initial Assessment Updated by [id number]: Alli Khan on 03/08/18 4:26 pm * Is the patient Alert and Oriented? Yes * How many steps to enter\\exit or inside your home? 4-5 * PCP DR. VELÁZQUEZ * Pharmacy [facility] * Preadmission Environment Acute Inpatient Rehab * Facility Name [facility] INPATIENT REHAB * ADLs Partial Dependent * Partial ADLs (Assistance needed) Ambulation Bathing Medication Management Toileting Transfers * Equipment None * Other Equipment NO MEDICAL EQUIPMENT PROVIDER PREFERENCE * List name and contact numbers for known caregivers / representatives who currently or will assist patient after discharge: JAIRO IBARRA, DAUGHTER, * Verbal permission to speak to the caregivers and representatives has been obtained from the patient. Yes * Community resources currently utilized None * Please name any agencies selected above. NONE * Additional services required to return to the preadmission environment? No * Can the patient safely return to the preadmission environment? Yes * Has this patient been hospitalized within the prior 30 days at any hospital? Yes External Providers External Provider: OTHER-OTHER Next Contact Date: 03/24/2018 Service Request Date: Service Type: Resolution: Reviewer: Comments: Coverage Notice Reviewer: ROSMERY Khan Notice Issued Date-Time: 03/08/2018 16:05 Notice Type: IM Discharge Notice Notice Delivered To: Patient Relationship to Patient: Flatwork Presser Name: Delivery Method: HAND - Hand Delivered Sho Days: Prior Verbal Notification: Recipient Understood Notice: Yes Recipient Signature: Yes Med Rec Note Co-signed by Attending: Coverage Notice Comment: Reviewer: ROSMERY Khan Notice Issued Date-Time: 03/11/2018 8:10 Notice Type: IM Discharge Notice Notice Delivered To: Patient Relationship to Patient: Flatwork Presser Name: Delivery Method: HAND - Hand Delivered Sho Days: Prior Verbal Notification: Recipient Understood Notice: Yes Recipient Signature: Yes Med Rec Note Co-signed by Attending: Coverage Notice Comment: Reviewer: ROSMERY Khan Notice Issued Date-Time: 03/19/2018 14:50 Notice Type: Patient Choice Letter Notice Delivered To: Family Member Relationship to Patient: Daughter Flatwork Presser Name: JAIRO IBARRA Delivery Method: HAND - Hand Delivered Sho Days: Prior Verbal Notification: Recipient Understood Notice: Yes Recipient Signature: Yes Med Rec Note Co-signed by Attending: Coverage Notice Comment: Reviewer: ROSMERY Khan Notice Issued Date-Time: 03/19/2018 14:50 Notice Type: IM Discharge Notice Notice Delivered To: Family Member Relationship to Patient: Daughter Flatwork Presser Name: JAIRO IBARRA Delivery Method: HAND - Hand Delivered Sho Days: Prior Verbal Notification: Recipient Understood Notice: Yes Recipient Signature: Yes Med Rec Note Co-signed by Attending: Coverage Notice Comment: Reviewer: ROSMERY Khan Notice Issued Date-Time: 03/22/2018 11:00 Notice Type: Patient Choice Letter Notice Delivered To: Family Member Relationship to Patient: Daughter Flatwork Presser Name: JAIRO IBARRA Delivery Method: PHONE - Phone Sho Days: Prior Verbal Notification: Recipient Understood Notice: Yes Recipient Signature: Yes Med Rec Note Co-signed by Attending: Coverage Notice Comment: ANY [place] [facility]-TERM FACILITY WITH HOSPICE CARE. Reviewer: [id number] - Alli Khan Notice Issued Date-Time: 03/24/2018 8:40 Notice Type: IM Discharge Notice Notice Delivered To: Family Member Relationship to Patient: Daughter Flatwork Presser Name: JAIRO IBARRA Delivery Method: HAND - Hand Delivered Sho Days: Prior Verbal Notification: Recipient Understood Notice: Yes Recipient Signature: Yes Med Rec Note Co-signed by Attending: Coverage Notice Comment: Last DP export: 03/24/18 11:38 Patient Name: DANIEL ADAME Page [id number] at 1455 All edits/amendments must be made on the electronic document DICTATION DATE: 03/24/181453 [employer] OPERATOR: RUBÉN 03/24/181453 RPT#: [id number] DC DATE: STATUS: ADM IN [facility] [address] [place] [address] END OF REPORT
--- NOTE | ~2018-03-03 | MORECARE ---
CASE MANAGEMENT DISCHARGE SUMMARY PATIENT: DANIEL ADAME UNIT: [id number] ADM DATE: 03/03/18 AGE: 78 : 40 SEX: M ROOM/BED: D.2104 AUTHOR: SAMUEL,DOC PHYSICIAN: REFERRING PHYSICIAN: AGGIE PANIAGUA MD DATE OF SERVICE: 03/23/18 Discharge Plan Patient Name: DANIEL ADAME Facility: [facility]:[place] : 1940 Planned Disposition: [facility] Facility Anticipated Discharge Date: 03/09/18 Discharge Date: Expected LOS: 6 Initial Reviewer: [id number] Initial Review Date: 03/03/2018 Generated: 03/23/18 2:01 pm Comments DCP- Discharge Planning Updated by [email or web address]: Camron Khan on 03/23/18 11:[address] Patient Name: DANIEL ADAME Encounter No: [id number] : 1940 Primary Insurance: [employer] CHOICE PPO MCR ADVANT Anticipated DC Date: 03-09-2018 Planned Disposition: [facility] Facility External Planned Provider: [facility], NURSING HOME CARE MEDICAID BED DCP follow-up note: CM RECEIVED CALL FROM SHAYLA OF [facility], PT WILL NOT QUALIFY FOR IMMIGRATION CASE WORKER CARE MEDICAID DUE TO TRANSFER OF PROPERTY; THEY MAY BE ABLE TO TAKE TO [facility] AND WILL CHECK ON SKILLED DAYS AND MAY ALSO TAKE ON PRIVATE PAY BASIS AND WILL DISCUSS THIS WITH DAUGHTER. PT'S DAUGHTER HAS INDICATED TO [facility] SHE FEELS PT ONLY HAS TWO OR THREE DAYS LEFT AND ASKED IF PT WILL QUALIFY FOR INPATIENT HOSPICE. CM ADVISED SHAYLA THAT CM DID NOT SEE ANY IMMEDIATE CRITERIA FOR INPATIENT HOSPICE QUALIFICATION AND WILL ASK FOR INPATIENT SCREENING FROM [facility]. ALISE CALLED [facility], , LEFT MESSAGE WITH ANSWERING SERVICE REQUESTING INPATIENT HOSPICE EVALUATION AT DAUGHTER'S REQUEST. ALISE NOTIFIED THAT [facility] NURSE WILL CONTACT CM SHORTLY. CM WAITING INPATIENT HOSPICE EVALUATION FROM [facility]. [facility] WILL TAKE PT FOR REHAB OR ON PRIVATE PAY NURSING HOME CARE BASIS AND WILL DISCUSS THIS WITH PT'S DAUGHTER. Camron Khan, CASE MANAGEMENT Appended by Cmaron Khan on 03/23/2018 12:58 CDT: CM RECEIVED CALL FROM CEM OF [facility], SHE IS IN ROUTE TO HOSPITAL TO EVALUATE PT FOR INPATIENT HOSPICE. CM WAITING INPATIENT HOSPICE EVALUATION FROM [facility]. [facility] WILL TAKE PT FOR REHAB OR ON PRIVATE PAY NURSING HOME CARE BASIS AND WILL DISCUSS THIS WITH PT'S DAUGHTER. Camron Khan, CASE MANAGEMENT DCP- Discharge Planning Updated by [id number]: Camron Khan on 03/23/18 6:[address] Patient Name: DANIEL ADAME Encounter No: [id number] : 1940 Primary Insurance: [employer] CHOICE PPO MCR ADVANT Anticipated DC Date: 03-09-2018 Planned Disposition: Correction Facility External Planned Provider: [facility] TERM [facility]ARE MEDICAID BED DCP follow-up note: ZELALEM OF [facility] HAS MET WITH PT'S DAUGHTER AND EVALUATED PT, THEY WILL ACCEPT FOR HOSPICE AND WILL ENROLL PT AFTER HIS ARRIVAL AT THE SHELTER. CM [facility]ER CARE. NOTIFY [facility] WHEN SHELTER PLACEMENT IS SECURED, , FAXE DISCHARGE INFORMATION TO [facility] AT [phone]. Camron Khan, CASE MANAGEMENT DCP- Discharge Planning Updated by [id number]: Camron Khan on 03/22/18 3:[address] Patient Name: DANIEL ADAME Encounter No: [id number] : 1940 Primary Insurance: [employer] CHOICE PPO MCR ADVANT Anticipated DC Date: 03-09-2018 Planned Disposition: Correction Facility External Planned Provider: [facility] TERM CARE MEDICAID BED DCP follow-up note: CM RECEIVED CALL FROM JOHANNA OF [facility], PT IS NOT IN THEIR INSURANCE NETWORK AND THEY ARE NOT GOING TO BE ABLE TO HELP WITH NURSING HOME CARE FOR THIS PATIENT. CM RECEIVED CALL FROM JAIRO IBARRA, , WHO REPORTS THAT SHE HAS POWER OF MATTRESS PACKER AND WILL BRING A COPY TO PLACE ON CHART, SHE HAD PREVIOUSLY PROVIDED IT TO [employer] ENGLISH PROFESSOR BUT WILL BE HAPPY TO GIVE ANOTHER COPY REQUESTED. JAIRO INFORMED OF DECLINATION BY EDWARD NEWMAN. JAIRO REPORTS THAT SHE HAS TALKED TO FAMILY AND THEY DECIDED TO LEAVE PT IN [place], JAIRO WOULD LIKE TO PLACE PT IN A GOOD SHELTER WITH NO PREFERNCE, CHOICE COMPLETED, AND NO PREFERENCE FOR HOSPICE COMPANY. CM NOTIFIED ADRIANO [phone], OF REFERRAL FOR IMMIGRATION CASE WORKER CARE TO [facility]. CM FAXED REFERRAL TO [facility] VIA ADRIANO AT [phone]. CM CALLED [facility], , SPOKE TO ZELALEM AND PROVIDED HOSPICE REFERRAL INFORMATION, THEY DO CONTRACT WITH [facility]. CM FAXED REFERRAL TO [facility] AT [phone]. CM WAITING ADMISSION DETERMINATION FROM [facility] AND THE [facility] FOR NURSING HOME CARE. Camron Khan CASE MANAGEMENT DCP- Discharge Planning Updated by [id number]: Camron Khan on 03/19/18 2:[address] Patient Name: DANIEL ADAME Encounter No: [id number] : 1940 Primary Insurance: [employer] PPO MCR ADVANT Anticipated DC Date: 03-09-2018 Planned Disposition: Correction Facility External Planned Provider: [facility], MEDICARE SKILLED BED DCP follow-up note: CM SPOKE TO PT'S DAUGHTER, JAIRO IBARRA ALONG WITH DR. LOVETT AND ALANA BAUMAN. DISUSSED WAS PT'S CONDITION, [facility] RE[facility]AB VS HOSPICE CARE. PT'S DAUGHTER IS STILL WANTING PT IN [place] AND ASKED FOR PT TO BE REFERRED TO [facility] IN [place], [place]. JAIRO HAS DISCUSSED PLACEMENT WITH JOHANNA AT FACILITY. TRANSPORTATION DISCUSSED; JAIRO DECIDED SHE WOULD LIKE CM TO OBTAIN TRANSPORT ESTIMATE FROM [employer] IF PLACEMENT CAN BE SECURED AT FACILITY. CHOICE SIGNED FOR [facility], IMPORTANT MESSAGE FROM MEDICARE PROVIDED AND EXPLAINED. CM CALLED [facility], , JOHANNA WAS NOT IN. CM SPOKE TO AILEEN WHO REPORTED THAT JOHANNA WOULD BE BACK IN THURSDAY AND WILL REVIEW REFERRAL THEN. CM FAXED REFERRAL TO [facility] AT [phone]. FACILTY ADDRESS IS [address] [place] [address]. [id number]. CM WAITING ADMISSION DETERMINATION FROM [facility] [place], [place]. Camron Khan, CASE MANAGEMENT DCP- Discharge Planning Updated by [id number]: Camron Khan on 03/17/18 2:[address] Patient Name: DANIEL ADAME Encounter No: [id number] : 1940 Primary Insurance: [employer] CHOICE PPO MCR ADVANT Anticipated DC Date: 03-09-2018 Planned Disposition: Correction Facility External Planned Provider: TO BE DETERMINED DCP follow-up note: CM REVIEWED CHART, DR. BEARDEN'S NOTE INDICATES NEED TO SPEAK TO FAMILY REGARDING COMFORT CARE OR HOSPICE CARE FOR PT. CM RECEIVED CALL FROM DAUGHTER, JAIRO IBARRA, , WHO REQUESTED UPDATE. CM DISCUSSED DR. BEARDEN'S OPTION REGARDING HOSPICE OR COMFORT CARE. JAIRO REPORTS NO INTEREST AT THIS TIME FOR COMFORT CARE OR HOSPICE. JAIRO IS CONSIDERING PICKING UP PT IN CAR AND TAKING PT BACK TO [place] WHERE THEY LIVE, IT IS AN [address] CM EXPLAINED PT IS VERY WEAK AND WOULD NOT BE ABLE TO GET OUT OF THE CAR DURING PROLONGED TRANSPORTATION. JAIRO ONLY WANTED ASSURANCES THAT PT WOULD NOT DURING THE RIDE TO [place]. CM INFORMED JAIRO THAT CM COULD NOT PROVIDE THAT ASSURANCE, RECOMMENDED [facility] FOR PT. JAIRO REPORTS SHE WILL BE IN [place] AND AT THE [facility] TOMORROW, 03-18-18 AT ABOUT 8:30 IN THE MORNING. SHE WOULD LIKE TO MEET WITH ALL DOCTORS IN THE MORNING IN A "BIG MEETING". CM EXPLAINED THAT THIS WOULD NOT BE POSSIBLE, OFFERED TO ASK DR. LOVETT, PRIMARY DOCTOR, TO MEET WITH HER IN THE MORNING, JAIRO ACCEPTED. JAIRO IBARRA, DAUGHTER, , WILL MEET WITH DR. LOVETT AND ALISE IN THE [facility], 03-18-18, TO DISCUSS PT'S CARE, PROGNOSIS AND DISCHARGE PLAN. Camron Khan, CASE MANAGEMENT DCP- Discharge Planning Updated by [id number]: Camron Khan on 03/11/18 7:[address] Patient Name: DANIEL ADAME Encounter No: [id number] : 1940 Primary Insurance: [employer] CHOICE PPO MCR ADVANT Anticipated DC Date: 03-09-2018 Planned Disposition: Inpatient Rehab Facility External Planned Provider: [facility] DCP follow-up note: CM INFORMED PT THAT INSURANCE STILL HAS NOT PROVIDED AUTHORIZATION OR DENIAL FOR REHAB. PT STILL WILLING FOR REHAB AT [facility]. IMPORTANT MESSAGE FROM MEDICARE PROVIDED AND EXPLAINED. CM WAITING FOR INSURANCE AUTHORIZATION OR DENIAL FOR INPATIENT REHAB SERVICES AT [facility]. Camron Khan CASE MANAGEMENT DCP- Discharge Planning Updated by [id number]: Camron Khan on 03/08/18 3:[address] Patient Name: DANIEL ADAME Encounter No: [id number] : 1940 Primary Insurance: [employer] CHOICE PPO MCR ADVANT Anticipated DC Date: 03-09-2018 Planned Disposition: Inpatient Rehab Facility External Planned Provider: [facility] INPATIENT REHAB DCP follow-up note: * Is the patient Alert and Oriented? Yes 0 * How many steps to enter\\exit or inside your home? 4-5 0 * PCP DR. VELZÁQUEZ 0 * [facility]acy [facility] 0 * Preadmission Environment Acute Inpatient Rehab 0 * Facility Name [facility] INPATIENT REHAB 0 * ADLs Partial Dependent 0 * Partial ADLs (Assistance needed) Ambulation Bathing Medication Management Toileting Transfers 0 * Equipment None 0 * Other Equipment NO MEDICAL EQUIPMENT PROVIDER PREFERENCE 0 * List name and contact numbers for known caregivers / representatives who currently or will assist patient after discharge: JAIRO IBARRA, DAUGHTER, 0 * Verbal permission to speak to the caregivers and representatives has been obtained from the patient. Yes 0 * Community resources currently utilized None 0 * Please name any agencies selected above. NONE 0 * Additional services required to return to the preadmission environment? No 0 * Can the patient safely return to the preadmission environment? Yes 0 * Has this patient been hospitalized within the prior 30 days at any hospital? Yes 0 CM RECEIVED ORDER FOR INPATIENT REHAB PRESCREENING. CM SPOKE TO PT IN ROOM WHO IS VERY HARD OF HEARING. PT REPORTS HIS DAUGHTER, JAIRO, IS HERE AND FOR CM TO SPEAK TO HER REGARDING DISCHARGE PLAN. PT IS AGREEABLE TO INPATIENT REHAB AND STATES HE WAS LIVING AT HOME ALONE PRIOR TO HOSPITALIZATION. IMPORTANT MESSAGE FROM MEDICARE PROVIDED AND EXPLAINED. CM CALLED AND SPOKE TO JAIRO IBARRA, DAUGHTER, ; JAIRO REPORTS LIVING IN [place] AND IT IS A [address] TO GET PT THERE WHEN THEY LEAVE [place]. JAIRO WAS HOPING THAT PT WOULD BE STONG ENOUGH FOR THE RIDE AT DISCHARGE FROM HOSPITAL. CM REVIEWED THERAPY EVALUATION AND NOTES WITH JAIRO. JAIRO WOULD LIKE TO TRY TO GET PT BACK INTO INPATIENT REHAB AT [place] STATING HE WAS ONLY IN THERE FOR ONE NIGHT BEFORE HAVING TO BE READMITTED; SHE HOPES FOR PT TO BE STONG ENOUGH FOR HER TO TRANSPORT PT TO [place] AT DISCHARGE AND SHE HAS A SHELTER IN MIND THAT WILL ACCEPT PT AT DISCHARGE IF NEEDED. CM WAITING FOR INPATIENT REHAB PRESCREENING AND INSURANCE AUTHORIZATION OR DENIAL FOR INPATIENT REHAB SERVICES. Camron Khan, CASE MANAGEMENT DCP- Discharge Planning Updated by [id number]: Jerica Tejeda on 03/07/18 7:[address] PATIENT WITH VARYING DEGREES OF ORIENTATION. HE IS ALSO HARD OF HEARING. WAS TRANSFERED TO ICU AFTER [facility]. MD PLAN IS FOR POSSIBLE TRANSFER TO ACUTE REHAB THURSDAY. PATIENT WILL NEED TO BE EVALUATED AND LIKELY WILL REQUIRE A NEW PRECERT HE HAS [employer] CHOICE PPO MEDICARE ADVANTAGE AN INSURER. \\NO PHYSICAL THERAPY NOTES AT THIS TIME. WILL NEED PT/OT EVAL FOR PRECERT. REPORTEDLY LIVED ALONE PRIOR TO ADMISSION. HAD DAUGHTER,JAIRO IBARRA. CONTACT PHONE NUMBER CELL [phone] HOME [phone]. PATIENT ALSO HAS SONS :SERENA POMPA- [phone] AND MARJORIE SLAUGHTER- [phone]. CM WILL NEED TO MEET WITH PATIENT'S FAMILY REGARDING DISCHARGE PLAN. DCPIA - Discharge Planning Initial Assessment Updated by [id number]: Camron Khan on 03/08/18 4:26 pm * Is the patient Alert and Oriented? Yes * How many steps to enter\\exit or inside your home? 4-5 * PCP DR. VELÁZQUEZ * [facility]acy [facility] * Preadmission Environment Acute Inpatient Rehab * Facility Name [facility] IN[facility] * ADLs Partial Dependent * Partial ADLs (Assistance needed) Ambulation Bathing Medication Management Toileting Transfers * Equipment None * Other Equipment NO MEDICAL EQUIPMENT PROVIDER PREFERENCE * List name and contact numbers for known caregivers / representatives who currently or will assist patient after discharge: JAIRO IBARRA, DAUGHTER, * Verbal permission to speak to the caregivers and representatives has been obtained from the patient. Yes * Community resources currently utilized None * Please name any agencies selected above. NONE * Additional services required to return to the preadmission environment? No * Can the patient safely return to the preadmission environment? Yes * Has this patient been hospitalized within the prior 30 days at any hospital? Yes Coverage Notice Reviewer: [id number] Marty Khan Notice Issued Date-Time: 03/08/2018 16:05 Notice Type: IM Discharge Notice Notice Delivered To: Patient Relationship to Patient: Industrial Chemist Name: Delivery Method: HAND - Hand Delivered Sho Days: Prior Verbal Notification: Recipient Understood Notice: Yes Recipient Signature: Yes Med Rec Note Co-signed by Attending: Coverage Notice Comment: Reviewer: ROSMERY Khan Notice Issued Date-Time: 03/11/2018 8:10 Notice Type: IM Discharge Notice Notice Delivered To: Patient Relationship to Patient: Industrial Chemist Name: Delivery Method: HAND - Hand Delivered Sho Days: Prior Verbal Notification: Recipient Understood Notice: Yes Recipient Signature: Yes Med Rec Note Co-signed by Attending: Coverage Notice Comment: Reviewer: ROSMERY Khan Notice Issued Date-Time: 03/19/2018 14:50 Notice Type: Patient Choice Letter Notice Delivered To: Family Member Relationship to Patient: Daughter Industrial Chemist Name: JAIRO IBARRA Delivery Method: HAND - Hand Delivered Sho Days: Prior Verbal Notification: Recipient Understood Notice: Yes Recipient Signature: Yes Med Rec Note Co-signed by Attending: Coverage Notice Comment: Reviewer: ROSMERY Khan Notice Issued Date-Time: 03/19/2018 14:50 Notice Type: IM Discharge Notice Notice Delivered To: Family Member Relationship to Patient: Daughter Industrial Chemist Name: JAIRO IBARRA Delivery Method: HAND - Hand Delivered Sho Days: Prior Verbal Notification: Recipient Understood Notice: Yes Recipient Signature: Yes Med Rec Note Co-signed by Attending: Coverage Notice Comment: Reviewer: ROSMERY Khan Notice Issued Date-Time: 03/22/2018 11:00 Notice Type: Patient Choice Letter Notice Delivered To: Family Member Relationship to Patient: Daughter Industrial Chemist Name: JAIRO IBARRA Delivery Method: PHONE - Phone Sho Days: Prior Verbal Notification: Recipient Understood Notice: Yes Recipient Signature: Yes Med Rec Note Co-signed by Attending: Coverage Notice Comment: ANY [facility] FACILITY WITH HOSPICE CARE. Last DP export: 03/23/18 11:32 Patient Name: DANIEL ADAME Page [id number] at 1301 All edits/amendments must be made on the electronic document DICTATION DATE: 03/23/18 1300 PAN CLEANER: RUBÉN 03/23/18 1300 RPT#: [id number] DC DATE: STATUS: ADM IN [facility] [address] [place] [address] END OF REPORT
--- NOTE | ~2018-03-03 | MORECARE ---
CASE MANAGEMENT DISCHARGE SUMMARY PATIENT: DANIEL ADAME UNIT: [id number] ADM DATE: 03/03/18 AGE: 78 : 40 SEX: M ROOM/BED: D.2104 AUTHOR: SAMUEL,DOC PHYSICIAN: REFERRING PHYSICIAN: AGGIE PANIAGUA MD DATE OF SERVICE: 03/19/18 Discharge Plan Patient Name: DANIEL ADAME Facility: [facility]:[place] : 1940 Planned Disposition: Care Home Facility Anticipated Discharge Date: 03/09/18 Discharge Date: Expected LOS: 6 Initial Reviewer: [id number] Initial Review Date: 03/03/2018 Generated: 03/19/18 4:48 pm Comments DCP- Discharge Planning Updated by [id number]: Camron Khan on 03/17/18 2:[address] Patient Name: DANIEL ADAME Encounter No: [id number] : 1940 Primary Insurance: [employer] CHOICE PPO MCR ADVANT Anticipated DC Date: 03-09-2018 Planned Disposition: Care Home Facility External Planned Provider: TO BE DETERMINED DCP follow-up note: ALISE REVIEWED CHART, DR. BEARDEN'S NOTE INDICATES NEED TO SPEAK TO FAMILY REGARDING COMFORT CARE OR HOSPICE CARE FOR PT. CM RECEIVED CALL FROM DAUGHTER, JAIRO IBARRA, , WHO REQUESTED UPDATE. CM DISCUSSED DR. BEARDEN'S OPTION REGARDING HOSPICE OR COMFORT CARE. JAIRO REPORTS NO INTEREST AT THIS TIME FOR COMFORT CARE OR HOSPICE. JAIRO IS CONSIDERING PICKING UP PT IN CAR AND TAKING PT BACK TO [place] WHERE THEY LIVE, IT IS AN [address] ALISE EXPLAINED PT IS VERY WEAK AND WOULD NOT BE ABLE TO GET OUT OF THE CAR DURING PROLONGED TRANSPORTATION. JAIRO ONLY WANTED ASSURANCES THAT PT WOULD NOT DURING THE RIDE TO [place]. CM INFORMED JAIRO THAT CM COULD NOT PROVIDE THAT ASSURANCE, RECOMMENDED [facility] FOR PT. JAIRO REPORTS SHE WILL BE IN [place] AND AT THE HOSPITAL TOMORROW, 03-18-18 AT ABOUT 8:30 IN THE MORNING. SHE WOULD LIKE TO MEET WITH ALL DOCTORS IN THE MORNING IN A "BIG MEETING". CM EXPLAINED THAT THIS WOULD NOT BE POSSIBLE, OFFERED TO ASK DR. LOVETT, PRIMARY DOCTOR, TO MEET WITH HER IN THE MORNING, JAIRO ACCEPTED. JAIRO IBARRA, DAUGHTER, , WILL MEET WITH DR. LOVETT AND CM IN [facility], 03-18-18, TO DISCUSS PT'S CARE, PROGNOSIS AND DISCHARGE PLAN. Camron Khan CASE MANAGEMENT DCP- Discharge Planning Updated by [id number]: Camron Khan on 03/11/18 7:[address] Patient Name: DANIEL ADAME Encounter No: [id number] : 1940 Primary Insurance: [employer] CHOICE PPO MCR ADVANT Anticipated DC Date: 03-09-2018 Planned Disposition: Inpatient Rehab Facility External Planned Provider: [facility] DCP follow-up note: CM INFORMED PT THAT INSURANCE STILL HAS NOT PROVIDED AUTHORIZATION OR DENIAL FOR REHAB. PT STILL WILLING FOR REHAB AT [place]. IMPORTANT MESSAGE FROM MEDICARE PROVIDED AND EXPLAINED. CM WAITING FOR INSURANCE AUTHORIZATION OR DENIAL FOR INPATIENT REHAB SERVICES AT [place]. Camron Khan CASE MANAGEMENT DCP- Discharge Planning Updated by [id number]: Camron Khan on 03/08/18 3:[address] Patient Name: DANIEL ADAME Encounter No: [id number] : 1940 Primary Insurance: [employer] CHOICE PPO MCR ADVANT Anticipated DC Date: 03-09-2018 Planned Disposition: Inpatient Rehab Facility External Planned Provider: [facility] DCP follow-up note: * Is the patient Alert and Oriented? Yes 0 * How many steps to enter\\exit or inside your home? 4-5 0 * PCP DR. VELÁZQUEZ 0 * Pharmacy [facility] 0 * Preadmission Environment Acute Inpatient Rehab 0 * Facility Name [facility] IN[facility] 0 * ADLs Partial Dependent 0 * Partial ADLs (Assistance needed) Ambulation Bathing Medication Management Toileting Transfers 0 * Equipment None 0 * Other Equipment NO MEDICAL EQUIPMENT PROVIDER PREFERENCE 0 * List name and contact numbers for known caregivers / representatives who currently or will assist patient after discharge: JAIRO IBARRA, DAUGHTER, 0 * Verbal permission to speak to the caregivers and representatives has been obtained from the patient. Yes 0 * Community resources currently utilized None 0 * Please name any agencies selected above. NONE 0 * Additional services required to return to the preadmission environment? No 0 * Can the patient safely return to the preadmission environment? Yes 0 * Has this patient been hospitalized within the prior 30 days at any hospital? Yes 0 CM RECEIVED ORDER FOR INPATIENT REHAB PRESCREENING. CM SPOKE TO PT IN ROOM WHO IS VERY HARD OF HEARING. PT REPORTS HIS DAUGHTER, JAIRO, IS HERE AND FOR CM TO SPEAK TO HER REGARDING DISCHARGE PLAN. PT IS AGREEABLE TO INPATIENT REHAB AND STATES HE WAS LIVING AT HOME ALONE PRIOR TO HOSPITALIZATION. IMPORTANT MESSAGE FROM MEDICARE PROVIDED AND EXPLAINED. CM CALLED AND SPOKE TO JAIRO IBARRA, DAUGHTER, ; JAIRO REPORTS LIVING IN [place] AND IT IS A [address] TO GET PT THERE WHEN THEY LEAVE [place]. JAIRO WAS HOPING THAT PT WOULD BE STONG ENOUGH FOR THE RIDE AT DISCHARGE FROM HOSPITAL. CM REVIEWED THERAPY EVALUATION AND NOTES WITH JAIRO. JAIRO WOULD LIKE TO TRY TO GET PT BACK INTO INPATIENT REHAB AT [place] STATING HE WAS ONLY IN THERE FOR ONE NIGHT BEFORE HAVING TO BE READMITTED; SHE HOPES FOR PT TO BE STONG ENOUGH FOR HER TO TRANSPORT PT TO [place] AT DISCHARGE AND SHE HAS A PENITENTIARY IN MIND THAT WILL ACCEPT PT AT DISCHARGE IF NEEDED. CM WAITING FOR INPATIENT REHAB PRESCREENING AND INSURANCE AUTHORIZATION OR DENIAL FOR INPATIENT REHAB SERVICES. Camron Khan, CASE MANAGEMENT DCP- Discharge Planning Updated by [id number]: Jerica Tejeda on 03/07/18 7:[address] PATIENT WITH VARYING DEGREES OF ORIENTATION. HE IS ALSO HARD OF HEARING. WAS TRANSFERED TO ICU AFTER ONE DAY IN [facility]. MD PLAN IS FOR POSSIBLE TRANSFER TO ACUTE REHAB THURSDAY. PATIENT WILL NEED TO BE EVALUATED AND LIKELY WILL REQUIRE A NEW PRECERT HE HAS [employer] CHOICE PPO MEDICARE ADVANTAGE AN INSURER. \\NO PHYSICAL THERAPY NOTES AT THIS TIME. WILL NEED PT/OT EVAL FOR PRECERT. REPORTEDLY LIVED ALONE PRIOR TO ADMISSION. HAD DAUGHTER,JAIRO IBARRA. CONTACT PHONE NUMBER CELL [phone] HOME [phone]. PATIENT ALSO HAS SONS :SERENA POMPA- [phone] AND MARJORIE SLAUGHTER- [phone]. CM WILL NEED TO MEET WITH PATIENT'S FAMILY REGARDING DISCHARGE PLAN. DCPIA - Discharge Planning Initial Assessment Updated by [id number]: Camron Khan on 03/08/18 4:26 pm * Is the patient Alert and Oriented? Yes * How many steps to enter\\exit or inside your home? 4-5 * PCP DR. VELÁZQUEZ * [facility] * Preadmission Environment Acute Inpatient Rehab * Facility Name [facility] RE[facility] * ADLs Partial Dependent * Partial ADLs (Assistance needed) Ambulation Bathing Medication Management Toileting Transfers * Equipment None * Other Equipment NO MEDICAL EQUIPMENT PROVIDER PREFERENCE * List name and contact numbers for known caregivers / representatives who currently or will assist patient after discharge: JAIRO IBARRA, DAUGHTER, * Verbal permission to speak to the caregivers and representatives has been obtained from the patient. Yes * Community resources currently utilized None * Please name any agencies selected above. NONE * Additional services required to return to the preadmission environment? No * Can the patient safely return to the preadmission environment? Yes * Has this patient been hospitalized within the prior 30 days at any hospital? Yes Coverage Notice Reviewer: ROSMERY Khan Notice Issued Date-Time: 03/08/2018 16:05 Notice Type: IM Discharge Notice Notice Delivered To: Patient Relationship to Patient: Hydro Technician Name: Delivery Method: HAND - Hand Delivered Sho Days: Prior Verbal Notification: Recipient Understood Notice: Yes Recipient Signature: Yes Med Rec Note Co-signed by Attending: Coverage Notice Comment: Reviewer: ROSMERY Khan Notice Issued Date-Time: 03/11/2018 8:10 Notice Type: IM Discharge Notice Notice Delivered To: Patient Relationship to Patient: Hydro Technician Name: Delivery Method: HAND - Hand Delivered Sho Days: Prior Verbal Notification: Recipient Understood Notice: Yes Recipient Signature: Yes Med Rec Note Co-signed by Attending: Coverage Notice Comment: Reviewer: ROSMERY Khan Notice Issued Date-Time: 03/19/2018 14:50 Notice Type: Patient Choice Letter Notice Delivered To: Family Member Relationship to Patient: Daughter Hydro Technician Name: JAIRO IBARRA Delivery Method: HAND - Hand Delivered Sho Days: Prior Verbal Notification: Recipient Understood Notice: Yes Recipient Signature: Yes Med Rec Note Co-signed by Attending: Coverage Notice Comment: Reviewer: ROSMERY Khan Notice Issued Date-Time: 03/19/2018 14:50 Notice Type: IM Discharge Notice Notice Delivered To: Family Member Relationship to Patient: Daughter Hydro Technician Name: JAIRO IBARRA Delivery Method: HAND - Hand Delivered Sho Days: Prior Verbal Notification: Recipient Understood Notice: Yes Recipient Signature: Yes Med Rec Note Co-signed by Attending: Coverage Notice Comment: Last DP export: 03/19/18 7:30 Patient Name: DANIEL ADAME Page [phone] at 1549 All edits/amendments must be made on the electronic document DICTATION DATE: 03/19/181547 RESERVATIONS AND TICKETING AGENT: RUBÉN 03/19/181547 RPT#: [id number] DC DATE: STATUS: ADM IN [facility] [address] [place] [address] END OF REPORT
--- NOTE | ~2018-03-03 | MORECARE ---
CASE MANAGEMENT DISCHARGE SUMMARY PATIENT: DANIEL ADAME UNIT: [id number] ADM DATE: 03/03/18 AGE: 78 : 40 SEX: M ROOM/BED: D.2104 AUTHOR: SAMUEL,DOC PHYSICIAN: REFERRING PHYSICIAN: AGGIE PANIAGUA MD DATE OF SERVICE: 03/17/18 Discharge Plan Patient Name: DANIEL ADAME Facility: [facility]:[place] : 1940 Planned Disposition: Intermediate Facility Anticipated Discharge Date: 03/09/18 Discharge Date: Expected LOS: 6 Initial Reviewer: [id number] Initial Review Date: 03/03/2018 Generated: 03/17/18 4:18 pm Comments DCP- Discharge Planning Updated by [id number]: Camron Khan on 03/11/18 7:[address] Patient Name: DANIEL ADAME Encounter No: [id number] : 1940 Primary Insurance: [employer] CHOICE PPO MCR ADVANT Anticipated DC Date: 03-09-2018 Planned Disposition: Inpatient Rehab Facility External Planned Provider: [facility] DCP follow-up note: CM INFORMED PT THAT INSURANCE STILL HAS NOT PROVIDED AUTHORIZATION OR DENIAL FOR REHAB. PT STILL WILLING FOR REHAB AT [place]. IMPORTANT MESSAGE FROM MEDICARE PROVIDED AND EXPLAINED. CM WAITING FOR INSURANCE AUTHORIZATION OR DENIAL FOR INPATIENT REHAB SERVICES AT [place]. Camron Khan CASE SHEILA DCP- Discharge Planning Updated by [id number]: Camron Khan on 03/08/18 3:[address] Patient Name: DANIEL ADAME Encounter No: [id number] : 1940 Primary Insurance: [employer] CHOICE PPO MCR ADVANT Anticipated DC Date: 03-09-2018 Planned Disposition: Inpatient Rehab Facility External Planned Provider: [facility] DCP follow-up note: * Is the patient Alert and Oriented? Yes 0 * How many steps to enter\exit or inside your home? 4-5 0 * PCP DR. VELÁZQUEZ 0 * [facility] * Preadmission Environment Acute Inpatient Rehab 0 * Facility Name [facility] IN[facility] 0 * ADLs Partial Dependent 0 * Partial ADLs (Assistance needed) Ambulation Bathing Medication Management Toileting Transfers 0 * Equipment None 0 * Other Equipment NO MEDICAL EQUIPMENT PROVIDER PREFERENCE 0 * List name and contact numbers for known caregivers / representatives who currently or will assist patient after discharge: JAIRO IBARRA, DAUGHTER, 0 * Verbal permission to speak to the caregivers and representatives has been obtained from the patient. Yes 0 * Community resources currently utilized None 0 * Please name any agencies selected above. NONE 0 * Additional services required to return to the preadmission environment? No 0 * Can the patient safely return to the preadmission environment? Yes 0 * Has this patient been hospitalized within the prior 30 days at any hospital? Yes 0 CM RECEIVED ORDER FOR INPATIENT REHAB PRESCREENING. CM SPOKE TO PT IN ROOM WHO IS VERY HARD OF HEARING. PT REPORTS HIS DAUGHTER, JAIRO, IS HERE AND FOR CM TO SPEAK TO HER REGARDING DISCHARGE PLAN. PT IS AGREEABLE TO INPATIENT REHAB AND STATES HE WAS LIVING AT HOME ALONE PRIOR TO HOSPITALIZATION. IMPORTANT MESSAGE FROM MEDICARE PROVIDED AND EXPLAINED. CM CALLED AND SPOKE TO JAIRO IBARRA, DAUGHTER, ; JAIRO REPORTS LIVING IN [place] AND IT IS A [address] TO GET PT THERE WHEN THEY LEAVE [place]. JAIRO WAS HOPING THAT PT WOULD BE STONG ENOUGH FOR THE RIDE AT DISCHARGE FROM HOSPITAL. CM REVIEWED THERAPY EVALUATION AND NOTES WITH JAIRO. JAIRO WOULD LIKE TO TRY TO GET PT BACK INTO INPATIENT REHAB AT [place] STATING HE WAS ONLY IN THERE FOR ONE NIGHT BEFORE HAVING TO BE READMITTED; SHE HOPES FOR PT TO BE STONG ENOUGH FOR HER TO TRANSPORT PT TO [place] AT DISCHARGE AND SHE HAS A GROUP HOME IN MIND THAT WILL ACCEPT PT AT DISCHARGE IF NEEDED. CM WAITING FOR INPATIENT REHAB PRESCREENING AND INSURANCE AUTHORIZATION OR DENIAL FOR INPATIENT REHAB SERVICES. Camron Khan, CASE MANAGEMENT DCP- Discharge Planning Updated by [id number]: Jerica Tejeda on 03/07/18 7:[address] PATIENT WITH VARYING DEGREES OF ORIENTATION. HE IS ALSO HARD OF HEARING. WAS TRANSFERED TO ICU AFTER ONE DAY IN [facility]. PLAN IS FOR POSSIBLE TRANSFER TO ACUTE REHAB THURSDAY. PATIENT WILL NEED TO BE EVALUATED AND LIKELY WILL REQUIRE A NEW PRECERT HE HAS [employer] CHOICE PPO MEDICARE ADVANTAGE AN INSURER. \NO PHYSICAL THERAPY NOTES AT THIS TIME. WILL NEED PT/OT EVAL FOR PRECERT. REPORTEDLY LIVED ALONE PRIOR TO ADMISSION. HAD DAUGHTER,JAIRO IBARRA. CONTACT PHONE NUMBER CELL [phone] HOME [phone]. PATIENT ALSO HAS SONS :SERENA POMPA- [phone] AND MARJORIE SLAUGHTER- [phone]. CM WILL NEED TO MEET WITH PATIENT'S FAMILY REGARDING DISCHARGE PLAN. DCPIA - Discharge Planning Initial Assessment Updated by ROSMERY: Camron Khan on 03/08/18 4:26 pm * Is the patient Alert and Oriented? Yes * How many steps to enter\exit or inside your home? 4-5 * PCP DR. VELÁZQUEZ * Pharmacy [facility] * Preadmission Environment Acute Inpatient Rehab * Facility Name [facility] * ADLs Partial Dependent * Partial ADLs (Assistance needed) Ambulation Bathing Medication Management Toileting Transfers * Equipment None * Other Equipment NO MEDICAL EQUIPMENT PROVIDER PREFERENCE * List name and contact numbers for known caregivers / representatives who currently or will assist patient after discharge: JAIRO IBARRA, DAUGHTER, * Verbal permission to speak to the caregivers and representatives has been obtained from the patient. Yes * Community resources currently utilized None * Please name any agencies selected above. NONE * Additional services required to return to the preadmission environment? No * Can the patient safely return to the preadmission environment? Yes * Has this patient been hospitalized within the prior 30 days at any hospital? Yes Coverage Notice Reviewer: [id number] Marty Khan Notice Issued Date-Time: 03/08/2018 16:05 Notice Type: IM Discharge Notice Notice Delivered To: Patient Relationship to Patient: Conflicts Analyst Name: Delivery Method: HAND - Hand Delivered Sho Days: Prior Verbal Notification: Recipient Understood Notice: Yes Recipient Signature: Yes Med Rec Note Co-signed by Attending: Coverage Notice Comment: Reviewer: [id number] Marty Khan Notice Issued Date-Time: 03/11/2018 8:10 Notice Type: IM Discharge Notice Notice Delivered To: Patient Relationship to Patient: Conflicts Analyst Name: Delivery Method: HAND - Hand Delivered Sho Days: Prior Verbal Notification: Recipient Understood Notice: Yes Recipient Signature: Yes Med Rec Note Co-signed by Attending: Coverage Notice Comment: Last DP export: 03/11/18 2:03 Patient Name: DANIEL ADAME Page [phone] at 1518 All edits/amendments must be made on the electronic document DICTATION DATE: 03/17/181517 SWEET POTATO DISINTEGRATOR: RUBÉN 03/17/181517 RPT#: [id number] DC DATE: STATUS: ADM IN [facility] [address] [place] [address] END OF REPORT
--- NOTE | ~2018-03-03 | MORECARE ---
CASE MANAGEMENT DISCHARGE SUMMARY PATIENT: DANIEL ADAME UNIT: [id number] ADM DATE: 03/03/18 AGE: 78 : 40 SEX: M ROOM/BED: D.2104 AUTHOR: SAMUEL,DOC PHYSICIAN: REFERRING PHYSICIAN: AGGIE PANIAGUA MD DATE OF SERVICE: 03/23/18 Discharge Plan Patient Name: DANIEL ADAME Facility: [facility]:[place] : 1940 Planned Disposition: Group Home Facility Anticipated Discharge Date: 03/09/18 Discharge Date: Expected LOS: 6 Initial Reviewer: [id number] Initial Review Date: 03/03/2018 Generated: 03/23/18 2:59 pm Comments DCP- Discharge Planning Updated by [id number]: Alli Albarran on 03/23/18 12:[address] Patient Name: DANIEL ADAME Encounter No: [id number] : 1940 Primary Insurance: [employer] CHOICE PPO MCR ADVANT Anticipated DC Date: 03-09-2018 Planned Disposition: Group Home Facility External Planned Provider: [facility], SHELTER CARE MEDICAID BED DCP follow-up note: CM RECEIVED CALL FROM SHAYLA OF [facility], PT WILL NOT QUALIFY FOR ARMOURED CAR ESCORT CARE MEDICAID DUE TO TRANSFER OF PROPERTY; THEY MAY BE ABLE TO TAKE TO TRY REHAB AND WILL CHECK ON SKILLED DAYS AND MAY ALSO TAKE ON PRIVATE PAY BASIS AND WILL DISCUSS THIS WITH DAUGHTER. PT'S DAUGHTER HAS INDICATED TO THE [facility] SHE FEELS PT ONLY HAS TWO OR THREE DAYS LEFT AND ASKED IF PT WILL QUALIFY FOR INPATIENT HOSPICE. CM ADVISED SHAYLA THAT CM DID NOT SEE ANY IMMEDIATE CRITERIA FOR INPATIENT HOSPICE QUALIFICATION AND WILL ASK FOR INPATIENT SCREENING FROM [facility]. ALISE CALLED [facility], , LEFT MESSAGE WITH ANSWERING SERVICE REQUESTING INPATIENT HOSPICE EVALUATION AT DAUGHTER'S REQUEST. ALISE NOTIFIED THAT [facility] NURSE WILL CONTACT CM SHORTLY. CM WAITING INPATIENT HOSPICE EVALUATION FROM [facility]. THE [facility] WILL TAKE PT FOR REHAB OR ON PRIVATE PAY SHELTER CARE BASIS AND WILL DISCUSS THIS WITH PT'S DAUGHTER. Alli Albarran, CASE MANAGEMENT Appended by Alli Albarran on 03/23/2018 12:58 CDT: CM RECEIVED CALL FROM CEM OF [facility], SHE IS IN ROUTE TO HOSPITAL TO EVALUATE PT FOR INPATIENT HOSPICE. CM WAITING INPATIENT HOSPICE EVALUATION FROM [facility]. THE [facility] WILL TAKE PT FOR REHAB OR ON PRIVATE PAY SHELTER CARE BASIS AND WILL DISCUSS THIS WITH PT'S DAUGHTER. Alli Albarran, CASE MANAGEMENT Appended by Alli Albarran on 03/23/2018 13:52 CDT: CM SPOKE TO CEM OF [facility], PT DOES NOT MEET CRITERIA FOR INPATIENT HOSPICE, SHE HAS CALLED AND LEFT MESSAGE FOR PT'S DAUGHTER CAROL. PRIEST REPORTS OPTIONS REMAIN FOR PRIVATE PAY FOR RETIREMENT OR FOR FAMILY MEMBER TO TAKE PT HOME FOR HOSPICE CARE. CM CALLED PT'S DAUGHTER, JAIRO IBARRA, , LEFT DETAILED MESSAGE REGARDING ABOVE INFORMATION, REQUESTING CALL BACK SOON POSSIBLE TO DISCUSS DISCHARGE PLANNING OPTIONS. CM WAITING ON JAIRO IBARRA, DAUGHTER, TO CALL CM TO DISCUSS OPTIONS OF PRIVATE PAY FOR RETIREMENT VS FAMILY TAKING PT HOME FOR HOSPICE. ALLI ALBARRAN CASE MANAGEMENT DCP- Discharge Planning Updated by [id number]: Alli Albarran on 03/23/18 6:[address] Patient Name: DANIEL ADAME Encounter No: [id number] : 1940 Primary Insurance: HU[employer]NA CHOICE PPO [facility] ADVANT Anticipated DC Date: 03-09-2018 Planned Disposition: Group Home Facility External Planned Provider: [facility] MEDICAID BED DCP follow-up note: ZELALEM OF [facility] HAS MET WITH PT'S DAUGHTER AND EVALUATED PT, THEY WILL ACCEPT FOR HOSPICE AND WILL ENROLL PT AFTER HIS ARRIVAL AT THE RETIREMENT. CM WAITING [facility]. NOTIFY [facility] WHEN RETIREMENT PLACEMENT IS SECURED, , FAXE DISCHARGE INFORMATION TO [facility] AT [phone]. Alli Albarran CASE MANAGEMENT DCP- Discharge Planning Updated by [id number]: Alli Albarran on 03/22/18 3:[address] Patient Name: DANIEL ADAME Encounter No: [id number] : 1940 Primary Insurance: [employer] CHOICE PPO MCR ADVANT Anticipated DC Date: 03-09-2018 Planned Disposition: Group Home Facility External Planned Provider: [facility] TERM CARE MEDICAID BED DCP follow-up note: CM RECEIVED CALL FROM [facility], PT IS NOT IN THEIR INSURANCE NETWORK AND THEY ARE NOT GOING TO BE ABLE TO HELP WITH SHELTER CARE FOR THIS PATIENT. CM RECEIVED CALL FROM JAIRO IBARRA, , WHO REPORTS THAT SHE HAS POWER OF FRONT DESK SPECIALIST AND WILL BRING A COPY TO PLACE ON CHART, SHE HAD PREVIOUSLY PROVIDED IT TO MED [facility] EDUCATOR BUT WILL BE HAPPY TO GIVE ANOTHER COPY REQUESTED. JAIRO INFORMED OF DECLINATION BY [facility]. JAIRO REPORTS THAT SHE HAS TALKED TO FAMILY AND THEY DECIDED TO LEAVE PT IN [place], JAIRO WOULD LIKE CM TO PLACE PT IN A GOOD RETIREMENT WITH NO PREFERNCE, CHOICE COMPLETED, AND NO PREFERENCE FOR HOSPICE COMPANY. CM NOTIFIED ADRIANO, , OF REFERRAL FOR ARMOURED CAR ESCORT CARE TO [facility]. CM FAXED REFERRAL TO [facility] VIA ADRIANO AT [phone]. CM CALLED [facility], , SPOKE TO [facility] AND PROVIDED HOSPICE REFERRAL INFORMATION, THEY DO CONTRACT WITH THE [facility]. CM FAXED REFERRAL TO [facility] AT [phone]. CM WAITING ADMISSION DETERMINATION FROM [facility] AND THE [facility] FOR ARMOURED CAR ESCORT CARE. Alli Albarran, CASE MANAGEMENT DCP- Discharge Planning Updated by [id number]: Alli Albarran on 03/19/18 2:[address] Patient Name: DANIEL ADAME Encounter No: [id number] : 1940 Primary Insurance: [employer] CHOICE PPO MCR ADVANT Anticipated DC Date: 03-09-2018 Planned Disposition: Group Home Facility External Planned Provider: [facility], MEDICARE SKILLED BED DCP follow-up note: CM SPOKE TO PT'S DAUGHTER, JAIRO IBARRA ALONG WITH DR. LOVETT AND ALANA BAUMAN. DISUSSED WAS PT'S CONDITION, SNF REHAB VS HOSPICE CARE. PT'S DAUGHTER IS STILL WANTING PT IN [place] AND ASKED FOR PT TO BE REFERRED TO [facility] SNF FACILITY IN [place], [place]. JAIRO HAS DISCUSSED PLACEMENT WITH JOHANNA AT FACILITY. TRANSPORTATION DISCUSSED; JAIRO DECIDED SHE WOULD LIKE CM TO OBTAIN TRANSPORT ESTIMATE FROM [facility] IF PLACEMENT CAN BE SECURED AT FACILITY. CHOICE SIGNED FOR [facility], IMPORTANT MESSAGE FROM MEDICARE PROVIDED AND EXPLAINED. ALISE CALLED EDWARD NEWMAN, , JOHANNA WAS NOT IN. CM SPOKE TO AILEEN WHO REPORTED THAT JOHANNA WOULD BE BACK IN THURSDAY AND WILL REVIEW REFERRAL THEN. CM FAXED REFERRAL TO [facility] AT [phone]. FACILTY ADDRESS IS [address] [place] [address]. [id number]. CM WAITING ADMISSION DETERMINATION FROM [facility] SN[facility] F[facility] IN [place], [place]. Alli Albarran, CASE MANAGEMENT DCP- Discharge Planning Updated by [id number]: Alli Albarran on 03/17/18 2:[address] Patient Name: DANIEL ADAME Encounter No: [id number] : 1940 Primary Insurance: [employer] CHOICE PPO MCR ADVANT Anticipated DC Date: 03-09-2018 Planned Disposition: Group Home Facility External Planned Provider: TO BE DETERMINED DCP follow-up note: CM REVIEWED CHART, DR. BEARDEN'S NOTE INDICATES NEED TO SPEAK TO FAMILY REGARDING COMFORT CARE OR HOSPICE CARE FOR PT. CM RECEIVED CALL FROM DAUGHTER, JAIRO IBARRA, , WHO REQUESTED UPDATE. CM DISCUSSED DR. BEARDEN'S OPTION REGARDING HOSPICE OR COMFORT CARE. JAIRO REPORTS NO INTEREST AT THIS TIME FOR COMFORT CARE OR HOSPICE. JAIRO IS CONSIDERING PICKING UP PT IN CAR AND TAKING PT BACK TO [place] WHERE THEY LIVE, IT IS AN [address] CM EXPLAINED PT IS VERY WEAK AND WOULD NOT BE ABLE TO GET OUT OF THE CAR DURING PROLONGED TRANSPORTATION. JAIRO ONLY WANTED ASSURANCES THAT PT WOULD NOT DURING THE RIDE TO [place]. CM INFORMED JAIRO THAT CM COULD NOT PROVIDE THAT ASSURANCE, RECOMMENDED SNF REHAB FOR PT. JAIRO REPORTS SHE WILL BE IN [place] AND AT THE HOSPITAL TOMORROW, 03-18-18 AT ABOUT 8:30 IN THE MORNING. SHE WOULD LIKE TO MEET WITH ALL DOCTORS IN THE MORNING IN A "BIG MEETING". CM EXPLAINED THAT THIS WOULD NOT BE POSSIBLE, OFFERED TO ASK DR. LOVETT, PRIMARY DOCTOR, TO MEET WITH HER IN THE MORNING, JAIRO ACCEPTED. JAIRO IBARRA, DAUGHTER, , WILL MEET WITH DR. LOVETT AND CM [facility], [facility], TO DISCUSS PT'S CARE, PROGNOSIS AND DISCHARGE PLAN. Alli Albarran, SRI MANAGEMENT DCP- Discharge Planning Updated by [id number]: Alli Albarran on 03/11/18 7:[address] Patient Name: DANIEL ADAME Encounter No: [id number] : 1940 Primary Insurance: HU[employer]NA CHOICE PPO MCR ADVANT Anticipated DC Date: 03-09-2018 Planned Disposition: Inpatient Rehab Facility External Planned Provider: [facility] DCP follow-up note: CM INFORMED PT THAT INSURANCE STILL HAS NOT PROVIDED AUTHORIZATION OR DENIAL FOR REHAB. PT STILL WILLING FOR REHAB AT [facility]. IMPORTANT MESSAGE FROM MEDICARE PROVIDED AND EXPLAINED. CM WAITING FOR INSURANCE AUTHORIZATION OR DENIAL FOR INPATIENT REHAB SERVICES AT [facility]. Alli Albarran, CASE MANAGEMENT DCP- Discharge Planning Updated by [id number]: Alli Albarran on 03/08/18 3:[address] Patient Name: DANIEL ADAME Encounter No: [id number] : 1940 Primary Insurance: [employer] CHOICE PPO MCR ADVANT Anticipated DC Date: 03-09-2018 Planned Disposition: Inpatient Rehab Facility External Planned Provider: [facility] IN[facility] DCP follow-up note: * Is the patient Alert and Oriented? Yes 0 * How many steps to enter\\exit or inside your home? 4-5 0 * PCP DR. VELÁZQUEZ 0 * Pharmacy [facility] 0 * Preadmission Environment Acute Inpatient Rehab 0 * Facility Name [facility] INPATIENT REHAB 0 * ADLs Partial Dependent 0 * Partial ADLs (Assistance needed) Ambulation Bathing Medication Management Toileting Transfers 0 * Equipment None 0 * Other Equipment NO MEDICAL EQUIPMENT PROVIDER PREFERENCE 0 * List name and contact numbers for known caregivers / representatives who currently or will assist patient after discharge: JAIRO IBARRA, DAUGHTER, 0 * Verbal permission to speak to the caregivers and representatives has been obtained from the patient. Yes 0 * Community resources currently utilized None 0 * Please name any agencies selected above. NONE 0 * Additional services required to return to the preadmission environment? No 0 * Can the patient safely return to the preadmission environment? Yes 0 * Has this patient been hospitalized within the prior 30 days at any hospital? Yes 0 CM RECEIVED ORDER FOR INPATIENT REHAB PRESCREENING. CM SPOKE TO PT IN ROOM WHO IS VERY HARD OF HEARING. PT REPORTS HIS DAUGHTER, JAIRO, IS HERE AND FOR CM TO SPEAK TO HER REGARDING DISCHARGE PLAN. PT IS AGREEABLE TO INPATIENT REHAB AND STATES HE WAS LIVING AT HOME ALONE PRIOR TO HOSPITALIZATION. IMPORTANT MESSAGE FROM MEDICARE PROVIDED AND EXPLAINED. CM CALLED AND SPOKE TO JAIRO IBARRA, DAUGHTER, ; JAIRO REPORTS LIVING IN [place] AND IT IS A [address] TO GET PT THERE WHEN THEY LEAVE [place]. JAIRO WAS HOPING THAT PT WOULD BE STONG ENOUGH FOR THE RIDE AT DISCHARGE FROM HOSPITAL. CM REVIEWED THERAPY EVALUATION AND NOTES WITH JAIRO. JAIRO WOULD LIKE TO TRY TO GET PT BACK INTO INPATIENT REHAB AT [facility] STATING HE WAS ONLY IN THERE FOR ONE NIGHT BEFORE HAVING TO BE READMITTED; SHE HOPES FOR PT TO BE STONG ENOUGH FOR HER TO TRANSPORT PT TO [place] AT DISCHARGE AND SHE HAS A RETIREMENT IN MIND THAT WILL ACCEPT PT AT DISCHARGE IF NEEDED. CM WAITING FOR INPATIENT REHAB PRESCREENING AND INSURANCE AUTHORIZATION OR DENIAL FOR INPATIENT REHAB SERVICES. Alli Albarran, CASE MANAGEMENT DCP- Discharge Planning Updated by [id number]: Jericajuaquin Tejeda on 03/07/18 7:[address] PATIENT WITH VARYING DEGREES OF ORIENTATION. HE IS ALSO HARD OF HEARING. WAS TRANSFERED TO ICU AFTER ONE DAY IN [place] [facility]. MD PLAN IS FOR POSSIBLE TRANSFER TO ACUTE REHAB THURSDAY. PATIENT WILL NEED TO BE EVALUATED AND LIKELY WILL REQUIRE A NEW PRECERT HE HAS [employer]NA CHOICE PPO MEDICARE ADVANTAGE AN INSURER. \\NO PHYSICAL THERAPY NOTES AT THIS TIME. WILL NEED PT/OT EVAL FOR PRECERT. REPORTEDLY LIVED ALONE PRIOR TO ADMISSION. HAD DAUGHTER,JAIRO IBARRA. CONTACT PHONE NUMBER CELL [phone] HOME [phone]. PATIENT ALSO HAS SONS :SERENA POMPA- [phone] AND MARJORIE SLAUGHTER- [phone]. CM WILL NEED TO MEET WITH PATIENT'S FAMILY REGARDING DISCHARGE PLAN. DCPIA - Discharge Planning Initial Assessment Updated by [id number]: Alli Albarran on 03/08/18 4:26 pm * Is the patient Alert and Oriented? Yes * How many steps to enter\\exit or inside your home? 4-5 * PCP DR. VELÁZQUEZ * [facility] * Preadmission Environment Acute Inpatient Rehab * Facility Name [facility] IN[facility]IENT REHAB * ADLs Partial Dependent * Partial ADLs (Assistance needed) Ambulation Bathing Medication Management Toileting Transfers * Equipment None * Other Equipment NO MEDICAL EQUIPMENT PROVIDER PREFERENCE * List name and contact numbers for known caregivers / representatives who currently or will assist patient after discharge: JAIRO IBARRA, DAUGHTER, * Verbal permission to speak to the caregivers and representatives has been obtained from the patient. Yes * Community resources currently utilized None * Please name any agencies selected above. NONE * Additional services required to return to the preadmission environment? No * Can the patient safely return to the preadmission environment? Yes * Has this patient been hospitalized within the prior 30 days at any hospital? Yes Coverage Notice Reviewer: ROSMERY Albarran Notice Issued Date-Time: 03/08/2018 16:05 Notice Type: IM Discharge Notice Notice Delivered To: Patient Relationship to Patient: Electric Power Line Examiner Name: Delivery Method: HAND - Hand Delivered Sho Days: Prior Verbal Notification: Recipient Understood Notice: Yes Recipient Signature: Yes Med Rec Note Co-signed by Attending: Coverage Notice Comment: Reviewer: ROSMERY Albarran Notice Issued Date-Time: 03/11/2018 8:10 Notice Type: IM Discharge Notice Notice Delivered To: Patient Relationship to Patient: Electric Power Line Examiner Name: Delivery Method: HAND - Hand Delivered Sho Days: Prior Verbal Notification: Recipient Understood Notice: Yes Recipient Signature: Yes Med Rec Note Co-signed by Attending: Coverage Notice Comment: Reviewer: ROSMERY Albarran Notice Issued Date-Time: 03/19/2018 14:50 Notice Type: Patient Choice Letter Notice Delivered To: Family Member Relationship to Patient: Daughter Electric Power Line Examiner Name: JAIRO IBARRA Delivery Method: HAND - Hand Delivered Sho Days: Prior Verbal Notification: Recipient Understood Notice: Yes Recipient Signature: Yes Med Rec Note Co-signed by Attending: Coverage Notice Comment: Reviewer: ROSMERY Albarran Notice Issued Date-Time: 03/19/2018 14:50 Notice Type: IM Discharge Notice Notice Delivered To: Family Member Relationship to Patient: Daughter Electric Power Line Examiner Name: JAIRO IBARRA Delivery Method: HAND - Hand Delivered Sho Days: Prior Verbal Notification: Recipient Understood Notice: Yes Recipient Signature: Yes Med Rec Note Co-signed by Attending: Coverage Notice Comment: Reviewer: ROSMERY Albarran Notice Issued Date-Time: 03/22/2018 11:00 Notice Type: Patient Choice Letter Notice Delivered To: Family Member Relationship to Patient: Daughter Electric Power Line Examiner Name: JAIRO IBARRA Delivery Method: PHONE - Phone Sho Days: Prior Verbal Notification: Recipient Understood Notice: Yes Recipient Signature: Yes Med Rec Note Co-signed by Attending: Coverage Notice Comment: [facility] [place] [facility] WITH HOSPICE CARE. Last DP export: 03/23/18 12:01 Patient Name: DANIEL ADAME Page [phone] at 1359 All edits/amendments must be made on the electronic document DICTATION DATE: 03/23/18 135 TEXTILES AND CLOTHING TEACHER: RUBÉN 03/23/18 1355 RPT#: [id number] DC DATE: STATUS: ADM IN [facility] [address] [place] [address] END OF REPORT
--- NOTE | ~2018-03-03 | MORECARE ---
CASE MANAGEMENT DISCHARGE SUMMARY PATIENT: DANIEL ADAME UNIT: [id number] ADM DATE: 03/03/18 AGE: 78 : 40 SEX: M ROOM/BED: D.2104 AUTHOR: SAMUEL,DOC PHYSICIAN: REFERRING PHYSICIAN: AGGIE PANIAGUA MD DATE OF SERVICE: 03/23/18 Discharge Plan Patient Name: DANIEL ADAME Facility: [facility]:[place] : 1940 Planned Disposition: Nursing Home Facility Anticipated Discharge Date: 03/09/18 Discharge Date: Expected LOS: 6 Initial Reviewer: [id number] Initial Review Date: 03/03/2018 Generated: 03/23/18 3:15 pm Comments DCP- Discharge Planning Updated by [id number]: Alli Albarran on 03/23/18 12:[address] Patient Name: DANIEL ADAME Encounter No: [id number] : 1940 Primary Insurance: [employer] CHOICE PPO MCR ADVANT Anticipated DC Date: 03-09-2018 Planned Disposition: Nursing Home Facility External Planned Provider: [facility], INTERMEDIATE CARE MEDICAID BED DCP follow-up note: CM RECEIVED CALL FROM SHAYLA OF [facility], PT WILL NOT QUALIFY FOR DIRECTOR OF VENDOR MANAGEMENT CARE MEDICAID DUE TO TRANSFER OF PROPERTY; THEY MAY BE ABLE TO TAKE TO TRY REHAB AND WILL CHECK ON SKILLED DAYS AND MAY ALSO TAKE ON PRIVATE PAY BASIS AND WILL DISCUSS THIS WITH DAUGHTER. PT'S DAUGHTER HAS INDICATED TO [facility] SHE FEELS PT ONLY HAS TWO OR THREE DAYS LEFT AND ASKED IF PT WILL QUALIFY FOR INPATIENT HOSPICE. CM ADVISED SHAYLA THAT CM DID NOT SEE ANY IMMEDIATE CRITERIA FOR INPATIENT HOSPICE QUALIFICATION AND WILL ASK FOR INPATIENT SCREENING FROM [facility]. ALISE CALLED [facility], , LEFT MESSAGE WITH ANSWERING SERVICE REQUESTING INPATIENT HOSPICE EVALUATION AT DAUGHTER'S REQUEST. ALISE NOTIFIED THAT [facility] NURSE WILL CONTACT CM SHORTLY. CM WAITING INPATIENT HOSPICE EVALUATION FROM [facility]. THE [facility] WILL TAKE PT FOR REHAB OR ON PRIVATE PAY INTERMEDIATE CARE BASIS AND WILL DISCUSS THIS WITH PT'S DAUGHTER. Alli Albarran, CASE MANAGEMENT Appended by Alli Albarran on 03/23/2018 12:58 CDT: CM RECEIVED CALL FROM CEM OF [facility], SHE IS IN ROUTE TO HOSPITAL TO EVALUATE PT FOR INPATIENT HOSPICE. CM WAITING INPATIENT HOSPICE EVALUATION FROM [facility]. THE [facility] WILL TAKE PT FOR REHAB OR ON PRIVATE PAY INTERMEDIATE CARE BASIS AND WILL DISCUSS THIS WITH PT'S DAUGHTER. Alli Albarran, CASE MANAGEMENT Appended by Alli Albarran on 03/23/2018 13:52 CDT: CM SPOKE TO CEM OF [facility], PT DOES NOT MEET CRITERIA FOR INPATIENT HOSPICE, SHE HAS CALLED AND LEFT MESSAGE FOR PT'S DAUGHTER CAROL. PRIEST REPORTS OPTIONS REMAIN FOR PRIVATE PAY FOR PENITENTIARY OR FOR FAMILY MEMBER TO TAKE PT HOME FOR HOSPICE CARE. CM CALLED PT'S DAUGHTER, JAIRO IBARRA, , LEFT DETAILED MESSAGE REGARDING ABOVE INFORMATION, REQUESTING CALL BACK SOON POSSIBLE TO DISCUSS DISCHARGE PLANNING OPTIONS. CM WAITING ON JAIRO IBARRA, DAUGHTER, TO CALL CM TO DISCUSS OPTIONS OF PRIVATE PAY FOR PENITENTIARY VS FAMILY TAKING PT HOME FOR HOSPICE. ALLI ALBARRAN CASE MANAGEMENT DCP- Discharge Planning Updated by [id number]: Alli Albarran on 03/23/18 6:[address] Patient Name: DANIEL ADAME Encounter No: [id number] : 1940 Primary Insurance: HU[employer] CHOICE PPO [employer] ADVANT Anticipated DC Date: 03-09-2018 Planned Disposition: Nursing Home Facility External Planned Provider: [facility] TERM CARE MEDICAID BED DCP follow-up note: ZELALEM OF [facility] HAS MET WITH PT'S DAUGHTER AND EVALUATED PT, THEY WILL ACCEPT FOR HOSPICE AND WILL ENROLL PT AFTER HIS ARRIVAL AT THE PENITENTIARY. CM WAITING [facility]. NOTIFY [facility] WHEN PENITENTIARY PLACEMENT IS SECURED, , FAXE DISCHARGE INFORMATION TO [facility] AT [phone]. Alli Albarran CASE MANAGEMENT DCP- Discharge Planning Updated by [id number]: Alli Albarran on 03/22/18 3:[address] Patient Name: DANIEL ADAME Encounter No: [id number] : 1940 Primary Insurance: HU[employer] CHOICE PPO MCR ADVANT Anticipated DC Date: 03-09-2018 Planned Disposition: Nursing Home Facility External Planned Provider: [facility] TERM CARE MEDICAID BED DCP follow-up note: CM RECEIVED CALL FROM [facility], PT IS NOT IN THEIR INSURANCE NETWORK AND THEY ARE NOT GOING TO BE ABLE TO HELP WITH INTERMEDIATE CARE FOR THIS PATIENT. CM RECEIVED CALL FROM JAIRO IBARRA, , WHO REPORTS THAT SHE HAS POWER OF SPLITTER TENDER AND WILL BRING A COPY TO PLACE ON CHART, SHE HAD PREVIOUSLY PROVIDED IT TO [facility] PRACTICE DIRECTOR BUT WILL BE HAPPY TO GIVE ANOTHER COPY REQUESTED. JAIRO INFORMED OF DECLINATION BY [facility]. JAIRO REPORTS THAT SHE HAS TALKED TO FAMILY AND THEY DECIDED TO LEAVE PT IN [place], JAIRO WOULD LIKE CM TO PLACE PT IN A GOOD PENITENTIARY WITH NO PREFERNCE, CHOICE COMPLETED, AND NO PREFERENCE FOR HOSPICE COMPANY. CM NOTIFIED ADRIANO, , OF REFERRAL FOR DIRECTOR OF VENDOR MANAGEMENT CARE TO [facility]. CM FAXED REFERRAL TO [facility] VIA ADRIANO AT [phone]. CM CALLED [facility], , SPOKE TO [facility] AND PROVIDED HOSPICE REFERRAL INFORMATION, THEY DO CONTRACT WITH [facility]. CM FAXED REFERRAL TO [facility] AT [phone]. CM WAITING ADMISSION DETERMINATION FROM [facility] AND [facility] FOR DIRECTOR OF VENDOR MANAGEMENT CARE. Alli Albarran, CASE MANAGEMENT DCP- Discharge Planning Updated by [id number]: Alli Albarran on 03/19/18 2:[address] Patient Name: DANIEL ADAME Encounter No: [id number] : 1940 Primary Insurance: [employer] CHO[employer] PPO MCR ADVANT Anticipated DC Date: 03-09-2018 Planned Disposition: Nursing Home Facility External Planned Provider: [facility], MEDICARE SKILLED BED DCP follow-up note: CM SPOKE TO PT'S DAUGHTER, JAIRO IBARRA ALONG WITH DR. LOVETT AND ALANA BAUMAN. DISUSSED WAS PT'S CONDITION, [facility] VS HOSPICE CARE. PT'S DAUGHTER IS STILL WANTING PT IN [place] AND ASKED FOR PT TO BE REFERRED TO [facility] IN [place], [place]. JAIRO HAS DISCUSSED PLACEMENT WITH JOHANNA AT FACILITY. TRANSPORTATION DISCUSSED; JAIRO DECIDED SHE WOULD LIKE CM TO OBTAIN TRANSPORT ESTIMATE FROM [facility] IF PLACEMENT CAN BE SECURED AT FACILITY. CHOICE SIGNED FOR [facility], IMPORTANT MESSAGE FROM MEDICARE PROVIDED AND EXPLAINED. ALISE CALLED [facility], , JOHANNA WAS NOT IN. CM SPOKE TO AILEEN WHO REPORTED THAT JOHANNA WOULD BE BACK IN THURSDAY AND WILL REVIEW REFERRAL THEN. CM FAXED REFERRAL TO [facility] AT [phone]. F[address]ILTY ADDRESS IS [address] [place] [address]. [phone]. CM WAITING ADMISSION DETERMINATION FROM [facility] IN [place], [place]. Alli Albarran, CASE MANAGEMENT DCP- Discharge Planning Updated by [id number]: Alli Albarran on 03/17/18 2:[address] Patient Name: DANIEL ADAME Encounter No: [id number] : 1940 Primary Insurance: [employer] CHOICE PPO MCR ADVANT Anticipated DC Date: 03-09-2018 Planned Disposition: Nursing Home Facility External Planned Provider: TO BE DETERMINED DCP follow-up note: CM REVIEWED CHART, DR. BEARDEN'S NOTE INDICATES NEED TO SPEAK TO FAMILY REGARDING COMFORT CARE OR HOSPICE CARE FOR PT. CM RECEIVED CALL FROM DAUGHTER, JAIRO IBARRA, , WHO REQUESTED UPDATE. CM DISCUSSED DR. BEARDEN'S OPTION REGARDING HOSPICE OR COMFORT CARE. JAIRO REPORTS NO INTEREST AT THIS TIME FOR COMFORT CARE OR HOSPICE. JAIRO IS CONSIDERING PICKING UP PT IN CAR AND TAKING PT BACK TO [place] WHERE THEY LIVE, IT IS AN [address] CM EXPLAINED PT IS VERY WEAK AND WOULD NOT BE ABLE TO GET OUT OF THE CAR DURING PROLONGED TRANSPORTATION. JAIRO ONLY WANTED ASSURANCES THAT PT WOULD NOT DURING THE RIDE TO [place]. CM INFORMED JAIRO THAT CM COULD NOT PROVIDE THAT ASSURANCE, RECOMMENDED [facility] FOR PT. JAIRO REPORTS SHE WILL BE IN [place] AND AT THE HOSPITAL TOMORROW, 03-18-18 AT ABOUT 8:30 IN THE MORNING. SHE WOULD LIKE TO MEET WITH ALL DOCTORS IN THE MORNING IN A "BIG MEETING". CM EXPLAINED THAT THIS WOULD NOT BE POSSIBLE, OFFERED TO ASK DR. LOVETT, PRIMARY DOCTOR, TO MEET WITH HER IN THE MORNING, JAIRO ACCEPTED. JAIRO IBARRA, DAUGHTER, , WILL MEET WITH DR. LOVETT AND CM IN THE [facility], 03-18-18, TO DISCUSS PT'S CARE, PROGNOSIS AND DISCHARGE PLAN. Alli Albarran, SRI MANAGEMENT DCP- Discharge Planning Updated by [id number]: Alli Albarran on 03/11/18 7:[address] Patient Name: DANIEL ADAME Encounter No: [id number] : 1940 Primary Insurance: [employer] CHOICE PPO MCR ADVANT Anticipated DC Date: 03-09-2018 Planned Disposition: Inpatient Rehab Facility External Planned Provider: [facility] DCP follow-up note: CM INFORMED PT THAT INSURANCE STILL HAS NOT PROVIDED AUTHORIZATION OR DENIAL FOR REHAB. PT STILL WILLING FOR REHAB AT [facility]. IMPORTANT MESSAGE FROM MEDICARE PROVIDED AND EXPLAINED. CM WAITING FOR INSURANCE AUTHORIZATION OR DENIAL FOR INPATIENT REHAB SERVICES AT [facility]. Alli Albarran, CASE MANAGEMENT DCP- Discharge Planning Updated by [id number]: Alli Albarran on 03/08/18 3:[address] Patient Name: DANIEL ADAME Encounter No: [id number] : 1940 Primary Insurance: [employer] CHOICE PPO MCR ADVANT Anticipated DC Date: 03-09-2018 Planned Disposition: Inpatient Rehab Facility External Planned Provider: [facility] DCP follow-up note: * Is the patient Alert and Oriented? Yes 0 * How many steps to enter\\exit or inside your home? 4-5 0 * PCP DR. VELÁZQUEZ 0 * Pharmacy [facility] 0 * Preadmission Environment Acute Inpatient Rehab 0 * Facility Name [facility] 0 * ADLs Partial Dependent 0 * Partial ADLs (Assistance needed) Ambulation Bathing Medication Management Toileting Transfers 0 * Equipment None 0 * Other Equipment NO MEDICAL EQUIPMENT PROVIDER PREFERENCE 0 * List name and contact numbers for known caregivers / representatives who currently or will assist patient after discharge: JAIRO IBARRA, DAUGHTER, 0 * Verbal permission to speak to the caregivers and representatives has been obtained from the patient. Yes 0 * Community resources currently utilized None 0 * Please name any agencies selected above. NONE 0 * Additional services required to return to the preadmission environment? No 0 * Can the patient safely return to the preadmission environment? Yes 0 * Has this patient been hospitalized within the prior 30 days at any hospital? Yes 0 CM RECEIVED ORDER FOR INPATIENT REHAB PRESCREENING. CM SPOKE TO PT IN ROOM WHO IS VERY HARD OF HEARING. PT REPORTS HIS DAUGHTER, JAIRO, IS HERE AND FOR CM TO SPEAK TO HER REGARDING DISCHARGE PLAN. PT IS AGREEABLE TO INPATIENT REHAB AND STATES HE WAS LIVING AT HOME ALONE PRIOR TO HOSPITALIZATION. IMPORTANT MESSAGE FROM MEDICARE PROVIDED AND EXPLAINED. CM CALLED AND SPOKE TO JAIRO IBARRA, DAUGHTER, ; JAIRO REPORTS LIVING IN [place] AND IT IS A [address] TO GET PT THERE WHEN THEY LEAVE [place]. JAIRO WAS HOPING THAT PT WOULD BE STONG ENOUGH FOR THE RIDE AT DISCHARGE FROM HOSPITAL. CM REVIEWED THERAPY EVALUATION AND NOTES WITH JAIRO. JAIRO WOULD LIKE TO TRY TO GET PT BACK INTO INPATIENT REHAB AT [facility] STATING HE WAS ONLY IN THERE FOR ONE NIGHT BEFORE HAVING TO BE READMITTED; SHE HOPES FOR PT TO BE STONG ENOUGH FOR HER TO TRANSPORT PT TO [place] AT DISCHARGE AND SHE HAS A PENITENTIARY IN MIND THAT WILL ACCEPT PT AT DISCHARGE IF NEEDED. CM WAITING FOR INPATIENT REHAB PRESCREENING AND INSURANCE AUTHORIZATION OR DENIAL FOR INPATIENT REHAB SERVICES. Alli Albarran, CASE MANAGEMENT DCP- Discharge Planning Updated by [id number]: Jericajuaquin Tejeda on 03/07/18 7:[address] PATIENT WITH VARYING DEGREES OF ORIENTATION. HE IS ALSO HARD OF HEARING. WAS TRANSFERED TO ICU AFTER ONE DAY IN [facility]. MD PLAN IS FOR POSSIBLE TRANSFER TO ACUTE REHAB THURSDAY. PATIENT WILL NEED TO BE EVALUATED AND LIKELY WILL REQUIRE A NEW PRECERT HE HAS [employer] CHOICE PPO MEDICARE ADVANTAGE AN INSURER. \\NO PHYSICAL THERAPY NOTES AT THIS TIME. WILL NEED PT/OT EVAL FOR PRECERT. REPORTEDLY LIVED ALONE PRIOR TO ADMISSION. HAD DAUGHTER,JAIRO IBARRA. CONTACT PHONE NUMBER CELL [phone] HOME [phone]. PATIENT ALSO HAS SONS :SERENA POMPA- [phone] AND MARJORIE SLAUGHTER- [phone]. CM WILL NEED TO MEET WITH PATIENT'S FAMILY REGARDING DISCHARGE PLAN. DCPIA - Discharge Planning Initial Assessment Updated by [id number]: Alli Albarran on 03/08/18 4:26 pm * Is the patient Alert and Oriented? Yes * How many steps to enter\\exit or inside your home? 4-5 * PCP DR. VELÁZQUEZ * [facility] * Preadmission Environment Acute Inpatient Rehab * Facility Name [facility] * ADLs Partial Dependent * Partial ADLs (Assistance needed) Ambulation Bathing Medication Management Toileting Transfers * Equipment None * Other Equipment NO MEDICAL EQUIPMENT PROVIDER PREFERENCE * List name and contact numbers for known caregivers / representatives who currently or will assist patient after discharge: JAIRO IBARRA, DAUGHTER, * Verbal permission to speak to the caregivers and representatives has been obtained from the patient. Yes * Community resources currently utilized None * Please name any agencies selected above. NONE * Additional services required to return to the preadmission environment? No * Can the patient safely return to the preadmission environment? Yes * Has this patient been hospitalized within the prior 30 days at any hospital? Yes External Providers External Provider: OTHER-OTHER Next Contact Date: 03/23/2018 Service Request Date: Service Type: Resolution: Reviewer: Comments: Coverage Notice Reviewer: ROSMERY Albarran Notice Issued Date-Time: 03/11/2018 8:10 Notice Type: IM Discharge Notice Notice Delivered To: Patient Relationship to Patient: Head Host/Hostess Name: Delivery Method: HAND - Hand Delivered Sho Days: Prior Verbal Notification: Recipient Understood Notice: Yes Recipient Signature: Yes Med Rec Note Co-signed by Attending: Coverage Notice Comment: Reviewer: ROSMERY Albarran Notice Issued Date-Time: 03/08/2018 16:05 Notice Type: IM Discharge Notice Notice Delivered To: Patient Relationship to Patient: Head Host/Hostess Name: Delivery Method: HAND - Hand Delivered Sho Days: Prior Verbal Notification: Recipient Understood Notice: Yes Recipient Signature: Yes Med Rec Note Co-signed by Attending: Coverage Notice Comment: Reviewer: ROSMERY Albarran Notice Issued Date-Time: 03/19/2018 14:50 Notice Type: IM Discharge Notice Notice Delivered To: Family Member Relationship to Patient: Daughter Head Host/Hostess Name: JAIRO IBARRA Delivery Method: HAND - Hand Delivered Sho Days: Prior Verbal Notification: Recipient Understood Notice: Yes Recipient Signature: Yes Med Rec Note Co-signed by Attending: Coverage Notice Comment: Reviewer: ROSMERY Albarran Notice Issued Date-Time: 03/22/2018 11:00 Notice Type: Patient Choice Letter Notice Delivered To: Family Member Relationship to Patient: Daughter Head Host/Hostess Name: JAIRO IBARRA Delivery Method: PHONE - Phone Sho Days: Prior Verbal Notification: Recipient Understood Notice: Yes Recipient Signature: Yes Med Rec Note Co-signed by Attending: Coverage Notice Comment: ANY [facility] WITH HOSPICE CARE. Reviewer: ROSMERY Albarran Notice Issued Date-Time: 03/19/2018 14:50 Notice Type: Patient Choice Letter Notice Delivered To: Family Member Relationship to Patient: Daughter Head Host/Hostess Name: JAIRO IBARRA Delivery Method: HAND - Hand Delivered Sho Days: Prior Verbal Notification: Recipient Understood Notice: Yes Recipient Signature: Yes Med Rec Note Co-signed by Attending: Coverage Notice Comment: Last DP export: 03/23/18 12:59 Patient Name: DANIEL ADAME Page [id number] at 1415 All edits/amendments must be made on the electronic document DICTATION DATE: 03/23/181414 DEVOPS ENGINEER: RUBÉN 03/23/181414 RPT#: [id number] DC DATE: STATUS: ADM IN [facility] [address] [place] [address] END OF REPORT
--- NOTE | ~2018-03-03 | MORECARE ---
CASE MANAGEMENT DISCHARGE SUMMARY PATIENT: DANIEL ADAME UNIT: [id number] ADM DATE: 03/03/18 AGE: 78 : 40 SEX: M ROOM/BED: D.2104 AUTHOR: SAMUEL,DOC PHYSICIAN: REFERRING PHYSICIAN: AGGIE PANIAGUA MD DATE OF SERVICE: 03/23/18 Discharge Plan Patient Name: DANIEL ADAME Facility: [facility]:[place] : 1940 Planned Disposition: Retirement Facility Anticipated Discharge Date: 03/09/18 Discharge Date: Expected LOS: 6 Initial Reviewer: [id number] Initial Review Date: 03/03/2018 Generated: 03/23/18 3:23 pm Comments DCP- Discharge Planning Updated by [id number]: lAli Albarran on 03/23/18 1:[address] Patient Name: DANIEL ADAME Encounter No: [id number] : 1940 Primary Insurance: [employer] CHOICE PPO MCR ADVANT Anticipated DC Date: 03-09-2018 Planned Disposition: Retirement Facility External Planned Provider: [facility]] NURSING AND REHAB, CODING COMPLIANCE AUDITOR CARE MEDICAID BED DCP follow-up note: CM RECEIVED CALL FROM SHAYLA OF [facility][1], PT WILL NOT QUALIFY FOR INTERMEDIATE CARE MEDICAID DUE TO TRANSFER OF PROPERTY; THEY MAY BE ABLE TO TAKE TO TRY REHAB AND WILL CHECK ON SKILLED DAYS AND MAY ALSO TAKE ON PRIVATE PAY BASIS AND WILL DISCUSS THIS WITH DAUGHTER. PT'S DAUGHTER HAS INDICATED TO [facility][1] SHE FEELS PT ONLY HAS TWO OR THREE DAYS LEFT AND ASKED IF PT WILL QUALIFY FOR INPATIENT HOSPICE. CM ADVISED SHAYLA THAT CM DID NOT SEE ANY IMMEDIATE CRITERIA FOR INPATIENT HOSPICE QUALIFICATION AND WILL ASK FOR INPATIENT SCREENING FROM [facility]. ALISE CALLED [facility], , LEFT MESSAGE WITH ANSWERING SERVICE REQUESTING INPATIENT HOSPICE EVALUATION AT DAUGHTER'S REQUEST. ALISE NOTIFIED THAT [facility] WILL CONTACT CM SHORTLY. CM WAITING INPATIENT HOSPICE EVALUATION FROM [facility]. [facility] WILL TAKE PT FOR REHAB OR ON PRIVATE PAY INTERMEDIATE CARE BASIS AND WILL DISCUSS THIS WITH PT'S DAUGHTER. Alli Albarran, CASE MANAGEMENT Appended by Alli Albarran on 03/23/2018 12:58 CDT: CM RECEIVED CALL FROM CEM OF [facility], SHE IS IN ROUTE TO HOSPITAL TO EVALUATE PT FOR INPATIENT HOSPICE. CM WAITING INPATIENT HOSPICE EVALUATION FROM [facility]. [facility] WILL TAKE PT FOR REHAB OR ON PRIVATE PAY INTERMEDIATE CARE BASIS AND WILL DISCUSS THIS WITH PT'S DAUGHTER. Alli Albarran, CASE MANAGEMENT Appended by Alli Albarran on 03/23/2018 13:52 CDT: CM SPOKE TO CEM OF [facility], PT DOES NOT MEET CRITERIA FOR INPATIENT HOSPICE, SHE HAS CALLED AND LEFT MESSAGE FOR PT'S DAUGHTER CAROL. PRIEST REPORTS OPTIONS REMAIN FOR PRIVATE PAY FOR [facility] OR FOR FAMILY MEMBER TO TAKE PT HOME FOR HOSPICE CARE. CM CALLED PT'S DAUGHTER, JAIRO IBARRA, , LEFT DETAILED MESSAGE REGARDING ABOVE INFORMATION, REQUESTING CALL BACK SOON POSSIBLE TO DISCUSS DISCHARGE PLANNING OPTIONS. CM WAITING ON JAIRO IBARRA, DAUGHTER, TO CALL CM TO DISCUSS OPTIONS OF PRIVATE PAY FOR [facility] VS FAMILY TAKING PT HOME FOR HOSPICE. ALLI ALBARRAN CASE MANAGEMENT Appended by Alli Albarran on 03/23/2018 14:23 CDT: AT DAUGHTERS REQUEST TO CALL JAIR AND NOTIFY COURT OF PT'S INABILITY TO GET TO COURT HEARING THIS WEEK, CM CONTACTED PT'S [employer] (ABAM), [employer]ERCE Verious, , SPOKE TO MARIE WHO INFORMED CM THAT PT HAS COURT HEARING ON 03-25-18 IN [facility] [address] ON 03-25-18 ON CHARGE OF TERRORISTIC THREATENING. CM CALLED DISTRICT COURT, , NOTIFIED HENNA WHO ASKED FOR LETTER TO BE FAXED TO THE COURT AT [phone]. CM OBTAIN[address] AVILA SIGNATURE ON LETTER TO INFORM COURT OF PT'S LOCATION AND CONDITION. CM FAXED TO [facility] AT [phone], [facility] . CM WAITING ON JAIRO IBARRA, DAUGHTER, TO CALL CM TO DISCUSS OPTIONS OF PRIVATE PAY FOR [facility] VS FAMILY TAKING PT HOME FOR HOSPICE. ALLI ALBARRAN, CASE MANAGEMENT DCP- Discharge Planning Updated by [id number]: Alli Albarran on 03/23/18 6:[address] Patient Name: DANIEL ADAME Encounter No: [id number] : 1940 Primary Insurance: [employer] CHOICE PPO MCR ADVANT Anticipated DC Date: 03-09-2018 Planned Disposition: Retirement Facility External Planned Provider: [facility] CODING COMPLIANCE AUDITOR CARE MEDICAID BED DCP follow-up note: ZELALEM OF [facility] HAS MET WITH PT'S DAUGHTER AND EVALUATED PT, THEY WILL ACCEPT FOR HOSPICE AND WILL ENROLL PT AFTER HIS ARRIVAL AT THE [facility]. [facility]. NOTIFY [facility] WHEN [facility] PLACEMENT IS SECURED, , FAXE DISCHARGE INFORMATION TO [facility] AT [phone]. Alli Albarran, CASE MANAGEMENT DCP- Discharge Planning Updated by [id number]: Alli Albarran on 03/22/18 3:[address] Patient Name: DANIEL ADAME Encounter No: [id number] : 1940 Primary Insurance: HU[employer] CHOICE PPO MCR ADVANT Anticipated DC Date: 03-09-2018 Planned Disposition: Retirement Facility External Planned Provider: [facility] TERM CARE MEDICAID BED DCP follow-up note: CM RECEIVED CALL FROM JOHANNA OF [facility], PT IS NOT IN THEIR INSURANCE NETWORK AND THEY ARE NOT GOING TO BE ABLE TO HELP WITH INTERMEDIATE CARE FOR THIS PATIENT. CM RECEIVED CALL FROM JAIRO IBARRA, , WHO REPORTS THAT SHE HAS POWER OF GERIATRIC CARE MANAGER AND WILL BRING A COPY TO PLACE ON CHART, SHE HAD PREVIOUSLY PROVIDED IT TO MED SURG SHAFT MECHANIC BUT WILL BE HAPPY TO GIVE ANOTHER COPY REQUESTED. JAIRO INFORMED OF DECLINATION BY [facility]. JAIRO REPORTS THAT SHE HAS TALKED TO FAMILY AND THEY DECIDED TO LEAVE PT IN , JAIRO WOULD LIKE TO PLACE PT IN A GOOD [facility] WITH NO PREFERNCE, CHOICE COMPLETED, AND NO PREFERENCE FOR HOSPICE COMPANY. ALISE NOTIFIED ADRIANO, , OF REFERRAL FOR CODING COMPLIANCE AUDITOR CARE TO [facility][1]. CM FAXED REFERRAL TO [facility][1] VIA ADRIANO AT [phone]. CM CALLED [facility], , SPOKE TO ZELALEM AND PROVIDED HOSPICE REFERRAL INFORMATION, THEY DO CONTRACT WITH [facility][1]. CM FAXED REFERRAL TO [facility] AT [phone]. CM WAITING ADMISSION DETERMINATION FROM [facility] AND [facility][1] FOR CODING COMPLIANCE AUDITOR CARE. SRI Clemons MANAGEMENT DCP- Discharge Planning Updated by [id number]: Alli Albarran on 03/19/18 2:[address] Patient Name: DANIEL ADAME Encounter No: [id number] : 1940 Primary Insurance: HUMANA CHOICE PPO MCR ADVANT Anticipated DC Date: 03-09-2018 Planned Disposition: Retirement Facility External Planned Provider: [facility], MEDICARE SKILLED BED DCP follow-up note: CM SPOKE TO PT'S DAUGHTER, JAIRO IBARRA ALONG WITH DR. LOVETT AND ALANA BAUMAN. DISUSSED WAS PT'S CONDITION, CARE HOME REHAB VS HOSPICE CARE. PT'S DAUGHTER IS STILL WANTING PT IN [place] AND ASKED FOR PT TO BE REFERRED TO [facility] IN [place], [place]. JAIRO HAS DISCUSSED PLACEMENT WITH JOHANNA AT FACILITY. TRANSPORTATION DISCUSSED; JAIRO DECIDED SHE WOULD LIKE CM TO OBTAIN TRANSPORT ESTIMATE FROM [facility] IF PLACEMENT CAN BE SECURED AT FACILITY. CHOICE SIGNED FOR [facility], IMPORTANT MESSAGE FROM MEDICARE PROVIDED AND EXPLAINED. CM CALLED [facility], , JOHANNA WAS NOT IN. CM SPOKE TO AILEEN WHO REPORTED THAT JOHANNA WOULD BE BACK IN THURSDAY AND WILL REVIEW REFERRAL THEN. CM FAXED REFERRAL TO [facility] AT [phone]. F[address]ILTY ADDRESS IS [address] [place] [address]. [id number]. CM WAITING ADMISSION DETERMINATION FROM [facility] IN [place], [place]. SRI Clemons DCP- Discharge Planning Updated by [id number]: Alli Albarran on 03/17/18 2:[address] Patient Name: DANIEL ADAME Encounter No: [id number] : 1940 Primary Insurance: [employer]NA CHOICE PPO MCR ADVANT Anticipated DC Date: 03-09-2018 Planned Disposition: Retirement Facility External Planned Provider: TO BE DETERMINED DCP follow-up note: CM REVIEWED CHART, DR. BEARDEN'S NOTE INDICATES NEED TO SPEAK TO FAMILY REGARDING COMFORT CARE OR HOSPICE CARE FOR PT. CM RECEIVED CALL FROM DAUGHTER, JAIRO IBARRA, , WHO REQUESTED UPDATE. CM DISCUSSED DR. BEARDEN'S OPTION REGARDING HOSPICE OR COMFORT CARE. JAIRO REPORTS NO INTEREST AT THIS TIME FOR COMFORT CARE OR HOSPICE. JAIRO IS CONSIDERING PICKING UP PT IN CAR AND TAKING PT BACK TO [place] WHERE THEY LIVE, IT IS AN [address] CM EXPLAINED PT IS VERY WEAK AND WOULD NOT BE ABLE TO GET OUT OF THE CAR DURING PROLONGED TRANSPORTATION. JAIRO ONLY WANTED ASSURANCES THAT PT WOULD NOT DURING THE RIDE TO [place]. CM INFORMED JAIRO THAT CM COULD NOT PROVIDE THAT ASSURANCE, RECOMMENDED CARE HOME REHAB FOR PT. JAIRO REPORTS SHE WILL BE IN [place] AND AT THE HOSPITAL TOMORROW, 03-18-18 AT ABOUT 8:30 IN THE MORNING. SHE WOULD LIKE TO MEET WITH ALL DOCTORS IN THE MORNING IN A "BIG MEETING". CM EXPLAINED THAT THIS WOULD NOT BE POSSIBLE, OFFERED TO ASK DR. LOVETT, PRIMARY DOCTOR, TO MEET WITH HER IN THE MORNING, JAIRO ACCEPTED. JAIRO IBARRA, DAUGHTER, , WILL MEET WITH DR. LOVETT AND CM IN THE [facility], 03-18-18, TO DISCUSS PT'S CARE, PROGNOSIS AND DISCHARGE PLAN. Alli Albarran, CASE MANAGEMENT DCP- Discharge Planning Updated by [id number]: Alli Albarran on 03/11/18 7:[address] Patient Name: DANIEL ADAME Encounter No: [id number] : 1940 Primary Insurance: HUMANA CHOICE PPO MCR ADVANT Anticipated DC Date: 03-09-2018 Planned Disposition: Inpatient Rehab Facility External Planned Provider: [facility] DCP follow-up note: CM INFORMED PT THAT INSURANCE STILL HAS NOT PROVIDED AUTHORIZATION OR DENIAL FOR REHAB. PT STILL WILLING FOR REHAB AT [facility]. IMPORTANT MESSAGE FROM MEDICARE PROVIDED AND EXPLAINED. CM WAITING FOR INSURANCE AUTHORIZATION OR DENIAL FOR INPATIENT REHAB SERVICES AT [facility]. Alli Albarran, CASE MANAGEMENT DCP- Discharge Planning Updated by [id number]: Alli Albarran on 03/08/18 3:[address] Patient Name: DANIEL ADAME Encounter No: [id number] : 1940 Primary Insurance: [employer] CHOICE PPO MCR ADVANT Anticipated DC Date: 03-09-2018 Planned Disposition: Inpatient Rehab Facility External Planned Provider: [facility] INPATIENT REHAB DCP follow-up note: * Is the patient Alert and Oriented? Yes 0 * How many steps to enter\\exit or inside your home? 4-5 0 * PCP DR. VELÁZQUEZ 0 * [facility]acy [facility] * Preadmission Environment Acute Inpatient Rehab 0 * Facility Name [facility] INPATIENT REHAB 0 * ADLs Partial Dependent 0 * Partial ADLs (Assistance needed) Ambulation Bathing Medication Management Toileting Transfers 0 * Equipment None 0 * Other Equipment NO MEDICAL EQUIPMENT PROVIDER PREFERENCE 0 * List name and contact numbers for known caregivers / representatives who currently or will assist patient after discharge: JAIRO IBARRA, DAUGHTER, 0 * Verbal permission to speak to the caregivers and representatives has been obtained from the patient. Yes 0 * Community resources currently utilized None 0 * Please name any agencies selected above. NONE 0 * Additional services required to return to the preadmission environment? No 0 * Can the patient safely return to the preadmission environment? Yes 0 * Has this patient been hospitalized within the prior 30 days at any hospital? Yes 0 CM RECEIVED ORDER FOR INPATIENT REHAB PRESCREENING. CM SPOKE TO PT IN ROOM WHO IS VERY HARD OF HEARING. PT REPORTS HIS DAUGHTER, JAIRO, IS HERE AND FOR CM TO SPEAK TO HER REGARDING DISCHARGE PLAN. PT IS AGREEABLE TO INPATIENT REHAB AND STATES HE WAS LIVING AT HOME ALONE PRIOR TO HOSPITALIZATION. IMPORTANT MESSAGE FROM MEDICARE PROVIDED AND EXPLAINED. CM CALLED AND SPOKE TO JAIRO IBARRA, DAUGHTER, ; JAIRO REPORTS LIVING IN [place] AND IT IS A [address] TO GET PT THERE WHEN [place]AVE [facility] [place]. JAIRO WAS HOPING THAT PT WOULD BE STONG ENOUGH FOR THE RIDE AT DISCHARGE FROM HOSPITAL. CM REVIEWED THERAPY EVALUATION AND NOTES WITH JAIRO. JAIRO WOULD LIKE TO TRY TO GET PT BACK INTO INPATIENT REHAB AT [facility] STATING HE WAS ONLY IN THERE FOR ONE NIGHT BEFORE HAVING TO BE READMITTED; SHE HOPES FOR PT TO BE STONG ENOUGH FOR HER TO TRANSPORT PT TO [place] AT DISCHARGE AND SHE HAS A [facility] IN MIND THAT WILL ACCEPT PT AT DISCHARGE IF NEEDED. CM WAITING FOR INPATIENT REHAB PRESCREENING AND INSURANCE AUTHORIZATION OR DENIAL FOR INPATIENT REHAB SERVICES. Alli Albarran, CASE MANAGEMENT DCP- Discharge Planning Updated by [id number]: Jerica Tejeda on 03/07/18 7:[address] PATIENT WITH VARYING DEGREES OF ORIENTATION. HE IS ALSO HARD OF HEARING. WAS TRANSFERED TO ICU AFTER ONE DAY IN [facility]. PLAN IS FOR POSSIBLE TRANSFER TO ACUTE REHAB THURSDAY. PATIENT WILL NEED TO BE EVALUATED AND LIKELY WILL REQUIRE A NEW PRECERT HE HAS [employer]NA CHOICE PPO MEDICARE ADVANTAGE AN INSURER. \\NO PHYSICAL THERAPY NOTES AT THIS TIME. WILL NEED PT/OT EVAL FOR PRECERT. REPORTEDLY LIVED ALONE PRIOR TO ADMISSION. HAD DAUGHTER,JAIRO IBARRA. CONTACT PHONE NUMBER CELL [phone] HOME [phone]. PATIENT ALSO HAS SONS :SERENA POMPA- [phone] AND MARJORIE SLAUGHTER- [phone]. CM WILL NEED TO MEET WITH PATIENT'S FAMILY REGARDING DISCHARGE PLAN. DCPIA - Discharge Planning Initial Assessment Updated by ROSMERY: Alli Albarran on 03/08/18 4:26 pm * Is the patient Alert and Oriented? Yes * How many steps to enter\\exit or inside your home? 4-5 * PCP DR. VELÁZQUEZ * Pharmacy [facility] * Preadmission Environment Acute Inpatient Rehab * Facility Name [facility] * ADLs Partial Dependent * Partial ADLs (Assistance needed) Ambulation Bathing Medication Management Toileting Transfers * Equipment None * Other Equipment NO MEDICAL EQUIPMENT PROVIDER PREFERENCE * List name and contact numbers for known caregivers / representatives who currently or will assist patient after discharge: JAIRO IBARRA, DAUGHTER, * Verbal permission to speak to the caregivers and representatives has been obtained from the patient. Yes * Community resources currently utilized None * Please name any agencies selected above. NONE * Additional services required to return to the preadmission environment? No * Can the patient safely return to the preadmission environment? Yes * Has this patient been hospitalized within the prior 30 days at any hospital? Yes Coverage Notice Reviewer: [id number] Marty Albarran Notice Issued Date-Time: 03/22/2018 11:00 Notice Type: Patient Choice Letter Notice Delivered To: Family Member Relationship to Patient: Daughter Study Manager Name: JAIRO IBARRA Delivery Method: PHONE - Phone Sho Days: Prior Verbal Notification: Recipient Understood Notice: Yes Recipient Signature: Yes Med Rec Note Co-signed by Attending: Coverage Notice Comment: [facility] WITH HOSPICE CARE. Reviewer: [id number] Marty Albarran Notice Issued Date-Time: 03/19/2018 14:50 Notice Type: Patient Choice Letter Notice Delivered To: Family Member Relationship to Patient: Daughter Study Manager Name: JAIRO IBARRA Delivery Method: HAND - Hand Delivered Sho Days: Prior Verbal Notification: Recipient Understood Notice: Yes Recipient Signature: Yes Med Rec Note Co-signed by Attending: Coverage Notice Comment: Reviewer: ROSMERY Albarran Notice Issued Date-Time: 03/19/2018 14:50 Notice Type: IM Discharge Notice Notice Delivered To: Family Member Relationship to Patient: Daughter Study Manager Name: JAIRO IBARRA Delivery Method: HAND - Hand Delivered Sho Days: Prior Verbal Notification: Recipient Understood Notice: Yes Recipient Signature: Yes Med Rec Note Co-signed by Attending: Coverage Notice Comment: Reviewer: ROSMERY Albarran Notice Issued Date-Time: 03/11/2018 8:10 Notice Type: IM Discharge Notice Notice Delivered To: Patient Relationship to Patient: Study Manager Name: Delivery Method: HAND - Hand Delivered Sho Days: Prior Verbal Notification: Recipient Understood Notice: Yes Recipient Signature: Yes Med Rec Note Co-signed by Attending: Coverage Notice Comment: Reviewer: ROSMERY Albarran Notice Issued Date-Time: 03/08/2018 16:05 Notice Type: IM Discharge Notice Notice Delivered To: Patient Relationship to Patient: Study Manager Name: Delivery Method: HAND - Hand Delivered Sho Days: Prior Verbal Notification: Recipient Understood Notice: Yes Recipient Signature: Yes Med Rec Note Co-signed by Attending: Coverage Notice Comment: Last DP export: 03/23/18 1:15 Patient Name: DANIEL ADAME Page [id number] at 1423 All edits/amendments must be made on the electronic document DICTATION DATE: 03/23/181422 SENIOR SUPPORT ANALYST: RUBÉN 03/23/18 142 RPT#: [id number] MD DATE: STATUS: ADM IN [facility] [address] [place] [address] END OF REPORT
--- NOTE | ~2018-03-03 | MORECARE ---
CASE MANAGEMENT DISCHARGE SUMMARY PATIENT: DANIEL ADAME UNIT: [id number] ADM DATE: 03/03/18 AGE: 78 : 40 SEX: M ROOM/BED: D.2104 AUTHOR: SAMUEL,DOC PHYSICIAN: REFERRING PHYSICIAN: AGGIE PANIAGUA MD DATE OF SERVICE: 03/24/18 Discharge Plan Patient Name: DANIEL ADAME Facility: [facility]:[place] : 1940 Planned Disposition: Fpc Facility Anticipated Discharge Date: 03/24/18 Discharge Date: Expected LOS: 21 Initial Reviewer: [id number] Initial Review Date: 03/03/2018 Generated: 03/24/18 1:38 pm Comments DCP- Discharge Planning Updated by [id number]: Alli Albarran on 03/24/18 11:[address] Patient Name: DANIEL ADAME Encounter No: [id number] : 1940 Primary Insurance: HUMANA CHOICE PPO MCR ADVANT Anticipated DC Date: 03-24-2018 Planned Disposition: Fpc Facility External Planned Provider: [facility] DCP follow-up note: CM RECEIVED CALL FROM SHAYLA AT THE [facility], THEY WILL ACCEPT PT TODAY FOR REHAB, ARE CALLING PT'S DAUGHTER TO COMPLETE ADMISSION PAPERWORK NOW. BEDSIDE NURSE NOTFIED. CM FAXED UPDATE TO THE [facility] VIA [employer], . FOR DISCHARGE, FAX DISCHARGE INFORMATION TO THE [facility], , NURSE REPORT TO BE CALLED TO THE [facility] AT [phone]. PT TO TRANSPORT VIA AMBULANCE. Alli Albarran, CASE MANAGEMENT DCP- Discharge Planning Updated by [id number]: Alli Albarran on 03/24/18 11:[address] Patient Name: DANIEL ADAME Encounter No: [id number] : 1940 Primary Insurance: HUMANA CHOICE PPO MCR ADVANT Anticipated DC Date: 03-09-2018 Planned Disposition: Fpc Facility External Planned Provider: [facility], MEDICARE REHAB BED DCP follow-up note: CM RECEIVED CALL FROM PT'S DAUGHTER, JAIRO IBARRA [phone], WHO INFORMED CM THAT SHE HAS TO MAIL A COPY OF HER POWER OF ACCOUNT UNDERWRITER TO MEDICARE THEY WILL NOT ACCEPT EMAIL OR FAX, PT IS NOT ABLE TO ANSWER QUESTIONS FOR HIMSELF TO CHANGE MEDICARE COVERAGES AT THIS TIME. JAIRO REPORTS THIS PROCESS MAY TAKE OVER ONE WEEK. JAIRO NOW WANTS TO PLACE PT AT THE [facility] TO BEGIN REHAB THROUGH HIS MANAGED MEDICARE APPROVED AND SHE WILL WORK ON CHANGING TO STANDARD MEDICARE AND SECURING REHAB PLACEMENT IN [place] AT [facility]. JAIRO IS HER IN [place] AND IS AVAILABLE TO SIGN ADMISSION PAPERWORK TODAY AT THE [facility]. CM NOTIFIED SABA BRUNER. CM CALLED THE [facility], , NOTIFIED SHAYLA OF THE PLAN, SHAYLA REPORTS THEY WILL ACCEPT PT TODAY FOR REHAB, SHAYLA TO CALL CM SHORTLY WITH WHICH BUILDING PT WILL BE COMING TO. CM WAITING ON DISCHARGE ORDERS AND BUILDING ASSIGNMENT FOR THE [facility] ([facility]) FOR REHAB SERVICES APPROVED BY PT'S INSURANCE. Alli Albarran, CASE MANAGEMENT DCP- Discharge Planning Updated by [id number]: Alli Albarran on 03/24/18 10:[address] Patient Name: DANIEL ADAME Encounter No: [id number] : 1940 Primary Insurance: HUMANA CHOICE PPO MCR ADVANT Anticipated DC Date: 03-09-2018 Planned Disposition: Fpc Facility External Planned Provider: [facility] [place], MEDICARE REHAB BED DCP follow-up note: CM RECEIVED CALL FROM FOZIA OF THE [facility], , WHO ADVISED THAT PT'S MANAGED MEDICARE INSURANCE HAS AUTHORIZED REHAB SERVICES AT THE [facility] FOR 7 DAYS. CM CALLED AND SPOKE TO PT'S DAUGHTER, JAIOR IBARRA [phone], NOTIFIED OF ABOVE. JAIRO DOES NOT WANT PT PLACED AT THE [facility] IN [place]; JAIRO NOW REPORTS SHE HAS CONTACTED MEDICARE TO CHANGE PT FROM MANAGED MEDICARE POLICY TO STANDARD MEDICARE; JAIRO HAS CALLED JOHANNA AT [facility] AND WANTS PT DISCHARGE TO [facility], JAIRO AND AGUSTO IBARRA PLAN TO [employer] LAMINATOR PT TOMORROW FOR TRANSPORT TO [place] AND WILL PLACE PT AT [facility] FOR REHAB. ALISE CALLED [facility], , SPOKE TO JOHANNA. JOHANNA HAS TALKED TO PT'S DAUGHTER REGARDING REHAB, THEY DON'T KNOW HOW LONG IT WILL TAKE PT TO BE CHANGED FROM MANAGED MEDICARE TO TRADITIONAL MEDICARE AND WILL NOT ACCEPT PT UNTIL THAT TIME AND ALSO NEED TO REVIEW PAPERWORK TO ENSURE THAT THERE IS "SOMETHING" THEY CAN PROVIDE DETENTION FOR AT THIS TIME. CM FAXED REFERRAL UPDATE TO [facility] AT [phone]. [address] [place] [address] [place] [address]. PT'S DAUGHTER NOW DOES NOT WANT HOSPICE, STILL REFUSES PEG TUBE; WANTS PT ADMITTED TO REHAB AT [facility] IN [place]; SHE REFUSED PLACEMENT AT THE [facility] THAT INSURANCE HAS AUTHORIZED. CM WAITING ADMISSION DETERMINATION FROM [facility] DETENTION FACILITY IN [place], [place]. CM WAITING PT'S DAUGHTER TO CHANGE PT BACK TO TRADITIONAL MEDICARE. DAUGHTER PLANS TO TRANSPORT PT TO [place] FOR REHAB AT [facility] 03-25-18. Alli Albarran, CASE MANAGEMENT DCP- Discharge Planning Updated by [id number]: Alli Albarran on 03/24/18 8:[address] Patient Name: DANIEL ADAME Encounter No: [id number] : 1940 Primary Insurance: HUMANA CHOICE PPO MCR ADVANT Anticipated DC Date: 03-09-2018 Planned Disposition: Fpc Facility External Planned Provider: [facility] TERM CARE MEDICAID BED DCP follow-up note: ALISE SPOKE TO CEM OF [facility]; SHE HAS TALKED TO JAIRO IBARRA, INFORMED HER THAT PT IS NOT MEETING CRITERIA FOR INPATIENT HOSPICE, THEY HAVE OFFERED RESPITE HOSPICE CARE AT [facility] FOR 5 DAYS; JAIRO DID NOT ACCEPT. ALISE CALLED AND SPOKE TO SHAYLA AT THE [facility], THEY HAVE CONTACTED PT'S INSURANCE TO INQUIRE ABOUT REHAB SERVICES INSTEAD OF HOSPICE, INSURANCE DOES NOT WANT TO PAY FOR REHAB SERVICES PT IS NOT EATING OR DRINKING, PT / FAMILY DOES NOT WANT PEG TUBE AND HOSICE IS INDICATED IN CHART. SHAYLA DOES NOT THINK THAT FINANCIAL WILL BE WORKED OUT IN 5 DAYS, BUT RECOMMENDED THAT [facility] AT [facility] AND TRY TO WORK SOMETHING OUT WITH HOSPICE. ALISE MET WITH JAIRO IBARRA IN ROOM. JAIRO REPORTS SHE WAS TIRED AND CONFUSED LAST NIGHT. ALISE EXPLAINED [facility] AT [facility]. JAIRO ASKED ABOUT REHAB FOR PT AT THE [facility]. ALISE INFORMED JAIRO THAT INSURANCE WILL NOT PAY FOR REHAB SERVICES AT THIS TIME. JAIRO WAS AWARE THAT THE LONGTERM SHE WANTED IN [facility] WILL NOT ACCEPT PT. JAIRO WANTS TO DISCUSS OPTIONS WITH HER SPOUSE AND IS CONSIDERING TAKING PT HOME. PT WAS DRINKING THICKENED WATER FOR NURSE THIS MORNING BUT REFUSED FURTHER INTAKE WHEN OFFERED BY DAUGHTER. JAIRO REPORTS SHE NEEDS TO CHECK ON GETTING PT ON "STANDARD MEDICARE" INSTEAD OF REPLACEMENT POLICY AND IS THINKING SHE WILL HAVE HER SPOUSE COME TO [place] AND THEY MAY TAKE PT TO HER HOME IN [place] TOMORROW. IMPORTANT MESSAGE FROM MEDICARE PROVIDED AND DISCUSSED. CM CONTINUES TO WAIT FAMILY DECISION REGARDING HOSPICE, DAUGHTER NOW REPORTING PLAN TO TAKE PT TO HER HOME IN [place] 03-25-18. Alli Albarran, CASE MANAGEMENT DCP- Discharge Planning Updated by [id number]: Alli Albarran on 03/23/18 2:[address] Patient Name: DANIEL ADAME Encounter No: [id number] : 1940 Primary Insurance: HUMANA CHOICE PPO MCR ADVANT Anticipated DC Date: 03-09-2018 Planned Disposition: Fpc Facility External Planned Provider: [facility], MCC CARE MEDICAID BED DCP follow-up note: CM RECEIVED CALL FROM SHAYLA OF THE [facility], PT WILL NOT QUALIFY FOR MCC CARE MEDICAID DUE TO TRANSFER OF PROPERTY; THEY MAY BE ABLE TO TAKE TO TRY REHAB AND WILL CHECK ON SKILLED DAYS AND MAY ALSO TAKE ON PRIVATE PAY BASIS AND WILL DISCUSS THIS WITH DAUGHTER. PT'S DAUGHTER HAS INDICATED TO THE [facility] SHE FEELS PT ONLY HAS TWO OR THREE DAYS LEFT AND ASKED IF PT WILL QUALIFY FOR INPATIENT HOSPICE. CM ADVISED SHAYLA THAT CM DID NOT SEE ANY IMMEDIATE CRITERIA FOR INPATIENT HOSPICE QUALIFICATION AND WILL ASK FOR INPATIENT SCREENING FROM [facility]. ALISE CALLED [facility], , LEFT MESSAGE WITH ANSWERING SERVICE REQUESTING INPATIENT HOSPICE EVALUATION AT DAUGHTER'S REQUEST. ALISE NOTIFIED THAT [facility] NURSE WILL CONTACT CM SHORTLY. CM WAITING INPATIENT HOSPICE EVALUATION FROM [facility]. [facility] WILL TAKE PT FOR REHAB OR ON PRIVATE PAY MCC CARE BASIS AND WILL DISCUSS THIS WITH PT'S DAUGHTER. Alli Albarran, CASE MANAGEMENT Appended by Alli Albarran on 03/23/2018 12:58 CDT: CM RECEIVED CALL FROM CEM OF [facility], SHE IS IN ROUTE TO HOSPITAL TO EVALUATE PT FOR INPATIENT HOSPICE. CM WAITING INPATIENT HOSPICE EVALUATION FROM [facility]. [facility] WILL TAKE PT FOR REHAB OR ON PRIVATE PAY MCC CARE BASIS AND WILL DISCUSS THIS WITH PT'S DAUGHTER. Alli Albarran CASE MANAGEMENT Appended by Alli Albarran on 03/23/2018 13:52 CDT: CM SPOKE TO CEM OF [facility], PT DOES NOT MEET CRITERIA FOR INPATIENT HOSPICE, SHE HAS CALLED AND LEFT MESSAGE FOR PT'S DAUGHTER CAROL. PRIEST REPORTS OPTIONS REMAIN FOR PRIVATE PAY FOR LONGTERM OR FOR FAMILY MEMBER TO TAKE PT HOME FOR HOSPICE CARE. CM CALLED PT'S DAUGHTER, JAIRO IBARRA, , LEFT DETAILED MESSAGE REGARDING ABOVE INFORMATION, REQUESTING CALL BACK SOON POSSIBLE TO DISCUSS DISCHARGE PLANNING OPTIONS. CM WAITING ON JAIRO IBARRA, DAUGHTER, TO CALL CM TO DISCUSS OPTIONS OF PRIVATE PAY FOR LONGTERM VS FAMILY TAKING PT HOME FOR HOSPICE. ALLI ALBARRAN CASE MANAGEMENT Appended by Alli Albarran on 03/23/2018 14:23 CDT: AT DAUGHTERS REQUEST TO CALL JAIR AND NOTIFY COURT OF PT'S INABILITY TO GET TO COURT HEARING THIS WEEK, CM CONTACTED PT'S Rayneer, [place] CÜR, , SPOKE TO MARIE WHO INFORMED CM THAT PT HAS COURT HEARING ON 03-25-[address] [facility] [address] ON 03-25-18 ON CHARGE OF TERRORISTIC THREATENING. CM CALLED DISTRICT COURT, , NOTIFIED HENNA WHO ASKED FOR LETTER TO BE FAXED TO THE COURT AT [phone]. CM [address] AVILA SIGNATURE ON LETTER TO INFORM COURT OF PT'S LOCATION AND CONDITION. ALISE FAXED TO [facility] AT [phone], EMAILED TO [place] JENNY AT [email or web address]. CM WAITING ON JAIRO IBARRA, DAUGHTER, TO CALL CM TO DISCUSS OPTIONS OF PRIVATE PAY FOR LONGTERM VS FAMILY TAKING PT HOME FOR HOSPICE. ALLI ALBARRAN CASE MANAGEMENT Appended by Alli Albarran on 03/23/2018 15:08 CDT: CM RECEIVED CALL FROM SHAYLA OF [facility] WHO REPORTS THEY ARE STILL GATHERING FINANCIAL INFORMATION WITH ASSISTANCE OF FAMILY IN HOPES OF ASSISTING WITH PLACEMENT. CM WAITING ON JAIRO IBARRA, DAUGHTER, TO CALL CM TO DISCUSS OPTIONS OF PRIVATE PAY FOR LONGTERM VS FAMILY TAKING PT HOME FOR HOSPICE. ALLI ALBARRAN CASE MANAGEMENT DCP- Discharge Planning Updated by [id number]: Alli Albarran on 03/23/18 6:[address] Patient Name: ADNIEL ADAME Encounter No: [id number] : 1940 Primary Insurance: HUMANA CHOICE PPO MCR ADVANT Anticipated DC Date: 03-09-2018 Planned Disposition: Fpc Facility External Planned Provider: [facility] MCC CARE MEDICAID BED DCP follow-up note: ZELALEM OF [facility] HAS MET WITH PT'S DAUGHTER AND EVALUATED PT, THEY WILL ACCEPT FOR HOSPICE AND WILL ENROLL PT AFTER HIS ARRIVAL AT THE LONGTERM. CM [facility] CENTRIF[facility]AL STATION OPERATOR CARE. NOTIFY [facility] WHEN LONGTERM PLACEMENT IS SECURED, , FAXE DISCHARGE INFORMATION TO [facility] AT [phone]. Alli Albarran CASE MANAGEMENT DCP- Discharge Planning Updated by [id number]: Alli Albarran on 03/22/18 3:[address] Patient Name: DANIEL ADAME Encounter No: [id number] : 1940 Primary Insurance: HUMANA CHOICE PPO MCR ADVANT Anticipated DC Date: 03-09-2018 Planned Disposition: Fpc Facility External Planned Provider: [facility] TERM CARE MEDICAID BED DCP follow-up note: CM RECEIVED CALL FROM JOHANNA OF [facility], PT IS NOT IN THEIR INSURANCE NETWORK AND THEY ARE NOT GOING TO BE ABLE TO HELP WITH MCC CARE FOR THIS PATIENT. CM RECEIVED CALL FROM JAIRO IBARRA, , WHO REPORTS THAT SHE HAS POWER OF ACCOUNT UNDERWRITER AND WILL BRING A COPY TO PLACE ON CHART, SHE HAD PREVIOUSLY PROVIDED IT TO [facility] [employer] FORMING MACHINE OPERATOR BUT WILL BE HAPPY TO GIVE ANOTHER COPY REQUESTED. JAIRO INFORMED OF DECLINATION BY [facility]a MAYER. JAIRO REPORTS THAT SHE HAS TALKED TO FAMILY AND THEY DECIDED TO LEAVE PT IN [place], JAIRO WOULD LIKE TO PLACE PT IN A GOOD LONGTERM WITH NO PREFERNCE, CHOICE COMPLETED, AND NO PREFERENCE FOR HOSPICE COMPANY. ALISE NOTIFIED ADRIANO, , OF REFERRAL FOR CENTRIFUGAL STATION OPERATOR CARE TO THE [facility]. CM FAXED REFERRAL TO THE [facility] VIA ADRIANO AT [phone]. ALISE CALLED [facility], , SPOKE TO ZELALEM AND PROVIDED HOSPICE REFERRAL INFORMATION, THEY DO CONTRACT WITH THE [facility]. CM FAXED REFERRAL TO [facility] AT [phone]. CM WAITING ADMISSION DETERMINATION FROM [facility] AND THE [facility] FOR MCC CARE. Alli Albarran CASE MANAGEMENT DCP- Discharge Planning Updated by [id number]: Alli Albarran on 03/19/18 2:[address] Patient Name: DANIEL ADAME Encounter No: [id number] : 1940 Primary Insurance: HUMANA CHOICE PPO MCR ADVANT Anticipated DC Date: 03-09-2018 Planned Disposition: Fpc Facility External Planned Provider: [facility], MEDICARE SKILLED BED DCP follow-up note: CM SPOKE TO PT'S DAUGHTER, JAIRO IBARRA ALONG WITH DR. LOVETT AND ALANA BAUMAN. DISUSSED WAS PT'S CONDITION, DETENTION REHAB VS HOSPICE CARE. PT'S DAUGHTER IS STILL WANTING PT IN [place] AND ASKED FOR PT TO BE REFERRED TO [facility] IN [place], [place]. JAIRO HAS DISCUSSED PLACEMENT WITH JOHANNA AT FACILITY. TRANSPORTATION DISCUSSED; JAIRO DECIDED SHE WOULD LIKE CM TO OBTAIN TRANSPORT ESTIMATE FROM [facility] IF PLACEMENT CAN BE SECURED AT FACILITY. CHOICE SIGNED FOR [facility], IMPORTANT MESSAGE FROM MEDICARE PROVIDED AND EXPLAINED. CM CALLED [facility], , JOHANNA WAS NOT IN. CM SPOKE TO AILEEN WHO REPORTED THAT JOHANNA WOULD BE BACK IN THURSDAY AND WILL REVIEW REFERRAL THEN. CM FAXED REFERRAL TO [facility] AT [phone]. FACILTY ADDRESS IS [address] [place] [address]. [id number]. CM WAITING ADMISSION DETERMINATION FROM [facility] DETENTION [facility] IN [place], [place]. Alli Albarran, CASE MANAGEMENT DCP- Discharge Planning Updated by [id number]: Alli Albarran on 03/17/18 2:[address] Patient Name: DANIEL ADAME Encounter No: [id number] : 1940 Primary Insurance: HUMANA CHOICE PPO MCR ADVANT Anticipated DC Date: 03-09-2018 Planned Disposition: Fpc Facility External Planned Provider: TO BE DETERMINED DCP follow-up note: CM REVIEWED CHART, DR. BEARDEN'S NOTE INDICATES NEED TO SPEAK TO FAMILY REGARDING COMFORT CARE OR HOSPICE CARE FOR PT. CM RECEIVED CALL FROM DAUGHTER, JAIRO IBARRA, , WHO REQUESTED UPDATE. ALISE DISCUSSED DR. BEARDEN'S OPTION REGARDING HOSPICE OR COMFORT CARE. JAIRO REPORTS NO INTEREST AT THIS TIME FOR COMFORT CARE OR HOSPICE. JAIRO IS CONSIDERING PICKING UP PT IN CAR AND TAKING PT BACK TO [place] WHERE THEY LIVE, IT IS AN [address] CM EXPLAINED PT IS VERY WEAK AND WOULD NOT BE ABLE TO GET OUT OF THE CAR DURING PROLONGED TRANSPORTATION. JAIRO ONLY WANTED ASSURANCES THAT PT WOULD NOT DURING THE RIDE TO [place]. CM INFORMED JAIRO THAT CM COULD NOT PROVIDE THAT ASSURANCE, RECOMMENDED DETENTION REHAB FOR PT. JAIRO REPORTS SHE WILL BE IN [place] AND AT THE [facility] TOMORROW, 03-18-18 AT ABOUT 8:30 IN THE MORNING. SHE WOULD LIKE TO MEET WITH ALL DOCTORS IN THE MORNING IN A "BIG MEETING". CM EXPLAINED THAT THIS WOULD NOT BE POSSIBLE, OFFERED TO ASK DR. LOVETT, PRIMARY DOCTOR, TO MEET WITH HER IN THE MORNING, JAIRO ACCEPTED. JAIRO IBARRA, DAUGHTER, , WILL MEET WITH DR. LOVETT AND CM IN THE [facility], 03-18-18, TO DISCUSS PT'S CARE, PROGNOSIS AND DISCHARGE PLAN. Alli Albarran, CASE MANAGEMENT DCP- Discharge Planning Updated by [id number]: Alli Albarran on 03/11/18 7:[address] Patient Name: DANIEL ADAME Encounter No: [id number] : 1940 Primary Insurance: HUMANA CHOICE PPO MCR ADVANT Anticipated DC Date: 03-09-2018 Planned Disposition: Inpatient Rehab Facility External Planned Provider: [facility] DCP follow-up note: CM INFORMED PT THAT INSURANCE STILL HAS NOT PROVIDED AUTHORIZATION OR DENIAL FOR REHAB. PT STILL WILLING FOR REHAB AT [place]. IMPORTANT MESSAGE FROM MEDICARE PROVIDED AND EXPLAINED. CM WAITING FOR INSURANCE AUTHORIZATION OR DENIAL FOR INPATIENT REHAB SERVICES AT [place]. Alli Albarran CASE MANAGEMENT DCP- Discharge Planning Updated by [id number]: Alli Albarran on 03/08/18 3:[address] Patient Name: DANIEL ADAME Encounter No: [id number] : 1940 Primary Insurance: HUMANA CHOICE PPO MCR ADVANT Anticipated DC Date: 03-09-2018 Planned Disposition: Inpatient Rehab Facility External Planned Provider: [facility] INPATIENT REHAB DCP follow-up note: * Is the patient Alert and Oriented? Yes 0 * How many steps to enter\\exit or inside your home? 4-5 0 * PCP DR. VELÁZQUEZ 0 * Pharmacy [facility] 0 * Preadmission Environment Acute Inpatient Rehab 0 * Facility Name [facility] INPATIENT REHAB 0 * ADLs Partial Dependent 0 * Partial ADLs (Assistance needed) Ambulation Bathing Medication Management Toileting Transfers 0 * Equipment None 0 * Other Equipment NO MEDICAL EQUIPMENT PROVIDER PREFERENCE 0 * List name and contact numbers for known caregivers / representatives who currently or will assist patient after discharge: JAIRO IBARRA, DAUGHTER, 0 * Verbal permission to speak to the caregivers and representatives has been obtained from the patient. Yes 0 * Community resources currently utilized None 0 * Please name any agencies selected above. NONE 0 * Additional services required to return to the preadmission environment? No 0 * Can the patient safely return to the preadmission environment? Yes 0 * Has this patient been hospitalized within the prior 30 days at any hospital? Yes 0 CM RECEIVED ORDER FOR INPATIENT REHAB PRESCREENING. CM SPOKE TO PT IN ROOM WHO IS VERY HARD OF HEARING. PT REPORTS HIS DAUGHTER, JAIRO, IS HERE AND FOR CM TO SPEAK TO HER REGARDING DISCHARGE PLAN. PT IS AGREEABLE TO INPATIENT REHAB AND STATES HE WAS LIVING AT HOME ALONE PRIOR TO HOSPITALIZATION. IMPORTANT MESSAGE FROM MEDICARE PROVIDED AND EXPLAINED. CM CALLED AND SPOKE TO JAIRO IBARRA, DAUGHTER, ; JAIRO REPORTS LIVING IN [place] AND IT IS A [address] TO GET PT THERE WHEN THEY LEAVE [place]. JAIRO WAS HOPING THAT PT WOULD BE STONG ENOUGH FOR THE RIDE AT DISCHARGE FROM HOSPITAL. CM REVIEWED THERAPY EVALUATION AND NOTES WITH JAIRO. JAIRO WOULD LIKE TO TRY TO GET PT BACK INTO INPATIENT REHAB AT [place] STATING HE WAS ONLY IN THERE FOR ONE NIGHT BEFORE HAVING TO BE READMITTED; SHE HOPES FOR PT TO BE STONG ENOUGH FOR HER TO TRANSPORT PT TO [place] AT DISCHARGE AND SHE HAS A LONGTERM IN MIND THAT WILL ACCEPT PT AT DISCHARGE IF NEEDED. CM WAITING FOR INPATIENT REHAB PRESCREENING AND INSURANCE AUTHORIZATION OR DENIAL FOR INPATIENT REHAB SERVICES. Alli Albarran, CASE MANAGEMENT DCP- Discharge Planning Updated by [id number]: Jerica Tejeda on 03/07/18 7:[address] PATIENT WITH VARYING DEGREES OF ORIENTATION. HE IS ALSO HARD OF HEARING. WAS TRANSFERED TO ICU AFTER ONE DAY IN [facility]. MD PLAN IS FOR POSSIBLE TRANSFER TO ACUTE REHAB THURSDAY. PATIENT WILL NEED TO BE EVALUATED AND LIKELY WILL REQUIRE A NEW PRECERT HE HAS HUMANA CHOICE PPO MEDICARE ADVANTAGE AN INSURER. \\NO PHYSICAL THERAPY NOTES AT THIS TIME. WILL NEED PT/OT EVAL FOR PRECERT. REPORTEDLY LIVED ALONE PRIOR TO ADMISSION. HAD DAUGHTER,JAIRO IBARRA. CONTACT PHONE NUMBER CELL [phone] HOME [phone]. PATIENT ALSO HAS SONS :SERENA POMPA- [phone] AND MARJORIE SLAUGHTER- [phone]. CM WILL NEED TO MEET WITH PATIENT'S FAMILY REGARDING DISCHARGE PLAN. DCPIA - Discharge Planning Initial Assessment Updated by ROSMERY: Alli Albarran on 03/08/18 4:26 pm * Is the patient Alert and Oriented? Yes * How many steps to enter\\exit or inside your home? 4-5 * PCP DR. VELÁZQUEZ * Pharmacy [facility] * Preadmission Environment Acute Inpatient Rehab * Facility Name [facility] INPATIENT RE[facility] * ADLs Partial Dependent * Partial ADLs (Assistance needed) Ambulation Bathing Medication Management Toileting Transfers * Equipment None * Other Equipment NO MEDICAL EQUIPMENT PROVIDER PREFERENCE * List name and contact numbers for known caregivers / representatives who currently or will assist patient after discharge: JAIRO IBARRA, DAUGHTER, * Verbal permission to speak to the caregivers and representatives has been obtained from the patient. Yes * Community resources currently utilized None * Please name any agencies selected above. NONE * Additional services required to return to the preadmission environment? No * Can the patient safely return to the preadmission environment? Yes * Has this patient been hospitalized within the prior 30 days at any hospital? Yes Coverage Notice Reviewer: [id number] Marty Albarran Notice Issued Date-Time: 03/08/2018 16:05 Notice Type: IM Discharge Notice Notice Delivered To: Patient Relationship to Patient: Research Attorney Name: Delivery Method: HAND - Hand Delivered Sho Days: Prior Verbal Notification: Recipient Understood Notice: Yes Recipient Signature: Yes Med Rec Note Co-signed by Attending: Coverage Notice Comment: Reviewer: [id number] Albarran Notice Issued Date-Time: 03/11/2018 8:10 Notice Type: IM Discharge Notice Notice Delivered To: Patient Relationship to Patient: Research Attorney Name: Delivery Method: HAND - Hand Delivered Sho Days: Prior Verbal Notification: Recipient Understood Notice: Yes Recipient Signature: Yes Med Rec Note Co-signed by Attending: Coverage Notice Comment: Reviewer: ROSMERY Albarran Notice Issued Date-Time: 03/19/2018 14:50 Notice Type: Patient Choice Letter Notice Delivered To: Family Member Relationship to Patient: Daughter Research Attorney Name: JAIRO IBARRA Delivery Method: HAND - Hand Delivered Sho Days: Prior Verbal Notification: Recipient Understood Notice: Yes Recipient Signature: Yes Med Rec Note Co-signed by Attending: Coverage Notice Comment: Reviewer: ROSMERY Albarran Notice Issued Date-Time: 03/19/2018 14:50 Notice Type: IM Discharge Notice Notice Delivered To: Family Member Relationship to Patient: Daughter Research Attorney Name: JAIRO IBARRA Delivery Method: HAND - Hand Delivered Sho Days: Prior Verbal Notification: Recipient Understood Notice: Yes Recipient Signature: Yes Med Rec Note Co-signed by Attending: Coverage Notice Comment: Reviewer: ROSMERY Albarran Notice Issued Date-Time: 03/22/2018 11:00 Notice Type: Patient Choice Letter Notice Delivered To: Family Member Relationship to Patient: Daughter Research Attorney Name: JAIRO IBARRA Delivery Method: PHONE - Phone Sho Days: Prior Verbal Notification: Recipient Understood Notice: Yes Recipient Signature: Yes Med Rec Note Co-signed by Attending: Coverage Notice Comment: ANY [employer] WITH HOSPICE CARE. Reviewer: ROSMERY Albarran Notice Issued Date-Time: 03/24/2018 8:40 Notice Type: IM Discharge Notice Notice Delivered To: Family Member Relationship to Patient: Daughter Research Attorney Name: JAIRO IBARRA Delivery Method: HAND - Hand Delivered Sho Days: Prior Verbal Notification: Recipient Understood Notice: Yes Recipient Signature: Yes Med Rec Note Co-signed by Attending: Coverage Notice Comment: Last DP export: 03/24/18 11:09 Patient Name: DANIEL ADAME Page [id number] at 1238 All edits/amendments must be made on the electronic document DICTATION DATE: 03/24/18 1237 DIESEL POWER MECHANIC: RUBÉN 03/24/18 1237 RPT#: [id number] [place] DATE: STATUS: ADM IN [facility] [address] [facility], [id number] END OF REPORT
[2018-03-03 12:34] LABS: BASOPHILS 0 % (0-2); EOSINOPHILS 0.3 % (0-7); HEMATOCRIT 38.4 % (42.0-54.0); HEMOGLOBIN 12.6 g/dL (13.5-17.5); IMMATURE GRANULOCYTES 0.5 % (0-5); LYMPHOCYTES 2.5 % (15-50); MCH 29.7 pg (26.0-34.0); MCHC 32.8 g/dL (31.0-37.0); MCV 90.6 fL (80.0-100.0); MEAN PLATELET VOLUME 11.4 fL (7.4-10.4); MONOCYTES 3.1 % (2-11); NEUTROPHILS 93.6 % (40-80); PLATELET COUNT 223 10x3/uL (130-400); RBC 4.24 10x6/uL (4.20-6.10); RDW 14.4 % (11.5-14.5); WBC 7.9 10x3/uL (4.8-10.8)
[2018-03-03 12:37] LABS: ANION GAP 7.4 mmol/L (8-16); BILIRUBIN - TOTAL 0.53 mg/dL (0.2-1.3); CALCIUM 8.2 mg/dL (8.5-10.1); CARBON DIOXIDE 30.9 mmol/L (21.0-32.0); CREATININE - SERUM 1.1 mg/dL (0.6-1.3); POTASSIUM - SERUM 4.3 mmol/L (3.5-5.1); PROTEIN - SERUM 5.8 g/dL (6.4-8.2)
[2018-03-03 14:10] LABS: APPEARANCE HAZY (CLEAR); BILIRUBIN NEGATIVE (NEGATIVE); COLOR YELLOW (YELLOW); GLUCOSE NEGATIVE (NEGATIVE); KETONE NEGATIVE (NEGATIVE); NITRITE NEGATIVE (NEGATIVE); PROTEIN NEGATIVE (NEGATIVE); SPECIFIC GRAVITY 1.015 (1.005-1.020); UROBILINOGEN NORMAL (NORMAL)
[2018-03-03 14:11] LABS: BACTERIA FEW /hpf (NONE SEEN); EPITHELIAL CELLS OCC /hpf (0-5); MUCUS <1+ /lpf (NONE SEEN); WHITE CELLS - URINE RARE /hpf (0-5); YEAST >1+ /hpf (NONE SEEN)
[2018-03-04] VITALS (19 sets, daily range): BP systolic 103–134; BP diastolic 57–87; Ht 167.6 cm; Wt 91.2 kg
[2018-03-04 05:36] LABS: BASOPHILS 0.1 % (0-2); EOSINOPHILS 0 % (0-7); HEMATOCRIT 35.9 % (42.0-54.0); HEMOGLOBIN 11.8 g/dL (13.5-17.5); IMMATURE GRANULOCYTES 0.5 % (0-5); MCH 29.8 pg (26.0-34.0); MCHC 32.9 g/dL (31.0-37.0); MCV 90.7 fL (80.0-100.0); MEAN PLATELET VOLUME 11.2 fL (7.4-10.4); MONOCYTES 3.6 % (2-11); NEUTROPHILS 91.8 % (40-80); PLATELET COUNT 216 10x3/uL (130-400); RBC 3.96 10x6/uL (4.20-6.10); RDW 14.5 % (11.5-14.5); WBC 7.7 10x3/uL (4.8-10.8)
[2018-03-04 05:55] LABS: ALBUMIN 1.8 g/dL (3.4-5.0); ANION GAP 9.5 mmol/L (8-16); BILIRUBIN - TOTAL 0.5 mg/dL (0.2-1.3); CALCIUM 7.7 mg/dL (8.5-10.1); CARBON DIOXIDE 27.1 mmol/L (21.0-32.0); CREATININE - SERUM 1.2 mg/dL (0.6-1.3); PROTEIN - SERUM 5.5 g/dL (6.4-8.2)
[2018-03-04 05:57] LABS: POTASSIUM - SERUM 3.6 mmol/L (3.5-5.1)
[2018-03-05] VITALS (9 sets, daily range): BP systolic 109–145; BP diastolic 64–84
[2018-03-05 04:36] LABS: BASOPHILS 0.1 % (0-2); EOSINOPHILS 0.4 % (0-7); HEMATOCRIT 35.3 % (42.0-54.0); HEMOGLOBIN 11.6 g/dL (13.5-17.5); IMMATURE GRANULOCYTES 0.2 % (0-5); LYMPHOCYTES 4.6 % (15-50); MCH 29.7 pg (26.0-34.0); MCHC 32.9 g/dL (31.0-37.0); MCV 90.5 fL (80.0-100.0); MEAN PLATELET VOLUME 11.4 fL (7.4-10.4); MONOCYTES 5.1 % (2-11); NEUTROPHILS 89.6 % (40-80); PLATELET COUNT 226 10x3/uL (130-400); RDW 14.6 % (11.5-14.5)
[2018-03-05 04:37] LABS: WBC 10.4 10x3/uL (4.8-10.8)
[2018-03-05 05:10] LABS: ALBUMIN 1.8 g/dL (3.4-5.0); ANION GAP 10.4 mmol/L (8-16); BILIRUBIN - TOTAL 0.46 mg/dL (0.2-1.3); C-REACTIVE PROTEIN 8.8 mg/dL (0.0-0.9); CALCIUM 7.8 mg/dL (8.5-10.1); CARBON DIOXIDE 28.2 mmol/L (21.0-32.0); CREATININE - SERUM 1.4 mg/dL (0.6-1.3); POTASSIUM - SERUM 3.6 mmol/L (3.5-5.1); PROTEIN - SERUM 4.8 g/dL (6.4-8.2)
[2018-03-06] VITALS: BP 131/75
[2018-03-06 04:34] LABS: BASOPHILS 0.1 % (0-2); EOSINOPHILS 0.1 % (0-7); HEMATOCRIT 37.2 % (42.0-54.0); HEMOGLOBIN 12.4 g/dL (13.5-17.5); IMMATURE GRANULOCYTES 0.2 % (0-5); MCH 29.7 pg (26.0-34.0); MCHC 33.3 g/dL (31.0-37.0); MEAN PLATELET VOLUME 11.7 fL (7.4-10.4); MONOCYTES 5.2 % (2-11); NEUTROPHILS 88.4 % (40-80); PLATELET COUNT 238 10x3/uL (130-400); RBC 4.18 10x6/uL (4.20-6.10); RDW 14.4 % (11.5-14.5); WBC 12.1 10x3/uL (4.8-10.8)
[2018-03-06 04:58] LABS: ALBUMIN 1.7 g/dL (3.4-5.0); ANION GAP 16.5 mmol/L (8-16); BILIRUBIN - TOTAL 0.53 mg/dL (0.2-1.3); CALCIUM 8.3 mg/dL (8.5-10.1); CREATININE - SERUM 1.8 mg/dL (0.6-1.3); POTASSIUM - SERUM 3.5 mmol/L (3.5-5.1); PROTEIN - SERUM 5.7 g/dL (6.4-8.2)
[2018-03-06 05:53] VITALS: BP 136/80
[2018-03-06 07:59] VITALS: BP 141/88
[2018-03-06 10:46] VITALS: BP 117/65
[2018-03-06 15:47] VITALS: BP 122/78
[2018-03-06 20:00] VITALS: BP 139/71
[2018-03-07] VITALS: BP 132/73
[2018-03-07 04:00] VITALS: BP 143/76
[2018-03-07 08:04] VITALS: BP 155/81
[2018-03-07 11:01] VITALS: BP 130/73
[2018-03-07 11:01] LABS: BASOPHILS 0.1 % (0-2); EOSINOPHILS 0.4 % (0-7); HEMATOCRIT 35.5 % (42.0-54.0); HEMOGLOBIN 11.9 g/dL (13.5-17.5); IMMATURE GRANULOCYTES 0.4 % (0-5); MCH 29.6 pg (26.0-34.0); MCHC 33.5 g/dL (31.0-37.0); MCV 88.3 fL (80.0-100.0); MEAN PLATELET VOLUME 11.3 fL (7.4-10.4); MONOCYTES 2.8 % (2-11); NEUTROPHILS 91.3 % (40-80); PLATELET COUNT 258 10x3/uL (130-400); RBC 4.02 10x6/uL (4.20-6.10); RDW 14.4 % (11.5-14.5)
[2018-03-07 11:38] LABS: ALBUMIN 1.5 g/dL (3.4-5.0); ANION GAP 12.6 mmol/L (8-16); BILIRUBIN - TOTAL 0.51 mg/dL (0.2-1.3); CALCIUM 7.7 mg/dL (8.5-10.1); POTASSIUM - SERUM 3.6 mmol/L (3.5-5.1); PROTEIN - SERUM 5.1 g/dL (6.4-8.2)
[2018-03-07 11:39] LABS: CREATININE - SERUM 2.6 mg/dL (0.6-1.3)
[2018-03-07 18:26] VITALS: BP 110/65
[2018-03-07 20:00] VITALS: BP 143/71
[2018-03-08 00:11] VITALS: BP 135/66
[2018-03-08 04:00] VITALS: BP 135/84
[2018-03-08 04:06] LABS: BASOPHILS 0.1 % (0-2); EOSINOPHILS 0.7 % (0-7); HEMOGLOBIN 11.6 g/dL (13.5-17.5); IMMATURE GRANULOCYTES 0.5 % (0-5); LYMPHOCYTES 6.2 % (15-50); MCH 29.4 pg (26.0-34.0); MCHC 33.1 g/dL (31.0-37.0); MCV 88.6 fL (80.0-100.0); MEAN PLATELET VOLUME 11.4 fL (7.4-10.4); MONOCYTES 3.7 % (2-11); NEUTROPHILS 88.8 % (40-80); PLATELET COUNT 300 10x3/uL (130-400); RBC 3.95 10x6/uL (4.20-6.10); RDW 14.4 % (11.5-14.5); WBC 13.5 10x3/uL (4.8-10.8)
[2018-03-08 04:25] LABS: ALBUMIN 1.4 g/dL (3.4-5.0); ANION GAP 12.9 mmol/L (8-16); BILIRUBIN - TOTAL 0.42 mg/dL (0.2-1.3); CALCIUM 8.2 mg/dL (8.5-10.1); CARBON DIOXIDE 24.3 mmol/L (21.0-32.0); CREATININE - SERUM 2.6 mg/dL (0.6-1.3); MAGNESIUM - SERUM 2.4 mg/dL (1.8-2.4); POTASSIUM - SERUM 3.2 mmol/L (3.5-5.1); PROTEIN - SERUM 5.8 g/dL (6.4-8.2)
[2018-03-08 09:08] VITALS: BP 160/79
[2018-03-08 12:33] VITALS: BP 148/87
[2018-03-08 15:12] VITALS: BP 130/69
[2018-03-08 20:46] VITALS: BP 148/65
[2018-03-09] VITALS: BP 152/72
[2018-03-09 05:23] LABS: BASOPHILS 0.2 % (0-2); EOSINOPHILS 0.9 % (0-7); HEMATOCRIT 34.8 % (42.0-54.0); HEMOGLOBIN 11.4 g/dL (13.5-17.5); IMMATURE GRANULOCYTES 0.6 % (0-5); LYMPHOCYTES 7.7 % (15-50); MCH 29.2 pg (26.0-34.0); MCHC 32.8 g/dL (31.0-37.0); MCV 89.2 fL (80.0-100.0); MEAN PLATELET VOLUME 11.2 fL (7.4-10.4); MONOCYTES 4.1 % (2-11); NEUTROPHILS 86.5 % (40-80); PLATELET COUNT 336 10x3/uL (130-400); RDW 14.6 % (11.5-14.5); WBC 11.8 10x3/uL (4.8-10.8)
[2018-03-09 05:55] VITALS: BP 118/85
[2018-03-09 05:56] LABS: ALBUMIN 1.4 g/dL (3.4-5.0); BILIRUBIN - TOTAL 0.38 mg/dL (0.2-1.3); CALCIUM 8.3 mg/dL (8.5-10.1); CARBON DIOXIDE 25.4 mmol/L (21.0-32.0); MAGNESIUM - SERUM 2.4 mg/dL (1.8-2.4); POTASSIUM - SERUM 3.4 mmol/L (3.5-5.1); PROTEIN - SERUM 5.9 g/dL (6.4-8.2)
[2018-03-09 07:52] VITALS: BP 144/94
[2018-03-09 10:49] VITALS: BP 153/77
[2018-03-09 14:44] VITALS: BP 150/80
[2018-03-09 20:24] VITALS: BP 164/69
[2018-03-10] VITALS: BP 171/101
[2018-03-10 06:19] VITALS: BP 185/91
[2018-03-10 06:29] LABS: BASOPHILS 0.1 % (0-2); EOSINOPHILS 0.6 % (0-7); HEMATOCRIT 36.4 % (42.0-54.0); IMMATURE GRANULOCYTES 0.8 % (0-5); LYMPHOCYTES 7.5 % (15-50); MCH 29.5 pg (26.0-34.0); MCV 89.4 fL (80.0-100.0); MEAN PLATELET VOLUME 11.6 fL (7.4-10.4); MONOCYTES 5.1 % (2-11); NEUTROPHILS 85.9 % (40-80); RBC 4.07 10x6/uL (4.20-6.10); RDW 14.8 % (11.5-14.5); WBC 12.6 10x3/uL (4.8-10.8)
[2018-03-10 06:31] LABS: PLATELET COUNT 412 10x3/uL (130-400)
[2018-03-10 06:49] LABS: ALBUMIN 1.6 g/dL (3.4-5.0); BILIRUBIN - TOTAL 0.47 mg/dL (0.2-1.3); CALCIUM 8.9 mg/dL (8.5-10.1); CARBON DIOXIDE 22.9 mmol/L (21.0-32.0); CREATININE - SERUM 3.1 mg/dL (0.6-1.3); MAGNESIUM - SERUM 2.4 mg/dL (1.8-2.4); POTASSIUM - SERUM 3.6 mmol/L (3.5-5.1); PROTEIN - SERUM 6.4 g/dL (6.4-8.2)
[2018-03-10 06:56] LABS: ANION GAP 18.7 mmol/L (8-16)
[2018-03-10 09:30] VITALS: BP 161/95
[2018-03-10 20:00] VITALS: BP 130/79
[2018-03-11 00:46] VITALS: BP 124/76
[2018-03-11 05:58] LABS: BASOPHILS 0.1 % (0-2); EOSINOPHILS 0.7 % (0-7); HEMATOCRIT 38.1 % (42.0-54.0); HEMOGLOBIN 12.4 g/dL (13.5-17.5); IMMATURE GRANULOCYTES 0.9 % (0-5); LYMPHOCYTES 6.6 % (15-50); MCH 29.5 pg (26.0-34.0); MCHC 32.5 g/dL (31.0-37.0); MCV 90.5 fL (80.0-100.0); MEAN PLATELET VOLUME 11.3 fL (7.4-10.4); MONOCYTES 6.3 % (2-11); NEUTROPHILS 85.4 % (40-80); PLATELET COUNT 451 10x3/uL (130-400); RBC 4.21 10x6/uL (4.20-6.10); RDW 15.1 % (11.5-14.5); WBC 13.4 10x3/uL (4.8-10.8)
[2018-03-11 06:36] LABS: ALBUMIN 1.8 g/dL (3.4-5.0); ANION GAP 15.9 mmol/L (8-16); BILIRUBIN - TOTAL 0.3 mg/dL (0.2-1.3); CARBON DIOXIDE 26.4 mmol/L (21.0-32.0); CREATININE - SERUM 3.1 mg/dL (0.6-1.3); MAGNESIUM - SERUM 2.7 mg/dL (1.8-2.4); POTASSIUM - SERUM 3.3 mmol/L (3.5-5.1); PROTEIN - SERUM 6.5 g/dL (6.4-8.2)
[2018-03-11 08:48] VITALS: BP 198/108
[2018-03-11 12:21] VITALS: BP 139/86
[2018-03-11 16:56] VITALS: BP 169/106
[2018-03-11 23:12] VITALS: BP 161/90
[2018-03-12 02:38] VITALS: BP 183/101
[2018-03-12 05:13] LABS: BASOPHILS 0.2 % (0-2); EOSINOPHILS 0.6 % (0-7); HEMATOCRIT 39.4 % (42.0-54.0); HEMOGLOBIN 12.8 g/dL (13.5-17.5); IMMATURE GRANULOCYTES 1.2 % (0-5); LYMPHOCYTES 9.9 % (15-50); MCH 29.7 pg (26.0-34.0); MCHC 32.5 g/dL (31.0-37.0); MCV 91.4 fL (80.0-100.0); MEAN PLATELET VOLUME 10.9 fL (7.4-10.4); MONOCYTES 3.9 % (2-11); NEUTROPHILS 84.2 % (40-80); PLATELET COUNT 424 10x3/uL (130-400); RBC 4.31 10x6/uL (4.20-6.10); RDW 15.4 % (11.5-14.5); WBC 13.1 10x3/uL (4.8-10.8)
[2018-03-12 05:25] LABS: ALBUMIN 1.8 g/dL (3.4-5.0); BILIRUBIN - TOTAL 0.31 mg/dL (0.2-1.3); CALCIUM 8.7 mg/dL (8.5-10.1); CARBON DIOXIDE 23.4 mmol/L (21.0-32.0); MAGNESIUM - SERUM 2.6 mg/dL (1.8-2.4); PROTEIN - SERUM 6.4 g/dL (6.4-8.2)
[2018-03-12 05:28] LABS: ANION GAP 17.6 mmol/L (8-16)
[2018-03-12 06:07] VITALS: BP 169/90
[2018-03-12 08:00] VITALS: BP 187/110
[2018-03-12 20:00] VITALS: BP 156/83
[2018-03-13] VITALS: BP 140/90
[2018-03-13 04:00] VITALS: BP 180/104
[2018-03-13 04:24] LABS: BASOPHILS 0.1 % (0-2); EOSINOPHILS 0.8 % (0-7); HEMATOCRIT 39.5 % (42.0-54.0); HEMOGLOBIN 12.6 g/dL (13.5-17.5); LYMPHOCYTES 9.9 % (15-50); MCH 29.4 pg (26.0-34.0); MCHC 31.9 g/dL (31.0-37.0); MCV 92.3 fL (80.0-100.0); MONOCYTES 3.7 % (2-11); NEUTROPHILS 84.5 % (40-80); PLATELET COUNT 371 10x3/uL (130-400); RBC 4.28 10x6/uL (4.20-6.10); RDW 15.5 % (11.5-14.5); WBC 11.4 10x3/uL (4.8-10.8)
[2018-03-13 04:49] LABS: CALCIUM 9.2 mg/dL (8.5-10.1); CARBON DIOXIDE 25.2 mmol/L (21.0-32.0); CREATININE - SERUM 3.1 mg/dL (0.6-1.3); POTASSIUM - SERUM 3.7 mmol/L (3.5-5.1)
[2018-03-13 04:52] LABS: ANION GAP 17.5 mmol/L (8-16)
[2018-03-13 08:35] VITALS: BP 113/88
[2018-03-13 10:42] VITALS: BP 147/88
[2018-03-13 14:56] VITALS: BP 166/96
[2018-03-13 20:00] VITALS: BP 161/101
[2018-03-14] VITALS: BP 153/81
[2018-03-14 04:00] VITALS: BP 142/67
[2018-03-14 05:33] LABS: BASOPHILS 0.1 % (0-2); HEMOGLOBIN 12.2 g/dL (13.5-17.5); IMMATURE GRANULOCYTES 0.4 % (0-5); LYMPHOCYTES 7.7 % (15-50); MCH 29.2 pg (26.0-34.0); MCHC 31.3 g/dL (31.0-37.0); MCV 93.3 fL (80.0-100.0); MEAN PLATELET VOLUME 11.2 fL (7.4-10.4); MONOCYTES 3.7 % (2-11); NEUTROPHILS 87.1 % (40-80); PLATELET COUNT 313 10x3/uL (130-400); RBC 4.18 10x6/uL (4.20-6.10); RDW 15.6 % (11.5-14.5); WBC 10.2 10x3/uL (4.8-10.8)
[2018-03-14 06:15] LABS: CALCIUM 8.7 mg/dL (8.5-10.1); CARBON DIOXIDE 22.8 mmol/L (21.0-32.0); CREATININE - SERUM 2.8 mg/dL (0.6-1.3); POTASSIUM - SERUM 3.4 mmol/L (3.5-5.1)
[2018-03-14 06:16] LABS: ANION GAP 21.6 mmol/L (8-16)
[2018-03-14 08:34] VITALS: BP 152/66
[2018-03-14 12:12] VITALS: BP 144/76
[2018-03-14 15:14] VITALS: BP 146/80
[2018-03-14 16:35] LABS: CALCIUM 8.6 mg/dL (8.5-10.1); CARBON DIOXIDE 25.7 mmol/L (21.0-32.0); CREATININE - SERUM 2.8 mg/dL (0.6-1.3); POTASSIUM - SERUM 3.5 mmol/L (3.5-5.1)
[2018-03-14 16:51] LABS: ANION GAP 16.8 mmol/L (8-16)
[2018-03-14 20:00] VITALS: BP 160/90
[2018-03-14 20:06] LABS: CALCIUM 8.6 mg/dL (8.5-10.1); CARBON DIOXIDE 24.8 mmol/L (21.0-32.0); CREATININE - SERUM 2.7 mg/dL (0.6-1.3); POTASSIUM - SERUM 3.4 mmol/L (3.5-5.1)
[2018-03-14 20:07] LABS: ANION GAP 16.6 mmol/L (8-16)
[2018-03-15] VITALS: BP 154/98
[2018-03-15 01:19] LABS: CALCIUM 8.3 mg/dL (8.5-10.1); CREATININE - SERUM 2.7 mg/dL (0.6-1.3); POTASSIUM - SERUM 3.6 mmol/L (3.5-5.1)
[2018-03-15 01:21] LABS: ANION GAP 16.9 mmol/L (8-16)
[2018-03-15 01:44] LABS: CARBON DIOXIDE 30.2 mmol/L (21.0-32.0)
[2018-03-15 04:00] VITALS: BP 146/79
[2018-03-15 04:29] LABS: BASOPHILS 0 % (0-2); EOSINOPHILS 1.8 % (0-7); HEMATOCRIT 35.5 % (42.0-54.0); HEMOGLOBIN 11.8 g/dL (13.5-17.5); IMMATURE GRANULOCYTES 0.4 % (0-5); MCH 30.6 pg (26.0-34.0); MCHC 33.2 g/dL (31.0-37.0); MEAN PLATELET VOLUME 11.2 fL (7.4-10.4); MONOCYTES 2.9 % (2-11); NEUTROPHILS 84.9 % (40-80); PLATELET COUNT 265 10x3/uL (130-400); RBC 3.86 10x6/uL (4.20-6.10); RDW 15.6 % (11.5-14.5); WBC 9.1 10x3/uL (4.8-10.8)
[2018-03-15 04:52] LABS: CALCIUM 8.5 mg/dL (8.5-10.1); CARBON DIOXIDE 25.4 mmol/L (21.0-32.0); CREATININE - SERUM 2.7 mg/dL (0.6-1.3); POTASSIUM - SERUM 3.5 mmol/L (3.5-5.1)
[2018-03-15 04:59] LABS: ANION GAP 17.1 mmol/L (8-16)
[2018-03-15 09:50] LABS: CALCIUM 7.5 mg/dL (8.5-10.1); CARBON DIOXIDE 24.6 mmol/L (21.0-32.0); CREATININE - SERUM 2.6 mg/dL (0.6-1.3); POTASSIUM - SERUM 3.3 mmol/L (3.5-5.1)
[2018-03-15 09:54] VITALS: BP 144/72
[2018-03-15 09:56] LABS: ANION GAP 13.7 mmol/L (8-16)
[2018-03-15 11:39] VITALS: BP 148/71
[2018-03-15 13:09] LABS: ANION GAP 14.4 mmol/L (8-16); CALCIUM 8.1 mg/dL (8.5-10.1); CARBON DIOXIDE 26.2 mmol/L (21.0-32.0); CREATININE - SERUM 2.7 mg/dL (0.6-1.3); POTASSIUM - SERUM 3.6 mmol/L (3.5-5.1)
[2018-03-15 15:25] VITALS: BP 146/83
[2018-03-15 16:21] LABS: ANION GAP 13.6 mmol/L (8-16); CALCIUM 8.3 mg/dL (8.5-10.1); CREATININE - SERUM 2.7 mg/dL (0.6-1.3); POTASSIUM - SERUM 3.6 mmol/L (3.5-5.1)
[2018-03-15 20:44] VITALS: BP 147/79
[2018-03-15 20:46] LABS: ANION GAP 14.2 mmol/L (8-16); CALCIUM 8.4 mg/dL (8.5-10.1); CARBON DIOXIDE 26.3 mmol/L (21.0-32.0); CREATININE - SERUM 2.6 mg/dL (0.6-1.3); POTASSIUM - SERUM 3.5 mmol/L (3.5-5.1)
[2018-03-16 00:25] VITALS: BP 153/84
[2018-03-16 04:00] VITALS: BP 158/76
[2018-03-16 04:56] LABS: ANION GAP 13.7 mmol/L (8-16); CALCIUM 8.3 mg/dL (8.5-10.1); CARBON DIOXIDE 26.8 mmol/L (21.0-32.0); CREATININE - SERUM 2.6 mg/dL (0.6-1.3); POTASSIUM - SERUM 3.5 mmol/L (3.5-5.1)
[2018-03-16 04:59] LABS: BASOPHILS 0.1 % (0-2); EOSINOPHILS 1.7 % (0-7); HEMOGLOBIN 11.5 g/dL (13.5-17.5); IMMATURE GRANULOCYTES 0.3 % (0-5); LYMPHOCYTES 10.4 % (15-50); MCHC 31.1 g/dL (31.0-37.0); MCV 93.4 fL (80.0-100.0); MEAN PLATELET VOLUME 11.4 fL (7.4-10.4); MONOCYTES 3.8 % (2-11); NEUTROPHILS 83.7 % (40-80); PLATELET COUNT 252 10x3/uL (130-400); RBC 3.96 10x6/uL (4.20-6.10); RDW 15.6 % (11.5-14.5); WBC 9.6 10x3/uL (4.8-10.8)
[2018-03-16 08:05] LABS: ANION GAP 17.4 mmol/L (8-16); CALCIUM 7.9 mg/dL (8.5-10.1); CARBON DIOXIDE 23.6 mmol/L (21.0-32.0); CREATININE - SERUM 2.6 mg/dL (0.6-1.3)
[2018-03-16 08:21] VITALS: BP 151/92
[2018-03-16 11:43] VITALS: BP 144/81
[2018-03-16 13:26] LABS: CALCIUM 8.3 mg/dL (8.5-10.1); CARBON DIOXIDE 23.7 mmol/L (21.0-32.0); CREATININE - SERUM 2.6 mg/dL (0.6-1.3); POTASSIUM - SERUM 3.7 mmol/L (3.5-5.1)
[2018-03-16 16:00] VITALS: BP 158/96
[2018-03-16 20:14] LABS: ANION GAP 11.5 mmol/L (8-16); CREATININE - SERUM 2.4 mg/dL (0.6-1.3); POTASSIUM - SERUM 3.5 mmol/L (3.5-5.1)
[2018-03-16 21:48] VITALS: BP 143/78
[2018-03-17 00:02] VITALS: BP 153/83
[2018-03-17 04:50] LABS: BASOPHILS 0 % (0-2); EOSINOPHILS 1.6 % (0-7); HEMATOCRIT 35.9 % (42.0-54.0); HEMOGLOBIN 11.3 g/dL (13.5-17.5); IMMATURE GRANULOCYTES 0.4 % (0-5); LYMPHOCYTES 10.5 % (15-50); MCH 29.2 pg (26.0-34.0); MCHC 31.5 g/dL (31.0-37.0); MCV 92.8 fL (80.0-100.0); MEAN PLATELET VOLUME 11.3 fL (7.4-10.4); MONOCYTES 4.4 % (2-11); NEUTROPHILS 83.1 % (40-80); RBC 3.87 10x6/uL (4.20-6.10); RDW 15.3 % (11.5-14.5); WBC 9.6 10x3/uL (4.8-10.8)
[2018-03-17 05:08] LABS: ANION GAP 14.8 mmol/L (8-16); CALCIUM 7.9 mg/dL (8.5-10.1); CARBON DIOXIDE 23.6 mmol/L (21.0-32.0); CREATININE - SERUM 2.3 mg/dL (0.6-1.3); POTASSIUM - SERUM 3.4 mmol/L (3.5-5.1)
[2018-03-17 05:15] LABS: PLATELET COUNT 191 10x3/uL (130-400)
[2018-03-17 05:25] VITALS: BP 155/86
[2018-03-17 08:17] VITALS: BP 150/85
[2018-03-17 09:00] LABS: ANION GAP 12.8 mmol/L (8-16); CALCIUM 8.5 mg/dL (8.5-10.1); CARBON DIOXIDE 25.8 mmol/L (21.0-32.0); CREATININE - SERUM 2.4 mg/dL (0.6-1.3); POTASSIUM - SERUM 3.6 mmol/L (3.5-5.1)
[2018-03-17 11:55] VITALS: BP 136/81
[2018-03-17 14:22] LABS: CALCIUM 7.9 mg/dL (8.5-10.1); CARBON DIOXIDE 24.1 mmol/L (21.0-32.0); CREATININE - SERUM 2.3 mg/dL (0.6-1.3); POTASSIUM - SERUM 4.1 mmol/L (3.5-5.1)
[2018-03-17 16:24] LABS: ANION GAP 14.3 mmol/L (8-16); CALCIUM 8.1 mg/dL (8.5-10.1); CARBON DIOXIDE 24.5 mmol/L (21.0-32.0); CREATININE - SERUM 2.3 mg/dL (0.6-1.3); POTASSIUM - SERUM 3.8 mmol/L (3.5-5.1)
[2018-03-17 16:53] VITALS: BP 130/75
[2018-03-17 20:49] LABS: ANION GAP 11.8 mmol/L (8-16); CALCIUM 7.8 mg/dL (8.5-10.1); CARBON DIOXIDE 26.8 mmol/L (21.0-32.0); CREATININE - SERUM 2.3 mg/dL (0.6-1.3); POTASSIUM - SERUM 3.6 mmol/L (3.5-5.1)
[2018-03-17 21:31] VITALS: BP 136/73
[2018-03-18 01:11] VITALS: BP 139/70
[2018-03-18 05:55] LABS: BASOPHILS 0 % (0-2); EOSINOPHILS 1.4 % (0-7); HEMATOCRIT 36.2 % (42.0-54.0); HEMOGLOBIN 11.5 g/dL (13.5-17.5); IMMATURE GRANULOCYTES 0.3 % (0-5); LYMPHOCYTES 10.9 % (15-50); MCHC 31.8 g/dL (31.0-37.0); MCV 91.4 fL (80.0-100.0); MEAN PLATELET VOLUME 11.5 fL (7.4-10.4); NEUTROPHILS 82.4 % (40-80); PLATELET COUNT 164 10x3/uL (130-400); RBC 3.96 10x6/uL (4.20-6.10); RDW 14.8 % (11.5-14.5); WBC 8.8 10x3/uL (4.8-10.8)
[2018-03-18 06:08] LABS: ALBUMIN 1.8 g/dL (3.4-5.0); ANION GAP 11.8 mmol/L (8-16); BILIRUBIN - TOTAL 0.61 mg/dL (0.2-1.3); CARBON DIOXIDE 25.6 mmol/L (21.0-32.0); CREATININE - SERUM 2.1 mg/dL (0.6-1.3); POTASSIUM - SERUM 3.4 mmol/L (3.5-5.1); PROTEIN - SERUM 6.1 g/dL (6.4-8.2)
[2018-03-18 07:25] VITALS: BP 167/85
[2018-03-18 08:38] LABS: ANION GAP 10.9 mmol/L (8-16); CARBON DIOXIDE 27.6 mmol/L (21.0-32.0); CREATININE - SERUM 2.2 mg/dL (0.6-1.3); POTASSIUM - SERUM 3.5 mmol/L (3.5-5.1)
[2018-03-18 09:24] VITALS: BP 150/79
[2018-03-18 12:20] VITALS: BP 136/78
[2018-03-18 12:36] LABS: ANION GAP 15.3 mmol/L (8-16); CALCIUM 7.9 mg/dL (8.5-10.1); CARBON DIOXIDE 23.5 mmol/L (21.0-32.0); CREATININE - SERUM 2.2 mg/dL (0.6-1.3); POTASSIUM - SERUM 3.8 mmol/L (3.5-5.1)
[2018-03-18 15:46] VITALS: BP 142/80
[2018-03-18 16:29] LABS: ANION GAP 11.1 mmol/L (8-16); CALCIUM 8.1 mg/dL (8.5-10.1); CARBON DIOXIDE 26.8 mmol/L (21.0-32.0); CREATININE - SERUM 2.2 mg/dL (0.6-1.3); POTASSIUM - SERUM 3.9 mmol/L (3.5-5.1)
[2018-03-18 21:02] LABS: ANION GAP 7.9 mmol/L (8-16); CALCIUM 7.8 mg/dL (8.5-10.1); CARBON DIOXIDE 27.8 mmol/L (21.0-32.0); CREATININE - SERUM 2.1 mg/dL (0.6-1.3); POTASSIUM - SERUM 3.7 mmol/L (3.5-5.1)
[2018-03-18 22:02] VITALS: BP 133/76
[2018-03-19 01:00] VITALS: BP 157/84
[2018-03-19 03:38] LABS: BASOPHILS 0.1 % (0-2); HEMATOCRIT 34.3 % (42.0-54.0); HEMOGLOBIN 11.2 g/dL (13.5-17.5); IMMATURE GRANULOCYTES 0.4 % (0-5); LYMPHOCYTES 12.1 % (15-50); MCH 29.5 pg (26.0-34.0); MCHC 32.7 g/dL (31.0-37.0); MCV 90.3 fL (80.0-100.0); MEAN PLATELET VOLUME 11.8 fL (7.4-10.4); MONOCYTES 6.1 % (2-11); NEUTROPHILS 80.3 % (40-80); PLATELET COUNT 148 10x3/uL (130-400); RDW 14.6 % (11.5-14.5); WBC 7.9 10x3/uL (4.8-10.8)
[2018-03-19 03:52] LABS: ALBUMIN 1.8 g/dL (3.4-5.0); ANION GAP 11.6 mmol/L (8-16); BILIRUBIN - TOTAL 0.49 mg/dL (0.2-1.3); CALCIUM 8.1 mg/dL (8.5-10.1); CARBON DIOXIDE 26.9 mmol/L (21.0-32.0); CREATININE - SERUM 2.1 mg/dL (0.6-1.3); POTASSIUM - SERUM 3.5 mmol/L (3.5-5.1); PROTEIN - SERUM 5.9 g/dL (6.4-8.2)
[2018-03-19 04:00] VITALS: BP 122/95
[2018-03-19 07:52] LABS: ANION GAP 15.4 mmol/L (8-16); CALCIUM 8.1 mg/dL (8.5-10.1); CARBON DIOXIDE 24.2 mmol/L (21.0-32.0); CREATININE - SERUM 2.1 mg/dL (0.6-1.3); POTASSIUM - SERUM 3.6 mmol/L (3.5-5.1)
[2018-03-19 08:08] VITALS: BP 163/95
[2018-03-19 10:55] VITALS: BP 161/83
[2018-03-19 13:22] LABS: ANION GAP 15.7 mmol/L (8-16); CALCIUM 7.9 mg/dL (8.5-10.1); POTASSIUM - SERUM 3.7 mmol/L (3.5-5.1)
[2018-03-19 15:58] VITALS: BP 144/74
[2018-03-19 21:05] VITALS: BP 135/79
[2018-03-20 01:11] VITALS: BP 145/71
[2018-03-20 05:02] LABS: BASOPHILS 0.1 % (0-2); EOSINOPHILS 1.2 % (0-7); HEMATOCRIT 33.9 % (42.0-54.0); HEMOGLOBIN 11.1 g/dL (13.5-17.5); IMMATURE GRANULOCYTES 0.5 % (0-5); LYMPHOCYTES 14.6 % (15-50); MCH 29.2 pg (26.0-34.0); MCHC 32.7 g/dL (31.0-37.0); MCV 89.2 fL (80.0-100.0); MEAN PLATELET VOLUME 11.4 fL (7.4-10.4); MONOCYTES 5.2 % (2-11); NEUTROPHILS 78.4 % (40-80); PLATELET COUNT 142 10x3/uL (130-400); RDW 14.7 % (11.5-14.5); WBC 7.7 10x3/uL (4.8-10.8)
[2018-03-20 05:18] LABS: ALBUMIN 1.8 g/dL (3.4-5.0); ANION GAP 13.4 mmol/L (8-16); BILIRUBIN - TOTAL 0.52 mg/dL (0.2-1.3); CALCIUM 7.9 mg/dL (8.5-10.1); CARBON DIOXIDE 25.1 mmol/L (21.0-32.0); CREATININE - SERUM 1.9 mg/dL (0.6-1.3); POTASSIUM - SERUM 3.5 mmol/L (3.5-5.1); PROTEIN - SERUM 5.6 g/dL (6.4-8.2)
[2018-03-20 05:45] VITALS: BP 158/92
[2018-03-20 08:17] VITALS: BP 162/65
[2018-03-20 12:50] VITALS: BP 160/60
[2018-03-20 15:31] VITALS: BP 159/60
[2018-03-20 20:48] VITALS: BP 155/84
[2018-03-21 01:31] VITALS: BP 167/90
[2018-03-21 05:22] LABS: BASOPHILS 0.2 % (0-2); EOSINOPHILS 1.3 % (0-7); HEMATOCRIT 33.8 % (42.0-54.0); IMMATURE GRANULOCYTES 0.3 % (0-5); LYMPHOCYTES 16.5 % (15-50); MCH 28.9 pg (26.0-34.0); MCHC 32.5 g/dL (31.0-37.0); MCV 88.9 fL (80.0-100.0); MONOCYTES 5.8 % (2-11); NEUTROPHILS 75.9 % (40-80); PLATELET COUNT 136 10x3/uL (130-400); RDW 14.5 % (11.5-14.5); WBC 6.4 10x3/uL (4.8-10.8)
[2018-03-21 05:36] LABS: ALBUMIN 1.8 g/dL (3.4-5.0); ANION GAP 14.9 mmol/L (8-16); BILIRUBIN - TOTAL 0.57 mg/dL (0.2-1.3); CALCIUM 8.2 mg/dL (8.5-10.1); CARBON DIOXIDE 24.3 mmol/L (21.0-32.0); CREATININE - SERUM 1.8 mg/dL (0.6-1.3); POTASSIUM - SERUM 3.2 mmol/L (3.5-5.1)
[2018-03-21 06:05] VITALS: BP 164/86
[2018-03-21 08:42] VITALS: BP 151/94
[2018-03-21 11:48] VITALS: BP 169/96
[2018-03-21 16:38] VITALS: BP 164/92
[2018-03-21 20:00] VITALS: BP 152/95
[2018-03-22] VITALS: BP 137/80
[2018-03-22 04:00] VITALS: BP 146/82
[2018-03-22 04:43] LABS: BASOPHILS 0.2 % (0-2); EOSINOPHILS 1.1 % (0-7); HEMATOCRIT 33.9 % (42.0-54.0); HEMOGLOBIN 11.1 g/dL (13.5-17.5); IMMATURE GRANULOCYTES 0.3 % (0-5); LYMPHOCYTES 15.1 % (15-50); MCH 28.8 pg (26.0-34.0); MCHC 32.7 g/dL (31.0-37.0); MCV 88.1 fL (80.0-100.0); MEAN PLATELET VOLUME 11.1 fL (7.4-10.4); NEUTROPHILS 76.3 % (40-80); PLATELET COUNT 136 10x3/uL (130-400); RBC 3.85 10x6/uL (4.20-6.10); RDW 14.6 % (11.5-14.5); WBC 6.3 10x3/uL (4.8-10.8)
[2018-03-22 05:06] LABS: ALBUMIN 1.9 g/dL (3.4-5.0); ANION GAP 13.7 mmol/L (8-16); BILIRUBIN - TOTAL 0.58 mg/dL (0.2-1.3); CALCIUM 8.3 mg/dL (8.5-10.1); CARBON DIOXIDE 24.7 mmol/L (21.0-32.0); CREATININE - SERUM 1.7 mg/dL (0.6-1.3); POTASSIUM - SERUM 3.4 mmol/L (3.5-5.1); PROTEIN - SERUM 6.1 g/dL (6.4-8.2)
[2018-03-22 08:15] VITALS: BP 142/87
[2018-03-22 11:48] VITALS: BP 140/86
[2018-03-22 16:16] VITALS: BP 95/67
[2018-03-22 20:00] VITALS: BP 163/98
[2018-03-23] VITALS: BP 158/79
[2018-03-23 04:00] VITALS: BP 166/89
[2018-03-23 08:02] VITALS: BP 143/80
[2018-03-23 11:37] VITALS: BP 140/68
[2018-03-23 16:52] VITALS: BP 146/80
[2018-03-23 20:00] VITALS: BP 161/89
[2018-03-24] VITALS: BP 125/83
[2018-03-24 04:00] VITALS: BP 157/92
[2018-03-24 04:33] LABS: BASOPHILS 0.2 % (0-2); EOSINOPHILS 1.8 % (0-7); HEMATOCRIT 32.5 % (42.0-54.0); HEMOGLOBIN 10.8 g/dL (13.5-17.5); IMMATURE GRANULOCYTES 0.2 % (0-5); LYMPHOCYTES 18.9 % (15-50); MCHC 33.2 g/dL (31.0-37.0); MCV 87.4 fL (80.0-100.0); MEAN PLATELET VOLUME 11.3 fL (7.4-10.4); MONOCYTES 5.9 % (2-11); PLATELET COUNT 134 10x3/uL (130-400); RBC 3.72 10x6/uL (4.20-6.10); RDW 14.4 % (11.5-14.5); WBC 5.1 10x3/uL (4.8-10.8)
[2018-03-24 04:42] LABS: ANION GAP 10.7 mmol/L (8-16); CALCIUM 8.1 mg/dL (8.5-10.1); CARBON DIOXIDE 26.7 mmol/L (21.0-32.0); CREATININE - SERUM 1.5 mg/dL (0.6-1.3); POTASSIUM - SERUM 3.4 mmol/L (3.5-5.1)
[2018-03-24 08:38] VITALS: BP 146/99
[2018-03-24 12:01] VITALS: BP 159/63
[2018-03-24] MEDS ORDERED: CARDIZEM30 MG PO (14:34)
[2018-03-24] MEDS ORDERED: CARAFATE1 G/10 ML PO (14:34)
[2018-03-24] MEDS ORDERED: PROTONIX40 MG PO (15:29)
[2018-03-24 16:31] VITALS: BP 145/72
== END 2018-03-24 17:58 | DRG 377 ==
LOC: D.ICU 11:00 → D.M2 11:00 → D.ICU 11:08 → D.M2 03-05 14:33
PROVIDERS: Emergency Medicine; Family Medicine; Internal Medicine Gastroenterology; Internal Medicine Nephrology
PROC: 0DJ08ZZ Inspection of Upper Intestinal Tract, Via Natural or Artificial Opening Endoscopic (ICD-10-PCS; principal; 2018-03-03 15:58)
DX: K92.2 Gastrointestinal hemorrhage, unspecified (principal); G93.41 Metabolic encephalopathy; J18.9 Pneumonia, unspecified organism; R53.2 Functional quadriplegia; I50.42 Chronic combined systolic (congestive) and diastolic (congestive) heart failure; F05 Delirium due to known physiological condition; D62 Acute posthemorrhagic anemia; N17.9 Acute kidney failure, unspecified; E23.2 Diabetes insipidus; K56.609 Unspecified intestinal obstruction, unspecified as to partial versus complete obstruction; B37.89 Other sites of candidiasis; I27.82 Chronic pulmonary embolism; I71.4 Abdominal aortic aneurysm, without rupture; Y95 Nosocomial condition; I48.91 Unspecified atrial fibrillation; K21.0 Gastro-esophageal reflux disease with esophagitis; F03.90 Unspecified dementia, unspecified severity, without behavioral disturbance, psychotic disturbance, mood disturbance, and anxiety; B37.9 Candidiasis, unspecified; E11.9 Type 2 diabetes mellitus without complications; E86.0 Dehydration; K29.00 Acute gastritis without bleeding; I11.0 Hypertensive heart disease with heart failure; H91.90 Unspecified hearing loss, unspecified ear; K44.9 Diaphragmatic hernia without obstruction or gangrene; K42.9 Umbilical hernia without obstruction or gangrene

== ENCOUNTER 2018-03-28 13:14 | Inpatient (IN) | payer MEDICARE ==
[~2018-03-28] VITALS: Ht 167.6 cm; Wt 77.1 kg
--- NOTE | ~2018-03-28 | MORECARE ---
CASE MANAGEMENT DISCHARGE SUMMARY PATIENT: DANIEL ADAME UNIT: [id number] ADM DATE: 03/30/18 AGE: 78 : 40 SEX: M ROOM/BED: D.2229 AUTHOR: SAMUEL,DOC PHYSICIAN: REFERRING PHYSICIAN: AGGIE PANIAGUA MD DATE OF SERVICE: 04/01/18 Discharge Plan Patient Name: DANIEL ADAME Facility: [facility]:[place] : 1940 Planned Disposition: Longterm Facility Anticipated Discharge Date: Discharge Date: Expected LOS: Initial Reviewer: [id number] Initial Review Date: 03/29/2018 Generated: 04/01/18 1:09 pm Comments DCP- Discharge Planning Updated by [id number]: Otilia Sandra on 04/01/18 11:[address] Patient's daughter, Cora Palacios, called me regarding discharge plan. She states that [facility] has denied coming to their facility due to insurance reasons. States she has cleared a bedroom for him at her house to come there. States she or someone will be with him 22/12. States she is getting a follow up physician for him. She understands he will have tube feedings and states she has already set that up and is buying a wheelchair for him. States she has "plenty of help" to bring him home via private vehicle". States her is going to follow her with him in the car. States she can not get him until Thursday. States her daughter in law is a nurse and is also going to help care for him. I informed Karina Chan APN. CM will continue to follow and assist with discharge planning/needs. DCP- Discharge Planning Updated by [email or web address]: Otilia Flores on 03/31/18 1:[address] Patient Name: DANIEL ADAME Admission Status: ER Accout number: [id number] Admission Date: 03-30-2018 : 1940 Admission Diagnosis: Attending: AGGIE PANIAGUA Current LOS: 1 Anticipated DC Date: Planned Disposition: Longterm Facility Primary Insurance: [employer] PPO [employer] ADVANT Discharge Planning Comments: Spoke with daughter, Cora Palacios, concerning discharge plan. Cora is in [place], she has picked [facility] in [facility] for her father for skilled therapy. I spoke with Lin Jeronimo and informed her of patient's insurance and ready for discharge in am. She states he will need administrative authorization and preauth from insurance but they do have available beds. Clinical faxed per her request to [phone]. CM will continue to follow and assist with discharge planning/needs. [facility]: Lin Jeronimo [phone] Option 3. Geriatric Nurse Assistant: Otilia Flores DCP- Discharge Planning Updated by [id number]: Otilia Flores on 03/29/18 4:[address] Patient Name: DANIEL ADAME Admission Status: ER Accout number: [id number] Admission Date: 03-28-2018 : 1940 Admission Diagnosis: Attending: AGGIE PANIAGUA Current LOS: 1 Anticipated DC Date: Planned Disposition: Longterm Facility Primary Insurance: [employer] CHOICE PPO [facility] Discharge Planning Comments: Met with patient's daughter Cora in the room to discuss discharge planning. Patient sleeps through assessment. His daughter states she is going to take him back to [place]. She states he did not receive good care at [facility] and they are not letting him go back there. States she is going to [place] in the morning and will look for a skilled facility for him and she will transport him there herself. States if she is unable to find a skilled facility she will take him home to live with her. States her will be following her in his car as well. I informed her to call me with the name of the facility she would like him to go to and I can fax them clinical. CM will continue to follow and assist with discharge planning/needs. Geriatric Nurse Assistant: Otilia Flores DCPIA - Discharge Planning Initial Assessment Updated by [id number]: Otilia Flores on 03/29/18 5:20 pm * Is the patient Alert and Oriented? No * PCP Dr. Pierre * Pharmacy [facility] [address] * Preadmission Environment Longterm Facility * Facility Name [facility] * ADLs Total Dependent * Equipment Cane * List name and contact numbers for known caregivers / representatives who currently or will assist patient after discharge: Cora Palacios - DTR - C:[phone] - [phone] * Verbal permission to speak to the caregivers and representatives has been obtained from the patient. N/A * Community resources currently utilized None * Additional services required to return to the preadmission environment? Yes * Can the patient safely return to the preadmission environment? Yes * Has this patient been hospitalized within the prior 30 days at any hospital? Yes Coverage Notice Reviewer: [id number] Marty Flores Notice Issued Date-Time: 03/29/2018 17:14 Notice Type: Medicare Outpatient Observation Notice Notice Delivered To: Family Member Relationship to Patient: Daughter Junior Designer Name: Cora Palacios Delivery Method: HAND - Hand Delivered Sho Days: Prior Verbal Notification: Recipient Understood Notice: Yes Recipient Signature: Yes Med Rec Note Co-signed by Attending: Coverage Notice Comment: NADIA explained, signed by daughter, copy given, original placed in MR Last DP export: 03/31/18 1:49 Patient Name: DANIEL ADAME Page [id number] at 1209 All edits/amendments must be made on the electronic document DICTATION DATE: 04/01/18 1209 MAINTENANCE MACHINIST: RUBÉN 04/01/18 1209 RPT#: [id number] DC DATE: STATUS: ADM IN [facility] [address] [place] [address] END OF REPORT
--- NOTE | ~2018-03-28 | MORECARE ---
CASE MANAGEMENT DISCHARGE SUMMARY PATIENT: DANIEL ADAME UNIT: [id number] ADM DATE: 03/30/18 AGE: 78 : 40 SEX: M ROOM/BED: D.2229 AUTHOR: SAMUEL,DOC PHYSICIAN: REFERRING PHYSICIAN: AGGIE PANIAGUA MD DATE OF SERVICE: 03/31/18 Discharge Plan Patient Name: DNAIEL ADAME Facility: [facility]:[place] : 1940 Planned Disposition: Long Term Facility Anticipated Discharge Date: Discharge Date: Expected LOS: Initial Reviewer: [id number] Initial Review Date: 03/29/2018 Generated: 03/31/18 11:11 am DCP- Discharge Planning Updated by [id number]: Otilia Flores on 03/29/18 4:[address] Patient Name: DANIEL ADAME Admission Status: ER Accout number: [id number] Admission Date: 03-28-2018 : 1940 Admission Diagnosis: Attending: AGGIE PANIAGUA Current LOS: 1 Anticipated DC Date: Planned Disposition: Long Term Facility Primary Insurance: [employer] CHO[employer] PPO [employer] Discharge Planning Comments: Met with patient's daughter Cora in the room to discuss discharge planning. Patient sleeps through assessment. His daughter states she is going to take him back to [place]. She states he did not receive good care at [facility] and they are not letting him go back there. States she is going to [place] in the morning and will look for a skilled facility for him and she will transport him there herself. States if she is unable to find a skilled facility she will take him home to live with her. States her will be following her in his car as well. I informed her to call me with the name of the facility she would like him to go to and I can fax them clinical. CM will continue to follow and assist with discharge planning/needs. Lumber Puller: Otilia Flores DCPIA - Discharge Planning Initial Assessment Updated by [id number]: Otilia Flores on 03/29/18 5:20 pm * Is the patient Alert and Oriented? No * PCP Dr. Pierre * Pharmacy [facility] * Preadmission Environment Long Term Facility * Facility Name [facility] * ADLs Total Dependent * Equipment Cane * List name and contact numbers for known caregivers / representatives who currently or will assist patient after discharge: Cora Palacios - DTR - C:[phone] - [phone] * Verbal permission to speak to the caregivers and representatives has been obtained from the patient. N/A * Community resources currently utilized None * Additional services required to return to the preadmission environment? Yes * Can the patient safely return to the preadmission environment? Yes * Has this patient been hospitalized within the prior 30 days at any hospital? Yes Coverage Notice Reviewer: [id number] Marty Flores Notice Issued Date-Time: 03/29/2018 17:14 Notice Type: Medicare Outpatient Observation Notice Notice Delivered To: Family Member Relationship to Patient: Daughter Assembler Aircraft Power Plant Name: Cora Palacios Delivery Method: HAND - Hand Delivered Sho Days: Prior Verbal Notification: Recipient Understood Notice: Yes Recipient Signature: Yes Med Rec Note Co-signed by Attending: Coverage Notice Comment: ZUNIGA explained, signed by daughter, copy given, original placed in MR Last DP export: 03/29/18 4:33 Patient Name: DANIEL ADAME Page 52916 at 1011 All edits/amendments must be made on the electronic document DICTATION DATE: 03/31/18 1010 VIDEO RENTAL CLERK: RUBÉN 03/31/18 1010 RPT#: [id number] DC DATE: STATUS: ADM IN [facility] [address] [place] [address] END OF REPORT
--- NOTE | ~2018-03-28 | MORECARE ---
CASE MANAGEMENT DISCHARGE SUMMARY PATIENT: DANIEL ADAME UNIT: [id number] ADM DATE: 03/28/18 AGE: 78 : 40 SEX: M ROOM/BED: D.2229 AUTHOR: CELI BAKER PHYSICIAN: REFERRING PHYSICIAN: AGGIE PANIAGUA MD DATE OF SERVICE: 03/29/18 Discharge Plan Patient Name: DANIEL ADAME Facility: [facility] : 1940 Planned Disposition: Care Home Facility Anticipated Discharge Date: Discharge Date: Expected LOS: Initial Reviewer: [email or web address] Initial Review Date: 03/29/2018 Generated: 03/29/18 6:24 pm DCPIA - Discharge Planning Initial Assessment Updated by [email or web address]: Otilia Flores on 03/29/18 5:20 pm * Is the patient Alert and Oriented? No * PCP Dr. Pierre * Pharmacy [facility] * Preadmission Environment Care Home Facility * Facility Name [facility] * ADLs Total Dependent * Equipment Cane * List name and contact numbers for known caregivers / representatives who currently or will assist patient after discharge: Cora Palacios - DTR - C:[phone] - [phone] * Verbal permission to speak to the caregivers and representatives has been obtained from the patient. N/A * Community resources currently utilized None * Additional services required to return to the preadmission environment? Yes * Can the patient safely return to the preadmission environment? Yes * Has this patient been hospitalized within the prior 30 days at any hospital? Yes Coverage Notice Reviewer: [id number] - Otilia Flores Notice Issued Date-Time: 03/29/2018 17:14 Notice Type: Medicare Outpatient Observation Notice Notice Delivered To: Family Member Relationship to Patient: Daughter Furniture Mover Helper Name: Cora Palacios Delivery Method: HAND - Hand Delivered Sho Days: Prior Verbal Notification: Recipient Understood Notice: Yes Recipient Signature: Yes Med Rec Note Co-signed by Attending: Coverage Notice Comment: ZUNIGA explained, signed by daughter, copy given, original placed in MR Patient Name: DANIEL ADAME Page 33070 at 1724 All edits/amendments must be made on the electronic document DICTATION DATE: 03/29/181722 SKI LIFT MECHANIC: RUBÉN 03/29/181722 RPT#: [id number] DC DATE: STATUS: ADM IN [facility] [address] [place] [address] END OF REPORT
--- NOTE | ~2018-03-28 | MORECARE ---
CASE MANAGEMENT DISCHARGE SUMMARY PATIENT: DANIEL ADAME UNIT: [id number] ADM DATE: 03/30/18 AGE: 78 : 40 SEX: M ROOM/BED: D.2229 AUTHOR: SAMUEL,DOC PHYSICIAN: REFERRING PHYSICIAN: AGGIE PANIAGUA MD DATE OF SERVICE: 04/05/18 Discharge Plan Patient Name: DANIEL ADAME Facility: [facility]:[place] : 1940 Planned Disposition: Group Home Facility Anticipated Discharge Date: Discharge Date: 04/03/2018 Expected LOS: 0 Initial Reviewer: [id number] Initial Review Date: 03/29/2018 Generated: 04/05/18 5:47 pm Comments DCP- Discharge Planning Updated by [email or web address]: Otilia Flores on 04/02/18 2:[address] Spoke with daughter, Cora. She is meeting [facility] here today at 3:30 for tube feeding education. CM will continue to follow and assist with discharge planning/needs. DCP- Discharge Planning Updated by [email or web address]: Otilia Flores on 04/02/18 10:[address] Orders for tube feedings obtained. I spoke with Cora (daughter) and she states will prefer gravity feeding. I spoke with Lacey with [facility] and faxed order and clinical needed. Plan is to discharge to the care of his daughter, Cora tomorrow. CM will continue to follow and assist with discharge planning/needs. DCP- Discharge Planning Updated by [id number]: Otilia Flores on 04/01/18 3:[address] Faxed needed clinical and tube feeding order to [facility]. CM will continue to follow and assist with discharge planning/needs. DCP- Discharge Planning Updated by [email or web address]: Otilia Flores on 04/01/18 12:[address] Patient's daughter, Cora Palacios, called me regarding discharge plan. She states that [facility] has denied coming to their facility due to insurance reasons. States she has cleared a bedroom for him at her house to come there. States she or someone will be with him 22/12. States she is getting a follow up physician for him. She understands he will have tube feedings and states she has already set that up and is buying a wheelchair for him. States she has "plenty of help" to bring him home via private vehicle". States her is going to follow her with him in the car. States she can not get him until Thursday. States her daughter in law is a nurse and is also going to help care for him. I informed Karina Chan APN. CM will continue to follow and assist with discharge planning/needs. DCP- Discharge Planning Updated by [id number]: Otilia Flores on 03/31/18 2:[address] Patient Name: DANIEL ADAME Admission Status: ER Accout number: [id number] Admission Date: 03-30-2018 : 1940 Admission Diagnosis: Attending: AGGIE PANIAGUA Current LOS: 1 Anticipated DC Date: Planned Disposition: Group Home Facility Primary Insurance: [employer] CHOICE PPO [facility] ADVANT Discharge Planning Comments: Spoke with daughter, Cora Palacios, concerning discharge plan. Cora is in [place], she has picked [facility] in [place] for her father for skilled therapy. I spoke with Lin Jeronimo and informed her of patient's insurance and ready for discharge in am. She states he will need administrative authorization and preauth from insurance but they do have available beds. Clinical faxed per her request to [phone]. CM will continue to follow and assist with discharge planning/needs. [facility]: Lin Jeronimo [phone] Option 3. Director Of Diversity And Inclusion: Otilia Flores DCP- Discharge Planning Updated by [email or web address]: Otilia Aguerorain on 03/29/18 5:[address] Patient Name: DANIEL ADAME Admission Status: ER Accout number: [id number] Admission Date: 03-28-2018 : 1940 Admission Diagnosis: Attending: AGGIE PANIAGUA Current LOS: 1 Anticipated DC Date: Planned Disposition: Group Home Facility Primary Insurance: [employer] CHOICE PPO [facility] ADVANT Discharge Planning Comments: Met with patient's daughter Cora in the room to discuss discharge planning. Patient sleeps through assessment. His daughter states she is going to take him back to [place]. She states he did not receive good care at [facility] and they are not letting him go back there. States she is going to [place] in the morning and will look for a skilled facility for him and she will transport him there herself. States if she is unable to find a skilled facility she will take him home to live with her. States her will be following her in his car as well. I informed her to call me with the name of the facility she would like him to go to and I can fax them clinical. CM will continue to follow and assist with discharge planning/needs. Director Of Diversity And Inclusion: Otilia Aguerorain DCPIA - Discharge Planning Initial Assessment Updated by [id number]: Otilia Flores on 03/29/18 5:20 pm * Is the patient Alert and Oriented? No * PCP Dr. Pierre * Pharmacy [facility] * Preadmission Environment Group Home Facility * Facility Name [facility] * ADLs Total Dependent * Equipment Cane * List name and contact numbers for known caregivers / representatives who currently or will assist patient after discharge: Cora Palacios - DTR - C:[phone] H - [phone] * Verbal permission to speak to the caregivers and representatives has been obtained from the patient. N/A * Community resources currently utilized None * Additional services required to return to the preadmission environment? Yes * Can the patient safely return to the preadmission environment? Yes * Has this patient been hospitalized within the prior 30 days at any hospital? Yes Coverage Notice Reviewer: [id number] - Otilia Flores Notice Issued Date-Time: 03/29/2018 17:14 Notice Type: Medicare Outpatient Observation Notice Notice Delivered To: Family Member Relationship to Patient: Daughter Employee Relations Advisor Name: Cora Palacios Delivery Method: HAND - Hand Delivered Sho Days: Prior Verbal Notification: Recipient Understood Notice: Yes Recipient Signature: Yes Med Rec Note Co-signed by Attending: Coverage Notice Comment: ZUNIGA explained, signed by daughter, copy given, original placed in MR Last DP export: 04/02/18 3:00 p Patient Name: DANIEL ADAME Page 91007 at 1647 All edits/amendments must be made on the electronic document DICTATION DATE: 04/05/181645 MARKETING SYSTEMS MANAGER: RUBÉN 04/05/181645 RPT#: [id number] DC DATE:04/03/18 STATUS: DIS IN [facility] [address] [place] [address] END OF REPORT
--- NOTE | ~2018-03-28 | MORECARE ---
CASE MANAGEMENT DISCHARGE SUMMARY PATIENT: DANIEL ADAME UNIT: [id number] ADM DATE: 03/30/18 AGE: 78 : 40 SEX: M ROOM/BED: D.2229 AUTHOR: SAMUEL,DOC PHYSICIAN: REFERRING PHYSICIAN: AGGIE PANIAGUA MD DATE OF SERVICE: 04/02/18 Discharge Plan Patient Name: DANIEL ADAME Facility: [facility]:[place] : 1940 Planned Disposition: Fdc Facility Anticipated Discharge Date: Discharge Date: Expected LOS: Initial Reviewer: [email or web address] Initial Review Date: 03/29/2018 Generated: 04/02/18 3:59 pm Comments DCP- Discharge Planning Updated by [email or web address]: Otilia Flores on 04/02/18 1:[address] Spoke with daughter, Cora. She is meeting [facility] here today at 3:30 for tube feeding education. CM will continue to follow and assist with discharge planning/needs. DCP- Discharge Planning Updated by [id number]: Otilia Flores on 04/02/18 9:[address] Orders for tube feedings obtained. I spoke with Cora (daughter) and she states will prefer gravity feeding. I spoke with Lacey with [facility] and faxed order and clinical needed. Plan is to discharge to the care of his daughter, Cora tomorrow. CM will continue to follow and assist with discharge planning/needs. DCP- Discharge Planning Updated by [id number]: Otilia Flores on 04/01/18 2:[address] Faxed needed clinical and tube feeding order to [facility]. CM will continue to follow and assist with discharge planning/needs. DCP- Discharge Planning Updated by [email or web address]: Otilia Flores on 04/01/18 11:[address] Patient's daughter, Cora Palacios, called me regarding discharge plan. She states that [facility] has denied coming to their facility due to insurance reasons. States she has cleared a bedroom for him at her house to come there. States she or someone will be with him 22/12. States she is getting a follow up physician for him. She understands he will have tube feedings and states she has already set that up and is buying a wheelchair for him. States she has "plenty of help" to bring him home via private vehicle". States her is going to follow her with him in the car. States she can not get him until Thursday. States her daughter in law is a nurse and is also going to help care for him. I informed Karina Chan APN. CM will continue to follow and assist with discharge planning/needs. DCP- Discharge Planning Updated by [id number]: Otilia Flores on 03/31/18 1:[address] Patient Name: DANIEL ADAME Admission Status: ER Accout number: [id number] Admission Date: 03-30-2018 : 1940 Admission Diagnosis: Attending: AGGIE PANIAGUA Current LOS: 1 Anticipated DC Date: Planned Disposition: Fdc Facility Primary Insurance: [employer] CHOICE PPO [facility] ADVANT Discharge Planning Comments: Spoke with daughter, Cora Palacios, concerning discharge plan. Cora is in [place], she has picked [facility] in [facility] for her father for skilled therapy. I spoke with Lin Jeronimo and informed her of patient's insurance and ready for discharge in am. She states he will need administrative authorization and preauth from insurance but they do have available beds. Clinical faxed per her request to [phone]. CM will continue to follow and assist with discharge planning/needs. [facility]: Lin Jeronimo [phone] Option 3. Legal Records Clerk: Otilia Flores DCP- Discharge Planning Updated by [email or web address]: Otilia Flores on 03/29/18 4:[address] Patient Name: DANIEL ADAME Admission Status: ER Accout number: [id number] Admission Date: 03-28-2018 : 1940 Admission Diagnosis: Attending: AGGIE PANIAGUA Current LOS: 1 Anticipated DC Date: Planned Disposition: Fdc Facility Primary Insurance: [employer] CHOICE PPO [facility] Discharge Planning Comments: Met with patient's daughter Cora in the room to discuss discharge planning. Patient sleeps through assessment. His daughter states she is going to take him back to [place]. She states he did not receive good care at [facility] and they are not letting him go back there. States she is going to [place] in the morning and will look for a skilled facility for him and she will transport him there herself. States if she is unable to find a skilled facility she will take him home to live with her. States her will be following her in his car as well. I informed her to call me with the name of the facility she would like him to go to and I can fax them clinical. CM will continue to follow and assist with discharge planning/needs. Legal Records Clerk: Otilia Flores DCPIA - Discharge Planning Initial Assessment Updated by [id number]: Otilia Flores on 03/29/18 5:20 pm * Is the patient Alert and Oriented? No * PCP Dr. Pierre * Pharmacy [facility] * Preadmission Environment Fdc Facility * Facility Name [facility] * ADLs Total Dependent * Equipment Cane * List name and contact numbers for known caregivers / representatives who currently or will assist patient after discharge: Cora Palacios - DTR - C:[phone] H - [phone] * Verbal permission to speak to the caregivers and representatives has been obtained from the patient. N/A * Community resources currently utilized None * Additional services required to return to the preadmission environment? Yes * Can the patient safely return to the preadmission environment? Yes * Has this patient been hospitalized within the prior 30 days at any hospital? Yes Coverage Notice Reviewer: [id number] - Otilia Flores Notice Issued Date-Time: 03/29/2018 17:14 Notice Type: Medicare Outpatient Observation Notice Notice Delivered To: Family Member Relationship to Patient: Daughter Plant Assigner Name: Cora Palacios Delivery Method: HAND - Hand Delivered Sho Days: Prior Verbal Notification: Recipient Understood Notice: Yes Recipient Signature: Yes Med Rec Note Co-signed by Attending: Coverage Notice Comment: ZUNIGA explained, signed by daughter, copy given, original placed in MR Last DP export: 04/02/18 9:42 a Patient Name: DANIEL ADAME Page 71070 at 1500 All edits/amendments must be made on the electronic document DICTATION DATE: 04/02/181458 BEHAVIORAL SCIENCES INSTRUCTOR: RUBÉN 04/02/181458 RPT#: [id number] ME DATE: STATUS: ADM IN [facility] [address] [place] [address] END OF REPORT
--- NOTE | ~2018-03-28 | MORECARE ---
CASE MANAGEMENT DISCHARGE SUMMARY PATIENT: DANIEL ADAME UNIT: [id number] ADM DATE: 03/28/18 AGE: 78 : 40 SEX: M ROOM/BED: D.2229 AUTHOR: SAMUEL,DOC PHYSICIAN: REFERRING PHYSICIAN: AGGIE PANIAGUA MD DATE OF SERVICE: 03/29/18 Discharge Plan Patient Name: DANIEL ADAME Facility: [facility]:[place] : 1940 Planned Disposition: Alf Facility Anticipated Discharge Date: Discharge Date: Expected LOS: Initial Reviewer: [email or web address] Initial Review Date: 03/29/2018 Generated: 03/29/18 6:33 pm Comments DCP- Discharge Planning Updated by [email or web address]: Otilia Flores on 03/29/18 4:[address] Patient Name: DANIEL ADAME Admission Status: ER Accout number: [id number] Admission Date: 03-28-2018 : 1940 Admission Diagnosis: Attending: AGGIE PANIAGUA Current LOS: 1 Anticipated DC Date: Planned Disposition: Alf Facility Primary Insurance: [employer] CHOICE PPO [facility] [employer] Discharge Planning Comments: Met with patient's daughter Cora in the room to discuss discharge planning. Patient sleeps through assessment. His daughter states she is going to take him back to [place]. She states he did not receive good care at [facility] and they are not letting him go back there. States she is going to [place] in the morning and will look for a skilled facility for him and she will transport him there herself. States if she is unable to find a skilled facility she will take him home to live with her. States her will be following her in his car as well. I informed her to call me with the name of the facility she would like him to go to and I can fax them clinical. CM will continue to follow and assist with discharge planning/needs. [place] Steward: Otilia Flores DCPIA - Discharge Planning Initial Assessment Updated by [id number]: Otilia Flores on 03/29/18 5:20 pm * Is the patient Alert and Oriented? No * PCP Dr. Pierre * Pharmacy [facility] on [facility] * Preadmission Environment Alf Facility * Facility Name [facility] * ADLs Total Dependent * Equipment Cane * List name and contact numbers for known caregivers / representatives who currently or will assist patient after discharge: Cora Palacios - DTR - C:[phone] - [phone] * Verbal permission to speak to the caregivers and representatives has been obtained from the patient. N/A * Community resources currently utilized None * Additional services required to return to the preadmission environment? Yes * Can the patient safely return to the preadmission environment? Yes * Has this patient been hospitalized within the prior 30 days at any hospital? Yes Coverage Notice Reviewer: [id number] Marty Flores Notice Issued Date-Time: 03/29/2018 17:14 Notice Type: Medicare Outpatient Observation Notice Notice Delivered To: Family Member Relationship to Patient: Daughter Insulation Machine Operator Name: Cora Palacios Delivery Method: HAND - Hand Delivered Sho Days: Prior Verbal Notification: Recipient Understood Notice: Yes Recipient Signature: Yes Med Rec Note Co-signed by Attending: Coverage Notice Comment: ZUNIGA explained, signed by daughter, copy given, original placed in MR Last DP export: 03/29/18 4:24 Patient Name: DANIEL ADAME Page [id number] at 1734 All edits/amendments must be made on the electronic document DICTATION DATE: 03/29/181732 FLUME WORKER: RUBÉN 03/29/181732 RPT#: [id number] DC DATE: STATUS: ADM IN [facility] [address] [place] [address] END OF REPORT
--- NOTE | ~2018-03-28 | MORECARE ---
CASE MANAGEMENT DISCHARGE SUMMARY PATIENT: DANIEL ADAME UNIT: [id number] ADM DATE: 03/30/18 AGE: 78 : 40 SEX: M ROOM/BED: D.2229 AUTHOR: SAMUEL,DOC PHYSICIAN: REFERRING PHYSICIAN: AGGIE PANIAGUA MD DATE OF SERVICE: 03/31/18 Discharge Plan Patient Name: DANIEL ADAME Facility: [facility]:[place] : 1940 Planned Disposition: Residential Facility Anticipated Discharge Date: Discharge Date: Expected LOS: Initial Reviewer: [id number] Initial Review Date: 03/29/2018 Generated: 03/31/18 3:49 pm DCP- Discharge Planning Updated by [email or web address]: Otilia Flores on 03/29/18 4:[address] Patient Name: DANIEL ADAME Admission Status: ER Accout number: [id number] Admission Date: 03-28-2018 : 1940 Admission Diagnosis: Attending: AGGIE PANIAGUA Current LOS: 1 Anticipated DC Date: Planned Disposition: Residential Facility Primary Insurance: [employer] CHOICE PPO [facility] Discharge Planning Comments: Met with patient's daughter Cora in the room to discuss discharge planning. Patient sleeps through assessment. His daughter states she is going to take him back to [place]. She states he did not receive good care at [facility] and they are not letting him go back there. States she is going to [place] in the morning and will look for a skilled facility for him and she will transport him there herself. States if she is unable to find a skilled facility she will take him home to live with her. States her will be following her in his car as well. I informed her to call me with the name of the facility she would like him to go to and I can fax them clinical. CM will continue to follow and assist with discharge planning/needs. Geotechnical Engineer: Otilia Flores DCPIA - Discharge Planning Initial Assessment Updated by [email or web address]: Otilia Flores on 03/29/18 5:20 pm * Is the patient Alert and Oriented? No * PCP Dr. Pierre * Pharmacy [facility] on [facility] * Preadmission Environment Residential Facility * Facility Name [facility] * ADLs Total Dependent * Equipment Cane * List name and contact numbers for known caregivers / representatives who currently or will assist patient after discharge: Cora Palacios - DTR - C:[phone] - [phone] * Verbal permission to speak to the caregivers and representatives has been obtained from the patient. N/A * Community resources currently utilized None * Additional services required to return to the preadmission environment? Yes * Can the patient safely return to the preadmission environment? Yes * Has this patient been hospitalized within the prior 30 days at any hospital? Yes External Providers External Provider: OTHER-OTHER Next Contact Date: Service Request Date: Service Type: Resolution: Reviewer: Comments: Coverage Notice Reviewer: [id number] - Otilia Flores Notice Issued Date-Time: 03/29/2018 17:14 Notice Type: Medicare Outpatient Observation Notice Notice Delivered To: Family Member Relationship to Patient: Daughter Health Practice Manager Name: Cora Palacios Delivery Method: HAND - Hand Delivered Sho Days: Prior Verbal Notification: Recipient Understood Notice: Yes Recipient Signature: Yes Med Rec Note Co-signed by Attending: Coverage Notice Comment: ZUNIGA explained, signed by daughter, copy given, original placed in MR Last DP export: 03/31/18 9:11 Patient Name: DANIEL ADAME Page [id number] at 1449 All edits/amendments must be made on the electronic document DICTATION DATE: 03/31/181447 PICKER / PACKER: RUBÉN 03/31/181447 RPT#: [id number] DC DATE: STATUS: ADM IN [facility] [address] [place] [address] END OF REPORT
--- NOTE | ~2018-03-28 | MORECARE ---
CASE MANAGEMENT DISCHARGE SUMMARY PATIENT: DANIEL ADAME UNIT: [id number] ADM DATE: 03/30/18 AGE: 78 : 40 SEX: M ROOM/BED: D.2229 AUTHOR: SAMUEL,DOC PHYSICIAN: REFERRING PHYSICIAN: AGGIE PANIAGUA MD DATE OF SERVICE: 04/02/18 Discharge Plan Patient Name: DANIEL ADAME Facility: [facility]:[place] : 1940 Planned Disposition: Care Home Facility Anticipated Discharge Date: Discharge Date: Expected LOS: Initial Reviewer: [email or web address] Initial Review Date: 03/29/2018 Generated: 04/02/18 11:42 am Comments DCP- Discharge Planning Updated by [id number]: Otilia Flores on 04/02/18 9:[address] Orders for tube feedings obtained. I spoke with Cora (daughter) and she states will prefer gravity feeding. I spoke with Lacey with [facility] and faxed order and clinical needed. Plan is to discharge to the care of his daughter, Cora tomorrow. CM will continue to follow and assist with discharge planning/needs. DCP- Discharge Planning Updated by [id number]: Otilia Flores on 04/01/18 2:[address] Faxed needed clinical and tube feeding order to [facility]. CM will continue to follow and assist with discharge planning/needs. DCP- Discharge Planning Updated by [email or web address]: Otilia Flores on 04/01/18 11:[address] Patient's daughter, Cora Palacios, called me regarding discharge plan. She states that [facility] has denied coming to their facility due to insurance reasons. States she has cleared a bedroom for him at her house to come there. States she or someone will be with him 22/12. States she is getting a follow up physician for him. She understands he will have tube feedings and states she has already set that up and is buying a wheelchair for him. States she has "plenty of help" to bring him home via private vehicle". States her is going to follow her with him in the car. States she can not get him until Thursday. States her daughter in law is a nurse and is also going to help care for him. I informed Karina Chan APN. CM will continue to follow and assist with discharge planning/needs. DCP- Discharge Planning Updated by [email or web address]: Otilia Flores on 03/31/18 1:[address] Patient Name: DANIEL ADAME Admission Status: ER Accout number: [id number] Admission Date: 03-30-2018 : 1940 Admission Diagnosis: Attending: AGGIE PANIAGUA Current LOS: 1 Anticipated DC Date: Planned Disposition: Care Home Facility Primary Insurance: [employer]NA CHOICE PPO [facility] Discharge Planning Comments: Spoke with daughter, Cora Palacios, concerning discharge plan. Cora is in [place], she has picked [facility] in [facility] for her father for skilled therapy. I spoke with Lin Jeronimo and informed her of patient's insurance and ready for discharge in am. She states he will need administrative authorization and preauth from insurance but they do have available beds. Clinical faxed per her request to [phone]. CM will continue to follow and assist with discharge planning/needs. [facility]: Lin Jeronimo [phone] Option 3. Health Economist: Otilia Flores DCP- Discharge Planning Updated by [email or web address]: Otilia Flores on 03/29/18 4:[address] Patient Name: DANIEL ADAME Admission Status: ER Accout number: [id number] Admission Date: 03-28-2018 : 1940 Admission Diagnosis: Attending: AGGIE PANIAGUA Current LOS: 1 Anticipated DC Date: Planned Disposition: Care Home Facility Primary Insurance: HUMANA [employer] PPO [facility] Discharge Planning Comments: Met with patient's daughter Cora in the room to discuss discharge planning. Patient sleeps through assessment. His daughter states she is going to take him back to [place]. She states he did not receive good care at [facility] and they are not letting him go back there. States she is going to [place] in the morning and will look for a skilled facility for him and she will transport him there herself. States if she is unable to find a skilled facility she will take him home to live with her. States her will be following her in his car as well. I informed her to call me with the name of the facility she would like him to go to and I can fax them clinical. CM will continue to follow and assist with discharge planning/needs. Health Economist: Otilia Flores DCPIA - Discharge Planning Initial Assessment Updated by [email or web address]: Otilia Sandra on 03/29/18 5:20 pm * Is the patient Alert and Oriented? No * PCP Dr. Pierre * Pharmacy [facility] on [address] * Preadmission Environment Care Home Facility * Facility Name [facility] * ADLs Total Dependent * Equipment Cane * List name and contact numbers for known caregivers / representatives who currently or will assist patient after discharge: Cora Palacios - DTR - C:[phone] - [phone] * Verbal permission to speak to the caregivers and representatives has been obtained from the patient. N/A * Community resources currently utilized None * Additional services required to return to the preadmission environment? Yes * Can the patient safely return to the preadmission environment? Yes * Has this patient been hospitalized within the prior 30 days at any hospital? Yes Coverage Notice Reviewer: [id number] - Otilia Sandra Notice Issued Date-Time: 03/29/2018 17:14 Notice Type: Medicare Outpatient Observation Notice Notice Delivered To: Family Member Relationship to Patient: Daughter Soa Integration Architect Name: Cora Palacios Delivery Method: HAND - Hand Delivered Sho Days: Prior Verbal Notification: Recipient Understood Notice: Yes Recipient Signature: Yes Med Rec Note Co-signed by Attending: Coverage Notice Comment: ZUNIGA explained, signed by daughter, copy given, original placed in MR Last DP export: 04/01/18 2:49 p Patient Name: DANIEL ADAME Page 31385 at 1042 All edits/amendments must be made on the electronic document DICTATION DATE: 04/02/18 1042 TAFE TEACHER: RUBÉN 04/02/18 1042 RPT#: [id number] DC DATE: STATUS: ADM IN [facility] [address] [place] [address] END OF REPORT
--- NOTE | ~2018-03-28 | MORECARE ---
CASE MANAGEMENT DISCHARGE SUMMARY PATIENT: DANIEL ADAME UNIT: [id number] ADM DATE: 03/30/18 AGE: 78 : 40 SEX: M ROOM/BED: D.2229 AUTHOR: SAMUEL,DOC PHYSICIAN: REFERRING PHYSICIAN: AGGIE PANIAGUA MD DATE OF SERVICE: 04/01/18 Discharge Plan Patient Name: DANIEL ADAME Facility: [facility]:[place] : 1940 Planned Disposition: Snf Facility Anticipated Discharge Date: Discharge Date: Expected LOS: Initial Reviewer: [email or web address] Initial Review Date: 03/29/2018 Generated: 04/01/18 4:39 pm Comments DCP- Discharge Planning Updated by [email or web address]: Otilia Sandra on 04/01/18 11:[address] Patient's daughter, Cora Palacios, called me regarding discharge plan. She states that [facility] has denied coming to their facility due to insurance reasons. States she has cleared a bedroom for him at her house to come there. States she or someone will be with him 22/12. States she is getting a follow up physician for him. She understands he will have tube feedings and states she has already set that up and is buying a wheelchair for him. States she has "plenty of help" to bring him home via private vehicle". States her is going to follow her with him in the car. States she can not get him until Thursday. States her daughter in law is a nurse and is also going to help care for him. I informed Karina Chan APN. CM will continue to follow and assist with discharge planning/needs. DCP- Discharge Planning Updated by [email or web address]: Otilia Flores on 03/31/18 1:[address] Patient Name: DANIEL ADAME Admission Status: ER Accout number: [id number] Admission Date: 03-30-2018 : 1940 Admission Diagnosis: Attending: AGGIE PANIAGUA Current LOS: 1 Anticipated DC Date: Planned Disposition: Snf Facility Primary Insurance: [employer] PPO [employer] Discharge Planning Comments: Spoke with daughter, Cora Palacios, concerning discharge plan. Cora is in [place], she has picked [facility] in [facility] for her father for skilled therapy. I spoke with Lin Jeronimo and informed her of patient's insurance and ready for discharge in am. She states he will need administrative authorization and preauth from insurance but they do have available beds. Clinical faxed per her request to [phone]. CM will continue to follow and assist with discharge planning/needs. [facility]: Lin Jeronimo [phone] Option 3. Spooler: Otilia Flores DCP- Discharge Planning Updated by [email or web address]: Otilia Flores on 03/29/18 4:[address] Patient Name: DANIEL ADAME Admission Status: ER Accout number: [id number] Admission Date: 03-28-2018 : 1940 Admission Diagnosis: Attending: AGGIE PANIAGUA Current LOS: 1 Anticipated DC Date: Planned Disposition: Snf Facility Primary Insurance: [employer] CHOICE PPO [facility] Discharge Planning Comments: Met with patient's daughter Cora in the room to discuss discharge planning. Patient sleeps through assessment. His daughter states she is going to take him back to [place]. She states he did not receive good care at [facility] and they are not letting him go back there. States she is going to [place] in the morning and will look for a skilled facility for him and she will transport him there herself. States if she is unable to find a skilled facility she will take him home to live with her. States her will be following her in his car as well. I informed her to call me with the name of the facility she would like him to go to and I can fax them clinical. CM will continue to follow and assist with discharge planning/needs. Spooler: Otilia Flores DCPIA - Discharge Planning Initial Assessment Updated by [id number]: Otilia Flores on 03/29/18 5:20 pm * Is the patient Alert and Oriented? No * PCP Dr. Pierre * Pharmacy [facility] [address] * Preadmission Environment Snf Facility * Facility Name [facility] * ADLs Total Dependent * Equipment Cane * List name and contact numbers for known caregivers / representatives who currently or will assist patient after discharge: Cora Palacios - DTR - C:[phone] - [phone] * Verbal permission to speak to the caregivers and representatives has been obtained from the patient. N/A * Community resources currently utilized None * Additional services required to return to the preadmission environment? Yes * Can the patient safely return to the preadmission environment? Yes * Has this patient been hospitalized within the prior 30 days at any hospital? Yes External Providers External Provider: [facility] Next Contact Date: Service Request Date: Service Type: Resolution: Reviewer: Comments: Coverage Notice Reviewer: [id number] Marty Flores Notice Issued Date-Time: 03/29/2018 17:14 Notice Type: Medicare Outpatient Observation Notice Notice Delivered To: Family Member Relationship to Patient: Daughter Unemployment Examiner Name: Cora Palacios Delivery Method: HAND - Hand Delivered Sho Days: Prior Verbal Notification: Recipient Understood Notice: Yes Recipient Signature: Yes Med Rec Note Co-signed by Attending: Coverage Notice Comment: NADIA explained, signed by daughter, copy given, original placed in MR Last DP export: 04/01/18 11:09 a Patient Name: DANIEL ADAME Page [id number] at 1539 All edits/amendments must be made on the electronic document DICTATION DATE: 04/01/18 1539 REEL HOOKER: RUBÉN 04/01/18 153 RPT#: [id number] DC DATE: STATUS: ADM IN [facility] [address] [place] [address] END OF REPORT
--- NOTE | ~2018-03-28 | MORECARE ---
CASE MANAGEMENT DISCHARGE SUMMARY PATIENT: DANIEL ADAME UNIT: [id number] ADM DATE: 03/30/18 AGE: 78 : 40 SEX: M ROOM/BED: D.2229 AUTHOR: SAMUEL,DOC PHYSICIAN: REFERRING PHYSICIAN: AGGIE PANIAGUA MD DATE OF SERVICE: 04/01/18 Discharge Plan Patient Name: DANIEL ADAME Facility: [facility]:[place] : 1940 Planned Disposition: Alf Facility Anticipated Discharge Date: Discharge Date: Expected LOS: Initial Reviewer: [email or web address] Initial Review Date: 03/29/2018 Generated: 04/01/18 4:48 pm Comments DCP- Discharge Planning Updated by [email or web address]: Otilia Flores on 04/01/18 2:[address] Faxed needed clinical and tube feeding order to [place]. CM will continue to follow and assist with discharge planning/needs. DCP- Discharge Planning Updated by [email or web address]: Otilia Flores on 04/01/18 11:[address] Patient's daughter, Cora Palacios, called me regarding discharge plan. She states that [facility] has denied coming to their facility due to insurance reasons. States she has cleared a bedroom for him at her house to come there. States she or someone will be with him 22/12. States she is getting a follow up physician for him. She understands he will have tube feedings and states she has already set that up and is buying a wheelchair for him. States she has "plenty of help" to bring him home via private vehicle". States her is going to follow her with him in the car. States she can not get him until Thursday. States her daughter in law is a nurse and is also going to help care for him. I informed Karina Chan APN. CM will continue to follow and assist with discharge planning/needs. DCP- Discharge Planning Updated by [email or web address]: Otilia Flores on 03/31/18 1:[address] Patient Name: DANIEL ADAME Admission Status: ER Accout number: [id number] Admission Date: 03-30-2018 : 1940 Admission Diagnosis: Attending: AGGIE PANIAGUA Current LOS: 1 Anticipated DC Date: Planned Disposition: Alf Facility Primary Insurance: [employer] CHO[employer] PPO [employer] Discharge Planning Comments: Spoke with daughter, Cora Palacios, concerning discharge plan. Cora is in [place], she has picked [facility] for her father for skilled therapy. I spoke with Lin Jeronimo and informed her of patient's insurance and ready for discharge in am. She states he will need administrative authorization and preauth from insurance but they do have available beds. Clinical faxed per her request to [phone]. CM will continue to follow and assist with discharge planning/needs. [facility]: Lin Jeronimo [phone] Option 3. Fleet Manager: Otilia Flores DCP- Discharge Planning Updated by [id number]: Otilia Flores on 03/29/18 4:[address] Patient Name: DANIEL ADAME Admission Status: ER Accout number: [id number] Admission Date: 03-28-2018 : 1940 Admission Diagnosis: Attending: AGGIE PANIAGUA Current LOS: 1 Anticipated DC Date: Planned Disposition: Alf Facility Primary Insurance: [employer] CHO[employer] PPO [employer] Discharge Planning Comments: Met with patient's daughter Cora in the room to discuss discharge planning. Patient sleeps through assessment. His daughter states she is going to take him back to [place]. She states he did not receive good care at [facility] and they are not letting him go back there. States she is going to [place] in the morning and will look for a skilled facility for him and she will transport him there herself. States if she is unable to find a skilled facility she will take him home to live with her. States her will be following her in his car as well. I informed her to call me with the name of the facility she would like him to go to and I can fax them clinical. CM will continue to follow and assist with discharge planning/needs. Fleet Manager: Otilia Flores DCPIA - Discharge Planning Initial Assessment Updated by [email or web address]: Otilia Flores on 03/29/18 5:20 pm * Is the patient Alert and Oriented? No * PCP Dr. Pierre * Pharmacy [facility] on [address] * Preadmission Environment Alf Facility * Facility Name [facility] * ADLs Total Dependent * Equipment Cane * List name and contact numbers for known caregivers / representatives who currently or will assist patient after discharge: Cora Palacios - DTR - C:[phone] - [phone] * Verbal permission to speak to the caregivers and representatives has been obtained from the patient. N/A * Community resources currently utilized None * Additional services required to return to the preadmission environment? Yes * Can the patient safely return to the preadmission environment? Yes * Has this patient been hospitalized within the prior 30 days at any hospital? Yes Coverage Notice Reviewer: [id number] Marty Flores Notice Issued Date-Time: 03/29/2018 17:14 Notice Type: Medicare Outpatient Observation Notice Notice Delivered To: Family Member Relationship to Patient: Daughter Industrial X Ray Operator Name: Cora Palacios Delivery Method: HAND - Hand Delivered Sho Days: Prior Verbal Notification: Recipient Understood Notice: Yes Recipient Signature: Yes Med Rec Note Co-signed by Attending: Coverage Notice Comment: ZUNIGA explained, signed by daughter, copy given, original placed in MR Last DP export: 04/01/18 2:39 p Patient Name: DANIEL ADAME Page [id number] at 1549 All edits/amendments must be made on the electronic document DICTATION DATE: 04/01/181547 MACHINE CLOTH MEASURER: RUBÉN 04/01/181547 RPT#: [id number] DC DATE: STATUS: ADM IN [facility] [address] [place] [address] END OF REPORT
[~2018-03-28 13:14] MED LIST changes: +CARAFATE1 G/10 ML PO; +CARDIZEM30 MG PO; +PROTONIX40 MG PO
[2018-03-28 13:52] LABS: BASOPHILS 0.2 % (0-2); EOSINOPHILS 1.1 % (0-7); HEMATOCRIT 38.3 % (42.0-54.0); HEMOGLOBIN 12.2 g/dL (13.5-17.5); IMMATURE GRANULOCYTES 0.2 % (0-5); LYMPHOCYTES 23.3 % (15-50); MCH 28.9 pg (26.0-34.0); MCHC 31.9 g/dL (31.0-37.0); MCV 90.8 fL (80.0-100.0); MEAN PLATELET VOLUME 10.7 fL (7.4-10.4); MONOCYTES 5.7 % (2-11); NEUTROPHILS 69.5 % (40-80); RBC 4.22 10x6/uL (4.20-6.10); RDW 14.7 % (11.5-14.5); WBC 6.1 10x3/uL (4.8-10.8)
[2018-03-28 13:53] LABS: PLATELET COUNT 217 10x3/uL (130-400)
[2018-03-28 13:55] LABS: APPEARANCE CLOUDY (CLEAR); BILIRUBIN NEGATIVE (NEGATIVE); COLOR RED (YELLOW); GLUCOSE NEGATIVE (NEGATIVE); KETONE NEGATIVE (NEGATIVE); NITRITE NEGATIVE (NEGATIVE); PROTEIN 2+ mg/dL (NEGATIVE); UROBILINOGEN NORMAL (NORMAL)
[2018-03-28 13:56] LABS: BACTERIA FEW /hpf (NONE SEEN); EPITHELIAL CELLS OCC /hpf (0-5); RED CELLS - URINE >50 /hpf (0-5); WHITE CELLS - URINE 0-5 /hpf (0-5)
[2018-03-28 14:07] LABS: ALBUMIN 2.5 g/dL (3.4-5.0); ANION GAP 14.2 mmol/L (8-16); BILIRUBIN - TOTAL 0.59 mg/dL (0.2-1.3); CALCIUM 9.3 mg/dL (8.5-10.1); CREATININE - SERUM 2.1 mg/dL (0.6-1.3); POTASSIUM - SERUM 4.2 mmol/L (3.5-5.1); PROTEIN - SERUM 7.2 g/dL (6.4-8.2)
[2018-03-28 14:20] VITALS: BP 138/81
[2018-03-28 15:00] VITALS: BP 146/89
[2018-03-28 15:00] LABS: MAGNESIUM - SERUM 2.3 mg/dL (1.8-2.4); THYROID STIMULATING HORMONE 0.59 uIU/mL (0.36-3.74)
[2018-03-28 15:05] LABS: TROPONIN-I 0.105 ng/mL (0.000-0.060)
[2018-03-28 15:30] VITALS: BP 143/81
[2018-03-28 16:00] VITALS: BP 159/82
[2018-03-28 19:28] VITALS: BP 177/85
[2018-03-29 00:16] VITALS: BP 177/85; BMI 27.5
[2018-03-29 06:14] LABS: ANION GAP 12.4 mmol/L (8-16); CALCIUM 8.5 mg/dL (8.5-10.1); CARBON DIOXIDE 28.2 mmol/L (21.0-32.0); CREATININE - SERUM 1.7 mg/dL (0.6-1.3); POTASSIUM - SERUM 3.6 mmol/L (3.5-5.1)
[2018-03-29 06:30] VITALS: BP 173/98
[2018-03-29] MEDS ORDERED: ALDACTONE25 MG PO (08:46)
[2018-03-29 09:17] VITALS: BP 171/100
[2018-03-29 10:53] LABS: ALBUMIN 2.2 g/dL (3.4-5.0); ANION GAP 14.9 mmol/L (8-16); BILIRUBIN - TOTAL 0.44 mg/dL (0.2-1.3); CALCIUM 8.7 mg/dL (8.5-10.1); CARBON DIOXIDE 25.8 mmol/L (21.0-32.0); CREATININE - SERUM 1.8 mg/dL (0.6-1.3); POTASSIUM - SERUM 3.7 mmol/L (3.5-5.1); PROTEIN - SERUM 6.7 g/dL (6.4-8.2)
[2018-03-29 12:32] VITALS: BP 160/117
[2018-03-29 12:37] VITALS: BMI 27.4
[2018-03-29 15:24] VITALS: Ht 167.6 cm; Wt 77.1 kg
[2018-03-29 16:31] VITALS: BP 152/79
[2018-03-29 20:00] VITALS: BP 150/81
[2018-03-30 05:59] LABS: BASOPHILS 0.2 % (0-2); EOSINOPHILS 2.9 % (0-7); HEMATOCRIT 35.9 % (42.0-54.0); HEMOGLOBIN 11.4 g/dL (13.5-17.5); IMMATURE GRANULOCYTES 0.2 % (0-5); LYMPHOCYTES 24.7 % (15-50); MCH 28.6 pg (26.0-34.0); MCHC 31.8 g/dL (31.0-37.0); MCV 90.2 fL (80.0-100.0); MEAN PLATELET VOLUME 10.3 fL (7.4-10.4); MONOCYTES 7.7 % (2-11); NEUTROPHILS 64.3 % (40-80); PLATELET COUNT 177 10x3/uL (130-400); RBC 3.98 10x6/uL (4.20-6.10); RDW 14.7 % (11.5-14.5); WBC 5.5 10x3/uL (4.8-10.8)
[2018-03-30 06:57] LABS: ALBUMIN 2.2 g/dL (3.4-5.0); BILIRUBIN - TOTAL 0.67 mg/dL (0.2-1.3); CALCIUM 8.7 mg/dL (8.5-10.1); CARBON DIOXIDE 25.3 mmol/L (21.0-32.0); CREATININE - SERUM 1.6 mg/dL (0.6-1.3); PROTEIN - SERUM 6.7 g/dL (6.4-8.2)
[2018-03-30 07:06] LABS: ANION GAP 14.2 mmol/L (8-16); POTASSIUM - SERUM 3.5 mmol/L (3.5-5.1)
[2018-03-30 08:45] VITALS: BP 156/107
[2018-03-30 17:50] VITALS: BP 148/99
[2018-03-30 20:00] VITALS: BP 151/93
[2018-03-31 05:39] LABS: BASOPHILS 0.2 % (0-2); EOSINOPHILS 0.9 % (0-7); HEMATOCRIT 37.9 % (42.0-54.0); IMMATURE GRANULOCYTES 0.4 % (0-5); LYMPHOCYTES 30.8 % (15-50); MCH 28.7 pg (26.0-34.0); MCHC 31.7 g/dL (31.0-37.0); MCV 90.7 fL (80.0-100.0); MEAN PLATELET VOLUME 10.5 fL (7.4-10.4); NEUTROPHILS 62.7 % (40-80); PLATELET COUNT 183 10x3/uL (130-400); RBC 4.18 10x6/uL (4.20-6.10); RDW 14.9 % (11.5-14.5); WBC 5.4 10x3/uL (4.8-10.8)
[2018-03-31 05:47] LABS: ALBUMIN 2.1 g/dL (3.4-5.0); ANION GAP 12.8 mmol/L (8-16); BILIRUBIN - TOTAL 0.98 mg/dL (0.2-1.3); CALCIUM 8.5 mg/dL (8.5-10.1); CARBON DIOXIDE 26.7 mmol/L (21.0-32.0); CREATININE - SERUM 1.5 mg/dL (0.6-1.3); POTASSIUM - SERUM 3.5 mmol/L (3.5-5.1); PROTEIN - SERUM 6.6 g/dL (6.4-8.2)
[2018-03-31 06:00] VITALS: BP 152/99
[2018-03-31 09:28] VITALS: BP 161/105
[2018-03-31 12:49] VITALS: BP 136/89
[2018-03-31 16:46] VITALS: BP 133/86
[2018-03-31 20:00] VITALS: BP 112/89
[2018-04-01 05:00] VITALS: BP 141/82
[2018-04-01 06:44] LABS: ANION GAP 11.3 mmol/L (8-16); BILIRUBIN - TOTAL 0.65 mg/dL (0.2-1.3); CALCIUM 8.1 mg/dL (8.5-10.1); CARBON DIOXIDE 27.9 mmol/L (21.0-32.0); CREATININE - SERUM 1.6 mg/dL (0.6-1.3); POTASSIUM - SERUM 3.2 mmol/L (3.5-5.1); PROTEIN - SERUM 6.3 g/dL (6.4-8.2)
[2018-04-01 07:11] LABS: BASOPHILS 0.2 % (0-2); EOSINOPHILS 2.1 % (0-7); HEMATOCRIT 35.3 % (42.0-54.0); HEMOGLOBIN 11.2 g/dL (13.5-17.5); IMMATURE GRANULOCYTES 0.3 % (0-5); LYMPHOCYTES 24.1 % (15-50); MCH 28.8 pg (26.0-34.0); MCHC 31.7 g/dL (31.0-37.0); MCV 90.7 fL (80.0-100.0); MEAN PLATELET VOLUME 10.8 fL (7.4-10.4); MONOCYTES 4.4 % (2-11); NEUTROPHILS 68.9 % (40-80); PLATELET COUNT 170 10x3/uL (130-400); RBC 3.89 10x6/uL (4.20-6.10); WBC 6.1 10x3/uL (4.8-10.8)
[2018-04-01 09:32] VITALS: BP 148/97
[2018-04-01 12:00] VITALS: BP 151/96
[2018-04-01 21:35] VITALS: BP 142/85
[2018-04-02 04:47] LABS: BASOPHILS 0 % (0-2); EOSINOPHILS 2.5 % (0-7); HEMATOCRIT 34.7 % (42.0-54.0); HEMOGLOBIN 10.9 g/dL (13.5-17.5); IMMATURE GRANULOCYTES 0.2 % (0-5); LYMPHOCYTES 21.9 % (15-50); MCH 28.5 pg (26.0-34.0); MCHC 31.4 g/dL (31.0-37.0); MCV 90.8 fL (80.0-100.0); MEAN PLATELET VOLUME 10.9 fL (7.4-10.4); MONOCYTES 5.8 % (2-11); NEUTROPHILS 69.6 % (40-80); PLATELET COUNT 153 10x3/uL (130-400); RBC 3.82 10x6/uL (4.20-6.10); RDW 15.2 % (11.5-14.5)
[2018-04-02 05:04] LABS: BILIRUBIN - TOTAL 0.52 mg/dL (0.2-1.3); CALCIUM 8.2 mg/dL (8.5-10.1); CARBON DIOXIDE 26.5 mmol/L (21.0-32.0); CREATININE - SERUM 1.4 mg/dL (0.6-1.3); POTASSIUM - SERUM 3.5 mmol/L (3.5-5.1); PROTEIN - SERUM 6.1 g/dL (6.4-8.2)
[2018-04-02 05:12] VITALS: BP 134/72
[2018-04-02 08:29] VITALS: BP 145/72
[2018-04-02 12:21] VITALS: BP 128/60
[2018-04-02 15:33] VITALS: BP 145/81
[2018-04-02 21:26] VITALS: BP 134/83
[2018-04-03 04:51] VITALS: BP 148/80
[2018-04-03 06:22] LABS: ALBUMIN 1.7 g/dL (3.4-5.0); ANION GAP 11.6 mmol/L (8-16); BILIRUBIN - TOTAL 0.44 mg/dL (0.2-1.3); CARBON DIOXIDE 25.1 mmol/L (21.0-32.0); CREATININE - SERUM 1.2 mg/dL (0.6-1.3); POTASSIUM - SERUM 3.7 mmol/L (3.5-5.1); PROTEIN - SERUM 5.7 g/dL (6.4-8.2)
[2018-04-03 06:42] LABS: HEMOGLOBIN 10.7 g/dL (13.5-17.5); MCH 28.7 pg (26.0-34.0); MCHC 31.5 g/dL (31.0-37.0); MCV 91.2 fL (80.0-100.0); RBC 3.73 10x6/uL (4.20-6.10); WBC 7.9 10x3/uL (4.8-10.8)
[2018-04-03 06:43] LABS: IMMATURE GRANULOCYTES 0.4 % (0-5); MEAN PLATELET VOLUME 10.9 fL (7.4-10.4); PLATELET COUNT 146 10x3/uL (130-400)
[2018-04-03 07:58] LABS: EOSINOPHILS 1 % (0-7); LYMPHOCYTES 18 % (15-50); MONOCYTES 11 % (2-11); NEUTROPHILS 70 % (40-80)
[2018-04-03 08:00] LABS: BASOPHILS 0 % (0-2)
[2018-04-03 09:35] VITALS: BP 146/83
== END 2018-04-03 13:08 | disposition home or self-care (01) | DRG 682 ==
LOC: D.ER 13:14 → OBSVTIME 17:41 → D.MS 17:41 → D.EDHOLD 17:41 → D.MS 17:50
PROVIDERS: Emergency Medicine; Family Medicine; Surgery
PROC: 0DH63UZ Insertion of Feeding Device into Stomach, Percutaneous Approach (ICD-10-PCS; principal; 2018-03-30 10:26)
DX: N17.9 Acute kidney failure, unspecified (principal); G93.41 Metabolic encephalopathy; E43 Unspecified severe protein-calorie malnutrition; R53.2 Functional quadriplegia; I50.43 Acute on chronic combined systolic (congestive) and diastolic (congestive) heart failure; R40.2214 Coma scale, best verbal response, none, 24 hours or more after hospital admission; E87.0 Hyperosmolality and hypernatremia; E86.0 Dehydration; F03.90 Unspecified dementia, unspecified severity, without behavioral disturbance, psychotic disturbance, mood disturbance, and anxiety; E11.65 Type 2 diabetes mellitus with hyperglycemia; I48.2 Chronic atrial fibrillation; I48.91 Unspecified atrial fibrillation; I11.0 Hypertensive heart disease with heart failure; R13.10 Dysphagia, unspecified; I71.4 Abdominal aortic aneurysm, without rupture; R40.2134 Coma scale, eyes open, to sound, 24 hours or more after hospital admission; R40.2364 Coma scale, best motor response, obeys commands, 24 hours or more after hospital admission; Z68.27 Body mass index [BMI] 27.0-27.9, adult